=== PATIENT | female | born 1975 | race Caucasian/White ===

== ENCOUNTER → 2017-02-23 | Outpatient (CLI) | payer MEDICAID ==
[~2017-02-23] MED LIST: ALBUTEROL2 PUFFS/17 IN; AZITHROMYCIN250 MG PO; BACTRIM DS 8001 TA1 PO; BUTALBITAL COMP PO; CIPRO 250MG TA250 MG PO; CIPRO 500MG TA500 MG PO; DARVOCET-N 1001 EACH PO; DARVON-N100 MG PO; DOXYCYCLINE100 M1 PO; ESCITALOPRAM10 M1 PO; FIORICET 325 MG1 TAB PO; FLAGYL 500MG.500 MG PO; FLEXERIL10 MG PO; HYDROCODONE-APA1 TA1 PO; HYDROCODONE1 TABLET PO; IBU-8800 MG PO; KEFLEX 500MG.500 MG PO; KEFLEX500 M1 PO; LEVOTHYROXIN0.025 M2 PO; LEVOTHYROXIN0.075 M1; LEVOTHYROXINE0.05 MG PO; LORTAB 5/500 501 TAB PO; MACROBID 100MG100 MG PO; MACROBID100 M3 PO; MAXALT5 MG PO; MEDROL 4MG. DOSE4 MG PO; MOTRIN 600MG.600 MG PO; MUCINEX600 M1 PO; NAPROSYN 500MG500 MG PO; NORCO 325 MG-51 TAB PO; PERCOCET 5/3251 EACH PO; PHENERGAN 25MG.25 M1 PO; POLYCARB625 MG PO; PREDNISONE 20MG20 MG PO; PREDNISONE50 MG PO; PRILOSEC20 MG PO; PROMETHAZINE D118 ML PO; PYRIDIUM 200MG200 MG PO; PYRIDIUM200 M2 PO; SPRINTEC 35 MCG1 TAB PO; SYNTHROID0.175 MG PO; TALWIN NX 50MG50 MG PO; TERAZOL 7 VAG C45 GM VG; TESSALON PERLE100 M1 PO; TESSALON PERLE100 MG PO; TYLENOL/COD #31 EACH PO; VIBRAMYCIN 100100 MG PO; VIBRAMYCIN HYC100 MG PO; VICODIN 5/500 T1 TAB PO; VOLTAREN75 MG PO; ZITHROMAX Z PA250 MG PO; ZITHROMAX Z-PA250 M1 PO
[2017-02-23 15:44] LABS: HEMOGLOBIN 13.2 g/dL (12.2-16.2); LYMPH # 2.4 K/mm3 (0.7-4.5)
[2017-02-23 15:59] LABS: URINE BILIRUBIN - DIPSTICK NEGATIVE (NEG); URINE BLOOD 2+ (NEG)
[2017-02-23 16:24] LABS: BUN 9 mg/dL (7-18)
[2017-02-23 16:26] LABS: GFR (ESTIMATED) 93 ML/MIN (59-)
== END ==
LOC: LAB 15:16
PROVIDERS: Obstetrics & Gynecology
DX: N92.0 Excessive and frequent menstruation with regular cycle (principal); N81.9 Female genital prolapse, unspecified; N85.2 Hypertrophy of uterus; Z01.818 Encounter for other preprocedural examination

== ENCOUNTER 2017-03-06 06:23 | Observation (INO) | payer MEDICAID ==
[2017-03-06] VITALS (14 sets, daily range): BP systolic 115–155; BP diastolic 58–91
--- NOTE | 2017-03-06 09:13 | Anesthesia Record ---
Anesthesia Record Part I Total IV fluids: 2200 EBL (ml): 200 Urine Output: 150 B/P: 123/83 % SaO2: 95 Pulse: 91 Resps: 12 Temp: 97.6 Patient is: Awake, Stable Stable to PACU at: 0910 at 0913
--- NOTE | 2017-03-06 09:14 | Anesthesia Record ---
Anesthesia Record Part II Discharge time: 939 Destination: Second Floor PACU nurse assessment review? Yes Patient is: Awake, Stable Anesthesia complications? No at 0989
--- NOTE | 2017-03-06 09:26 | Operative Note ---
Procedure/Operative Record Date of Procedure: 03/06/17 Referring physician: Dr. Peterson Pre-op diagnosis: 1. Dysfunctional uterine bleeding. 2. Pelvic pain. 3. Symptomatic pelvic relaxation. Post-op diagnosis: 1. Dysfunctional uterine bleeding. 2. Pelvic pain. 3. Symptomatic pelvic relaxation. Procedure performed: Total vaginal hysterectomy, enterocele repair, anterior and posterior colporrhaphies. Surgeon: Kleber Ozuna Senior Operations Manager(s): DONNA Harrison Anesthesia: Gen.OH Indications: 1. Dysfunctional uterine bleeding. 2. Pelvic pain. 3. Symptomatic pelvic relaxation. Description of procedure: After the patient was prepped and draped in usual fashion and general anesthesia was administered, a weighted speculum was placed within the posterior fourchette of the vagina, and the cervix was grasped with a double-tooth tenaculum, and retracted to the introitus. The cervix was circumcised with a knife, and the vaginal mucosa was sharply and bluntly dissected free. A posterior colpotomy incision was made with Loki scissors, and the long lip of the weighted speculum was placed within the posterior peritoneum. The uterosacral ligaments on either side were Horacio clamped, cut, and Horacio sutured with #1 Vicryl, as were the cardinal ligaments and uterine vessels. The peritoneum was entered anteriorly with Loki scissors, and a long right angle retractor was placed within it. The uterus was flipped anteriorly, and the ovarian pedicles were crossclamped and cut, thus removing the boggy uterine specimen. These pedicles were Horacio sutured, and then free tied with #1 Vicryl. Each ovary appeared normal, and the adnexa were left in situ. Each tube showed evidence of previous ligation. The posterior vaginal cuff was then run and locked with #1 Vicryl, to include the uterosacral ligament pedicles for vaginal support, in a Wade fashion, to reduce the enterocele. The anterior peritoneum was grasped with a long Allis clamp, and closed with a running pursestring suture of 0 Vicryl, and pulled tight. The base of the cystocele was then grasped with 2 Mauricio clamps, and the vaginal mucosa was undermined up the midline to the urethral meatus, Allis clamps being placed on either side along the way. The endopelvic fascia was sharply and bluntly dissected free, and then interrupted U-sutures of 2-0 Vicryl were placed to elevate the urethrovesical angle. The excess vaginal mucosa was then trimmed, and the mucosa was closed with a running locked suture of 2-0 Vicryl. The vaginal cuff was then closed with a running locked suture of #1 Vicryl. The posterior repair was carried out as had been the anterior repair, albeit in a malaika-shaped fashion. It was intact at the close of the procedure. The sponge and needle counts correct. The urine was clear in the Srinivasan catheter. The estimated blood loss was 300 mL. The patient tolerated the procedure well, and was taken to PACU in excellent condition. EBL (ml): 300 Complications: None. Specimens: Uterus. at [id number]
--- OUTSIDE RECORDS SUMMARY | 2017-03-06 09:49 | External Medical Summary Rpt ---
Author Author , Organization [employer] Address Unknown Phone Unavailable Care Team Providers Care Prosthetics Lab Technician Name Role Phone MOSQUERA, MOSQUERA Unavailable Unavailable MOSQUERA CORTEZ, MOSQUERA Unavailable Unavailable CORTEZ MOSQUERA, ARIS D, Unavailable Unavailable MOSQUERA, ARIS D ALFARIS MOH, ALFARIS Unavailable Unavailable MOH ADY WORKMANOLD Unavailable Unavailable MITCHELL AKUA MEDRANO, ARNOLD Unavailable Unavailable JAMES JOHNSON, Unavailable Unavailable JAMES FATIMA SAAB KEITH, [facility] Unavailable Unavailable Kavon Levi MD, Unavailable Unavailable Kavon Levi MD [facility], [facility] Unavailable Unavailable [facility], [facility] FUENTES BRO, FUENTES Unavailable Unavailable BRO FUENTES BRO, FUENTES Unavailable Unavailable BRO BEINEKE, BEINEKE Unavailable Unavailable BEINEKE SHELLEY, BEINEKE Unavailable Unavailable SHELLEY COFFMAN TER, COFFMAN TER Unavailable Unavailable BESSON, BESSON Unavailable Unavailable BESSON JOSE, BESSON Unavailable Unavailable JOSE BESSON, JAE A, Unavailable Unavailable BESSON, JAE A [facility] Unavailable Unavailable [facility], [facility] MOLINA ALL, MOLINA ALL Unavailable Unavailable [facility] Unavailable Unavailable [facility] Unavailable Unavailable [facility], [facility] ED JUAREZ, ED Unavailable Unavailable DATA STORAGE SPECIALIST VANITA TER, VANITA TER Unavailable Unavailable VANITA TER, VANITA TER Unavailable Unavailable WOODS BOOKER, WOODS Unavailable Unavailable BOOKER WOODS BOOKER, WOODS Unavailable Unavailable FELIX SPANN, Unavailable Unavailable FELIX WO[facility] Un[facility] Unavailable Unavailable [facility], [facility] Unavailable Unavailable [facility], [facility] CRAGER JAM, CRAGER Unavailable Unavailable JAM AMALIA PAT, AMALIA PAT Unavailable Unavailable AMALIA PAT, AMALIA PAT Unavailable Unavailable AMALIA JR, RORY R, Unavailable Unavailable AMALIA JR, RORY R KRITSIE TAM, Unavailable Unavailable KRISTIE TAM KRISTIE, KUSH, Unavailable Unavailable KRISTIE, KUSH RITA ANTIONE, RITA Unavailable Unavailable ANTIONE DEPA RAY, DEPA RAY Unavailable Unavailable ONEYDA ONDINA, Unavailable Unavailable ONEYDA ONDINA FALLUJI COLT, FALLUJI Unavailable Unavailable COLT FAUGHN JACOBSON, FAUGHN Unavailable Unavailable JACOBSON FEEBACK, FEEBACK Unavailable Unavailable FRYMAN, FRYMAN Unavailable Unavailable FRYMAN EUG, FRYMAN Unavailable Unavailable EUG KARINA, KARINA Unavailable Unavailable KARINA ANTIONE, KARINA Unavailable Unavailable ANTIONE KARINA, NEMO S, Unavailable Unavailable KARINA, NEMO S [facility], [facility] ANT, DAY Unavailable Unavailable ANT YECENIA, RONDAL E, Unavailable Unavailable YECENIA, RONDAL E ROVERTO ANTIONE, ROVERTO ANTIONE Unavailable Unavailable SALAZAR MILLIE, SALAZAR MILLIE Unavailable Unavailable HARPEL, HARPEL Unavailable Unavailable [facility] Unavailable Unavailable CENTER, [facility] Unavailable Unavailable CENTER, [facility] Unavailable Unavailable INC, [facility] Unavailable Unavailable HOSPITAL, [facility] Unavailable Unavailable HOSPITAL P, [facility], Unavailable Unavailable [facility] ANDRES, ANDRES Unavailable Unavailable ANDRES TRA, ANDRES TRA Unavailable Unavailable ANDRES, TRUDY A, ANDRES, Unavailable Unavailable TRUDY A [facility] Un[facility] Unavailable GROUP PS, [facility] Unavailable Unavailable [facility], [facility] Shawna Foley MD, Unavailable Unavailable Shawna Foley MD [facility] ROQUE NATTY, ROQUE Unavailable Unavailable NATTY ROQUE NATTY, ROQUE Unavailable Unavailable NATTY CYDNEY ROQUE, Unavailable Unavailable CYDNEY ROQUE DWI, DOROTHY DWI Unavailable Unavailable DOROTHY JR DWI, DOROTHY Unavailable Unavailable JR DWI DOROTHY JR DWI, DOROTHY Unavailable Unavailable JR DWI BO MITCHELL, BO Unavailable Unavailable MITCHELL Dorene Peterson MD, Unavailable Unavailable Dorene FRANKLIN RAEGAN, NOEMI Unavailable Unavailable RAEGAN NELY MCKEE, Unavailable Unavailable NELY MCKEE [facility] Unavailable Unavailable SERVICES, [facility] CONTE MAR, CONTE Unavailable Unavailable MAR NORMA LEDESMA, RORY Unavailable Unavailable F, NORMA LEDESMA, RORY F JOSEFINA TALBOT, Unavailable Unavailable JOSEFINA TALBOT BREANNA, KETURAH BREANNA Unavailable Unavailable [facility], Un[facility] Unavailable [facility], [facility] Unavailable Unavailable LAB, [facility] PETTEY JAM, PETTEY Unavailable Unavailable JAM PICKLESIMER JR VANDANA, Unavailable Unavailable PICKLESIMER JR VANDANA EMILY, EMILY Unavailable Unavailable EMILY TOD, EMILY TOD Unavailable Unavailable RENUSCH HONG, RENUSCH Unavailable Unavailable HONG JUHI JOSE, JUHI JOSE Unavailable Unavailable JUHI JOSE, JUHI JOSE Unavailable Unavailable SCIFRES, NAMRATA M, Unavailable Unavailable SCIFRES, NAMRATA M LILIA MAT, Unavailable Unavailable LILIA MAT MORRISSEY, MORRISSEY Unavailable Unavailable MORRISSEY RHODA, MORRISSEY RHODA Unavailable Unavailable SOTINGEANU SHELLEY, Unavailable Unavailable SOTINGEANU SHELLEY [facility] REYES ANA, REYES Unavailable Unavailable ANA JAE JUHI DO, Unavailable Unavailable JAE JUHI DO RIOJAS, DON R, Unavailable Unavailable RIOJAS, DON R STONE MARY, STONE MARY Unavailable Unavailable SEVILLA GRE, SEVILLA Unavailable Unavailable GRE TIKHTMAN, TIKHTMAN Unavailable Unavailable AGUDELO MOL, AGUDELO MOL Unavailable Unavailable [facility] Unavailable Unavailable [facility] [facility] Unavailable Unavailable [facility][id number], [id number] # Unavailable Unavailable [id number], [facility] # [id number] [facility] Unavailable Unavailable DEPT [facility] DE[facility] DANIELLE WEHRMAN III BREANNA, Unavailable Unavailable WEHRMAN III BREANNA SEQUEIRAHRKARYN III, RORY, Unavailable Unavailable BETH III, RORY GATES, JOLYNN GATES Unavailable Unavailable JOYLNN GATES, JOLYNN GATES Unavailable Unavailable JOLYNN SHA, JOLYNN SHA Unavailable Unavailable MAKENZIE JOHN E, Unavailable Unavailable JOHN BANEGAS CORTEZ, JEFFREY Unavailable Unavailable CORTEZ Purpose Continuity of Care Document - 06-08-2008 through 2016 Problems Code Diagnosis DOS Provider Status N920 EXCESS & 02-01-2017 [facility] FREQUENT PHYSICIANS MENSTRUATIO GROUP N W/REGULAR CYCLE N819 FEMALE 01-18-2017 [facility] PROLAPSE INC UNSPECIFIED R102 PELVIC AND 01-18-2017 [place] PERINEAL [facility]ICAL PAIN IMAGING ASS R938 ABNORMAL 01-18-2017 [place] FIND ON DX MEDICAL IMAGING OT IMAGING ASS SPEC BODY STRCT V48969 ENCOUNTER 01-12-2017 [facility] 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 WITHOUT HEMATURIA N8110 CYSTOCELE 11-14-2016 [facility] P L09367 PERSONAL 11-01-2016 [facility] HISTORY OF PHYSICIANS COLONIC GROUP POLYPS K635 POLYP OF 10-19-2016 [facility] COLON PHYSICIANS GROUP Z09 ENC F/U 10-19-2016 [facility] EXAM AFTR PHYSICIANS CMPL TX OTH GROUP THAN MALIG NEOPLSM K5909 OTHER 10-04-2016 [facility] CONSTIPATIO PHYSICIANS N GROUP R197 DIARRHEA 10-04-2016 [facility] UNSPECIFIED PHYSICIANS GROUP N359 URETHRAL 09-12-2016 [facility] P N390 URINARY 09-12-2016 [facility] TRACT ANESTH OF INFECTION THE BLUE SITE NOT SPECIFIED R319 HEMATURIA 08-07-2016 [facility] UNSPECIFIED PHYSICIANS GROUP I10 ESSENTIAL 08-04-2016 [facility] HYPERTENSIO INC N L2389 ALLERGIC 08-04-2016 [facility] DERMATITIS INC DUE TO OTHER AGENTS N151N8G ADVERSE EFF 08-04-2016 [facility] OT SYS [facility] ANTI-INFECT INC /PARASIT INIT ENC L7911CN ALLERGY 08-04-2016 [facility] UNSPECIFIED PHYSICIANS, INITIAL [facility] ENCOUNTER Z720 TOBACCO USE 08-04-2016 [facility] INC N210 CALCULUS IN 07-07-2016 [facility] BLADDER PHYSICIANS GROUP N3000 ACUTE 07-07-2016 [facility] CYSTITIS [facility] WITHOUT INC HEMATURIA N3090 CYSTITIS 07-07-2016 [facility] UNSPECIFIED PHYSICIANS, WITHOUT PLLC HEMATURIA Z1231 ENCOUNTER 07-04-2016 [place] SCREENING MEDICAL MAMMO MALIG IMAGING ASS NEOPLASM BREAST R1030 LOWER 07-02-2016 [facility] ABDOMINAL PHYSICIANS, PAIN PLLC UNSPECIFIED Z40687 ATYP SQ 06-23-2016 [facility] SIGNIFICANC E CYTOL SMER CERV Z74208 ENCOUNTER 06-23-2016 [facility] MATERIALS MANAGEMENT SUPERVISOR EXAM PHYSICIANS GENERAL RTN GROUP W/O ABNORMAL FIND N949 UNS COND 06-09-2016 [facility] ASSOC W/FE [facility] GENIT ORGN INC & MENSTRUAL CYCL E039 HYPOTHYROID 06-05-2016 [facility] ISM [facility] UNSPECIFIED INC K5900 CONSTIPATIO 05-01-2016 [facility] N PHYSICIANS UNSPECIFIED GROUP R109 UNSPECIFIED 05-01-2016 [facility] ABDOMINAL PHYSICIANS PAIN GROUP G5601 CARPAL 02-16-2016 [place] TUNNEL ANESTHESIA SYNDROME GROUP PS RIGHT UPPER LIMB P75664 ENCOUNTER 02-08-2016 [facility] FOR [facility] PREPROCEDUR INC AL LABORATORY EXAM L240 IRRITANT 02-06-2016 [facility] CONTACT PHYSICIANS DERMATITIS GROUP DUE TO DETERGENTS P39891 ACUTE & 01-28-2016 [facility] SUBACUTE PHYSICIANS ALLERGIC GROUP OTITS MEDIA BILATERAL G5602 CARPAL 01-27-2016 [facility] TUNNEL ORTHOPAEDIC SYNDROME S PSC LEFT UPPER LIMB J40 BRONCHITIS 12-29-2015 [facility] NOT PHYSICIANS SPECIFIED GROUP ACUTE OR CHRONIC R200 ANESTHESIA 11-02-2015 [facility] OF SKIN PHYSICIANS GROUP D126 BENIGN 10-11-2015 [facility] NEOPLASM OF PHYSICIANS COLON GROUP UNSPECIFIED K625 HEMORRHAGE 10-11-2015 [facility] OF ANUS AND PHYSICIANS RECTUM GROUP K9189 OTH 10-07-2015 [facility] POSTPROC PHYSICIANS, COMP & PLLC DISORDERS DIGESTIVE SYSTEM R1032 LEFT LOWER 10-07-2015 [place] QUADRANT MEDICAL PAIN IMAGING ASS M549 DORSALGIA 09-10-2015 [facility] UNSPECIFIED [facility]OSP INC K828 OTHER 09-08-2015 [facility] SPECIFIED [facility] DISEASES OF INC GALLBLADDER E46883Y STRAIN 09-08-2015 [facility] MUSCLE PHYSICIANS, FASCIA & PLLC TENDON LOW BACK INITIAL 2468 OTHER 07-20-2015 [facility] SPECIFIED LAR DISORDERS CONSULTANTS OF THYROID O 2724 OTHER AND 07-20-2015 [facility] UNSPECIFIED [facility] INC HYPERLIPIDE KAITLYN 40933 UNSPEC HTN 07-20-2015 [facility] HEART LAR DISEASE CONSULTANTS WITHOUT O HEART FAIL 61366 COR 07-20-2015 [facility]THEROSLERO [facility] UNSPEC INC TYPE VESSEL [place] YAQUI/APURVA T 4019 UNSPECIFIED 07-13-2015 [facility] ESSENTIAL [facility] HYPERTENSIO INC N 4139 OTHER AND 07-13-2015 [facility] UNSPECIFIED [facility] ANGINA INC PECTORIS 33364 NONSPECIFIC 07-08-2015 [place] [facility] auctionpoint IOGRAM 193 MALIGNANT 07-01-2015 [facility] NEOPLASM OF [facility] THYROID [facility] P GLAND 2449 UNSPECIFIED 07-01-2015 [facility] HYPOTHYROID [facility] P ISM 3540 CARPAL 07-01-2015 [facility] [address] [facility] SYNDROME [facility] 35646 CHEST PAIN 07-01-2015 [facility] 5990 URINARY 06-21-2015 [facility] TRACT PHYSICIANS, INFECTION PLLC SITE NOT SPECIFIED 02019 ABDOMINAL 06-21-2015 [place] PAIN OTHER MEDICAL SPECIFIED IMAGING ASS SITE 52683 MIGRAINE 06-12-2015 [facility] UNSP W/O PHYSICIANS, INTRACT W/O PLLC STATUS MIGRAINOSUS 67751 VISUAL 06-12-2015 [facility] DISCOMFORT PHYSICIANS, PLLC 2397 NEOPLSM UNS 04-05-2015 [facility] NATR PHYSICIANS ENDOCRN GROUP GLND&OTH PART NERV SYS V2540 UNSPECIFIED 02-09-2015 [facility] CONTRACEPTI HLTH DEPT VE DANIELLE SURVEILLANC E V2689 OTHER 02-09-2015 [facility] SPECIFIED DISTRICT PROCREATIVE HLTH DEPT MANAGEMENT DANIELLE V7231 ROUTINE 02-09-2015 [facility] AL EXAMINATION 4659 ACUTE URIS 01-26-2015 [facility] UNSPECIFIED HOSPITAL P SITE 31884 FEVER 01-26-2015 [place] UNSPECIFIED MEDICAL IMAGING ASS 7862 COUGH 01-26-2015 [facility] 7962 ELEVATED BP 01-26-2015 [facility] WITHOUT DX HOSPITAL P HYPERTENSIO N 6259 UNSPEC 01-14-2015 [facility] SYMPTOM PHYSICIANS ASSOC GROUP W/FEMALE GENITAL ORGANS 28362 ABDOMINAL 01-14-2015 [facility] PAIN, LEFT PHYSICIANS LOWER GROUP QUADRANT 61115 UNSPECIFIED 01-06-2015 [facility] PHYSICIANS CONSTIPATIO GROUP N 78873 THYROTOX 11-26-2014 [facility] W/O [facility] GOITER/OTH INC CAUSE W/O CRISIS 82718 GENERALIZED 10-23-2014 [facility] PAIN [facility] INC 7840 HEADACHE 10-23-2014 [facility] INC V0179 CONTACT OR 10-23-2014 [facility] EXPOSURE TO [facility] OTHER INC VIRAL DISEASES V642 SURG/OTH 10-23-2014 [facility] PROC NOT MEM H[facility] CARRIED OUT INC BECAUSE PTS DECN 60979 HEMATURIA 10-04-2014 [place] UNSPECIFIED MEDICAL IMAGING ASS 7880 RENAL COLIC 10-04-2014 [facility] P 86869 UNSPECIFIED 09-25-2014 [facility] SITE OF MEM HOS[facility] ANKLE INC SPRAIN AND STRAIN 15298 OTHER ANKLE 09-25-2014 [facility] SPRAIN AND PHYSICIANS STRAIN GROUP 14138 OTHER JOINT 08-28-2014 [facility] PHYSICIANS DERANGEMENT GROUP NEC ANKLE AND FOOT 226 BENIGN 08-11-2014 [facility] NEOPLASM OF THYROID GLANDS 2419 UNSPECIFIED 08-11-2014 [place] NONTOXIC [facility] NODULAR HOSPI GOITER V5869 LONG-TERM 08-05-2014 [facility] (CURRENT) [facility] USE OF HOSPITAL P OTHER MEDICATIONS V7263 PRE-PROCEDU 08-05-2014 [facility] P EXAMINATION 76848 PAIN IN 07-15-2014 [place] JOINT, MEDICAL ANKLE AND IMAGING ASS FOOT 7295 PAIN IN 07-15-2014 [facility] SOFT N EMERGENCY TISSUES OF PHYS LIMB 2411 NONTOXIC 06-10-2014 [facility] MULTINODULA H R GOITER ANESTHESIA PSC 37737 DYSPHAGIA 06-10-2014 [facility] UNSPECIFIED H ANESTHESIA PSC 2410 NONTOXIC 05-29-2014 [facility] UNINODULAR [facility] GOITER INC 6262 EXCESSIVE 04-14-2014 CH[facility] BOOKER OR FREQUENT MENSTRUATIO N 6264 IRREGULAR 04-14-2014 [facility] BOOKER MENSTRUAL CYCLE 6253 DYSMENORRHE 03-19-2014 [facility] BOOKER A 6227 MUCOUS 03-18-2014 [facility] CIHNO POLYP OF CERVIX 15790 PAP SMER 02-17-2014 VANITA ALVA CERV W/ATYPICAL SQUAMOUS CELLS UNDET V252 STERILIZATI 02-17-2014 [facility] DEPT DANIELLE 278.01 278.01 12-03-2013 [place] MORBID [facility] OBESITY Hospital 16911 MORBID 12-03-2013 DOROTHY LEDESMA OBESITY DWI 305.1 305.1 12-03-2013 [place] TOBACCO USE [facility] DISORDER Hospital 401.9 401.9 12-03-2013 [place] HYPERTENSIO [facility] N NOS Hospital 413.9 413.9 12-03-2013 [place] ANGINA [facility] PECTORIS Hospital NEC/NOS 786.50 786.50 12-03-2013 [place] CHEST PAIN [facility] 94276 OTHER CHEST 12-03-2013 JUHI JOSE PAIN V14.0 V14.0 12-03-2013 [place] HX-PENICILL [facility] IN ALLERGY Hospital V14.8 V14.8 12-03-2013 [place] HX-DRUG [facility] ALLERGY [facility] Hospital V140 PERSONAL 12-03-2013 DOROTHY LEDESMA HISTORY OF DWI ALLERGY TO PENICILLIN V148 PERSONAL 12-03-2013 DOROTHY LEDESMA HISTORY [facility] ALLERGY OTH SPEC MEDICINAL AGTS 461.9 461.9 ACUTE 11-16-2013 [place] SINUSITIS [facility] 4619 ACUTE 11-16-2013 JOLYNN GATES SINUSITIS, UNSPECIFIED 599.0 599.0 URIN 11-16-2013 [place] TRACT [facility] INFECTION [facility] NOS 7242 LUMBAGO 11-01-2013 F[facility] ARIANA 558.9 558.9 04-02-2013 [place] NONINF [facility] IT NEC 924.20 924.20 01-17-2013 [place] CONTUSION [facility] E849.3 E849.3 ACC 01-17-2013 [place] [facility] E917.3 E917.3 01-17-2013 [place] FURNIT W/O [facility] 2409 GOITER, 07-10-2011 [facility] NATTY UNSPECIFIED 2459 UNSPECIFIED 07-03-2011 [facility] NAT[facility] THYROIDITIS 5409 ACUTE 06-27-2011 [facility] APPEND[facility]ITI [facility]GENCY S WITHOUT SERVICES MENTION PERITONITIS 541 APPENDICITI 06-27-2011 COMMUNITY S, ANESTH OF UNQUALIFIED THE BLUE 35097 ABDOMINAL 06-27-2011 [place] PAIN, MEDICAL UNSPECIFIED IMAGING ASS SITE 6869 UNSPEC 06-21-2011 ARNOLD MITCHELL LOCAL INFECTION SKIN&SUBCUT ANEOUS TISSUE 7881 DYSURIA 05-21-2011 [place] [facility] 56621 ABDOMINAL 05-21-2011 [facility] PAIN RIGHT [facility] LOWER INC QUADRANT 5641 IRRITABLE 05-04-2011 ARNOLD MITCHELL BOWEL SYNDROME 6929 CONTACT 05-04-2011 ARNREGINO MITCHELL DERMATITIS& OTHER ECZEMA DUE UNSPEC CAUSE 4871 INFLUENZA 04-17-2011 ARNOLD MITCHELL WITH OTHER RESPIRATORY MANIFESTATI ONS 44402 PAINFUL 04-07-2011 [place] RESPIRATION [facility]ICAL IMAGING ASS 2722 MIXED 03-21-2011 [facility] HYPERLIPIDE [facility] KAITLYN INC 5110 PLEURISY 03-07-2011 [facility] WITHOUT EMERGENCY MENTION SERVICES EFFUS/CURRE NT TB 4660 ACUTE 01-24-2011 [facility] BRONCHITIS EMERGENCY SERVICES 27076 MIGRAINE 12-28-2010 [facility] INTRACT W/O CENTER JOHN STATUS MIGRAINOSUS 64497 PAIN IN 12-14-2010 [facility] JOINT, EMERGENCY FOREARM SERVICES 57196 VARIANTS 12-07-2010 ARNOLD MITCHELL MIGRAINE NEC INTRACT MIGRAINE W/O SM 463 ACUTE 11-28-2010 [facility] NATTY TONSILLITIS 22228 ASTHMA, 11-18-2010 [facility] UNSPECIFIED EMERGENCY , SERVICES UNSPECIFIED STATUS 462 ACUTE 10-31-2010 [facility] NAT[facility] PHARYNGITIS 4760 CHRONIC 10-31-2010 [facility] NAT[facility] LARYNGITIS 44225 CHRONIC 10-03-2010 [place] NAT[place] TONSILLITIS 60789 SPRAIN AND 09-18-2010 [facility] STRAIN OF EMERGENCY UNSPECIFIED SERVICES SITE OF WRIST 60099 SPRAIN AND 09-18-2010 [facility] STRAIN OF EMERGENCY UNSPECIFIED SERVICES SITE OF HAND 9593 INJURY 09-18-2010 [place] OTHER&UNSPE MEDICAL CIFIED IMAGING ASS ELBOW FOREARM&WRI ST 9594 INJURY 09-18-2010 [place] OTHER AND MEDICAL UNSPECIFIED IMAGING ASS HAND EXCEPT FINGER E8859 FALL FROM 09-18-2010 [facility] OTHER EMERGENCY SLIPPING SERVICES TRIPPING OR STUMBLING 2662 OTHER 09-06-2010 [facility] [place] [facility] S V700 ROUTINE 09-06-2010 [facility] EXAM@HEALTH CARE FACL V7643 SCREENING 09-06-2010 [facility] MALIGNANT CENTER NEOPLASM OF THE SKIN 6202 OTHER AND 07-11-2010 [facility] UNSPECIFIED EMERGENCY OVARIAN SERVICES CYST 39418 SPRAIN AND 06-20-2010 [facility] STRAIN OF EMERGENCY UNSPECIFIED SERVICES SITE OF FOOT 8472 LUMBAR 06-20-2010 [place] SPRAIN AND EMERGENCY STRAIN SERVICES 68986 OTHER 06-20-2010 [facility] INJURY OF MEDICAL OTHER SITES IMAGING ASS OF TRUNK 9596 INJURY 06-20-2010 [place] OTHER AND MEDICAL UNSPECIFIED IMAGING ASS HIP AND THIGH 9597 INJURY 06-20-2010 [place] OTHER&UNSPE MEDICAL CIFIED KNEE IMAGING ASS LEG ANKLE&FOOT 4721 CHRONIC 04-21-2010 [place] ROQUERYJANUSZ Bose 8470 NECK SPRAIN 04-05-2010 [facility] AND STRAIN [facility] INC 8471 THORACIC 04-05-2010 [facility] SPRAIN AND MEM [facility] STRAIN INC V571 OTHER 04-05-2010 [facility] PHYSICAL [facility] THERAPY INC 0794 HUMAN 03-10-2010 PATHOLOGY & [place] CYTOLOGY VIRUS IN LAB CCE & UNS SITE 6160 CERVICITIS 03-10-2010 PATHOLOGY & AND CYTOLOGY ENDOCERVICI LAB TIS 10648 MILD 03-10-2010 PATHOLOGY & DYSPLASIA CYTOLOGY OF CERVIX LAB 02661 CERV HIGH 03-10-2010 [facility] DNA CYNTHIANA TEST POS PLLC 5921 CALCULUS OF 01-13-2010 [facility] URETER H UROLOGY PSC 7231 CERVICALGIA 12-02-2009 [facility] FLOWERS 7919 OTHER 09-25-2009 [facility] NONSPECIFIC [facility] FINDING INC EXAMINATION OF URINE 5589 OTH&UNSPEC 09-01-2009 BEUL[facility] NONINFECTIO DON R US GASTROENTER ITIS&COLITI S V771 SCREENING 08-30-2009 [facility] FOR HEALTH DIABETES [facility] ACCT V7791 SCREENING 08-30-2009 [facility] FOR LIPOID HEALTH DISORDERS [facility] ACCT 11288 MIXED 08-26-2009 [facility] INCONTINENC H UROLOGY E URGE AND PSC STRESS 6256 FEMALE 08-16-2009 [facility] STRESS H UROLOGY INCONTINENC ASC E 55385 POLYURIA 07-29-2009 [facility] H UROLOGY PSC 99385 URGENCY OF 07-29-2009 [facility] URINATION H UROLOGY PSC 35968 OTHER 07-14-2009 NOEL RIOJAS DON R DISORDERS OF URINARY TRACT 7224 DEGENERATIO 06-23-2009 Gigi RIOJAS OF DON R CERVICAL INTERVERTEB RAL DISC 7245 UNSPECIFIED 06-23-2009 BEULAH BACKACHE DON R 3829 UNSPECIFIED 03-08-2009 [facility] OTITIS [facility] MEDIA INC 41733 OSTEOARTHRO 12-02-2008 Charanjit RIOJAS INVLV MX DON R SITES BUT NOT SPEC GEN 3671 MYOPIA 10-02-2008 [facility] VISION 45552 OTHER 08-03-2008 NOEL RIOJAS DON R TYPES OF CYSTITIS 5368 DYSPEPSIA&O 07-23-2008 [place] THER SPEC [employer] FUNCTION STOMACH V180 FAMILY 07-01-2008 [facility] HISTORY OF [facility] DIABETES INC MELLITUS 7804 DIZZINESS 06-30-2008 BEULAH LANDON LANINESS 77725 OTHER 06-08-2008 [facility] TENOSYNOVIT [facility] IS OF HAND INC AND WRIST N30.90 CYSTITIS, UNSPECIFIED WITHOUT HEMATURIA R07.9 CHEST PAIN, UNSPECIFIED R10.2 PELVIC AND PERINEAL PAIN R10.9 UNSPECIFIED ABDOMINAL PAIN R31.9 HEMATURIA, UNSPECIFIED T78.40XA ALLERGY, UNSPECIFIED , INITIAL ENCOUNTER Allergies, Adverse Reactions, Alerts Type Allergy to substance Drug Allergy Propensity to adverse reactions to drug Adverse Reaction to Substance Substance Reaction Severity Latex Unknown Unknown Penicillin Unknown Unknown SULFA (sulfonamide) Unknown Unknown Erythromycin Unknown Unknown Morphine Unknown Unknown Penicillin V Unknown Unknown Trimethoprim Unknown Unknown Ciprofloxacin Unknown Unknown Sulfamethoxazole Unknown Unknown Latex Unknown Unknown Nitrofurantoin NA-DIARRHEA Mild Medications Na ND Rx Da Fi Fi Am Da Di Ph RX Ph St me C No te ll ll ou ys ag ar # ys at rm s nt no ma ic us Or Da si cy ia de te s n re d CE 68 02 03 20 10 00 OR Ac PH 18 -2 -2 .0 00 L- ti AL 00 0- 4- 00 07 MA ve EX 12 20 20 47 RT IN 20 17 17 17 2 97 PH 50 AR 0 MA MG CY CA #5 PS 91 UL E FL 60 02 03 16 30 00 OR Ac UT 50 -2 -2 .0 00 L- ti IC 50 0- 4- 00 07 MA ve 82 20 20 47 RT ON 90 17 17 17 E 1 98 PH NC AR OP MA CY 50 #5 MC 91 G SP RA Y LE 00 02 03 30 30 00 OR Ac VO 78 -2 -2 .0 00 L- ti TH 15 2- 4- 00 07 MA ve YR 18 20 20 47 RT OX 89 17 17 25 IN 2 04 PH E AR 17 MA 5 CY MC G #5 TA 91 BL ET DO 23 02 03 60 30 00 OR Ac XY 15 -0 -1 .0 00 L- ti CY 50 2- 0- 00 07 MA ve CL 13 20 20 46 RT IN 52 17 17 84 E 5 58 PH MO AR NO MA CY 10 0 #5 MG 91 TA BL ET AZ 59 02 03 6. 5 00 OR Ac IT 76 -0 -1 00 00 L- ti HR 23 6- 0- 0 07 MA ve OM 06 20 20 46 RT YC 00 17 17 91 IN 1 35 PH AR 25 MA 0 CY MG #5 TA 91 BL ET LE 00 01 02 30 30 00 WA Ac VO 78 -1 -1 .0 00 L- ti TH 15 1- 0- 00 07 MA ve YR 18 20 20 46 RT OX 89 17 17 40 IN 2 97 PH E AR 17 MA 5 CY MC G #5 TA 91 BL ET NA 65 01 02 14 7 00 WA Ac NC 16 -1 -1 .0 00 L- ti OX 20 1- 0- 00 07 MA ve EN 19 20 20 45 RT 01 17 17 12 50 1 84 PH 0 AR MG MA CY TA BL #5 ET 91 GA 43 12 01 40 2 00 WA Ac 38 -2 -2 00 00 L- ti LY 60 6- 7- .0 07 MA ve TE 09 20 20 00 46 RT -G 01 16 17 06 9 44 PH SO AR JANICE MA TI CY ON #5 91 DO 23 12 01 20 10 00 OR Ac XY 15 -2 -2 .0 00 L- ti CY 50 1- 0- 00 07 MA ve CL 13 20 20 45 RT IN 52 16 17 99 E 5 66 PH MO AR NO MA CY 10 0 #5 MG 91 TA BL ET KE 00 02 0 No TO 40 -1 RO 93 2- Lo LA 79 20 ng C 50 14 er 30 1 Ac MG ti /M ve L AL IP 00 02 0 No RA 48 -1 T- 70 2- Lo AL 20 20 ng BU 10 14 er T 1 0. Ac 5- ti 3( ve 2. 5) MG /3 ML Sa 63 02 0 No li 80 -1 ne 70 2- Lo 10 20 ng Fl 07 14 er us 5 h Ac 10 ti ML ve Sy ri ng e Sa 63 02 0 No li 80 -1 ne 70 2- Lo 10 20 ng Fl 07 14 er us 5 h Ac 10 ti ML ve Sy ri ng e KE 00 01 0 No TO 40 -1 RO 93 1- Lo LA 79 20 ng C 60 14 er 60 1 Ac MG ti /2 ve ML AL GA [address] 27 -1 RO 00 2- Lo GR 44 20 ng AF 53 13 er IN 5 Ac 66 ti -1 ve 0 SO JANICE TI ON AC 51 06 0 No ET 07 -1 AM 90 2- Lo IN 16 20 ng OP 19 13 er HE 9H N Ac W/ ti CO ve DE IN E #3 TA K Me 63 06 0 No tr 73 -1 on 90 2- Lo id 17 20 ng az 61 13 er ol 0 e Ac 50 ti 0M ve G Ta bl et CE 62 06 0 No PH 75 -1 AL 60 2- Lo EX 29 20 ng IN 48 13 er 8 50 Ac 0 ti MG ve CA PS UL E AC 51 06 0 No ET 07 -1 AM 90 2- Lo IN 16 20 ng OP 19 13 er HE 9H N Ac W/ ti CO ve DE IN E #3 TA K Me 63 06 0 No tr 73 -1 on 90 2- Lo id 17 20 ng az 61 13 er ol 0 e Ac 50 ti 0M ve G Ta bl et TR 00 05 0 No AM 09 -0 AD 30 2- Lo OL 05 20 ng 80 13 er 50 1H MG Ac ti TA ve BL ET TA KE HO ME NC 00 05 0 No ED 05 -0 NI 40 2- Lo SO 01 20 ng NE 82 13 er 0 20 Ac ti MG ve TA BL ET BU 00 02 10 2 60 10 WA 71 AR Ac TA 14 -1 -3 .0 L- 07 NO ti LB 31 6- 1- 00 MA 16 LD ve -A 78 20 20 RT 5 CE 70 11 11 RI TA 1 PH CH IN AR AR N- MA D CA CY W FF # 50 10 -3 05 25 91 -4 0 BU 00 10 10 1 90 30 WA 71 AR Ac SP 09 -1 -1 .0 L- 38 NO ti IR 30 4- 4- 00 MA 92 LD ve ON 05 20 20 RT 8 E 40 11 11 RI HC 1 PH CH L AR AR 10 MA D CY W MG # TA 10 BL 05 ET 91 DI 00 10 10 1 60 20 OR 71 AR Ac CL 78 -1 -1 .0 L- 38 NO ti OF 11 4- 4- 00 MA 92 LD ve EN 78 20 20 RT 9 AC 76 11 11 RI 0 PH CH SO AR AR D MA D DR CY W # 50 10 MG 05 91 TA B 00 10 10 0 12 2 WA 44 SO Ac 40 -0 -0 .0 L- 96 KA ti 60 5- 5- 00 MA 70 N ve 35 20 20 RT 5 BA 70 11 11 BA 5 PH TU AR ND MA E CY O # 10 05 91 00 10 10 0 15 5 WA 71 SO Ac 37 -0 -0 .0 L- 37 KA ti 80 5- 5- 00 MA 81 N ve 75 20 20 RT 0 BA 19 11 11 BA 3 PH TU AR ND MA E CY O # 10 05 91 IB 68 10 10 0 15 5 OR 71 SO Ac UP 64 -0 -0 .0 L- 37 KA ti RO 50 5- 5- 00 MA 81 N ve FE 22 20 20 RT 1 BA N 25 11 11 BA 80 4 PH TU 0 AR ND MG MA E CY O TA # BL ET 10 05 91 PE 00 09 09 0 20 5 WA 44 SC Ac NT 59 -0 -0 .0 L- 96 HU ti AZ 10 6- 7- 00 MA 06 LS ve OC 39 20 20 RT 2 TA IN 50 11 11 D E- 1 PH CA NA AR MP LO MA BE XO CY LL NE # K TA 10 BL 05 ET 91 MU 45 08 09 1 22 10 OR 71 AR Ac PI 80 -3 -0 .0 L- 33 NO ti RO 20 1- 2- 00 MA 16 LD ve CI 11 20 20 RT 4 N 22 11 11 RI 2% 2 PH CH AR AR OI MA D NT CY W ME # NT 10 05 91 DO 53 08 08 1 20 10 OR 71 AR Ac XY 48 -3 -3 .0 L- 33 NO ti CY 90 1- 1- 00 MA 16 LD ve CL 11 20 20 RT 5 IN 90 11 11 RI E 2 PH CH HY AR AR CL MA D AT CY W E # 10 0 10 MG 05 91 CA P DI 00 07 07 2 12 30 OR 71 AR Ac CY 52 -1 -1 0. L- 27 NO ti CL 70 4- 5- 00 MA 11 LD ve OM 58 20 20 0 RT 4 IN 60 11 11 RI E 1 PH CH 10 AR AR MA D MG CY W # CA PS 10 UL 05 E 91 ME 00 07 07 1 21 6 OR 71 AR Ac TH 60 -1 -1 .0 L- 27 NO ti YL 34 4- 4- 00 MA 11 LD ve NC 59 20 20 RT 2 ED 31 11 11 RI NI 5 PH CH SO AR AR LO MA D NE CY W 4 # MG 10 05 DO 91 SE PK TR 00 07 07 1 80 20 OR 71 AR Ac IA 16 -1 -1 .0 L- 27 NO ti MC 80 4- 4- 00 MA 11 LD ve IN 00 20 20 RT 3 OL 48 11 11 RI ON 0 PH CH E AR AR 0. MA D 1% CY W # CR EA 10 M 05 91 LO 00 06 06 1 40 5 OR 71 AR Ac PE 37 -2 -2 .0 L- 24 NO ti RA 82 7- 7- 00 MA 83 LD ve IN 10 20 20 RT 4 DE 00 11 11 RI 2 1 PH CH AR AR MG MA D CY W CA # PS UL 10 E 05 91 LO 00 06 06 1 30 30 WA 88 AR Ac RA 78 -2 -2 .0 L- 18 NO ti TA 15 7- 7- 00 MA 28 LD ve DI 07 20 20 RT 7 NE 70 11 11 RI 1 PH CH 10 AR AR MA D MG CY W # TA BL 10 ET 05 91 DO 53 06 06 1 20 10 WA 71 AR Ac XY 48 -2 -2 .0 L- 24 NO ti CY 90 7- 7- 00 MA 83 LD ve CL 11 20 20 RT 1 IN 90 11 11 RI E 2 PH CH HY AR AR CL MA D AT CY W E # 10 0 10 MG 05 91 CA P AN 43 06 06 1 15 7 WA 71 AR Ac TI 19 -2 -2 .0 L- 24 NO ti PY 90 7- 7- 00 MA 83 LD ve RI 01 20 20 RT 2 NE 61 11 11 RI -B 5 PH CH EN AR AR ZO MA D CA CY W IN # E EA [address] 91 OP NC 68 06 06 1 30 7 WA 71 AR Ac OM 38 -2 -2 .0 L- 24 NO ti ET 20 7- 7- 00 MA 83 LD ve MANE 04 20 20 RT 3 ZI 10 11 11 RI NE 1 PH CH AR AR 25 MA D CY W MG # TA 10 BL 05 ET 91 TR 00 05 05 0 20 2 WA 44 GR Ac AM 37 -1 -1 .0 L- 93 AY ti AD 84 7- 7- 00 MA 77 ve OL 15 20 20 RT 2 RO 10 11 11 BE HC 1 PH RT L AR B 50 MA CY MG # TA 10 BL 05 ET 91 NC 00 05 05 0 5. 5 WA 71 GR Ac ED 05 -1 -1 00 L- 19 AY ti NI 40 7- 7- 0 MA 67 ve SO 01 20 20 RT 1 RO NE 92 11 11 BE 5 PH RT 50 AR B MA MG CY # TA BL 10 ET 05 91 LE 00 12 03 1 90 90 WA 70 LA Ac VO 37 -1 -2 .0 L- 98 WS ti TH 81 2- 8- 00 MA 65 ON ve YR 80 20 20 RT 4 OX 00 [address] E AR OR 25 MA G CY MC # G TA 10 BL 05 ET 91 TO 68 03 03 0 70 28 WA 71 EI Ac PI 38 -0 -1 .0 L- 11 CH ti RA 20 9- 6- 00 MA 36 HO ve MA 13 20 20 RT 8 RN TE 81 11 11 4 PH GE 25 AR RA MA LD MG CY R # TA BL 10 ET 05 91 BU 00 02 02 2 60 10 WA 71 AR Ac TA 14 -1 -1 .0 L- 07 NO ti LB 31 6- 6- 00 MA 16 LD ve -A 78 20 20 RT 5 CE 70 11 11 RI TA 1 PH CH IN AR AR N- MA D CA CY W FF # 50 10 -3 05 25 91 -4 0 FL 00 02 02 2 1. 1 WA 71 AR Ac UC 17 -0 -0 00 L- 06 NO ti ON 25 8- 8- 0 MA 03 LD ve AZ 41 20 20 RT 3 OL 21 11 11 RI E 1 PH CH 15 AR AR 0 MA D MG CY W # TA BL 10 ET 05 91 ME 00 01 01 0 21 6 WA 71 LA Ac TH 60 -1 -1 .0 L- 02 WS ti YL 34 0- 5- 00 MA 63 ON ve NC 59 20 20 RT 3 ED 31 [address] SO AR OR LO MA G NE CY 4 # MG 10 05 DO 91 SE PK CE 68 01 01 0 30 10 WA 71 LA Ac PH 18 -1 -1 .0 L- 02 WS ti AL 00 0- 5- 00 MA 63 ON ve EX 12 20 20 RT 4 IN 20 [address] 50 AR OR 0 MA G MG CY # CA PS 10 UL 05 E 91 LE 00 12 12 1 90 90 WA 70 LA Ac VO 37 -1 -1 .0 L- 98 WS ti TH 81 2- 5- 00 MA 65 ON ve YR 80 20 20 RT 4 OX 00 [address] E AR OR 25 MA G CY MC # G TA 10 BL 05 ET 91 LE 00 09 09 0 30 30 WA 70 LA Ac VO 37 -1 -1 .0 L- 86 WS ti TH 81 5- 5- 00 MA 35 ON ve YR 80 20 20 RT 2 OX 00 [address] E AR OR 25 MA G CY MC # G TA 10 BL 05 ET 91 LO 63 11 04 3 [address] Ac RA 30 -1 -0 .0 L- 81 EP ti ZE 40 1- 6- 00 MA 19 HE ve PA 77 20 20 RT 7 NS M 39 09 10 1 0 PH DO MG AR N MA R TA CY BL # ET 10 05 91 60 12 04 1 24 6 WA 70 AR Ac 25 -1 -0 0. L- 49 NO ti 80 0- 6- 00 MA 51 LD ve 23 20 20 0 RT 5 91 09 10 RI 6 PH CH AR AR MA D CY W # 10 05 91 LE 00 04 04 0 90 90 70 LA Ac VO 37 -0 -0 .0 L- 65 WS ti TH 81 1- 1- 00 MA 08 ON ve YR 80 20 20 RT 8 OX 00 [address] E AR OR 25 MA G CY MC # G TA 10 BL 05 ET 91 00 03 03 0 20 3 WA 44 AD Ac 40 -2 -2 .0 L- 84 KI ti 60 5- 5- 00 MA 46 NS ve 35 20 20 RT 1 80 10 10 TI 1 PH MO AR TH MA Y CY D # 10 05 91 PH 65 03 03 0 30 10 70 AD Ac EN 16 -2 -2 .0 L- 64 KI ti AZ 20 5- 5- 00 MA 21 NS ve OP 52 20 20 RT 3 YR 01 10 10 TI ID 0 PH MO IN AR TH E MA Y 20 CY D 0 # MG 10 TA 05 B 91 DO 53 03 03 0 14 7 70 AD Ac XY 48 -2 -2 .0 L- 64 KI ti CY 90 5- 5- 00 MA 21 NS ve CL 11 20 20 RT 4 IN 90 10 10 TI E 2 PH MO HY AR TH CL MA Y AT CY D E # 10 0 10 MG 05 91 CA P 00 03 03 0 15 3 44 BE Ac 40 -1 -1 .0 L- 84 SS ti 60 3- 3- 00 MA 12 ON ve 35 20 20 RT [address] 1 PH EP AR HE MA N CY A # 10 05 91 IB 68 03 03 0 12 4 70 BE Ac UP 64 -1 -1 .0 L- 62 SS ti RO 50 3- 3- 00 MA 38 ON ve FE 22 20 20 RT 5 N [address] 60 9 PH EP 0 AR HE MG MA N CY A TA # BL ET 10 05 91 NC 68 03 03 0 12 3 70 BE Ac OM 38 -1 -1 .0 L- 62 SS ti ET 20 3- 3- 00 MA 38 ON ve MANE 04 20 20 RT 6 ZI [address] NE 1 PH EP AR HE 25 MA N CY A MG # TA 10 BL 05 ET 91 NI 00 03 03 0 14 7 70 MC Ac TR 37 -0 -1 .0 L- 61 KE ti OF 83 9- 0- 00 MA 91 IN ve UR 42 20 20 RT 7 E AN 20 10 10 JR TO 1 PH IN AR WI MA LL MO CY IA NO # M -M F CR 10 05 10 91 0 MG ME 68 02 03 0 60 30 70 HU Ac LO 38 -2 -0 .0 L- 60 NT ti XI 20 8- 1- 00 MA 56 ve CA 05 20 20 RT 3 TR M 00 10 10 AV 7. 1 PH IS 5 AR A MG MA CY TA # BL ET 10 05 91 00 03 03 0 60 20 70 HU Ac 37 -0 -0 .0 L- 60 NT ti 80 1- 1- 00 MA 56 ve 75 20 20 RT 4 TR 19 10 10 AV 3 PH IS AR A MA CY # 10 05 91 GA 53 02 02 00 90 30 70 AR Ac BA 74 -0 -2 .0 L- 57 NO ti PE 60 8- 6- 00 MA 80 LD ve NT 10 20 20 RT 9 IN 20 10 10 RI 1 PH CH 30 AR AR 0 MA D MG CY W CA #5 PS 91 UL E DO 53 12 12 00 20 10 70 AR Ac XY 48 -1 -1 .0 L- 49 NO ti CY 90 0- 7- 00 MA 51 LD ve CL 11 20 20 RT 4 IN 90 09 09 RI E 2 PH CH HY AR AR CL MA D AT CY W E 10 #5 0 91 MG CA P ME 00 12 12 00 21 6 70 AR Ac TH 60 -1 -1 .0 L- 49 NO ti YL 34 0- 7- 00 MA 51 LD ve NC 59 20 20 RT 3 ED 31 09 09 RI NI 5 PH CH SO AR AR LO MA D NE CY W 4 #5 MG 91 DO SE PK 00 12 12 00 12 2 44 WE Ac 40 -0 -1 .0 L- 81 HR ti 60 5- 7- 00 MA 77 MA ve 35 20 20 RT 7 N 70 09 09 II 5 PH I AR WI MA LL CY IA M #5 E 91 NI 00 12 12 00 14 7 70 WE Ac TR 37 -0 -1 .0 L- 48 HR ti OF 83 5- 7- 00 MA 86 MA ve UR 42 20 20 RT 9 N AN 20 09 09 II TO 1 PH I IN AR WI MA LL MO CY IA NO M -M #5 E CR 91 10 0 MG 60 12 12 00 24 6 WA 70 AR Ac 25 -1 -1 0. L- 49 NO ti 80 0- 7- 00 MA 51 LD ve 23 20 20 0 RT 5 91 09 09 RI 6 PH CH AR AR MA D CY W #5 91 RA 00 11 11 00 [address] Ac NI 17 -1 -1 .0 L- 45 EP ti TI 24 1- 9- 00 MA 27 HE ve DI 35 20 20 RT 6 NS NE 74 09 09 9 PH DO 15 AR N 0 MA R MG CY TA #5 BL 91 ET LO 63 11 11 00 [address] Ac RA 30 -1 -1 .0 L- 81 EP ti ZE 40 1- 9- 00 MA 19 HE ve PA 77 20 20 RT 7 NS M 30 09 09 1 1 PH DO MG AR N MA R TA CY BL ET #5 91 PH 65 09 09 01 [address] Ac EN 16 -0 -2 .0 L- 35 EP ti AZ 20 4- 4- 00 MA 50 HE ve OP 52 20 20 RT 5 NS YR 09 09 ID 0 PH DO IN AR N E MA R 20 CY 0 MG #5 91 TA B NI 00 09 09 01 [address] Ac TR 37 -0 -2 .0 L- 35 EP ti OF 83 4- 4- 00 MA 50 HE ve UR 42 20 20 RT 4 NS AN 20 09 09 TO 1 PH DO IN AR N MA R MO CY NO -M #5 CR 91 10 0 MG NI 00 09 09 00 [address] Ac TR 37 -0 -1 .0 L- 35 EP ti OF 83 4- 0- 00 MA 50 HE ve UR 42 20 20 RT 4 NS AN 20 09 09 TO 1 PH DO IN AR N MA R MO CY NO -M #5 CR 91 10 0 MG PH 65 09 09 00 [address] Ac EN 16 -0 -1 .0 L- 35 EP ti AZ 20 4- 0- 00 MA 50 HE ve OP 52 20 20 RT 5 NS YR 01 09 09 ID 0 PH DO IN AR N E MA R 20 CY 0 MG #5 91 TA B DE 00 08 08 00 [address] Ac TR 00 -1 -2 .0 L- 32 EP ti OL 95 5- 7- 00 MA 41 HE ve 19 20 20 RT 4 NS LA 10 09 09 4 1 PH DO AR N MG MA R CY CA PS #5 UL 91 E 00 08 08 00 12 3 WA 44 GA Ac 40 -0 -2 .0 L- 78 IN ti 60 8- 7- 00 MA 76 EY ve 35 20 20 RT 5 70 09 09 IN 5 PH CH AR AE MA L CY S #5 91 00 08 08 00 14 7 WA 70 GA Ac 37 -0 -2 .0 L- 31 IN ti 80 8- 7- 00 MA 55 EY ve 75 20 20 RT 7 19 09 09 IN 3 PH CH AR AE MA L CY S #5 91 DI 00 08 08 00 14 7 WA 70 GA Ac CL 78 -0 -2 .0 L- 31 IN ti OF 11 8- 7- 00 MA 55 EY ve EN 78 20 20 RT 8 AC 90 09 09 IN 1 PH CH SO AR AE D MA L EC CY S 75 #5 91 MG TA B PH 65 08 08 00 [address] Ac EN 16 -0 -1 .0 L- 30 EP ti AZ 20 3- 3- 00 MA 87 HE ve OP 52 20 20 RT 5 NS YR 01 09 09 ID 0 PH DO IN AR N E MA R 20 CY 0 MG #5 91 TA B CI 55 08 08 00 [address] Ac NC 11 -0 -1 .0 L- 30 EP ti OF 10 3- 3- 00 MA 87 HE ve LO 12 20 20 RT 4 NS XA 70 09 09 CI 1 PH DO N AR N HC MA R L CY 50 0 #5 MG 91 TA B 63 03 04 00 [address] Ac 82 -2 -0 .0 L- 13 EP ti 40 0- 9- 00 MA 74 HE ve 05 20 20 RT 2 NS 64 09 09 0 PH DO AR N MA R CY #5 91 ME 00 03 03 00 21 6 WA 70 GA Ac TH 60 -1 -2 .0 L- 12 IN ti YL 34 7- 6- 00 MA 99 EY ve NC 59 20 20 RT 5 ED 31 09 09 IN NI 5 PH CH SO AR AE LO MA L NE CY S 4 #5 MG 91 DO SE PK AZ 00 03 03 00 6. 5 WA 70 GA Ac IT 78 -1 -2 00 L- 12 IN ti HR 11 7- 6- 0 MA 99 EY ve OM 49 20 20 RT 4 YC 66 09 09 IN IN 8 PH CH AR AE 25 MA L 0 CY S MG #5 TA 91 BL ET TA 00 03 03 00 [address] Ac IN 00 -0 -1 .0 L- 10 EP ti FL 40 2- 2- 00 MA 25 HE ve U 80 20 20 RT 1 NS 75 08 09 09 5 PH DO MG AR N MA R CA CY PS UL #5 E 91 53 02 02 00 [address] Ac 74 -1 -2 .0 L- 07 EP ti 60 1- 6- 00 MA 70 HE ve 13 20 20 RT 0 NS 20 09 09 5 PH DO AR N MA R CY #5 91 LO 63 02 02 00 [address] Ac RA 30 -1 -2 .0 L- 74 EP ti ZE 40 1- 6- 00 MA 28 HE ve PA 77 20 20 RT 9 NS M 30 09 09 1 1 PH DO MG AR N MA R TA CY BL ET #5 91 53 12 01 00 [address] Ac 74 -1 -0 .0 L- 00 EP ti 60 9- 1- 00 MA 57 HE ve 13 20 20 RT 6 NS 20 08 09 5 PH DO AR N MA R CY #5 91 00 12 01 00 [address] Ac 07 -1 -0 .0 L- 00 EP ti 46 9- 1- 00 MA 57 HE ve 30 20 20 RT 5 NS 11 08 09 3 PH DO AR N MA R CY #5 91 PE 00 12 01 00 [address] Ac RM 47 -2 -0 .0 L- 00 EP ti ET 25 2- 1- 00 MA 89 HE ve HR 24 20 20 RT 4 NS IN 26 08 09 7 PH DO 1% AR N MA R LO CY TI ON #5 91 00 10 10 00 [address] Ac 09 -0 -2 .0 L- 71 EP ti 30 6- 3- 00 MA 31 HE ve 89 20 20 RT 2 NS 00 08 08 5 PH DO AR N MA R CY #5 91 LO 00 10 10 00 [address] Ac RA 78 -1 -2 .0 L- 12 EP ti TA 15 3- 3- 00 MA 94 HE ve DI 07 20 20 RT 8 NS NE 70 08 08 1 PH DO 10 AR N MA R MG CY TA #5 BL 91 ET NI 00 10 10 00 [address] Ac TR 37 -1 -2 .0 L- 91 EP ti OF 83 3- 3- 00 MA 30 HE ve UR 42 20 20 RT 6 NS AN 20 08 08 TO 1 PH DO IN AR N MA R MO CY NO -M #5 CR 91 10 0 MG 63 10 10 00 14 7 WA 69 GO Ac 30 -0 -0 .0 L- 89 BL ti 40 3- 9- 00 MA 86 E ve 70 20 20 RT 9 RO 90 08 08 ND 1 PH AL AR E MA CY #5 91 NC 37 10 10 00 30 30 WA 88 GO Ac IL 00 -0 -0 .0 L- 12 BL ti OS 00 3- 9- 00 MA 90 E ve EC 45 20 20 RT 5 RO 50 08 08 ND OT 4 PH AL C AR E 20 MA .6 CY MG #5 91 TA BL ET TE 51 10 10 00 45 7 WA 69 GO Ac RC 67 -0 -0 .0 L- 89 BL ti ON 21 2 9 00 MA 87 E ve AZ 30 20 20 RT 1 RO OL 40 08 08 ND E 6 PH AL 0. AR E 4% MA CY CR EA #5 M 91 00 10 10 00 15 2 OR 69 GO Ac 40 -0 -0 .0 L- 89 BL ti 62 2- 9- 00 MA 87 E ve 04 20 20 RT 0 RO 10 08 08 ND 1 PH AL AR E MA CY #5 91 63 09 09 00 2[address] Ac 30 -0 -1 00 L- 85 EP ti 40 3- 1- 0 MA 84 HE ve 80 20 20 RT 6 NS 51 08 08 2 PH DO AR N MA R CY #5 91 Vital Signs 12-03-2013 12:45 Name Value Interpretat Reference Comment ion Range Body 98.4 [degF] Temperature BP 73 mm[Hg] Diastolic BP Systolic 100 mm[Hg] Heart 68 /min Rate/Pulse O2% 98 % Respiratory 18 /min Rate 12-03-2013 09:58 Name Value Interpretat Reference Comment ion Range BP 62 mm[Hg] Diastolic BP Systolic 130 mm[Hg] Heart 80 /min Rate/Pulse O2% 100 % Respiratory 18 /min Rate 11-16-2013 17:15 Name Value Interpretat Reference Comment ion Range BP 69 mm[Hg] Diastolic BP Systolic 100 mm[Hg] Heart 69 /min Rate/Pulse O2% 98 % Respiratory 20 /min Rate 11-16-2013 16:34 Name Value Interpretat Reference Comment ion Range BP 89 mm[Hg] Diastolic BP Systolic 141 mm[Hg] Heart 88 /min Rate/Pulse O2% 98 % Respiratory 20 /min Rate 11-01-2013 11:45 Name Value Interpretat Reference Comment ion Range BP 94 mm[Hg] Diastolic BP Systolic 152 mm[Hg] Heart 74 /min Rate/Pulse O2% 97 % Respiratory 20 /min Rate 11-01-2013 11:20 Name Value Interpretat Reference Comment ion Range Body 98.0 [degF] Temperature 11-01-2013 09:53 Name Value Interpretat Reference Comment ion Range BP 78 mm[Hg] Diastolic BP Systolic 145 mm[Hg] Heart 67 /min Rate/Pulse O2% 97 % Respiratory 20 /min Rate 04-02-2013 05:41 Name Value Interpretat Reference Comment ion Range Body 97.8 [degF] Temperature BP 99 mm[Hg] Diastolic BP Systolic 166 mm[Hg] Heart 54 /min Rate/Pulse O2% 98 % Respiratory 16 /min Rate 04-02-2013 02:20 Name Value Interpretat Reference Comment ion Range BP 97 mm[Hg] Diastolic BP Systolic 149 mm[Hg] Heart 63 /min Rate/Pulse O2% 98 % Respiratory 16 /min Rate 02-20-2013 20:49 Name Value Interpretat Reference Comment ion Range Body 98.1 [degF] Temperature BP 90 mm[Hg] Diastolic BP Systolic 154 mm[Hg] Heart 80 /min Rate/Pulse O2% 97 % Respiratory 20 /min Rate 02-20-2013 20:36 Name Value Interpretat Reference Comment ion Range BP 90 mm[Hg] Diastolic BP Systolic 154 mm[Hg] Heart 80 /min Rate/Pulse O2% 97 % Respiratory 20 /min Rate 01-17-2013 16:19 Name Value Interpretat Reference Comment ion Range Body 98.3 [degF] Temperature BP 82 mm[Hg] Diastolic BP Systolic 129 mm[Hg] Heart 86 /min Rate/Pulse O2% 97 % Respiratory 20 /min Rate 01-17-2013 15:59 Name Value Interpretat Reference Comment ion Range BP 85 mm[Hg] Diastolic BP Systolic 127 mm[Hg] Heart 85 /min Rate/Pulse O2% 99 % Respiratory 20 /min Rate Results Labs Lab Lab Date Result Refere Interp Status Commen Order Detail nces retati t Range on TROPONIN I (12-03-2013 11:50) TROPONI 02-12-2 Less 0.00-0. complet N I 014 than 06 ed 11:50 0.02 ng/mL B-HCG Ur Ql (12-03-2013 10:10) B-HCG 2 NEGATIV NEG complet Ur Ql 014 E ed 10:10 COMPREHENSIVE METABOLIC PANEL (12-03-2013 09:35) Glucose 98 74-106 complet 014 mg/dL ed Bld-mCn 09:35 c BUN 2 9 mg/dL 7-18 complet Bld-mCn 014 ed c 09:35 Creat 12-03-2 0.8 0.6-1.0 complet SerPl-m 014 mg/dL ed Cnc 09:35 Creat 12-03-2 159 50-200 complet Cl 014 ML/MIN ed predict 09:35 ed SerPl C-G-vRa te GFR/BSA 81 59- complet .pred 014 ML/MIN ed SerPl 09:35 Schwart z-vRate Sodium 138 136-145 complet SerPl-s 014 mmoL/L ed Cnc 09:35 Potassi 2 3.6 3.5-5.1 complet um 014 mmoL/L ed SerPl-s 09:35 Cnc Chlorid 12-03-2 101 98-107 complet e 014 mmoL/L ed SerPl-s 09:35 Cnc CO2 12-03-2 25 21.0-32 complet SerPl-s 014 mmoL/L .0 ed Cnc 09:35 Calcium 12-03-2 8.7 8.5-10. complet 014 mg/dL 1 ed SerPl-m 09:35 Cnc Prot 12-03-2 8.2 6.4-8.2 complet SerPl-m 014 gm/dL ed Cnc 09:35 Albumin 12-2 3.8 3.4-5.0 complet 014 gm/dL ed SerPl-m 09:35 Cnc Globuli 12-03-2 4.4 1.3-3.2 complet n 014 gm/dL ed Ser-mCn 09:35 c Albumin 12-03-2 0.9 UNK 1.1-1.8 complet /Glob 014 ed SerPl-m 09:35 Rto Bilirub 12-03-2 0.3 0.2-1.0 complet 014 mg/dL ed SerPl-m 09:35 Cnc AST 12-03-2 11 U/L 15-37 complet SerPl-c 014 ed Cnc 09:35 ALT 02-2 22 U/L 12-78 complet SerPl-c 014 ed Cnc 09:35 ALP 02-2 123 U/L 50-136 complet SerPl-c 014 ed Cnc 09:35 THYROID STIM HORMONE (12-03-2013 09:35) THYROID 02--2 0.89 0.358-3 complet STIM 014 uIU/ml .740 ed HORMONE 09:35 CBC with AUTO DIFF (12-03-2013 09:35) WBC # 02-12-2 11.1 4.8-10. complet Bld 014 K/MM3 8 ed Auto 09:35 RBC # 0212-2 4.99 4.2-5.4 complet Bld 014 M/mm3 ed Auto 09:35 Hgb 12-03-2 14.8 12.2-16 complet Bld-mCn 014 g/dL .2 ed c 09:35 Hct Fr 12-03-2 44.1 % 37.0-47 complet Bld 014 .0 ed 09:35 MCV RBC 02-2 88.5 fl 82.2-97 complet 014 .8 ed 09:35 MCH RBC 12-03-2 29.7 pg 27-31.2 complet Qn 014 ed Auto 09:35 MEAN 12-03-2 33.6 31.8-35 complet CORPUSC 014 g/dl .4 ed ULAR 09:35 HGB CONC RDW RBC 12-03-2 13.2 % 11.5-17 complet Auto 014 .5 ed 09:35 Platele 02-12-2 349 142-424 complet t Bld 014 K/mm3 ed Ql 09:35 Manual MEAN 12-03-2 7.6 fl 7.4-10. complet PLATELE 014 4 ed T 09:35 VOLUME Granulo 12-03-2 73.5 % 37.0-80 complet cytes 014 .0 ed Fr Bld 09:35 Auto LYMPH % 02--2 20.7 % 10-50.0 complet 014 ed 09:35 Monocyt 02-2 3.2 % 1.7-9.3 complet es Fr 014 ed Bld 09:35 Auto Eosinop 02--2 2.0 % 0.1-12. complet hil Fr 014 0 ed Bld 09:35 Auto Basophi 12-03-2 0.6 % 0.1-2.0 complet ls Fr 014 ed Bld 09:35 Auto Granulo 12-03-2 8.1 1.8-7.8 complet cytes # 014 K/mm3 ed Bld 09:35 Auto Lymphoc 12-03-2 2.3 0.7-4.5 complet ytes Fr 014 K/mm3 ed Bld 09:35 Auto Monocyt 12-03-2 0.4 0.1-1.0 complet es # 014 K/mm3 ed Bld 09:35 Auto Eosinop 2 0.2 0.0-0.4 complet hil # 014 K/mm3 ed Bld 09:35 Auto Basophi 12-03-2 0.1 0-0.2 complet ls # 014 K/MM3 ed Bld 09:35 Auto B-HCG Ur Ql (11-16-2013 16:46) B-HCG NEGATIV NEG complet Ur Ql 014 E ed 16:46 URINALYSIS/COMPLETE (11-16-2013 16:46) URINE YELLOW YELLOW complet COLOR 014 ed 16:46 URINE Sl CLEAR complet APPEARA 014 Cloudy ed NCE 16:46 URINE 2 NEGATIV NEG complet GLUCOSE 014 E ed - 16:46 DIPSTIC K URINE NEGATIV NEG complet BILIRUB 014 E ed IN - 16:46 DIPSTIC K URINE NEGATIV NEG complet KETONE 014 E mg/dL ed 16:46 URINE 11-16-2 Less 1.005-1 complet SPECIFI 014 than or .030 ed C 16:46 equal GRAVITY to 1.005 URINE 2 1+ NEG complet BLOOD 014 ed 16:46 URINE 11-16-2 6.0 UNK 5.0-8.5 complet PH 014 ed 16:46 URINE 2 NEGATIV NEG complet PROTEIN 014 E mg/dL ed - 16:46 DIPSTIC K URINE 0.2 NEG complet UROBILI 014 E.U./dL ed NOGEN - 16:46 DIPSTIC K URINE NEGATIV NEG complet NITRATE 014 E ed - 16:46 DIPSTIC K URINE NEGATIV NEG complet LEUK 014 E ed ESTERAS 16:46 E URINE 3-5 0 complet RBC 014 rbc/hpf ed 16:46 URINE 11-16-2 3-5 O complet WBC 014 wbc/hpf ed 16:46 URINE 11-16- 5-10 0-5 complet SQUAMOU 014 #/hpf ed S CELLS 16:46 URINE 1+ O complet BACTERI 014 ed A 16:46 URINALYSIS/COMPLETE (11-01-2013 09:39) URINE DARK YELLOW complet COLOR 014 YELLOW ed 09:39 URINE Cloudy CLEAR complet APPEARA 014 ed NCE 09:39 URINE NEGATIV NEG complet GLUCOSE 014 E ed - 09:39 DIPSTIC K URINE 1+ NEG complet BILIRUB 014 ed IN - 09:39 DIPSTIC K URINE TRACE NEG complet KETONE 014 mg/dL ed 09:39 URINE Greater 1.005-1 complet SPECIFI 014 than .030 ed C 09:39 or GRAVITY equal to 1.030 URINE 2+ NEG complet BLOOD 014 ed 09:39 URINE 6.0 UNK 5.0-8.5 complet PH 014 ed 09:39 URINE TRACE NEG complet PROTEIN 014 mg/dL ed - 09:39 DIPSTIC K URINE 1.0 NEG complet UROBILI 014 E.U./dL ed NOGEN - 09:39 DIPSTIC K URINE NEGATIV NEG complet NITRATE 014 E ed - 09:39 DIPSTIC K URINE NEGATIV NEG complet LEUK 014 E ed ESTERAS 09:39 E URINE 10-20 0 complet RBC 014 rbc/hpf ed 09:39 URINE 11-01- 5-10 O complet WBC 014 wbc/hpf ed 09:39 URINE 11-01- 5-10 0-5 complet SQUAMOU 014 #/hpf ed S CELLS 09:39 URINE 2+ O complet BACTERI 014 ed A 09:39 URINE 2+ OCC complet MUCUS 014 ed 09:39 COMPREHENSIVE METABOLIC PANEL (04-02-2013 02:28) Glucose 04-02- 104 74-106 complet 013 mg/dL ed Bld-mCn 02:28 c BUN 04-02-2 11 7-18 complet Bld-mCn 013 mg/dL ed c 02:28 Creat 04-02-2 0.8 0.6-1.0 complet SerPl-m 013 mg/dL ed Cnc 02:28 ESTIMAT 04-02-2 166 50-200 complet ED 013 ML/MIN ed CREATIN 02:28 INE CLEARAN CE GFR 04-02-2 81 59- complet (ESTIMA 013 ML/MIN ed DAV) 02:28 Sodium 04-02-2 138 136-145 complet SerPl-s 013 mmoL/L ed Cnc 02:28 Potassi 04-02-2 3.9 3.5-5.1 complet um 013 mmoL/L ed SerPl-s 02:28 Cnc Chlorid 105 98-107 complet e 013 mmoL/L ed SerPl-s 02:28 Cnc CO2 04-02-2 26 21.0-32 complet SerPl-s 013 mmoL/L .0 ed Cnc 02:28 Calcium 04-02-2 8.4 8.5-10. complet 013 mg/dL 1 ed SerPl-m 02:28 Cnc Prot 04-02-2 7.2 6.4-8.2 complet SerPl-m 013 gm/dL ed Cnc 02:28 Albumin 04-02-2 3.5 3.4-5.0 complet 013 gm/dL ed SerPl-m 02:28 Cnc Globuli 04-02-2 3.7 1.3-3.2 complet n 013 gm/dL ed Ser-mCn 02:28 c Albumin 12-2 0.9 UNK 1.1-1.8 complet /Glob 013 ed SerPl-m 02:28 Rto Bilirub 04-02-2 0.3 0.2-1.0 complet 013 mg/dL ed SerPl-m 02:28 Cnc AST 04-02-2 10 U/L 15-37 complet SerPl-c 013 ed Cnc 02:28 ALT 04-02-2 32 U/L 30-65 complet SerPl-c 013 ed Cnc 02:28 ALP 06-12-2 107 U/L 50-136 complet SerPl-c 013 ed Cnc 02:28 Amylase SerPl-cCnc (04-02-2013 02:28) Amylase 12-2 32 U/L 25-115 complet 013 ed SerPl-c 02:28 Cnc LIPASE (04-02-2013 02:28) LIPASE 12-2 106 U/L 73-393 complet 013 ed 02:28 CBC with AUTO DIFF (04-02-2013 02:28) WBC # 06-12-2 12.4 4.8-10. complet Bld 013 K/MM3 8 ed Auto 02:28 RBC # 06-12-2 4.41 4.2-5.4 complet Bld 013 M/mm3 ed Auto 02:28 Hgb 06-12-2 13.4 12.2-16 complet Bld-mCn 013 g/dL .2 ed c 02:28 Hct Fr 12-2 39.3 % 37.0-47 complet Bld 013 .0 ed 02:28 MCV RBC 12-2 89.1 fl 82.2-97 complet 013 .8 ed 02:28 MCH RBC 12-2 30.3 pg 27-31.2 complet Qn 013 ed Auto 02:28 MEAN 06-12-2 34.0 31.8-35 complet CORPUSC 013 g/dl .4 ed ULAR 02:28 HGB CONC RDW RBC -12-2 13.7 % 11.5-17 complet Auto 013 .5 ed 02:28 Platele -12-2 320 142-424 complet t Bld 013 K/mm3 ed Ql 02:28 Manual MEAN 12-2 7.5 fl 7.4-10. complet PLATELE 013 4 ed T 02:28 VOLUME Granulo -12-2 72.1 % 37.0-80 complet cytes 013 .0 ed Fr Bld 02:28 Auto LYMPH % 06-12-2 21.7 % 10-50.0 complet 013 ed 02:28 Monocyt 06-12-2 3.4 % 1.7-9.3 complet es Fr 013 ed Bld 02:28 Auto Eosinop 06-12-2 2.2 % 0.1-12. complet hil Fr 013 0 ed Bld 02:28 Auto Basophi 06-12-2 0.5 % 0.1-2.0 complet ls Fr 013 ed Bld 02:28 Auto Granulo 06-12-2 8.9 1.8-7.8 complet cytes # 013 K/mm3 ed Bld 02:28 Auto Lymphoc 06-12-2 2.7 0.7-4.5 complet ytes Fr 013 K/mm3 ed Bld 02:28 Auto Monocyt 06-12-2 0.4 0.1-1.0 complet es # 013 K/mm3 ed Bld 02:28 Auto Eosinop 06-12-2 0.3 0.0-0.4 complet hil # 013 K/mm3 ed Bld 02:28 Auto Basophi 06-12-2 0.1 0-0.2 complet ls # 013 K/MM3 ed Bld 02:28 Auto ESR Bld Qn 15M (04-02-2013 02:28) ESR Bld 06-12-2 46 0-20 complet Qn 15M 013 mm/hr ed 02:28 OCCULT BLOOD (04-02-2013 02:23) Hemocul 06-12-2 POSITIV NEG complet t sp1 013 E ed Stl Ql 02:23 URINALYSIS/COMPLETE (04-02-2013 01:38) URINE 06-12-2 YELLOW YELLOW complet COLOR 013 ed 01:38 URINE 06-12-2 CLEAR CLEAR complet APPEARA 013 ed NCE 01:38 URINE 06-12-2 NEGATIV NEG complet GLUCOSE 013 E ed - 01:38 DIPSTIC K URINE 06-12-2 NEGATIV NEG complet BILIRUB 013 E ed IN - 01:38 DIPSTIC K URINE 06-12-2 NEGATIV NEG complet KETONE 013 E mg/dL ed 01:38 URINE 06-12-2 Less 1.005-1 complet SPECIFI 013 than or .030 ed C 01:38 equal GRAVITY to 1.005 URINE 06-12-2 1+ NEG complet BLOOD 013 ed 01:38 URINE 06-12-2 6.0 UNK 5.0-8.5 complet PH 013 ed 01:38 URINE 06-12-2 NEGATIV NEG complet PROTEIN 013 E mg/dL ed - 01:38 DIPSTIC K URINE 06-12-2 0.2 NEG complet UROBILI 013 E.U./dL ed NOGEN - 01:38 DIPSTIC K URINE 06-12-2 NEGATIV NEG complet NITRATE 013 E ed - 01:38 DIPSTIC K URINE NEGATIV NEG complet LEUK 013 E ed ESTERAS 01:38 E URINE 04-02- OCC 0 complet RBC 013 rbc/hpf ed 01:38 URINE 04-02- 5-10 0-5 complet SQUAMOU 013 #/hpf ed S CELLS 01:38 Procedures Procedure DOS Code Location Performer Comment ENDOMETRI 73882 [facility] [place] BX 7 PHYSICIAN W/WO S GROUP ENDOCERVI [place] [address] BRADEN FELICIANO TRANSVAGI 7 [facility] NAL INC INC BLOOD 92453 [facility] MORRISSEY OCCULT 7 PHYSICIAN PEROXIDAS S GROUP E ACTV QUAL FECES 1-3 SPEC URINLS 78872 [facility] DIP 7 PHYSICIAN STICK/TAB S GROUP LET REAGNT NON-AUTO MICRSCPY IADNA 78761 [facility] NEISSERIA 7 PHYSICIAN PHYSICIAN S GROUP S GROUP GONORRHOE AE DIRECT PROBE TQ CULTURE 71376 [facility] CHLAMYDIA 7 PHYSICIAN ANY S GROUP SOURCE THER 91625 BRADEN FELICIANO PROPH/DX [address] [facility] NJX IV INC INC PUSH SINGLE/1S T SBST/DRUG RADIOLOGI 91568 [facility] C EXAM 7 MEDICAL CHEST 2 IMAGING VIEWS ASS FRONTAL&[place] [address] BRADEN FELICIANO TROPONIN 7 [facility] QUANTITAT INC INC AMARA ECG 96877 BRADEN CASTREJON ROUTINE 7 [facility] W/LEAST P 12 LDS I&R ONLY BLOOD 23291 BRADEN FELICIANO COUNT 7 [facility] COMPLETE INC INC AUTO&AUTO DIFRNTL WBC CREATINE 76582 BRADEN FELICIANO KINASE 7 [facility] TOTAL INC INC ECG 37483 BRADEN FELICIANO ROUTINE 7 [facility] ECG INC INC W/LEAST 12 LDS TRCG ONLY W/O I&R COMPREHEN 17703 BRADEN FELICIANO SIVE 7 [facility] METABOLIC INC INC PANEL CREATINE 07021 BRADEN FELICIANO KINASE MB 7 [facility] FRACTION INC INC ONLY INJECTION J0696 [facility] FRYMAN 7 PHYSICIAN CEFTRIAXO S GROUP NE SODIUM PER 250 MG THERAPEUT 72421 [facility] IC 7 PHYSICIAN PROPHYLAC S GROUP TIC/DX INJECTION SUBQ/IM CULTURE 23456 BRADEN FELICIANO BACTERIAL 7 [facility] INC INC QUANTTATI VE COLONY COUNT URINE COLONOSCO 65626 [facility] EMILY PY 6 PHYSICIAN W/BIOPSY S GROUP SINGLE/MU LTIPLE BLOOD 74260 BRADEN FELICIANO COUNT 6 [facility] COMPLETE INC INC AUTO&AUTO DIFRNTL WBC BASIC 95292 BRADEN FELICIANO METABOLIC 6 [facility] PANEL INC INC CALCIUM TOTAL COLLECTIO 91326 BRADEN FELICIANO N VENOUS 6 [facility] BLOOD INC INC VENIPUNCT URE URINE 81834 BRADEN FELICIANO 6 [facility] TEST INC INC VISUAL COLOR CMPRSN METHS ANES 64920 [facility] TRANSURET 6 ANESTH HRAL OF THE W/URETHRO BLUE CYSTOSCOP Y NOS CYSTO 09542 BRADEN FELICIANO CALIBRATI 6 [facility] ON DILAT INC INC URTL STRIX/JOSE NOSIS THERAPEUT 98361 BRADEN FELICIANO IC 6 [facility] PROPHYLAC INC INC TIC/DX INJECTION SUBQ/IM URNLS DIP 34517 BRADEN FELICIANO 6 [facility] STICK/TAB INC INC LET REAGENT AUTO MICROSCOP Y URINE 50707 BRADEN FELICIANO 6 [facility] TEST INC INC VISUAL COLOR CMPRSN METHS SUSCEPTIB 00333 BRADEN FELICIANO LTY STDY 6 [facility] ANTIMICRB INC INC IAL MICRO/AGA R DILUTJ CULTURE 18166 BRADEN FELICIANO BACTERIAL 6 [facility] INC INC QUANTTATI VE COLONY COUNT URINE SCREENING G0202 BRADEN FELICIANO 6 [facility] MAMMOGRAP INC INC HY MICHELLE INCL CAD WHEN PERFORMD COMPUTER- 81498 BRADEN FELICIANO AIDED 6 [facility] DET[place] [address] JAVIER MOLINA ALL ABDOMEN & 6 MEDICAL PELVIS IMAGING W/O ASS CONTRAST MATERIAL URNLS DIP 67626 BRADEN FELICIANO [address] [facility] HOSP STICK/TAB INC INC LET REAGENT AUTO MICROSCOP Y URINE 84901 BRADEN FELICIANO [address] [facility]OSP TEST INC INC VISUAL COLOR CMPRSN METHS IADNA 80705 BRADEN FELICIANO NEISSERIA 6 [facility] INC INC GONORRHOE AE AMPLIFIED PROBE TQ IADNA 60257 BRADEN FELICIANO CHLAMYDIA 6 [facility] INC INC TRACHOMAT IS AMPLIFIED PROBE TQ IADNA 15442 [facility] HUMAN 6 [facility] [place] VIRUS HIGH-RISK TYPES CYTP 41208 [facility] CERVICAL/ 6 [facility] VAGINAL REQ INTERP PHYSICIAN CYTP C/V 05936 [facility], [facility] AUTO THIN 6 [facility] [place] [address] JAVIER MOLINA ALL TRANSVAGI 6 MEDICAL NAL IMAGING ASS COLLECTIO 28783 BRADEN Yu VENOUS [address] [facility] [place]LOOD [place] [address] BRADEN FELICIANO THYROXINE 6 [facility] [place] [address] BRADEN FELICIANO THYROID [address] [facility] STIMULATI INC INC NG HORMONE TSH THERAPEUT 38199 BRADEN FELICIANO IC [address] [facility] INJECTION INC INC IV PUSH EACH NEW DRUG THER 53915 BRADEN FELICIANO PROPH/DX [address] [facility]P NJX IV INC INC PUSH SINGLE/1S T SBST/DRUG HEMOGLOBI 24824 BRADEN FELICIANO N [address] [facility]P GLYCOSYLA INC INC DAV A1C RADIOLOGI 82010 BRADEN FELICIANO C [address] [facility]P EXAMINATI INC INC [place] [address] BRADEN FELICIANO TROPONIN [address] [facility]P QUANTITAT INC INC AMARA ECG 50586 BRADEN DE LA CRUZ JR ROUTINE [address] [facility] HOSPITAL W/LEAST P 12 LDS I&R ONLY BLOOD 59188 BRADEN BRADEN COUNT 6 [facility] COMPLETE INC INC AUTO&AUTO DIFRNTL WBC CREATINE 82199 BRADEN BRADEN KINASE 6 [facility] TOTAL INC INC ECG 48648 BRADEN BRADEN ROUTINE 6 [facility] ECG INC INC W/LEAST 12 LDS TRCG ONLY W/O I&R CREATINE 72058 BRADEN BRADEN KINASE MB 6 [facility] FRACTION INC INC ONLY COMPREHEN 24161 BRADEN FELICIANO SIVE 6 [facility] METABOLIC INC INC PANEL COMPREHEN 79475 BRADEN BRADEN SIVE 6 [facility] METABOLIC INC INC PANEL BLOOD 60394 BRADEN BRADEN COUNT 6 [facility] COMPLETE INC INC AUTO&AUTO DIFRNTL WBC COLLECTIO 01892 [facility] STONE MARY N VENOUS 6 PHYSICIAN BLOOD S GROUP VENIPUNCT URE INJECTION J1885 [facility] 6 N N KET[place]OL[place] COMMUNTIY COMMUNTIY HOSPITA HOSPITA TROMETHAM INE PER 15 MG INJECTION J3010 [facility] FENTANYL 6 N N CITRATE COMMUNTIY COMMUNTIY 0.1 MG HOSPITA HOSPITA INJECTION J2250 [facility] 6 N N [place] COMMUNTIY COMMUNTIY HCL PER HOSPITA HOSPITA 1 MG NEUROPLAS 74111 [facility] AND[facility] TRA TY 6 &/TRANSPO ORTHOPAED S MEDIAN ICS PSC NRV CARPAL TUNNE INJECTION J1100 [facility] 6 N N DEXAMETHO COMMUNTIY COMMUNTIY SONE HOSPITA HOSPITA SODIUM PHOSPHATE 1 MG INJECTION J2001 [facility] 6 N N LIDOCAINE COMMUNTIY COMMUNTIY HCL HOSPITA HOSPITA INTRAVENO US INFUS 10 MG RINGERS J7120 [facility] LACTATE 6 N N INFUSION COMMUNTIY COMMUNTIY UP TO HOSPITA HOSPITA 1000 CC ANES 92974 [facility] NERVE 6 ANESTHESI MUSCLE A GROUP TDN PS FASCIA&BU RSA FOREARM WRIST BLOOD 54626 BRADEN FELICIANO COUNT 6 [facility] COMPLETE INC INC AUTO&AUTO DIFRNTL WBC GONADOTRO 64777 BRADEN FELICIANO PIN 6 [facility] CHORIONIC INC INC QUALITATI VE BASIC 11390 BRADEN FELICIANO METABOLIC 6 [facility] PANEL INC INC CALCIUM TOTAL COLLECTIO 38389 BRADEN FELICIANO N VENOUS 6 [facility] BLOOD INC INC VENIPUNCT URE INJECTION J1040 [facility] RITA 6 PHYSICIAN ANTIONE METHYLPRE S GROUP DNISOLONE ACETATE 80 MG THERAPEUT 29918 [facility] RITA IC 6 PHYSICIAN ANTIONE PROPHYLAC S GROUP TIC/DX INJECTION SUBQ/IM NEEDLE 49828 CHRISTIAN TIKHTMAN EMG EA 6 HEALTH EXTREMTY MEDICAL W/PARASPI GROUP NL AREA COMPLETE NERVE 75656 CHRISTIAN TIKHTMAN CONDUCTIO 6 HEALTH N STUDIES MEDICAL 7-8 GROUP STUDIES RADEX 23060 [facility] JEFFREY HAND 6 [place] CORTEZ MINIMUM 3 ORTHOPAED VIEWS ICS PLC CULTURE 23178 BRADEN FELICIANO BACTERIAL 5 [facility] INC INC QUANTTATI VE COLONY COUNT URINE COMPREHEN 13242 BRADEN FELICIANO SIVE 5 [facility] METABOLIC INC INC PANEL BLOOD 27522 BRADEN FELICIANO COUNT 5 [facility] COMPLETE INC INC AUTO&[place] [address] BRADEN FELICIANO ABDOMEN & 5 [facility] PELVIS INC INC W/O CONTRAST MATERIAL URNLS DIP 38123 BRADEN FELICIANO 5 [facility] STICK/TAB INC INC [place] [address] [facility], BO SURG 5 [facility] PATHOLOGY GROSS&ANTIONE ROSCOPIC EXAM COLSC FLX 74172 [facility] EMILY TOD W/RMVL 5 PHYSICIAN OF TUMOR S GROUP POLYP LESION SNARE TQ COLLECTIO 88926 BRADEN FELICIANO N VENOUS 5 [facility] BLOOD INC INC VENIPUNCT URE GONADOTRO 01229 BRADEN FELICIANO PIN 5 [facility] CHORIONIC INC INC QUALITATI VE COLLECTIO 41877 BRADEN FELICIANO N VENOUS 5 [facility] BLOOD INC INC VENIPUNCT URE RADEX 24764 BRADEN FELICIANO ABDOMEN 5 [facility] COMPL INC INC W/DCBTS&/ ERC VIEWS BLOOD 66697 BRADEN FELICIANO COUNT 5 [facility] COMPLETE INC INC AUTO&AUTO DIFRNTL WBC COMPREHEN 18513 BRADEN FELICIANO SIVE 5 [facility] METABOLIC INC INC PANEL ECG 23271 BRADEN FELICIANO ROUTINE 5 [facility] ECG INC INC W/LEAST 12 LDS TRCG ONLY W/O I&R ECG 70605 CARDIOVAS LILIA ROUTINE 5 CULAR MAT ECG CONSULTAN W/LEAST TS O 12 LDS I&R ONLY ECG 87050 BRADEN BRADEN ROUTINE 5 [facility] ECG INC INC W/LEAST 12 LDS TRCG ONLY W/O I&R ECHO 52056 ARIC MORRISSEY [facility] 5 MEDICAL 2D SERV W/WOM-MOD FOUNDATIO E COMPL N SPEC&COLR D ECG 87732 BRADEN CASTREJON ROUTINE 5 [facility] W/LEAST P 12 LDS I&[place] [address] BRADEN FELICIANO TROPONIN 5 [facility] QUANTITAT INC INC AMARA COLLECTIO 68646 BRADEN FELICIANO N VENOUS 5 [facility] BLOOD INC INC VENIPUNCT URE LIPID 01270 BRADEN FELICIANO PANEL 5 [facility] INC INC ECG 94664 BRADEN FELICIANO ROUTINE 5 [facility] ECG INC INC W/LEAST 12 LDS TRCG ONLY W/O I&R CREATINE 48822 BRADEN FELICIANO KINASE 5 [facility] TOTAL INC INC CYANOCOBA 19914 BRADEN FELICIANO JENISE 5 [facility] VITAMIN INC INC B-12 25 44565 BRADEN FELICIANO HYDROXY 5 [facility] INCLUDES INC INC FRACTIONS IF PERFORMED BLOOD 87439 BRADEN FELICIANO COUNT 5 [facility] COMPLETE INC INC AUTO&AUTO DIFRNTL WBC CREATINE 26574 BRADEN FELICIANO KINASE MB 5 [facility] FRACTION INC INC ONLY COMPREHEN 67340 BRADEN FELICIANO SIVE 5 [facility] [place] [address] BRADEN FELICIANO THYROID 5 [facility] STIMULATI [place] [address] BRADEN FELICIANO FREE 5 [facility] [place] [address] [place]INA ALL ABDOMEN & 5 MEDICAL PELVIS IMAGING W/O ASS CONTRAST MATERIAL COLLECTIO 05070 BRADEN FELICIANO N VENOUS 5 [facility] [place] [address] BRADEN FELICIANO THYROXINE 5 [facility] TOTAL INC INC CALCIUM 07633 BRADEN FELICIANO TOTAL 5 [place] [address] BRADEN FELICIANO THYROID 5 [facility] STIMULATI INC INC NG HORMONE TSH CYTP 96163 [facility], PICKLES CERV/VAG 5 LLC ER JR VANDANA AUTO THIN LAYER PREP MNL SCREEN RADIOLOGI 16074 [facility] C EXAM 5 MEDICAL [place] CHEST 2 IMAGING VIEWS ASS FRONTAL&[place] [address] [facility] CHUCK TRANSVAGI 5 PHYSICIAN BOOKER NAL S GROUP COLLECTIO 04630 BRADEN FELICIANO N VENOUS 5 [facility] BLOOD INC INC VENIPUNCT URE CALCIUM 31435 BRADEN FELICIANO TOTAL 5 [place] [address] BRADEN FELICIANO FREE 5 [facility] [place] [address] BRADEN FELICIANO THYROID 5 [facility] STIMULATI INC INC NG HORMONE TSH URINE 92064 BRADEN FELICIANO 4 [facility] TEST INC [place] [address] [place] KRISTIE ABDOMEN & 4 MEDICAL TAM PELVIS IMAGING W/O ASS CONTRAST MATERIAL URNLS DIP 60516 BRADENBRENTON FELICIANO 4 [facility] STICK/TAB INC INC LET REAGENT AUTO MICROSCOP Y MANUAL 41427 [facility] ROSA APPL 4 PHYSICIAN JAM STRESS S GROUP PFRMD PHYS/QHP JOINT FILMS FLUOROSCO 74727 BRADEN FELICIANO PY SPX UP 4 [facility] TO 1 INC INC HOUR PHYS/QHP TIME THYROIDEC 14775 JUDE ROQUE KAYLA 4 NATTY NATTY TOTAL/SUB TOTAL LMTD NECK DISSECT LEVEL V 34593 [facility] MOL SURG 4 Y OF PATHOLOGY [place] [facility] GROSS&ANTIONE ROSCOPIC EXAM PATH 12599 [facility] MOL CONSLTJ 4 Y OF SURG 1ST [place] [facility] FR[place]ZEN SCTJ 1 [place] [address] [facility] MOL SURG 4 Y [facility] PATHOLOGY [facility] GROSS&ANTIONE ROSCOPIC EXAM ANES 66146 MAZIN DAY ESOPH 4 LTH ANT THYRD ANESTHESI LARYNX A PSC TRACH & LYMPH NECK 1YR PARATHYRO 88266 JUDE ROQUE ID 4 NATTY NATTY AUTOTRANS PLANTATIO N ADD-ON ECG 30267 BRADEN DE LA CRUZ JR ROUTINE [address] [facility] HOSPITAL W/LEAST P 12 LDS I&R ONLY ECG 60946 BRADEN FELICIANO ROUTINE 4 [facility] ECG INC INC W/LEAST 12 LDS TRCG ONLY W/O I&R BLOOD 95194 BRADEN FELICIANO COUNT 4 [facility] COMPLETE INC INC AUTO&AUTO DIFRNTL WBC ANKLE L4350 [facility] BREG INC. CONTROL 4 ORTHOSIS STIRRUP STYL RIGID PREFAB RADEX 58080 [place] [facility] ANKLE 4 MEDICAL TAM COMPLETE IMAGING MINIMUM 3 ASS VIEWS CRTCHS E0114 [facility] INC. UNDARM 4 OTH THAN WOOD PAIR PAD TIP&[place] [address] BRADEN FELICIANO THYROID 4 [facility] STIMULATI [place] [address] BRADEN FELICIANO FREE 4 [facility] THYROXINE INC INC CALCIUM 95292 BRADEN FELICIANO TOTAL 4 [facility] INC INC PATH 08459 REYES REYES CONSLTJ 4 ANA ANA SURG 1ST BLK FROZEN SCTJ 1 [place] [address] REYES REYES SURG 4 ANA ANA PATHOLOGY GROSS&ANTIONE ROSCOPIC EXAM ANES 92828 MAZIN CONTE ESOPH 4 LTH MAR THYRD ANESTHESI LARYNX A PSC TRACH & LYMPH NECK 1YR US SOFT 73103 JAVIER KRISTIE TISSUE 4 MEDICAL TAM HEAD & IMAGING NECK REAL ASS TIME IMGE DOCM CALCIUM 63619 BRADEN CHENON TOTAL 4 [place] [address] BRADEN BRADEN FREE 4 [facility] [place] [address] BRADEN FELICIANO THYROID 4 [facility] STIMULATI INC INC NG HORMONE TSH URNLS DIP 32705 CHUCK WOODS 4 BOOKER BOOKER STICK/TAB LET RGNT NON-AUTO W/O MICRSCP ENDOMETRI 33269 CHUCK WOODS AL BX 4 BOOKER BOOKER W/WO ENDOCERVI X BX [place] [address] [facility] TRANSVAGI 4 BOOKER BOOKER NAL COLPOSCOP 13758 CHUCK [facility]ODS Y CERVIX 4 BOOKER BOOKER BX CERVIX & ENDOCRV CURRETAGE IMHISTOCH 77402 AMALIA PAT AMALIA PAT EM/CYTCHM 4 1ST [place] [address] AMALIA PAT AMALIA PAT SURG 4 PATHOLOGY GROSS&ANTIONE ROSCOPIC EXAM IADNA 83515 [facility] NEISS[facility]IA 4 [facility] DEPT [facility] DEPT GONORRHOE [facility] AE AMPLIFIED PROBE TQ WET Q0111 [facility] SARBJIT 4 [facility] DISTRICT INCL PREP [facility] DEPT [facility] DEPT VAGINAL DANIELLE DANIELLE CERV/SKIN SPECIMENS AMINES 23666 [facility] VAGINAL 4 [facility] DISTRICT FLUID [facility] DEPT [facility] DEPT QUALITATI DANIELLE DANIELLE VE URNLS DIP 38494 [facility] 4 DISTRICT DISTRICT STICK/TAB [facility] DEPT [facility] DEPT LET RGNT DANIELLE DANIELLE NON-AUTO W/O MICRSCP PH BODY 72064 [facility] FLUID NOT 4 DISTRICT DISTRICT [facility] DEPT HLTH DEPT ELSEWHERE DANIELLE DANIELLE SPECIFIED SMR PRIM 00288 [facility] SRC WET 4 DISTRICT [facility] DE[facility] DEPT NFCT AGT DANIELLE DANIELLE IADNA 11736 [facility] CHLAMYDIA 4 [facility] DEPT [facility] DEPT TRACHOMAT DANIELLE DANIELLE IS AMPLIFIED PROBE TQ CYTP [address] CERV/VAG 4 AUTO THIN LAYER PREP MNL SCREEN CYTP [address] CERVICAL/ 4 VAGINAL REQ INTERP PHYSICIAN IADNA [address] PAPILLOMA 4 VIRUS HUMAN AMPLIFIED PROBE TQ ECG 07957 JUHI JOSE JUHI JOSE ROUTINE 4 ECG W/LEAST 12 LDS I&R ONLY URINE 02968 BRADEN FELICIANO 4 [facility] TEST INC INC VISUAL COLOR CMPRSN METHS URNLS DIP 32999 BRADEN FELICIANO 4 [facility] STICK/TAB INC INC LET REAGENT AUTO MICROSCOP Y IAADI 46988 BRADEN FELICIANO INFFLUENZ 4 [facility] A A VIRUS INC INC IAADI 10382 BRADEN FELICIANO INFLUENZA 4 [facility] B VIRUS INC INC US SOFT 20534 [place] TISSUE 1 MEDICAL TAM HEAD & IMAGING [place] [address] BRADEN FELICIANO THYROID 1 [facility] STIMULATI [place] [address] BRADEN FELICIANO FREE 1 [facility] THYROXINE INC INC MICROSOMA 84344 BRADEN FELICIANO L 1 [facility] [place] [address] BRADEN FELICIANO LIPASE 1 [facility] INC INC HOSPITAL G0378 BRADEN FELICIANO OBSERVATI 1 [facility] ON INC INC SERVICE PER HOUR LEVEL III 76767 [facility] ANTIONE SURG 1 MANJINDER & PATHOLOGY DUBILIER GROSS&ANTIONE ROSCOPIC EXAM BLOOD 88140 BRADEN FELICIANO COUNT 1 [facility] COMPLETE INC INC AUTO&AUTO DIFRNTL WBC CULTURE 06095 BRADEN FELICIANO BACTERIAL 1 [facility] INC INC QUANTTATI VE COLONY COUNT URINE LAPAROSCO 54134 BRADEN FELICIANO PIC 1 [facility] [address] BRADEN FELICIANO AMYLASE 1 [facility] INC INC COMPREHEN 01298 BRADEN FELICIANO SIVE 1 [facility] METABOLIC INC INC PANEL 3D 10671 BRADEN FELICIANO RENDERING 1 [facility] INC INC W/INTERP& POSTPROC DIFF WORK STATION URNLS DIP 49404 BRADEN FELICIANO 1 [facility] STICK/TAB INC [place] [address] BRADEN FELICIANO ABDOMEN & 1 [facility] PELVIS INC INC W/O CONTRAST MATERIAL URINE 71408 BRADEN FELICIANO 1 [facility] TEST INC INC VISUAL COLOR CMPRSN METHS ANESTHESI 08111 COMMUNITY REBOLLAR BREANNA A 1 ANESTH INTRAPERI OF THE TONEAL BLUE LOWER ABD W/LAPS NOS LAPAROSCO 4701 BRADEN FELICIANO PIC 1 [facility] APPENDECT INC INC ADAM URINE 45766 BRADEN FELICIANO 1 [facility] TEST INC [place] [address] BRADEN FELICIANO ABDOMEN & 1 [facility] PELVIS INC INC W/O CONTRAST MATERIAL URNLS DIP 23240 BRADEN FELICIANO 1 [facility] STICK/TAB INC INC LET REAGENT AUTO MICROSCOP Y 3D 70533 BRADEN FELICIANO RENDERING 1 [facility] INC INC W/INTERP& POSTPROC DIFF WORK STATION RADIOLOGI 95752 BRADEN FELICIANO C EXAM 1 [facility] CHEST 2 INC INC VIEWS FRONTAL&L ATERAL ECG 73815 NELY PETERSON ROUTINE 1 EMERGENCY ANTIONE ECG SERVICES W/LEAST 12 LDS I&[place] [address] [facility] FELICIANO TROPONIN 1 [facility] QUANTITAT INC INC AMARA CREATINE 45131 BRADEN FELICIANO KINASE MB 1 [facility] FRACTION INC INC ONLY CREATINE 75110 BRAD[facility] FELICIANO KINASE 1 [facility] TOTAL INC INC ECG 11430 BRADEN FELICIANO ROUTINE 1 [facility] ECG INC INC W/LEAST 12 LDS TRCG ONLY W/O I&R CV STRS 62011 ETTA NANCYUJI TST 1 PHYSICIAN COLT XERS&/OR S GROUP RX CONT ECG W/O I&R CV STRS 79649 BRAD[facility] FELICIANO TST 1 [facility] XERS&/OR INC INC RX CONT ECG TRCG ONLY CV STRS 90952 BRADEN DOROTHY DWI TST [address] [facility] XERS&/OR HOSPITAL RX CONT P ECG I&R ONLY MYOCARDIA 49358 BRADEN FELICIANO L SPECT 1 [facility] MULTIPLE INC INC STUDIES LIPID 50292 BRADEN FELICIANO PANEL 1 [facility] INC INC COMPREHEN 95760 BRADEN FELICIANO SIVE 1 [facility] METABOLIC INC INC PANEL ECG 17038 BRADEN FELICIANO ROUTINE 1 [facility] ECG INC INC W/LEAST 12 LDS TRCG ONLY W/O I&[place] [address] BRADEN FELICIANO FREE 1 [facility] [place] [address] BRADEN FELICIANO THYROID 1 [facility] STIMULATI INC INC NG HORMONE TSH US SOFT 48733 BRADEN FELICIANO TISSUE 1 [facility] HEAD & INC INC NECK REAL TIME IMGE DOCM RADIOLOGI 44456 BRADEN FELICIANO C EXAM 1 [facility] CHEST 2 INC INC VIEWS FRONTAL&L ATERAL RADEX 72995 BRAD[facility] FELCIIANO WRIST 1 [facility] COMPLETE INC INC MINIMUM 3 VIEWS MICROSOMA 09791 BRADEN FELICIANO L 1 [facility] [place] [address] BRADEN [facility]ELICIANO THYROID 1 [facility] STIMULATI [place] [address] BRADEN FELICIANO FREE 1 [facility] THYROXINE INC INC US SOFT 46304 BRADEN FELICIANO TISSUE 1 [facility] HEAD & INC INC NECK REAL TIME IMGE DOCM IAADI 26172 BRAD[facility] FELICIANO INFFLUENZ 1 [facility] A A VIRUS INC INC IAADI 48035 BRADEN FELICIANO INFLUENZA 1 [facility] B VIRUS INC INC RADEX 86456 BRAD[facility] FELICIANO HAND 0 [facility] MINIMUM 3 INC INC VIEWS RADEX 26577 BRADEN FELICIANO WRIST 0 [facility] COMPLETE INC INC MINIMUM 3 [place] [address] BRADEN FELICIANO FREE 0 [facility] [place] [address] BRADEN FELICIANO THYROID 0 [facility] STIMULATI INC INC NG HORMONE TSH US SOFT 33853 BRADEN FELICIANO TISSUE 0 [facility] HEAD & INC INC NECK REAL TIME IMGE DOCM 3D 87755 BRADEN FELICIANO RENDERING 0 [facility] INC INC W/INTERP& POSTPROC DIFF WORK STATION URNLS DIP 87342 BRAD[facility] FELICIANO 0 [facility] STICK/TAB INC INC LET REAGENT AUTO MICROSCOP Y URINE 40112 [facility] FELICIANO 0 [facility] TEST INC INC VISUAL COLOR CMPRSN METHS CULTURE 76331 BRADEN FELICIANO BACTERIAL 0 [facility] INC INC QUANTTATI VE COLONY COUNT URINE CT PELVIS 76598 BRADEN FELICIANO W/O 0 [facility] [place] [address] BRADEN FELICIANO ABDOMEN 0 [facility] W/O INC INC CONTRAST MATERIAL COMPREHEN 62595 BRADENBRENTON FELICIANO SIVE 0 [facility] METABOLIC INC INC PANEL BLOOD 76489 BRADENBRENTON FELICIANO COUNT 0 [facility] COMPLETE INC INC AUTO&AUTO DIFRNTL WBC RADEX 41718 BRADEN FELICIANO SPINE 0 [facility] LUMBOSACR INC INC AL MINIMUM 4 VIEWS RADEX 85108 BRADEN FELICIANO FOOT 0 [facility] COMPLETE INC INC MINIMUM 3 VIEWS RADIOLOGI 02661 [facility]AD[facility] CHENON C 0 [facility] EXAMINATI INC INC ON PELVIS 1/2 VIEWS APPL 77003 BRADEN FELICIANO MODALITY 0 [facility] 1/> AREAS INC INC ELEC STIMJ UNATTENDE D THERAPEUT 81155 BRADEN FELICIANO IC PX 1/> 0 [facility] AREAS INC INC EACH 15 MIN EXERCISES APPLICATI 48099 BRADEN FELICIANO ON 0 [facility] MODALITY INC INC 1/> AREAS HOT/COLD PACKS APPLICATI 65812 BRADEN FELICIANO ON 0 [facility] MODALITY INC INC 1/> AREAS HOT/COLD PACKS THERAPEUT 37038 BRADEN FELICIANO IC PX 1/> 0 [facility] AREAS INC INC EACH 15 MIN EXERCISES PHYSICAL 17360 BRADEN FELICIANO THERAPY 0 [facility] EVALUATIO INC INC N APPL 29673 BRADEN FELICIANO MODALITY 0 [facility] 1/> AREAS INC [place] [address] PATHOLOGY PATHOLOGY SURG 0 & & PATHOLOGY CYTOLOGY CYTOLOGY LAB LAB GROSS&ANTIONE ROSCOPIC EXAM CYSTO 59971 COMMONWEA MOSQUERA, W/URETERO 0 LTH ARIS D SCOPY UROLOGY W/RMVL/MA PSC [place] STONES ANES 29432 ANESTHESI WHITE, TRURL 0 A JOHN E FRAGMNTJ ASSOCIATE MANJ&/RMV S, PSC L URETERAL CALCULUS FINE 06085 JUDE ROQUE, NEEDLE 0 CYDNEY G CYDNEY G ASPIRATIO N W/O IMAGING GUIDANCE MICROSOMA 87412 [facility]IANO L 0 [facility] ANTIBODIE INC INC S EACH CALCIUM 75500 BRADEN FELICIANO TOTAL 0 [place] [address] BRADEN FELICIANO FREE 0 [facility] [place] [address] BRADENBRENTON CHENON THYROID 0 [facility] STIMULATI INC INC NG HORMONE TSH BLOOD 18317 BRADEN FELICIANO COUNT 0 [facility] COMPLETE INC INC AUTO&AUTO DIFRNTL WBC OBSERVATI 87413 LICKING BESSON, ON CARE 0 VALLEY JAE A DISCHARGE INTERNAL MED MANAGEMEN T TOBACCO 74863 BRADENBRENTON FELICIANO USE 0 [facility] CESSATION INC INC INTERMEDI ATE 3-10 MINUTES BASIC 09173 BRADEN FELICIANO METABOLIC 0 [facility] PANEL INC INC CALCIUM TOTAL CT PELVIS 90364 BRADEN FELICIANO W/O 0 [facility] [place] [address] BRADEN FELICIANO ABDOMEN 0 [facility] W/O INC INC CONTRAST MATERIAL INITIAL 65788 LICKING NORMA OBSERVATI 0 ANIKET , ON INTERNAL RORY F CARE/DAY MED 30 MINUTES URNLS DIP 49152 [facility] FELICIANO 0 [facility] STICK/TAB INC INC LET REAGENT AUTO MICROSCOP Y 3D 36087 BRADEN FELICIANO RENDERING 0 [facility] INC INC W/INTERP& POSTPROC DIFF WORK STATION BLOOD 47569 BRADEN FELICIANO COUNT 0 [facility] COMPLETE INC INC AUTO&[place] [address] BRADEN FELICIANO LIPASE 0 [place] [address] BRADEN FELICIANO AMYLASE 0 [facility] INC INC COMPREHEN 87146 BRADEN FELICIANO SIVE 0 [facility] METABOLIC INC INC PANEL URNLS DIP 89901 [facility]ELICIANO 0 [facility] STICK/TAB CENTER CENTER LET RGNT NON-AUTO W/O MICRSCP CYTP 19414 PATHOLOGY PATHOLOGY CERV/VAG 0 & & AUTO THIN CYTOLOGY CYTOLOGY LAYER LAB LAB PREP MNL SCREEN IADNA 37150 PATHOLOGY PATHOLOGY PAPILLOMA 0 & & VIRUS CYTOLOGY CYTOLOGY HUMAN LAB LAB AMPLIFIED PROBE TQ CYTP 70798 PATHOLOGY PATHOLOGY CERVICAL/ 0 & & VAGINAL CYTOLOGY CYTOLOGY REQ LAB LAB INTERP PHYSICIAN US SOFT 46978 JAVIER KRISTEI, TISSUE 0 MEDICAL KUSH HEAD & IMAGING NECK REAL ASSOCIATE TIME S IMGE DOCM MRI 59104 KUSH C KRISTIE, SPINAL 0 KRISTIE KUSH CANAL LUMBAR W/O CONTRAST MATERIAL MRI 29993 KUSH C KRISTIE, SPINAL 0 KRISTIE KUSH CANAL CERVICAL W/O CONTRAST MATRL 3D 15282 KUSH C KRISTIE, RENDERING 0 KRISTIE KUSH W/INTERP & POSTPROCE SS SUPERVISI ON URNLS DIP 47278 [facility]ADEN FELICIANO 9 [facility] STICK/TAB INC INC LET REAGENT AUTO MICROSCOP Y 3D 70768 BRADEN FELICIANO RENDERING 9 [facility] INC INC W/INTERP& POSTPROC DIFF WORK STATION CT PELVIS 53645 JAVIER DAHIANA, W/O 9 MEDICAL JOSEFINA [place] [address] BRADEN FELICIANO ABDOMEN 9 [facility] W/O INC INC CONTRAST MATERIAL CULTURE 31901 BRADEN FELICIANO BACTERIAL 9 [facility] INC INC QUANTTATI VE COLONY COUNT URINE URINE 17802 BRADEN FELICIANO 9 [facility] TEST INC INC VISUAL COLOR CMPRSN METHS BLOOD 58853 BRADEN FELICIANO COUNT 9 [facility] COMPLETE INC INC AUTO&AUTO DIFRNTL WBC COMPREHEN 97182 BRADEN FELICIANO SIVE 9 [facility] [address] BRADEN FELICIANO AMYLASE 9 [place] [address] BRADEN FELICIANO LIPASE 9 [facility] INC INC GLUC BLD 70848 DHS/CO BRADEN GLUC MNTR 9 [facility] EN[facility]PR[facility] CLEARED BANK ACCT FDA SPEC HOME USE COMPLEX 04151 MAZIN HOLLAND JR, UROFLOMET 9 LT RORY RY UROLOGY R PSC BLADDER 72534 MAZIN HOLLAND JR, PRESSURE 9 [facility] RORY MEASUREME UROLOGY R NT DURING PSC FILLING EMG STDS 36061 MAZIN HOLLAND JR, ANAL/URTL 9 LT RORY SPHNCTR UROLOGY R OTH/THN PSC NDL VOIDING 20053 MAZIN HOLLAND JR, PRESS 9 LTH RORY STDS BLDR UROLOGY R VOIDING PSC PRESS ANY TQ VOID 64017 MAZIN HOLLAND JR, PRESSURE 9 [facility] RORY STUDIES UROLOGY R INTRAABDO PSC BALJIT CYSTO 11967 MAZIN HOLLAND JR, CALIBRATI 9 [facility] RORY ON DILAT UROLOGY R URTL PSC STRIX/JOSE NOSIS CULTURE 30235 BRADEN FELICIANO BACTERIAL 9 [facility] INC INC QU[place]TT[place] [address] BRADEN FELICIANO STREPTOCO 9 [facility] CCUS INC INC GROUP A IAADI 76747 BRADEN BRADEN INFFLUENZ 9 [facility] A A VIRUS INC INC IAADI 42061 BRADEN FELICIANO INFLUENZA 9 [facility] B VIRUS INC INC OPHTH 41319 LIGIA OLSEN, [facility] 8 VISION NAMRATA M XM&EVAL COMPRHNSV ESTAB PT 1/> COMPREHEN 45877 BRADEN FELICIANO SIVE 8 [facility] [place] [address] BRADEN FELICIANO AMYLASE 8 [facility] INC INC BLOOD 79316 BRADEN FELICIANO COUNT 8 [facility] COMPLETE INC INC AUTO&AUTO DIFRNTL WBC ECG 08158 BRADEN FELICIANO ROUTINE 8 [facility] ECG INC INC W/LEAST 12 LDS TRCG ONLY W/O I&[place] [address] BRADEN FELICIANO LIPASE 8 [facility] INC INC ECG 87380 BRADEN KNIGHTMIKarson ROUTINE [address] [facility] W/LEAST PROF SERV 12 LDS I&R ONLY URNLS DIP 02566 BRADEN FELICIANO 8 [facility] STICK/TAB INC INC LET REAGENT AUTO MICROSCOP Y LIPID 35449 BRADEN FELICIANO PANEL 8 [facility] INC INC BLOOD 87883 BRADEN FELICIANO COUNT 8 [facility] COMPLETE INC INC AUTO&AUTO DIFRNTL WBC COMPREHEN 87281 BRADEN FELICIANO SIVE 8 [facility] [address] BRADEN FELICIANO THYROID 8 [facility] STIMULATI INC INC NG HORMONE TSH Encounters Encounter Start End Date Code Location Performer Type Date HOSPITAL BRADEN Gentile 7 [facility] OUTPATI[facility] INC T EMERGENCY 05301 BRADEN 7 7 [facility] DEPARTMEN INC T VISIT HIGH/URGE NT SEVERITY EMERGENCY 45144 SUKHDEV PETERSON DEPT 7 7 PHYSICIAN VISIT S, [facility] HIGH SEVERITY& THREAT [facility] BRADEN - 7 7 [facility] OUTPATIEN INC T OFFICE 08069 [facility] FRYMAN OUTPATIEN 7 7 PHYSICIAN T VISIT S GROUP 25 MINUTES OFFICE 20382 [facility] OUTPATIEN 7 7 PHYSICIAN T VISIT S GROUP 25 MINUTES OFFICE 51260 BRADEN SMITHKINS OUTPATIEN 7 7 [facility] 10 P MINUTES HOSPITAL BRADEN - 7 7 [facility] OUTPATIEN INC T OFFICE 04186 [facility] EMILY OUTPATIEN 7 7 PHYSICIAN T VISIT S GROUP 10 MINUTES HOSPITAL BRADEN - 6 6 [facility] OUTPATIEN INC T HOSPITAL BRADEN - 6 6 [facility] OUTPATIEN INC T OFFICE 32759 [facility] EMILY OUTPATIEN 6 6 PHYSICIAN T VISIT S GROUP 10 MINUTES OFFICE 09931 BRADEN SMITHKINS OUTPATIEN 6 6 [facility] 10 P MINUTES HOSPITAL BRADEN - 6 6 [facility] OUTPATIEN INC T OFFICE 02254 BRADEN MOSQUERA OUTPATIEN 6 6 [place] [address] HOSPITAL MINUTES P OFFICE 53055 [facility] FRYMAN OUTPATIEN 6 6 PHYSICIAN EUG T VISIT S GROUP 15 MINUTES EMERGENCY 47804 SUKHDEV PETERSON 6 6 PHYSICIAN ANTIONE DEPARTMEN S, [facility] T VISIT MODERATE SEVERITY EMERGENCY 51507 BRADEN 6 6 [facility] DEPARTMEN INC T VISIT LOW/MODER SEVERITY HOSPITAL BRADEN - 6 6 [facility] OUTPATIEN INC T EMERGENCY 55877 SUKHDEV RENUSCH 6 6 PHYSICIAN HONG Donohue [facility] HIGH/URGE NT SEVERITY EMERGENCY 65776 [facility] 6 6 [facility]IS[facility] LOW/MODER SEVERITY HOSPITAL BRADEN - 6 6 [facility] OUTPATIEN [facility] T OFFICE 51436 [facility] FRYMAN OUTPATIEN 6 6 PHYSICIAN EUG T VISIT S GROUP 15 MINUTES HOSPITAL BRADEN - 6 6 [facility] OUTPATIEN [facility] T HOSPITAL BRADEN - 6 6 [facility] OUTPATI[facility] T EMERGENCY 02091 BRADEN 6 6 [facility] T VISIT LOW/MODER SEVERITY EMERGENCY 68035 SUKHDEV DAMONH 6 6 PHYSICIAN HONG Donohue [facility] T VISIT HIGH/URGE NT SEVERITY PERIODIC 99575 [facility] PREVENTIV 6 6 PHYSICIAN E MED EST S GROUP PATIENT 40-64YRS HOSPITAL BRADEN - 6 6 [facility] OUTPATI[facility] T OFFICE 28792 [facility] EMILY TOD OUTPATIEN 6 6 PHYSICIAN T VISIT S GROUP 10 MINUTES HOSPITAL BRADEN - 6 6 [facility] OUTPATI[facility] T OFFICE 15457 [facility] WOODS OUTPATIEN 6 6 PHYSICIAN BOOKER T VISIT S GROUP 25 MINUTES EMERGENCY 81268 SUKHDEV SANTOYOEY 6 6 PHYSICIAN ANTIONE ALVAREZ S PLLC T VISIT HIGH/URGE NT SEVERITY HOSPITAL BRADEN - 6 6 [facility] OUTPATIEN [facility] T OFFICE 36270 [facility] EMILY TOD CONSULTAT 6 6 PHYSICIAN ION S GROUP NEW/ESTAB PATIENT 30 MIN HOSPITAL BRADEN - 6 6 [facility] OUTPATIEN [facility] T OFFICE 07556 [facility] STONE MARY OUTPATIEN 6 6 PHYSICIAN T VISIT S GROUP 15 MINUTES HOSPITAL GEORGETOW - 6 6 N OUTPATIEN [facility] - 6 [facility] OUTPATIEN INC T OFFICE 33608 [facility] RITA OUTPATIEN 6 6 PHYSICIAN ANTIONE T VISIT S GROUP 15 MINUTES OFFICE 60549 [facility] MEGHNA ALVA OUTPATIEN 6 6 PHYSICIAN T VISIT S GROUP 10 MINUTES OFFICE 10914 AMARI LEMUST OUTPATIEN 6 6 T VISIT ORTHOPAED 15 ICS PSC MINUTES OFFICE 77071 [facility] KARINA OUTPATIEN 6 6 PHYSICIAN ANTIONE T VISIT S GROUP 15 MINUTES OFFICE 95892 [facility] TRA OUTPATIEN 6 6 [place] T NEW 30 ORTHOPAED MINUTES ICS PLC OFFICE 00199 [facility] KARINA OUTPATIEN 6 6 PHYSICIAN ANTIONE T VISIT S GROUP 15 MINUTES OFFICE 68285 [facility] EMILY MARTIN OUTPATIEN 5 5 PHYSICIAN T VISIT S GROUP 10 MINUTES EMERGENCY 31000 SUKHDEV PETERSON DEPT 5 5 PHYSICIAN ANTIONE VISIT S, [facility] HIGH SEVERITY& THREAT FUNJ EMERGENCY 41446 BRADEN 5 5 [facility] INC T VISIT MODERATE SEVERITY HOSPITAL BRADEN - 5 5 [facility] OUTPATIEN INC HOSPITAL BRADEN - 5 5 [facility] BR[facility] - 5 5 [facility] OUTPATIEN INC T OFFICE 89134 [facility] EMILY TOD CONSULTAT 5 5 PHYSICIAN ION S GROUP NEW/ESTAB PATIENT 40 MIN HOSPITAL BRADEN - 5 5 [facility] OUTPATIEN INC OFFICE 88721 BRADEN PLATT OUTPATIEN 5 5 [facility] T VISIT HOSPITAL 15 MINUTES EMERGENCY 75930 SUKHDEV PARKER 5 5 [facility] T VISIT MODERATE SEVERITY HOSPITAL BRADEN - 5 5 [facility] OUTPATIEN INC T EMERGENCY 58377 BRADEN 5 5 [facility] DEPARTMEN INC T VISIT LOW/MODER SEVERITY OFFICE 58112 CARDIOVAS LILIA OUTPATIEN 5 5 CULAR MAT T VISIT CONSULTAN 25 TS O [facility] H[facility]PITAL BRADEN - 5 5 [facility] OUTPATIEN INC T HOSPITAL BRADEN - 5 5 [facility] OUT[facility] INC T OFFICE 26216 BRADEN PLATT OUTPATIEN [address] BRADEN - 5 5 [facility] OUTPATIEN INC T EMERGENCY 60109 SUKHDEV FRANKLIN 5 5 PHYSICIAN RAEGAN [facility] S, [facility] T VISIT HIGH/URGE NT SEVERITY EMERGENCY 39977 SUKHDEV STARK 5 5 PHYSICIAN Kortney ROSA [facility] S, [facility] T VISIT HIGH/URGE NT SEVERITY OFFICE 68021 [facility] PHYSICIAN NATTY T VISIT S GROUP 15 MINUTES HOSPITAL BRADEN - 5 5 [facility] OUTPATIEN INC T PERIODIC 69782 [facility] 5 5 [facility] E MED EST TH DEPT TH DEPT PATIENT DANIELLE DANIELLE 18-39 YRS EMERGENCY 72197 BRADEN 5 5 [facility] DEPARTMEN INC T VISIT LOW/MODER SEVERITY EMERGENCY 82721 BRADEN MATHEWS 5 5 [facility] T VISIT P MODERATE SEVERITY HOSPITAL BRADEN - 5 5 [facility] OUTPATIEN INC T OFFICE 95940 [facility] OUTPATIEN 5 5 PHYSICIAN T VISIT S GROUP 25 MINUTES OFFICE 49958 JUDE ROQUE OUTPATIEN 5 5 NATTY NATTY T VISIT 10 MINUTES HOSPITAL BRADEN - 5 5 [facility] OUTPATIEN INC EMERGENCY 96836 BRADEN 5 5 [facility] INC T VISIT LOW/MODER SEVERITY HOSPITAL BRADEN - 5 5 [facility] OUTPATIEN INC EMERGENCY 92468 BRADEN DEEER 4 4 [facility] T VISIT P MODERATE SEVERITY HOSPITAL BRADEN - 4 4 [facility] OUTPAT[facility]EN [facility] BRADEN - 4 4 [facility] OUTPATIEN [facility] T OFFICE 91984 [facility] PETTE OUTPATIEN 4 4 PHYSICIAN JAM T VISIT S GROUP 15 MINUTES HOSPITAL BRADEN - 4 4 [facility] OUTPATIEN [facility] T OFFICE 41250 [facility] PETTE OUTPATIEN 4 4 PHYSICIAN JAM T NEW 30 S GROUP MINUTES EMERGENCY 23932 [facility] 4 4 [facility] EMERGENCY T VISIT PHYS MODERATE SEVERITY HOSPITAL BRADEN - 4 4 [facility] BRADEN - 4 4 [facility] OUT[facility] T OFFICE 52282 ROQUE JUDE OUTLARRYEN 4 4 NATTY NATTY T VISIT 25 MINUTES EMERGENCY 03914 ALFARIS ALFARIS 4 4 [facility] T VISIT HIGH/URGE NT SEVERITY OFFICE 12129 [facility] VISIT [facility] DEPT TH DEPT 10 DANIELLE DANIELLE MINUTES PERIODIC 64668 [facility] E MED EST [facility] DEPT [facility] DEPT PATIENT DANIELLE DANIELLE 18-39 YRS Emergency JUNO REYNAGA DO (ER) 4 10:11 4 12:50 [facility] EMERGENCY 70203 JUHI JOSE JUHI JOSE DEPT 4 4 VISIT HIGH SEVERITY& THREAT FUNCJ Emergency JUNO Foley MD (ER) 4 15:52 4 17:15 [facility] EMERGENCY 02855 JOLYNN YAJAIRA JOLYNN GATES 4 4 DEPARTMEN T VISIT MODERATE SEVERITY EMERGENCY 94127 BRADEN 4 4 [facility] DEPARTMEN INC T VISIT LOW/MODER SEVERITY HOSPITAL BRADEN - 4 4 [facility] OUTPATIEN INC T Emergency JUNO FUENTES MD (ER) 4 09:25 4 11:46 [facility] EMERGENCY 59657 GINA FUENTES 4 4 [facility] DEPARTMEN T VISIT HIGH/URGE NT SEVERITY Emergency JUNO Peterson MD (ER) 3 02:20 3 05:42 [facility] Emergency JUNO Peterson MD (ER) 3 20:10 3 20:50 [facility] Emergency JUNO Levi MD (ER) 3 15:02 3 16:20 [facility] OFFICE 42495 ROQUE ROQUE OUTPATIEN 1 1 NATTY NATTY T VISIT 10 MINUTES HOSPITAL BRADEN - 1 1 [facility] OUTPATIEN INC T OFFICE 47117 ROQUE ROQUE OUTPATIEN 1 1 NATTY NATTY T VISIT 10 MINUTES HOSPITAL BRADEN - 1 1 [facility] OUTPATIEN INC T EMERGENCY 95841 NELY PETERSON DEPT 1 1 EMERGENCY ANTIONE VISIT SERVICES HIGH SEVERITY& THREAT FUNCJ OFFICE 22855 AKUA FATIMA OUTPATIEN 1 1 MITCHELL MITCHELL T VISIT 15 MINUTES EMERGENCY 19610 NELY PETERSON DEPT 1 1 EMERGENCY ANTIONE VISIT SERVICES HIGH SEVERITY& THREAT [facility] BRADEN - 1 1 [facility] OUTPATIEN INC T EMERGENCY 10467 BRADEN 1 1 [facility] DEPARTMEN INC T VISIT LOW/MODER SEVERITY OFFICE 05348 AKUA FATIMA OUTPATIEN 1 1 MITCHELL MITCHELL T VISIT 15 MINUTES OFFICE 07901 AKUA FATIMA OUTPATIEN 1 1 MITCHELL MITCHELL T VISIT 15 MINUTES EMERGENCY 76917 BRADEN 1 1 [facility] DEPARTMEN INC T VISIT HIGH/URGE NT SEVERITY EMERGENCY 53488 NELY PETERSON DEPT 1 1 EMERGENCY ANTIONE VISIT SERVICES HIGH SEVERITY& THREAT [facility] BRADEN - 1 1 [facility] OUTPATIEN INC T HOSPITAL BRADEN - 1 1 [facility] OUTPATIEN INC T OFFICE 42879 JUDE GLYNNON OUTPATIEN 1 1 NATTY NATTY T VISIT 15 MINUTES HOSPITAL BRADEN - 1 1 [facility] OUTPATIEN INC T OFFICE 90429 LASHELL RUGGIERO CONSULTAT 1 1 JAM ION CARDIOLOG NEW/ESTAB Y CONSULT PATIENT 40 MIN HOSPITAL BRADEN - 1 1 [facility] OUTPATIEN INC T OFFICE 02060 AKUA SHOEMAKEREN 1 1 MITCHELL MITCHELL T VISIT 15 MINUTES HOSPITAL BRADEN - 1 1 [facility] OUTPATIEN INC T EMERGENCY 43480 BRADEN 1 1 [facility] DEPARTMEN INC T VISIT LOW/MODER SEVERITY HOSPITAL BRADEN - 1 1 [facility] OUTPATIEN INC T EMERGENCY 19282 NELY PINTO 1 1 EMERGENCY DEPARTMEN SERVICES T VISIT HIGH/URGE NT SEVERITY HOSPITAL BRADEN - 1 1 [facility] OUTPATIEN INC T EMERGENCY 85368 BRADEN 1 1 [facility] DEPARTMEN INC T VISIT LOW/MODER SEVERITY EMERGENCY 89581 NELY PETERSON 1 1 EMERGENCY [facility] DEPARTMEN SERVICES T VISIT HIGH/URGE NT SEVERITY OFFICE 84858 PIETRO CALL CONSULTAT 1 1 NEUROLOGY [facility] NEW/ESTAB JOHN PATIENT 80 MIN OFFICE 03580 ROQUE ROQUE OUTPATIEN 1 1 NATTY NATTY T VISIT 10 MINUTES EMERGENCY 39412 NELY CAMPOS 1 1 [facility]IS[facility] MODERATE SEVERITY HOSP[facility] BRADEN - 1 1 [facility] OUTPATIEN INC T EMERGENCY 37614 BRADEN 1 1 [facility] DEPARTMEN INC T VISIT LOW/MODER SEVERITY OFFICE 66174 AKUA MURRAY 1 1 MITCHELL MITCHELL T VISIT 15 MINUTES HOSPITAL BRADEN - 1 1 [facility] OUTPATIEN INC T OFFICE 07861 ROQUE ROQUE OUTPATIEN 1 1 NATTY NATTY T VISIT 10 MINUTES HOSPITAL BRADEN - 1 1 [facility] OUTPATIEN INC T OFFICE 03708 ROQEU ROQUE OUTPATIEN 1 1 NATTY NATTY T VISIT 15 MINUTES EMERGENCY 77823 BRADEN 1 1 [facility] DEPARTMEN INC T VISIT LOW/MODER SEVERITY EMERGENCY 62001 NELY PETERSON 1 1 EMERGENCY [facility] DEPARTMEN SERVICES T VISIT HIGH/URGE NT SEVERITY HOSPITAL BRADEN - 1 1 [facility] OUTPATIEN INC T OFFICE 59645 ROQUE ROQUE OUTPATIEN 1 1 NATTY NATTY T VISIT 10 MINUTES HOSPITAL BRADEN - 0 0 [facility] OUTPATIEN INC T EMERGENCY 93359 BRADEN 0 0 [facility] DEPARTMEN INC T VISIT LOW/MODER SEVERITY PERIODIC 89509 BRADEN BRADEN PREVENTIV 0 [address] [facility] CENTER PATIENT 18-39 YRS HOSPITAL BRADEN - 0 0 [facility] OUTPATIEN INC T EMERGENCY 29434 NELY SEVILLA DEPT 0 0 EMERGENCY GRE VISIT SERVICES HIGH SEVERITY& THREAT FUNCJ [facility] BRADEN - 0 0 [facility] OUTPATIEN INC T EMERGENCY 02755 BRADEN 0 0 [facility] DEPARTMEN INC T VISIT HIGH/URGE NT SEVERITY EMERGENCY 00269 BRADEN 0 0 [facility] DEPARTMEN INC T VISIT LOW/MODER SEVERITY EMERGENCY 69537 NELY PETERSON 0 0 EMERGENCY ANTIONE DEPARTMEN SERVICES T VISIT HIGH/URGE NT SEVERITY [facility] BRADEN - 0 0 [facility] OUTPATIEN INC T OFFICE 42973 JUDE ROQUE OUTPATIEN 0 0 CYDNEY G CYDNEY G T VISIT 15 MINUTES HOSPITAL BRADEN - 0 0 [facility] OUTPATI[facility] INC T OFFICE 81175 [facility] OUTPATIEN 0 0 [place] T VISIT ORTHOPAED 15 [facility] MINUTES OFFICE 06094 [facility] 0 0 [facility]EL[facility] Muniz T NEW 30 CLINIC OF MINUTES [facility] OFFICE 08002 JUDE ROQEU OUTPATIEN 0 0 CYDNEY G CDYNEY G T VISIT 10 MINUTES HOSPITAL BRADEN - 0 0 [facility] OUTPATIEN INC T OFFICE 93538 JUDE ROQUE OUTPATIEN 0 0 CYDNEY G CYDNEY G T NEW 45 MINUTES OFFICE 44238 TERRI BETTS 0 0 LTH ARIS D T VISIT UROLOGY 25 PSC MINUTES OFFICE 43363 AKUA FATIMA OUTPATIEN 0 0 JAMES Bui T VISIT 15 MINUTES HOSPITAL BRADEN - 0 0 [facility] OUTPATIEN INC T EMERGENCY 63760 NELY PETERSON, DEPT 0 0 EMERGENCY NEMO S VISIT SERVICES HIGH SEVERITY& ASSOCIATE THREAT S FUNCJ EMERGENCY 87880 BRADEN 0 0 [facility] DEPARTMEN INC T VISIT HIGH/URGE NT SEVERITY OFFICE 97165 BRADEN [facility]AD[facility] OUTPATIEN 0 0 [facility] VISIT CENTER CENTER 15 MINUTES OFFICE 40572 [facility], CONSULTAT 0 0 [place] TRUDY A ION ORTHOPAED NEW/ESTAB [facility] PATIENT 60 MIN HOSPITAL BRADEN - 0 0 [facility] OUTPAT[facility] INC T OFFICE 23871 AKUA FATIMA OUTPATIEN 0 0 JAMES Bui T VISIT 15 MINUTES OFFICE 85975 AKUA FATIMA OUTPATIEN 9 9 JAMES Bui T NEW 30 MINUTES HOSPITAL BRADEN - 9 9 [facility] OUTPATIEN INC T EMERGENCY 94627 NELY CAMPOS 9 9 EMERGENCY III, [facility] SERVICES RORY Oliva VISIT HIGH/URGE ASSOCIATE NT S SEVERITY OFFICE 05138 BEULAH RIOJAS OUTPATIEN 9 9 DON R DON R T VISIT 15 MINUTES OFFICE 53039 [facility] BRADEN OUTPATIEDGARDO 9 9 HEALTH [facility] T VISIT [facility] [place] 10 BANK ACCT MINUTES OFFICE 55497 TERRI DUNCAN JR 9 9 LT RORY T VISIT UROLOGY R 10 PSC MINUTES OFFICE 23338 MAZIN HOLLAND JR CONSULTAT 9 9 [facility] RORY ION UROLOGY R NEW/ESTAB PSC PATIENT 30 MIN OFFICE [id number] BEULAH RIOJAS OUTPATIEN 9 9 DON R DON R T VISIT 15 MINUTES OFFICE 90896 BEULAH RIOJAS OUTPATIEN 9 9 DON R DON R T VISIT 15 MINUTES OFFICE 01644 BEULAH RIOJAS OUTPATIEN 9 9 DON R DON R T VISIT 15 MINUTES OFFICE 11619 BEULAH RIOJAS OUTPATIEN 9 9 DON R DON R T VISIT 15 MINUTES [facility] - 9 9 [facility] - 9 9 [facility] OUT[facility]IEN INC T EMERGENCY [id number] [facility] 9 9 [facility] DEPARTMEN INC T VISIT HIGH/URGE NT SEVERITY EMERGENCY 97447 NELY PETERSON, 9 9 EMERGENCY [facility] SERVICES T VISIT MODERATE ASSOCIATE SEVERITY S OFFICE 26285 BEULAH RIOJAS OUTPATIEN 9 9 DON R DON R T VISIT 15 MINUTES EMERGENCY 17896 [facility] 9 9 [facility] DEPART[facility] INC T VISIT LOW/MODER SEVERITY [facility]OSP[facility] - 9 9 [facility] OUTPATIEN INC T EMERGENCY 86267 NELY PETERSON, 9 9 EMERGENCY [facility] SERVICES T VISIT MODERATE ASSOCIATE SEVERITY S OFFICE 71463 BEULAH RIOJAS OUTPATIEN 9 9 DON R DON R T VISIT 15 MINUTES OFFICE 00370 BEULAH RIOJAS OUTPATIEN 9 9 DON R DON R T VISIT 15 MINUTES OFFICE 87907 BEULAH RIOJAS OUTPATIEN 8 8 DON R DON R T VISIT 15 MINUTES OFFICE 44627 BEULAH RIOJAS OUTPATIEN 8 8 DON R DON R T VISIT 15 MINUTES EMERGENCY 54991 MCNAMARA YECENIA, DEPT 8 8 [facility] [employer] E VISIT CORPORATI HIGH ON SEVERITY& TH[facility]AT [facility] BRADEN - 8 8 [facility] - 8 8 [facility] OFFICE 83581 BEULAH RIOJAS OUTPATIEN 8 8 LILLY Montalvo T VISIT 15 MINUTES HOSPITAL BRADEN - 8 8 [facility] EMERGENCY [id number] BRADEN 8 8 [facility] VISIT MODERATE [facility]VERITY
--- OUTSIDE RECORDS SUMMARY | 2017-03-06 09:49 | External Medical Summary Rpt ---
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 Name Role Phone MOSQUERA, MOSQUERA Unavailable Unavailable MOSQUERA CORTEZ, MOSQUERA Unavailable Unavailable CORTEZ MOSQUERA, ARIS D, Unavailable Unavailable MOSQUERA, ARIS D ALFARIS MOH, ALFARIS Unavailable Unavailable MOH ADY WORKMANOLD Unavailable Unavailable MITCHELL AKUA MEDRANO, ARNOLD Unavailable Unavailable JAMES JOHNSON, Unavailable Unavailable JAMES FATIMA SAAB KEITH, [facility] KE[facility] Unavailable Unavailable Kavon Levi MD, Unavailable Unavailable Kavon Levi MD [facility] Unavailable Unavailable [facility], [facility] Unavailable Unavailable [facility], [facility] FUENTES BRO, FUENTES Unavailable Unavailable BRO FUENTES BRO, FUENTES Unavailable Unavailable BRO BEINEKE, BEINEKE Unavailable Unavailable BEINEKE SHELLEY, BEINEKE Unavailable Unavailable SHELLEY COFFMAN TER, COFFMAN TER Unavailable Unavailable BESSON, BESSON Unavailable Unavailable BESSON JOSE, BESSON Unavailable Unavailable JOSE BESSON, JAE A, Unavailable Unavailable BESSON, JAE A [facility] Unavailable [facility]available [facility], [facility] MLOINA ALL, MOLINA ALL Unavailable Unavailable [facility] Unavailable Unavailable [facility] Unavailable Unavailable [facility], [facility] ED JUAREZ, ED Unavailable Unavailable GLUE SPECIALTY SUPERVISOR VANITA TER, VANITA TER Unavailable Unavailable VANITA TER, VANITA TER Unavailable Unavailable WOODS BOOKER, WOODS Unavailable Unavailable BOOKER WOODS BOOKER, WOODS Unavailable Unavailable FELIX SPANN, Unavailable Unavailable FELIX WOODS [facility] Unavailable Unavailable [facility], [facility] Unavailable Unavailable ASC, [facility] Unavailable Unavailable [facility], [facility] CRAGER JAM, CRAGER Unavailable Unavailable JAM AMALIA PAT, AMALIA PAT Unavailable Unavailable AMALIA PAT, AMALIA PAT Unavailable Unavailable AMALIA JR, RORY R, Unavailable Unavailable AMALIA JR, RORY R KRISTIE TAM, Unavailable Unavailable KRISTIE TAM KRISTIE, KUSH, [...] NEMO S, Unavailable Unavailable KARINA, NEMO S [facility] Unavailable Unavailable HOSPITA, [facility] DAY ANT, DAY Unavailable Unavailable ANT YECENIA, RONDAL E, Unavailable Unavailable YECENIA, RONDAL E ROVERTO ANTIONE, ROVERTO ANTIONE Unavailable Unavailable SALAZAR MILLIE, SALAZAR MILLIE Unavailable Unavailable HARPEL, HARPEL Unavailable Unavailable [facility] Unavailable Unavailable CENTER, [facility] Unavailable Unavailable CENTER, [facility] Unavailable Unavailable INC, [facility] Unavailable Unavailable HOSPITAL, [facility] Unavailable Unavailable HOSPITAL P, [facility] P [facility], Unavailable Unavailable [facility] ANDRES, ANDRES Unavailable Unavailable ANDRES TRA, ANDRES TRA Unavailable Unavailable ANDRES, TRUDY A, ANDRES, Unavailable Unavailable TRUDY A [facility] Unavailable Unavailable GROUP PS, [facility] Unavailable Unavailable [facility], [facility] Shawna Foley MD, Unavailable [...] RAEGAN NELY MCKEE, Unavailable Unavailable NELY MCKEE [facility] Unavailable Unavailable SERVICES, [facility] CONTE MAR, CONTE Unavailable Unavailable [...] Unavailable AGUDELO MOL, AGUDELO MOL Unavailable Unavailable [facility] Unavailable Unavailable [place] [facility], [facility] Unavailable Unavailable #[id number], [id number] # Unavailable Unavailable [id number], [facility] # [id number] [facility] Unavailable Unavailable DEPT [facility], [facility] Un[facility] Un[facility] DEPT [facility], [facility] DANIELLE WEHRMAN III BREANNA, Unavailable Unavailable WEHRMAN III BREANNA SEQUEIRAHRKARYN III, RORY, Unavailable Unavailable BETH III, RORY GATES, JOLYNN GATES Unavailable Unavailable JOLYNN GATES, JOLYNN GATES Unavailable Unavailable JOLYNN SHA, JOLYNN SHA Unavailable Unavailable MAKENZIE JOHN E, Unavailable Unavailable JOHN BANEGAS CORTEZ, JEFFREY Unavailable Unavailable CORTEZ Purpose Continuity of Care Document - 06-08-2008 through 2016 Problems Code Diagnosis DOS Provider Status N920 EXCESS & 02-01-2017 [facility] FREQUENT PHYSICIANS MENSTRUATIO GROUP N W/REGULAR CYCLE N819 FEMALE 01-18-2017 [facility] PROLAPSE INC UNSPECIFIED R102 PELVIC AND 01-18-2017 [place] PERINEAL [facility]ICAL PAIN IMAGING ASS R938 ABNORMAL 01-18-2017 [place] FIND ON DX MEDICAL IMAGING OT IMAGING ASS SPEC BODY STRCT [id number] ENCOUNTER 01-12-2017 [facility] ACTOR UNDERSTUDY EXAM PHYSICIANS GENERAL RTN GROUP W/ABNORMAL FIND Z1212 ENCOUNTER 01-12-2017 [facility] SCREENING PHYSICIANS MALIGNANT GROUP NEOPLASM RECTUM R072 PRECORDIAL 12-30-2016 [facility] R079 CHEST PAIN 12-30-2016 [place] UNSPECIFIED MEDICAL IMAGING ASS J0100 ACUTE 12-11-2016 [facility] MAXILLARY PHYSICIANS SINUSITIS GROUP UNSPECIFIED J208 ACUTE 11-27-2016 [facility] BRONCHITIS PHYSICIANS DUE TO GROUP OTHER SPEC ORGANISMS N3020 OTHER 11-14-2016 [facility] WITHOUT HEMATURIA N8110 CYSTOCELE 11-14-2016 [facility] P [id number] PERSONAL 11-01-2016 [facility] HISTORY OF PHYSICIANS COLONIC GROUP POLYPS K635 POLYP OF 10-19-2016 [facility] COLON PHYSICIANS GROUP Z09 ENC F/U 10-19-2016 [facility] EXAM AFTR PHYSICIANS CMPL TX OTH GROUP THAN MALIG NEOPLSM K5909 OTHER 10-04-2016 [facility] CONSTIPATIO PHYSICIANS N GROUP R197 DIARRHEA 10-04-2016 [facility] UNSPECIFIED PHYSICIANS GROUP N359 URETHRAL 09-12-2016 [facility] P N390 URINARY 09-12-2016 [facility] TRACT ANESTH OF INFECTION THE BLUE SITE NOT SPECIFIED R319 HEMATURIA 08-07-2016 [facility] UNSPECIFIED PHYSICIANS GROUP I10 ESSENTIAL 08-04-2016 [facility] HYPERTENSIO INC N L2389 ALLERGIC 08-04-2016 [facility]TACT [facility] DERMATITIS INC DUE TO OTHER AGENTS [id number] ADVERSE EFF 08-04-2016 [facility] OT SYS [facility] ANTI-INFECT INC /PARASIT INIT ENC [id number] ALLERGY 08-04-2016 [facility] UNSPECIFIED PHYSICIANS, INITIAL [facility] ENCOUNTER Z720 TOBACCO USE 08-04-2016 [facility] INC N210 CALCULUS IN 07-07-2016 [facility] BLADDER PHYSICIANS GROUP N3000 ACUTE 07-07-2016 [facility] CYSTITIS [facility] WITHOUT INC HEMATURIA N3090 CYSTITIS 07-07-2016 [facility] UNSPECIFIED PHYSICIANS, WITHOUT PLLC HEMATURIA Z1231 ENCOUNTER 07-04-2016 [place] SCREENING MEDICAL MAMMO MALIG IMAGING ASS NEOPLASM BREAST R1030 LOWER 07-02-2016 [facility] ABDOMINAL PHYSICIANS, PAIN PLLC UNSPECIFIED P73529 ATYP SQ 06-23-2016 [facility] SIGNIFICANC E CYTOL SMER CERV H08372 ENCOUNTER 06-23-2016 [facility] ACTOR UNDERSTUDY EXAM PHYSICIANS GENERAL RTN GROUP W/O ABNORMAL FIND N949 UNS COND 06-09-2016 [facility] ASSOC W/FE [facility] GENIT ORGN INC & MENSTRUAL CYCL E039 HYPOTHYROID 06-05-2016 [facility] ISM [facility] UNSPECIFIED INC K5900 CONSTIPATIO 05-01-2016 [facility] N PHYSICIANS UNSPECIFIED GROUP R109 UNSPECIFIED 05-01-2016 [facility] ABDOMINAL PHYSICIANS PAIN GROUP G5601 CARPAL 02-16-2016 [place] TUNNEL ANESTHESIA SYNDROME GROUP PS RIGHT UPPER LIMB [id number] ENCOUNTER 02-08-2016 [facility] PREPROCEDUR INC AL LABORATORY EXAM L240 IRRITANT 02-06-2016 [facility] CONTACT PHYSICIANS DERMATITIS GROUP DUE TO DETERGENTS X99224 ACUTE & 01-28-2016 [facility] SUBACUTE PHYSICIANS ALLERGIC GROUP OTITS MEDIA BILATERAL G5602 CARPAL 01-27-2016 [facility] TUNNEL [facility] SYNDROME S PSC LEFT UPPER LIMB J40 BRONCHITIS 12-29-2015 [facility] NOT PHYSICIANS SPECIFIED GROUP ACUTE OR CHRONIC R200 ANESTHESIA 11-02-2015 [facility] OF SKIN PHYSICIANS GROUP D126 BENIGN 10-11-2015 [facility] NEOPLASM OF PHYSICIANS COLON GROUP UNSPECIFIED K625 HEMORRHAGE 10-11-2015 [facility] OF ANUS AND PHYSICIANS RECTUM GROUP K9189 OTH 10-07-2015 [facility] POSTPROC PHYSICIANS, COMP & PLLC DISORDERS DIGESTIVE SYSTEM R1032 LEFT LOWER 10-07-2015 [place] QUADRANT MEDICAL PAIN IMAGING ASS M549 DORSALGIA 09-10-2015 [facility] UNSPECIFIED [facility]P INC K828 OTHER 09-08-2015 [facility] SPECIFIED [facility] DISEASES OF INC GALLBLADDER [id number] STRAIN 09-08-2015 [facility] MUSCLE PHYSICIANS, FASCIA & PLLC TENDON LOW BACK INITIAL 2468 OTHER 07-20-2015 [facility] SPECIFIED LAR DISORDERS CONSULTANTS OF THYROID O 2724 OTHER AND 07-20-2015 [facility] UNSPECIFIED [facility] INC HYPERLIPIDE KAITLYN 49955 UNSPEC HTN 07-20-2015 [facility] HEART LAR DISEASE CONSULTANTS WITHOUT O HEART FAIL 51326 COR 07-20-2015 [facility] UNSPEC INC TYPE VESSEL MESA GRANDE/APURVA T 4019 UNSPECIFIED 07-13-2015 [facility] ESSENTIAL [facility] HYPERTENSIO INC N 4139 OTHER AND 07-13-2015 [facility] UNSPECIFIED [facility]OS[facility] ANGINA INC PECTORIS 81714 NONSPECIFIC 07-08-2015 [place] [facility] ABNORMAL SERV Wikets IOGRAM 193 MALIGNANT 07-01-2015 [facility] NEOPLASM OF [facility] THYROID [facility] P GLAND 2449 UNSPECIFIED 07-01-2015 [facility] HYPOTHYROID [facility] P ISM 3540 CARPAL 07-01-2015 [facility] TUNNEL [facility] SYNDROME [facility] 52305 CHEST PAIN 07-01-2015 [facility] 5990 URINARY 06-21-2015 [facility] TRACT PHYSICIANS, INFECTION PLLC SITE NOT SPECIFIED 80708 ABDOMINAL 06-21-2015 [place] PAIN OTHER MEDICAL SPECIFIED IMAGING ASS SITE 68340 MIGRAINE 06-12-2015 [facility] UNSP W/O PHYSICIANS, INTRACT W/O PLLC STATUS MIGRAINOSUS 05714 VISUAL 06-12-2015 [facility] DISCOMFORT PHYSICIANS, PLLC 2397 NEOPLSM UNS 04-05-2015 [facility] NATR PHYSICIANS ENDOCRN GROUP GLND&OTH PART NERV SYS V2540 UNSPECIFIED 02-09-2015 [facility] CONTRACEPTI HLTH DEPT VE DANIELLE SURVEILLANC E V2689 OTHER 02-09-2015 [facility] SPECIFIED DISTRICT PROCREATIVE HLTH DEPT MANAGEMENT DANIELLE V7231 ROUTINE 02-09-2015 [facility] AL EXAMINATION 4659 ACUTE URIS 01-26-2015 [facility] UNSPECIFIED HOSPITAL P SITE 80311 FEVER 01-26-2015 [place] UNSPECIFIED MEDICAL IMAGING ASS 7862 COUGH 01-26-2015 [place] [facility] 7962 ELEVATED BP 01-26-2015 [facility] WITHOUT DX HOSPITAL P HYPERTENSIO N 6259 UNSPEC 01-14-2015 [facility] SYMPTOM PHYSICIANS ASSOC GROUP W/FEMALE GENITAL ORGANS 28720 ABDOMINAL 01-14-2015 [facility] PAIN, LEFT PHYSICIANS LOWER GROUP QUADRANT 23442 UNSPECIFIED 01-06-2015 [facility] PHYSICIANS CONSTIPATIO GROUP N 61438 THYROTOX 11-26-2014 [facility] W/O [facility] GOITER/OTH INC CAUSE W/O CRISIS 79921 GENERALIZED 10-23-2014 [facility] PAIN [facility] INC 7840 HEADACHE 10-23-2014 [facility] INC V0179 CONTACT OR 10-23-2014 [facility] EXPOSURE TO MEM [facility] OTHER INC VIRAL DISEASES V642 SURG/OTH 10-23-2014 [facility] PROC NOT [facility] H[facility] CARRIED OUT INC BECAUSE PTS DECN 76428 HEMATURIA 10-04-2014 [place] UNSPECIFIED MEDICAL IMAGING ASS 7880 RENAL COLIC 10-04-2014 [facility] P 69620 UNSPECIFIED 09-25-2014 [facility] SITE OF MEM HOSP ANKLE INC SPRAIN AND STRAIN 97115 OTHER ANKLE 09-25-2014 [facility] SPRAIN AND PHYSICIANS STRAIN GROUP 34825 OTHER JOINT 08-28-2014 [facility] PHYSICIANS DERANGEMENT GROUP NEC ANKLE AND FOOT 226 BENIGN 08-11-2014 [facility] NEOPLASM OF THYROID GLANDS 2419 UNSPECIFIED 08-11-2014 [facility] NONTOXIC [facility] NODULAR HOSPI GOITER V5869 LONG-TERM 08-05-2014 [facility] (CURRENT) [facility] USE OF HOSPITAL P OTHER MEDICATIONS V7263 PRE-PROCEDU 08-05-2014 [facility] P EXAMINATION 10944 PAIN IN 07-15-2014 [place] JOINT, MEDICAL ANKLE AND IMAGING ASS FOOT 7295 PAIN IN 07-15-2014 [facility] SOFT N EMERGENCY TISSUES OF PHYS LIMB 2411 NONTOXIC 06-10-2014 [facility] MULTINODULA H R GOITER ANESTHESIA PSC 80338 DYSPHAGIA 06-10-2014 [facility] UNSPECIFIED H ANESTHESIA PSC 2410 NONTOXIC 05-29-2014 [facility] UNINODULAR MEM [facility]OSP GOITER INC 6262 EXCESSIVE 04-14-2014 CHUCK BOOKRE OR FREQUENT MENSTRUATIO N 6264 IRREGULAR 04-14-2014 [facility] BOOKER MENSTRUAL CYCLE 6253 DYSMENORRHE 03-19-2014 [facility] BOOKER A 6227 MUCOUS 03-18-2014 AMALIA CHINO POLYP OF CERVIX 17204 PAP SMER 02-17-2014 VANITA ALVA CERV W/ATYPICAL SQUAMOUS CELLS UNDET V252 STERILIZATI 02-17-2014 [facility] DANIELLE 278.01 278.01 12-03-2013 [place] MORBID [facility] OBESITY Hospital 93281 MORBID 12-03-2013 DOROTHY LEDESMA OBESITY DWI 305.1 305.1 12-03-2013 [place] TOBACCO USE [facility] DISORDER Hospital 401.9 401.9 12-03-2013 [place] HYPERTENSIO [facility] N NOS Hospital 413.9 413.9 12-03-2013 [place] ANGINA [facility] PECTORIS Hospital NEC/NOS 786.50 786.50 12-03-2013 [place] CHEST PAIN [facility] 90558 OTHER CHEST 12-03-2013 JUHI JOSE PAIN V14.0 V14.0 12-03-2013 [place] HX-PENICILL [facility] IN ALLERGY Hospital V14.8 V14.8 12-03-2013 [place] HX-DRUG [facility] ALLERGY [facility] Hospital V140 PERSONAL 12-03-2013 DOROTHY LEDESMA HISTORY OF DWI ALLERGY TO PENICILLIN V148 PERSONAL 12-03-2013 DOROTHY LEDESMA HISTORY DW[facility] ALLERGY OTH SPEC MEDICINAL AGTS 461.9 461.9 ACUTE 11-16-2013 [place] SINUSITIS [facility] 4619 ACUTE 11-16-2013 JOLYNN GATES SINUSITIS, UNSPECIFIED 599.0 599.0 URIN 11-16-2013 [place] TRACT [facility] INFECTION [facility] NOS 7242 LUMBAGO 11-01-2013 FUENT[facility] ARIANA 558.9 558.9 04-02-2013 [place] NONINF [facility] IT NEC 924.20 924.20 01-17-2013 [place] CONTUSION [facility] E849.3 E849.3 ACC 01-17-2013 [place] [facility] E917.3 E917.3 01-17-2013 [place] FURNIT W/O [facility] 2409 GOITER, 07-10-2011 [facility] NAT[facility] UNSPECIFIED 2459 UNSPECIFIED 07-03-2011 [facility] NAT[facility] THYROIDITIS 5409 ACUTE 06-27-2011 [facility]GENCY S WITHOUT SERVICES MENTION PERITONITIS 541 APPENDICITI 06-27-2011 COMMUNITY S, ANESTH OF UNQUALIFIED THE BLUE 76550 ABDOMINAL 06-27-2011 [place] PAIN, MEDICAL UNSPECIFIED IMAGING ASS SITE 6869 UNSPEC 06-21-2011 ARNOLD MITCHELL LOCAL INFECTION SKIN&SUBCUT ANEOUS TISSUE 7881 DYSURIA 05-21-2011 [place] [facility] 69294 ABDOMINAL 05-21-2011 [facility] PAIN RIGHT [facility] LOWER INC QUADRANT 5641 IRRITABLE 05-04-2011 ARNOLD MITCHELL BOWEL SYNDROME 6929 CONTACT 05-04-2011 ARNREGINO MITCHELL DERMATITIS& OTHER ECZEMA DUE UNSPEC CAUSE 4871 INFLUENZA 04-17-2011 ARNOLD MITCHELL WITH OTHER RESPIRATORY MANIFESTATI ONS 91330 PAINFUL 04-07-2011 [place] RESPIRATION [facility]ICAL IMAGING ASS 2722 MIXED 03-21-2011 [facility] HYPERLIPIDE [facility] KAITLYN INC 5110 PLEURISY 03-07-2011 [facility] WITHOUT EMERGENCY MENTION SERVICES EFFUS/CURRE NT TB 4660 ACUTE 01-24-2011 [facility] BRONCHITIS EMERGENCY SERVICES 28497 MIGRAINE 12-28-2010 NONDENOMINATIONAL W/O [facility] INTRACT W/O CENTER JOHN STATUS MIGRAINOSUS 70121 PAIN IN 12-14-2010 [facility] JOINT, EMERGENCY FOREARM SERVICES 82474 VARIANTS 12-07-2010 ARNOLD MITCHELL MIGRAINE NEC INTRACT MIGRAINE W/O SM 463 ACUTE 11-28-2010 [facility] NATTY TONSILLITIS 97718 ASTHMA, 11-18-2010 [facility] UNSPECIFIED EMERGENCY , SERVICES UNSPECIFIED STATUS 462 ACUTE 10-31-2010 RQOUE NATTY PHARYNGITIS 4760 CHRONIC 10-31-2010 [facility] NAT[facility] LARYNGITIS 24243 CHRONIC 10-03-2010 [place] NAT[facility] TONSILLITIS 86522 SPRAIN AND 09-18-2010 [facility] STRAIN OF EMERGENCY UNSPECIFIED SERVICES SITE OF WRIST 88524 SPRAIN AND 09-18-2010 [facility] STRAIN OF EMERGENCY UNSPECIFIED SERVICES SITE OF HAND 9593 INJURY 09-18-2010 [place] OTHER&UNSPE MEDICAL CIFIED IMAGING ASS [employer]OW [employer]EARM&WRI ST 9594 INJURY 09-18-2010 [place] OTHER AND MEDICAL UNSPECIFIED IMAGING ASS HAND EXCEPT FINGER E8859 FALL FROM 09-18-2010 [facility] OTHER EMERGENCY SLIPPING SERVICES TRIPPING OR STUMBLING 2662 OTHER 09-06-2010 [facility] SD [facility] S V700 ROUTINE 09-06-2010 [facility] EXAM@HEALTH CARE FACL V7643 SCREENING 09-06-2010 [facility] NEOPLASM OF THE SKIN 6202 OTHER AND 07-11-2010 [facility] UNSPECIFIED EMERGENCY OVARIAN SERVICES CYST 21828 SPRAIN AND 06-20-2010 [facility] STRAIN OF EMERGENCY UNSPECIFIED SERVICES SITE OF FOOT 8472 LUMBAR 06-20-2010 [facility] SPRAIN AND EMERGENCY STRAIN SERVICES 61232 OTHER 06-20-2010 [facility] INJURY OF MEDICAL OTHER SITES IMAGING ASS [...] PATHOLOGY & AND CYTOLOGY ENDOCERVICI LAB TIS 92604 MILD 03-10-2010 PATHOLOGY & DYSPLASIA CYTOLOGY OF CERV[facility] LAB 20466 CERV HIGH 03-10-2010 [facility] DNA [place] TEST POS PLLC 5921 CALCULUS OF 01-13-2010 [facility] URETER H UROLOGY PSC 7231 CERVICALGIA 12-02-2009 [facility] FLOWERS 7919 OTHER 09-25-2009 [facility] NONSPECIFIC [facility] FINDING INC EXAMINATION OF URINE 5589 OTH&UNSPEC 09-01-2009 [facility] NONINFECTIO DON R US GASTROENTER ITIS&COLITI S V771 SCREENING 08-30-2009 [facility] FOR HEALTH DIABETES [facility] ACCT V7791 SCREENING 08-30-2009 [facility] FOR LIPOID HEALTH DISORDERS [facility] ACCT 75422 MIXED 08-26-2009 [facility] INCONTINENC H UROLOGY E URGE AND PSC STRESS 6256 FEMALE 08-16-2009 [facility] STRESS H UROLOGY INCONTINENC ASC E 21096 POLYURIA 07-29-2009 [facility] H UROLOGY PSC 20343 URGENCY OF 07-29-2009 [facility] URINATION H UROLOGY PSC 14433 OTHER 07-14-2009 NOEL RIOJAS DON R DISORDERS OF URINARY TRACT 7224 DEGENERATIO 06-23-2009 Gigi RIOJAS OF DON R CERVICAL INTERVERTEB RAL DISC 7245 UNSPECIFIED 06-23-2009 BEUL[facility] BACKACHE DON R 3829 UNSPECIFIED 03-08-2009 [facility] OTITIS [facility] MEDIA INC 79291 OSTEOARTHRO 12-02-2008 Charanjit RIOJAS INVLV MX DON R SITES BUT NOT SPEC GEN 3671 MYOPIA 10-02-2008 [place] [facility] 48140 OTHER 08-03-2008 NOEL RIOJAS DON R TYPES OF CYSTITIS 5368 DYSPEPSIA&O 07-23-2008 [place] THER SPEC [place] FUNCTION STOMACH V180 FAMILY 07-01-2008 [facility] HISTORY OF [facility] DIABETES INC MELLITUS 7804 DIZZINESS 06-30-2008 BEUL[facility] LANDON LANINESS 33029 OTHER 06-08-2008 [facility] TENOSYNOVIT [facility] IS [...] CE 68 02 03 20 10 00 HI Ac PH 18 -2 -2 .0 00 L- ti AL 00 0- 4- 00 07 MA ve EX 12 20 20 47 RT IN 20 17 17 17 2 97 PH 50 AR 0 MA MG CY CA #5 PS 91 UL E FL 60 02 03 16 30 00 HI Ac UT 50 -2 -2 .0 00 L- ti IC 50 0- 4- 00 07 MA ve 82 20 20 47 RT ON 90 17 17 17 E 1 98 PH NC AR OP MA CY 50 #5 MC 91 G SP RA Y LE 00 02 03 30 30 00 HI Ac VO 78 -2 -2 .0 00 L- ti TH 15 2- 4- 00 07 MA ve YR 18 20 20 47 RT OX 89 17 17 25 IN 2 04 PH E AR 17 MA 5 CY MC G #5 TA 91 BL ET DO 23 02 03 60 30 00 HI Ac XY 15 -0 -1 .0 00 L- ti CY 50 2- 0- 00 07 MA ve CL 13 20 20 46 RT IN 52 17 17 84 E 5 58 PH MO AR NO MA CY 10 0 #5 MG 91 TA BL ET AZ 59 02 03 6. 5 00 HI Ac IT 76 -0 -1 00 00 [...] DO 23 12 01 20 10 00 HI Ac XY 15 -2 -2 .0 00 [...] 11 11 RI TA 1 PH CH IA AR AR N- MA D CA CY [...] DI 00 10 10 1 60 20 HI 71 AR Ac CL 78 -1 -1 [...] IB 68 10 10 0 15 5 HI 71 SO Ac UP 64 -0 -0 [...] MU 45 08 09 1 22 10 HI 71 AR Ac PI 80 -3 -0 .0 L- 33 NO ti RO 20 1- 2- 00 MA 16 LD ve CI 11 20 20 RT 4 N 22 11 11 RI 2% 2 PH CH AR AR OI MA D NT CY W ME # NT 10 05 91 DO 53 08 08 1 20 10 HI 71 AR Ac XY 48 -3 -3 .0 L- 33 NO ti CY 90 1- 1- 00 MA 16 LD ve CL 11 20 20 RT 5 IN 90 11 11 RI E 2 PH CH HY AR AR CL MA D AT CY W E # 10 0 10 MG 05 91 CA P DI 00 07 07 2 12 30 HI 71 AR Ac CY 52 -1 -1 0. L- 27 NO ti CL 70 4- 5- 00 MA 11 LD ve OM 58 20 20 0 RT 4 IN 60 11 11 RI E 1 PH CH 10 AR AR MA D MG CY W # CA PS 10 UL 05 E 91 ME 00 07 07 1 21 6 HI 71 AR Ac TH 60 -1 -1 .0 L- 27 NO ti YL 34 4- 4- 00 MA 11 LD ve NC 59 20 20 RT 2 ED 31 11 11 RI NI 5 PH CH SO AR AR LO MA D NE CY W 4 # MG 10 05 DO 91 SE PK TR 00 07 07 1 80 20 HI 71 AR Ac IA 16 -1 -1 .0 L- 27 NO ti MC 80 4- 4- 00 MA 11 LD ve IN 00 20 20 RT 3 OL 48 11 11 RI ON 0 PH CH E AR AR 0. MA D 1% CY W # CR EA 10 M 05 91 LO 00 06 06 1 40 5 HI 71 AR Ac PE 37 -2 -2 .0 L- 24 NO ti RA 82 7- 7- 00 MA 83 LD ve IA 10 20 20 RT 4 DE 00 [...] 11 11 RI TA 1 PH CH IA AR AR N- MA D CA CY [...] OF 83 9- 0- 00 MA 91 IA ve UR 42 20 20 RT 7 [...] 20 20 RT 5 70 09 09 IA 5 PH CH AR AE MA L CY S #5 91 00 08 08 00 14 7 WA 70 GA Ac 37 -0 -2 .0 L- 31 IN ti 80 8- 7- 00 MA 55 EY ve 75 20 20 RT 7 19 09 09 IA 3 PH CH AR AE MA L CY S #5 91 DI 00 08 08 00 14 7 WA 70 GA Ac CL 78 -0 -2 .0 L- 31 IN ti OF 11 8- 7- 00 MA 55 EY ve EN 78 20 20 RT 8 AC 90 09 09 IA 1 PH CH SO AR AE D [...] 20 RT 5 ED 31 09 09 IA NI 5 PH CH SO AR AE LO MA L NE CY S 4 #5 MG 91 DO SE PK AZ 00 03 03 00 6. 5 WA 70 GA Ac IT 78 -1 -2 00 L- 12 IN ti HR 11 7- 6- 0 MA 99 EY ve OM 49 20 20 RT 4 YC 66 09 09 IA IN 8 PH CH AR AE 25 MA L 0 CY S MG #5 TA 91 BL ET TA 00 03 03 00 [address] Ac IA 00 -0 -1 .0 L- 10 EP [...] 91 00 10 10 00 15 2 HI 69 GO Ac 40 -0 -0 .0 [...] Procedure DOS Code Location Performer Comment ENDOMETRI 28600 [facility] HARPEL AL BX 7 PHYSICIAN W/WO S GROUP ENDOCERVI X BX W/[place] [address] BRADEN FELICIANO TRANSVAGI 7 [facility] NAL INC INC BLOOD 90969 [facility] MORRISSEY OCCULT 7 PHYSICIAN PEROXIDAS S GROUP E ACTV QUAL FECES 1-3 SPEC URINLS 26366 [facility] DIP 7 PHYSICIAN STICK/TAB S GROUP LET REAGNT NON-AUTO MICRSCPY IADNA 97940 [facility] NEISSERIA 7 PHYSICIAN PHYSICIAN S GROUP S GROUP GONORRHOE AE DIRECT PROBE TQ CULTURE 16629 [facility] HARPEL CHLAMYDIA 7 PHYSICIAN ANY S GROUP SOURCE THER 81680 BRADEN FELICIANO PROPH/DX 7 [facility] NJX IV INC INC PUSH SINGLE/1S T SBST/DRUG RADIOLOGI 48124 [facility] C EXAM 7 MEDICAL CHEST 2 IMAGING VIEWS ASS FRONTAL&[place] [address] BRADEN FELICIANO TROPONIN 7 [facility] QUANTITAT INC INC AMARA ECG 88467 BRADEN CASTREJON ROUTINE 7 [facility] W/LEAST P 12 LDS I&R ONLY BLOOD 76972 BRADEN FELICIANO COUNT 7 [facility] COMPLETE INC INC AUTO&AUTO DIFRNTL WBC CREATINE 21577 BRADEN FELICIANO KINASE 7 [facility] TOTAL INC INC ECG [address] BRADEN FELICIANO ROUTINE 7 [facility] ECG INC INC W/LEAST 12 LDS TRCG ONLY W/O I&R COMPREHEN 74040 BRADEN FELICIANO SIVE 7 [facility] METABOLIC INC INC PANEL CREATINE 60438 BRADEN FELICIANO KINASE MB 7 [facility] FRACTION INC INC ONLY INJECTION J0696 [facility] FRYMAN 7 PHYSICIAN CEFTRIAXO S GROUP NE SODIUM PER 250 MG THERAPEUT 68904 [facility] FRYMAN IC 7 PHYSICIAN PROPHYLAC S GROUP TIC/DX INJECTION SUBQ/IM CULTURE 16978 BRADEN FELICIANO BACTERIAL 7 [facility] INC INC QUANTTATI VE COLONY COUNT URINE COLONOSCO 74635 [facility] EMILY PY 6 PHYSICIAN W/BIOPSY S GROUP SINGLE/MU LTIPLE BLOOD 54514 BRADEN FELICIANO COUNT 6 [facility] COMPLETE INC INC AUTO&AUTO DIFRNTL WBC BASIC 55245 BRADEN FELICIANO METABOLIC 6 [facility] PANEL INC INC CALCIUM TOTAL COLLECTIO 68833 BRADEN FELICIANO N VENOUS 6 [facility] BLOOD INC INC VENIPUNCT URE URINE 91107 BRADEN FELICIANO 6 [facility] TEST INC INC VISUAL COLOR CMPRSN METHS ANES 20438 [facility] TRANSURET 6 ANESTH HRAL OF THE W/URETHRO BLUE CYSTOSCOP Y NOS CYSTO 23521 BRADEN FELICIANO CALIBRATI 6 [facility] ON DILAT INC INC URTL STRIX/JOSE NOSIS THERAPEUT 51736 BRADEN FELICIANO IC 6 [facility] PROPHYLAC INC INC TIC/DX INJECTION SUBQ/IM URNLS DIP 27459 BRADEN FELICIANO 6 [facility] STICK/TAB INC INC LET REAGENT AUTO MICROSCOP Y URINE 41996 BRADEN FELICIANO 6 [facility] TEST INC INC VISUAL COLOR CMPRSN METHS SUSCEPTIB 71495 BRADEN FELICIANO LTY STDY 6 [facility] ANTIMICRB INC INC IAL MICRO/AGA R DILUTJ CULTURE 73141 BRADEN FELICIANO BACTERIAL 6 [facility] INC INC QUANTTATI VE COLONY COUNT URINE SCREENING G0202 BRADEN FELICIANO 6 [facility] MAMMOGRAP INC INC HY MICHELLE INCL CAD WHEN PERFORMD COMPUTER- 67618 BRADEN FELICIANO AIDED 6 [facility] DET[place] [address] JAVIER MOLINA ALL ABDOMEN & 6 MEDICAL PELVIS IMAGING W/O ASS CONTRAST MATERIAL URNLS DIP 84512 BRADEN FELICIANO 6 [facility] STICK/TAB INC INC LET REAGENT AUTO MICROSCOP Y URINE 03773 BRADEN FELICIANO 6 [facility] TEST INC INC VISUAL COLOR CMPRSN METHS IADNA 85853 BRADEN FELICIANO NEISSERIA 6 [facility] INC INC GONORRHOE AE AMPLIFIED PROBE TQ IADNA 44677 BRADEN FELICIANO CHLAMYDIA 6 [facility] INC INC TRACHOMAT IS AMPLIFIED PROBE TQ IADNA 08519 [facility] HUMAN 6 [facility] RAFI PAPILLOMA VIRUS HIGH-RISK TYPES CYTP 21609 [facility] CERVICAL/ 6 [facility] VAGINAL REQ INTERP PHYSICIAN CYTP C/V 33334 [facility], [facility] AUTO THIN 6 [facility] RAFI [place] [address] JAVIER MOLINA ALL TRANSVAGI 6 MEDICAL NAL IMAGING ASS COLLECTIO 19675 BRADEN Yu VENOUS 6 [facility] [place]LO[place] [address] BRADEN FELICIANO THYROXINE 6 [facility] [place] [address] BRADEN FELICIANO THYROID 6 [facility] STIMULATI INC INC NG HORMONE TSH THERAPEUT 88193 BARDEN FELICIANO IC 6 [facility] INJECTION INC INC IV PUSH EACH NEW DRUG THER 31736 BRADEN FELICIANO PROPH/DX 6 [facility] NJX IV INC INC PUSH SINGLE/1S T SBST/DRUG HEMOGLOBI 10506 BRADEN FELICIANO N 6 [facility] GLYCOSYLA INC INC DAV A1C RADIOLOGI 78574 BRADEN FELICIANO C 6 [facility] EXAMINATI INC INC [place] [address] BRADEN FELICIANO TROPONIN 6 [facility] QUANTITAT INC INC AMARA ECG 29151 BRADEN DE LA CRUZ JR ROUTINE 6 [facility] W/LEAST P 12 LDS I&R ONLY BLOOD 98594 BRADEN BRADEN COUNT 6 [facility] COMPLETE INC INC AUTO&AUTO DIFRNTL WBC CREATINE 25194 BRADEN BRADEN KINASE 6 [facility] TOTAL INC INC ECG 03167 BRADEN BRADEN ROUTINE 6 [facility] ECG INC INC W/LEAST 12 LDS TRCG ONLY W/O I&R CREATINE 74626 BRADEN BRADEN KINASE MB 6 [facility] FRACTION INC INC ONLY COMPREHEN 06000 BRADEN FELICIANO SIVE 6 [facility] METABOLIC INC INC PANEL COMPREHEN 32151 BRADEN BRADEN SIVE 6 [facility] METABOLIC INC INC PANEL BLOOD 71895 BRADEN BRADEN COUNT 6 [facility] COMPLETE INC INC AUTO&AUTO DIFRNTL WBC COLLECTIO 62917 [facility] STONE MARY N VENOUS 6 PHYSICIAN BLOOD S GROUP VENIPUNCT URE INJECTION J1885 [facility] 6 N N [place] COMMUNTIY COMMUNTIY HOSPITA HOSPITA TROMETHAM INE PER 15 MG INJECTION J3010 [facility] FENTANYL 6 N N [place] COMMUNTIY COMMUNTIY 0.1 MG HOSPITA HOSPITA INJECTION J2250 [facility] 6 N N [place] COMMUNTIY COMMUNTIY HCL PER HOSPITA HOSPITA 1 MG NEUROPLAS 42186 [facility]UE[facility]ASS ANDRES TRA TY 6 &/TRANSPO ORTHOPAED S MEDIAN ICS PSC NRV CARPAL TUNNE INJECTION J1100 [facility] 6 N N DEXAMETHO COMMUNTIY COMMUNTIY SONE HOSPITA HOSPITA SODIUM PHOSPHATE 1 MG INJECTION J2001 [facility] 6 N N LIDOCAINE COMMUNTIY COMMUNTIY HCL HOSPITA HOSPITA INTRAVENO US INFUS 10 MG RINGERS J7120 [facility] LACTATE 6 N N INFUSION COMMUNTIY COMMUNTIY UP TO HOSPITA HOSPITA 1000 CC ANES 66668 [facility] NERVE 6 ANESTHESI MUSCLE A GROUP TDN PS FASCIA&BU RSA FOREARM WRIST BLOOD 60615 BRADEN FELICIANO COUNT 6 [facility] COMPLETE INC INC AUTO&AUTO DIFRNTL WBC GONADOTRO 59274 BRADEN FELICIANO PIN 6 [facility] CHORIONIC INC INC QUALITATI VE BASIC 37640 BRADEN FELICIANO METABOLIC 6 [facility] PANEL INC INC CALCIUM TOTAL COLLECTIO 85563 BRADEN FELICIANO N VENOUS 6 [facility] BLOOD INC INC VENIPUNCT URE INJECTION J1040 [facility] RITA 6 PHYSICIAN ANTIONE METHYLPRE S GROUP DNISOLONE ACETATE 80 MG THERAPEUT 89592 [facility] RITA IC 6 PHYSICIAN ANTIONE PROPHYLAC S GROUP TIC/DX INJECTION SUBQ/IM NEEDLE 01290 NONDENOMINATIONAL TIKHTMAN EMG EA 6 HEALTH EXTREMTY MEDICAL W/PARASPI GROUP NL AREA COMPLETE NERVE 43265 NONDENOMINATIONAL TIKHTMAN CONDUCTIO 6 HEALTH N STUDIES MEDICAL 7-8 GROUP STUDIES RADEX 78077 [facility] JEFFREY HAND 6 [place] CORTEZ MINIMUM 3 ORTHOPAED VIEWS ICS PLC CULTURE 07932 BRADEN FELICIANO BACTERIAL 5 [facility] INC INC QUANTTATI VE COLONY COUNT URINE COMPREHEN 48590 BRADEN FELICIANO SIVE 5 [facility] METABOLIC INC INC PANEL BLOOD 47363 BRADEN FELICIANO COUNT 5 [facility] COMPLETE INC INC AUTO&[place] [address] BRADEN FELICIANO ABDOMEN & 5 [facility] PELVIS INC INC W/O CONTRAST MATERIAL URNLS DIP 85150 BRADEN FELICIANO 5 [facility] STICK/TAB INC INC [place] [address] [facility], BO SURG 5 [facility] GROSS&ANTIONE ROSCOPIC EXAM COLSC FLX 95252 [facility] EMILY TOD W/RMVL 5 PHYSICIAN OF TUMOR S GROUP POLYP LESION SNARE TQ COLLECTIO 41484 BRADEN FELICIANO N VENOUS 5 [facility] BLOOD INC INC VENIPUNCT URE GONADOTRO 80665 BRADEN FELICIANO PIN 5 [facility] CHORIONIC INC INC QUALITATI VE COLLECTIO 42669 BRADEN FELICIANO N VENOUS 5 [facility] BLOOD INC INC VENIPUNCT URE RADEX 41384 BRADEN FELICIANO ABDOMEN 5 [facility] COMPL INC INC W/DCBTS&/ ERC VIEWS BLOOD 31217 BRADEN FELICIANO COUNT 5 [facility] COMPLETE INC INC AUTO&AUTO DIFRNTL WBC COMPREHEN 51769 BRADEN FELICIANO SIVE 5 [facility] METABOLIC INC INC PANEL ECG 44426 BRADEN FELICIANO ROUTINE 5 [facility] ECG INC INC W/LEAST 12 LDS TRCG ONLY W/O I&R ECG 83942 CARDIOVAS LILIA ROUTINE 5 CULAR MAT ECG CONSULTAN W/LEAST TS O 12 LDS I&R ONLY ECG 50863 BRADEN BRADEN ROUTINE 5 [facility] ECG INC INC W/LEAST 12 LDS TRCG ONLY W/O I&R ECHO 02072 ARIC MORRISSEY [facility] MEDICAL 2D SERV W/WOM-MOD FOUNDATIO E COMPL N SPEC&COLR D ECG 51188 BRADEN CASTREJON ROUTINE 5 [facility] W/LEAST P 12 LDS I&[place] [address] BRADEN FELICIANO TROPONIN 5 [facility] QUANTITAT INC INC AMARA COLLECTIO 67399 BRADEN FELICIANO N VENOUS 5 [facility] BLOOD INC INC VENIPUNCT URE LIPID 74787 BRADEN FELICIANO PANEL 5 [facility] INC INC ECG 70714 BRADEN FELICIANO ROUTINE 5 [facility] ECG INC INC W/LEAST 12 LDS TRCG ONLY W/O I&R CREATINE 16199 BRADEN FELICIANO KINASE 5 [facility] TOTAL INC INC CYANOCOBA 03654 BRADEN FELICIANO JENISE 5 [facility] VITAMIN INC INC B-12 25 59689 BRADEN FELICIANO HYDROXY 5 [facility] INCLUDES INC INC FRACTIONS IF PERFORMED BLOOD 91175 BRADEN FELICIANO COUNT 5 [facility] COMPLETE INC INC AUTO&AUTO DIFRNTL WBC CREATINE 98904 BRADEN FELICIANO KINASE MB 5 [facility] FRACTION INC INC ONLY COMPREHEN 33006 BRADEN FELICIANO SIVE 5 [facility] [place] [address] BRADEN FELICIANO THYROID 5 [facility] STIMULATI [place] [address] BRADEN FELICIANO FREE 5 [facility] [place] [address] [place] MOLINA ALL ABDOMEN & 5 MEDICAL PELVIS IMAGING W/O ASS CONTRAST MATERIAL COLLECTIO 07892 BRADEN FELICIANO N VENOUS 5 [facility] [place] [address] BRADEN FELICIANO THYROXINE 5 [facility] TOTAL INC INC CALCIUM 93146 BRADEN FELICIANO TOTAL 5 [place] [address] BRADEN FELICIANO THYROID 5 [facility] STIMULATI INC INC NG HORMONE TSH CYTP 51650 [facility], PICKLES CERV/VAG 5 LLC ER JR VANDANA AUTO THIN LAYER PREP MNL SCREEN RADIOLOGI 81129 [facility] C EXAM 5 MEDICAL [place] CHEST 2 IMAGING VIEWS [place] FRONTAL&[place] [address] [facility] CHUCK TRANSVAGI 5 PHYSICIAN BOOKER NAL S GROUP COLLECTIO 77738 BRADEN FELICIANO N VENOUS 5 [facility] BLOOD INC INC VENIPUNCT URE CALCIUM 16370 BRADEN FELICIANO TOTAL 5 [place] [address] BRADEN FELICIANO FREE 5 [facility] [place] [address] BRADEN FELICIANO THYROID 5 [facility] STIMULATI INC INC NG HORMONE TSH URINE 45622 BRADEN FELICIANO 4 [facility] TEST INC [place] [address] [place] KRISTIE ABDOMEN & 4 MEDICAL TAM PELVIS IMAGING W/O ASS CONTRAST MATERIAL URNLS DIP 31453 BRADENBRENTON FELICIANO 4 [facility] STICK/TAB INC INC LET REAGENT AUTO MICROSCOP Y MANUAL 03828 [facility] ROSA APPL 4 PHYSICIAN JAM STRESS S GROUP PFRMD PHYS/QHP JOINT FILMS FLUOROSCO 25057 BRADEN FELICIANO PY SPX UP 4 [facility] TO 1 INC INC HOUR PHYS/QHP TIME THYROIDEC 91676 JUDE ROQUE KAYLA 4 NATTY NATTY TOTAL/SUB TOTAL LMTD NECK DISSECT LEVEL V 92318 [facility] MOL SURG 4 Y OF PATHOLOGY [place] [facility] GROSS&ANTIONE ROSCOPIC EXAM PATH 17162 [facility] MOL CONSLTJ 4 Y OF SURG 1ST [place] [facility] FR[place]ZEN SCTJ 1 [place] [address] [facility] MOL SURG 4 Y OF PATHOLOGY [facility] [place] [facility] GROSS&ANTIONE ROSCOPIC EXAM ANES 29385 MAZIN DAY ESOPH 4 LTH ANT THYRD ANESTHESI LARYNX A PSC TRACH & LYMPH NECK 1YR PARATHYRO 99322 JUDE ROQUE ID 4 NATTY NATTY AUTOTRANS PLANTATIO N ADD-ON ECG 55857 BRADEN DE LA CRUZ JR ROUTINE 4 [facility] W/LEAST P 12 LDS I&R ONLY ECG 18021 BRADEN FELICIANO ROUTINE 4 [facility] ECG INC INC W/LEAST 12 LDS TRCG ONLY W/O I&R BLOOD 44421 BRADEN FELICIANO COUNT 4 [facility] COMPLETE INC INC AUTO&AUTO DIFRNTL WBC ANKLE L4350 [facility] INC. BREG INC. CONTROL 4 ORTHOSIS STIRRUP STYL RIGID PREFAB RADEX 44632 [place] KRISTIE ANKLE 4 MEDICAL TAM COMPLETE IMAGING MINIMUM 3 ASS VIEWS CRTCHS E0114 [facility]. BREG INC. UNDARM 4 OTH THAN WOOD PAIR PAD TIP&[place] [address] BRADEN FELICIANO THYROID 4 [facility] STIMULATI [place] [address] BRADEN FELICIANO FREE 4 [facility] THYROXINE INC INC CALCIUM 22395 BRADEN FELICIANO TOTAL 4 [facility] INC INC PATH 97007 REYES REYES CONSLTJ 4 ANA ANA SURG 1ST BLK FROZEN SCTJ 1 SPEC [place]EL V 8[address]10 REYES REYES SURG 4 ANA ANA PATHOLOGY GROSS&ANTIONE ROSCOPIC EXAM ANES 65612 MAZIN CONTE ESOPH 4 LTH MAR THYRD ANESTHESI LARYNX A PSC TRACH & LYMPH NECK 1YR US SOFT 09023 JAVIER KRISTIE TISSUE 4 MEDICAL TAM HEAD & IMAGING NECK REAL ASS TIME IMGE DOCM CALCIUM 71934 BRADEN CHENON TOTAL 4 [place] [address] BRADEN BRADNE FREE 4 [facility] [place] [address] BRADEN FELICIANO THYROID 4 [facility] STIMULATI INC INC NG HORMONE TSH URNLS DIP 73573 CHUCK WOODS 4 BOOKER BOOKER STICK/TAB LET RGNT NON-AUTO W/O MICRSCP ENDOMETRI 71679 CHUCK WOODS AL BX 4 BOOKER BOOKER W/WO ENDOCERVI [place] [address] [facility] TRANSVAGI 4 BOOKER BOOKER NAL COLPOSCOP 81038 CHUCK WOODS Y CERVIX 4 BOOKER BOOKER BX CERVIX & ENDOCRV CURRETAGE IMHISTOCH 08640 AMALIA PAT AMALIA PAT EM/CYTCHM 4 1ST [place] [address] AMALIA PAT AMALIA PAT SURG 4 PATHOLOGY GROSS&ANTIONE ROSCOPIC EXAM IADNA 10531 [facility] NEISSERIA [facility] DEPT [facility] DEPT GONORRHOE [facility] AE AMPLIFIED PROBE TQ WET Q0111 [facility] SARBJIT 4 [facility] INCL PREP [facility] DEPT [facility] DEPT VAGINAL DANIELLE DANIELLE CERV/SKIN SPECIMENS AMINES 82771 [facility] VAGINAL 4 [facility] FLUID [facility] DEPT [facility] DEPT QUALITATI DANIELLE DANIELLE VE URNLS DIP 40721 [facility] 4 [facility] DISTRICT STICK/TAB [facility] DEPT [facility] DEPT LET RGNT DANIELLE DANIELLE NON-AUTO W/O MICRSCP PH BODY 61654 [facility] FLUID NOT 4 [facility] DISTRICT [facility] DEPT HLTH DEPT ELSEWHERE DANIELLE DANIELLE SPECIFIED SMR PRIM 99093 [facility] SRC WET 4 [facility] DE[facility] DEPT NFCT AGT DANIELLE DANIELLE IADNA 46506 [facility] CHLAMYDIA 4 [facility] DEPT [facility] DEPT TRACHOMAT DANIELLE DANIELLE IS AMPLIFIED PROBE TQ CYTP [address] CERV/VAG 4 AUTO THIN LAYER PREP MNL SCREEN CYTP [address] CERVICAL/ 4 VAGINAL REQ INTERP PHYSICIAN IADNA [address] PAPILLOMA 4 VIRUS HUMAN AMPLIFIED PROBE TQ ECG 41264 JUHI JOSE JUHI JOSE ROUTINE 4 ECG W/LEAST 12 LDS I&R ONLY URINE 07816 BRADEN FELICIANO 4 [facility] TEST INC INC VISUAL COLOR CMPRSN METHS URNLS DIP 75361 BRADEN FELICIANO 4 [facility] STICK/TAB INC INC LET REAGENT AUTO MICROSCOP Y IAADI 29158 BRADEN FELICIANO INFFLUENZ 4 [facility] A A VIRUS INC INC IAADI 09752 BRADEN FELICIANO INFLUENZA 4 [facility] B VIRUS INC INC US SOFT 18844 [place] KRISTIE TISSUE 1 MEDICAL TAM HEAD & IMAGING [place] [address] BRADEN FELICIANO THYROID 1 [facility] STIMULATI [place] [address] BRADEN FELICIANO FREE 1 [facility] THYROXINE INC INC MICROSOMA 23317 BRADEN FELICIANO L 1 [facility] [place] [address] BARDEN FELICIANO LIPASE 1 [facility] INC INC HOSPITAL G0378 BRADEN FELICIANO OBSERVATI 1 [facility] ON INC INC SERVICE PER HOUR LEVEL III 15911 [facility]IP[facility] ANTIONE SURG 1 MANJINDER & PATHOLOGY DUBILIER GROSS&ANTIONE ROSCOPIC EXAM BLOOD 36633 BRADEN FELICIANO COUNT 1 [facility] COMPLETE INC INC AUTO&AUTO DIFRNTL WBC CULTURE 11789 BRADEN FELICIANO BACTERIAL 1 [facility] INC INC QUANTTATI VE COLONY COUNT URINE LAPAROSCO 62272 BRADEN FELICIANO PIC 1 [facility] [address] BRADEN FELICIANO AMYLASE 1 [facility] INC INC COMPREHEN 60530 BRADEN FELICIANO SIVE 1 [facility] METABOLIC INC INC PANEL 3D 88948 BRADEN FELICIANO RENDERING 1 [facility] INC INC W/INTERP& POSTPROC DIFF WORK STATION URNLS DIP 22688 BRADEN FELICIANO 1 [facility] STICK/TAB INC [place] [address] BRADEN FELICIANO ABDOMEN & 1 [facility] PELVIS INC INC W/O CONTRAST MATERIAL URINE 76814 BRADEN FELICIANO 1 [facility] TEST INC INC VISUAL COLOR CMPRSN METHS ANESTHESI 58285 COMMUNITY REBOLLAR BREANNA A 1 ANESTH INTRAPERI OF THE TONEAL BLUE LOWER ABD W/LAPS NOS LAPAROSCO 4701 BRADEN FELICIANO PIC 1 [facility] APPENDECT INC INC ADAM URINE 64996 BRADEN FELICIANO 1 [facility] TEST INC [place] [address] BRADEN FELICIANO ABDOMEN & 1 [facility] PELVIS INC INC W/O CONTRAST MATERIAL URNLS DIP 30115 BRADEN FELICIANO 1 [facility] STICK/TAB INC INC LET REAGENT AUTO MICROSCOP Y 3D 69929 BRADEN FELICIANO RENDERING 1 [facility] INC INC W/INTERP& POSTPROC DIFF WORK STATION RADIOLOGI 75470 BRADEN FELICIANO C EXAM 1 [facility] CHEST 2 INC INC VIEWS FRONTAL&L ATERAL ECG 67154 NELY PETERSON ROUTINE 1 EMERGENCY ANTIONE ECG SERVICES W/LEAST 12 LDS I&[place] [address] BRADEN FELICIANO TROPONIN 1 [facility] QUANTITAT INC INC AMARA CREATINE 33557 BRADEN FELICIANO KINASE MB 1 [facility] FRACTION INC INC ONLY CREATINE 61457 BRADEN FELICIANO KINASE 1 [facility] TOTAL INC INC ECG 94180 BRADEN FELICIANO ROUTINE 1 [facility] ECG INC INC W/LEAST 12 LDS TRCG ONLY W/O I&R CV STRS 43077 ETTA NANCYUJI TST 1 PHYSICIAN COLT XERS&/OR S GROUP RX CONT ECG W/O I&R CV STRS 46460 BRADEN FELICIANO TST 1 [facility] XERS&/OR INC INC RX CONT ECG TRCG ONLY CV STRS 53180 BRADEN DOROTHY DWI TST 1 [facility] XERS&/OR HOSPITAL RX CONT P ECG I&R ONLY MYOCARDIA 04266 BRADEN FELICIANO L SPECT 1 [facility] MULTIPLE INC INC STUDIES LIPID 14760 BRADEN FELICIANO PANEL 1 [facility] INC INC COMPREHEN 12024 BRADEN FELICIANO SIVE 1 [facility] METABOLIC INC INC PANEL ECG 26361 BRADEN FELICIANO ROUTINE 1 [facility] ECG INC INC W/LEAST 12 LDS TRCG ONLY W/O I&[place] [address] BRADEN FELICIANO FREE 1 [facility] [place] [address] BRADEN FELICIANO THYROID 1 [facility] STIMULATI INC INC NG HORMONE TSH US SOFT 03311 BRADEN FELICIANO TISSUE 1 [facility] HEAD & INC INC NECK REAL TIME IMGE DOCM RADIOLOGI 00335 BRADEN FELICIANO C EXAM 1 [facility] CHEST 2 INC INC VIEWS FRONTAL&L ATERAL RADEX 40974 BRADEN FELICIANO WRIST 1 [facility] COMPLETE INC INC MINIMUM 3 VIEWS MICROSOMA 60245 BRADEN FELICIANO L 1 [facility] [place] [address] BRADEN FELICIANO THYROID 1 [facility] STIMUL[place] [address] BRADEN FELICIANO FREE 1 [facility] THYROXINE INC INC US SOFT 00883 BRADEN FELICIANO TISSUE 1 [facility] HEAD & INC INC NECK REAL TIME IMGE DOCM IAADI 63736 [facility] INFFLUENZ 1 [facility] A A VIRUS INC INC IAADI 74952 [facility] INFLUENZA 1 [facility] B VIRUS INC INC RADEX 58284 [facility] HAND 0 [facility] MINIMUM 3 INC INC VIEWS RADEX 40752 [facility] WRIST 0 [facility] COMPLETE INC INC MINIMUM 3 [place] [address] [facility] FREE 0 [facility] [place] [address] [facility] F[facility] THYROID 0 [facility] STIMULATI INC INC NG HORMONE TSH US SOFT 29913 [facility] TISSUE 0 [facility] HEAD & INC INC NECK REAL TIME IMGE DOCM 3D 86156 [facility] RENDERING 0 [facility] INC INC W/INTERP& POSTPROC DIFF WORK STATION URNLS DIP 39692 [facility] STICK/TAB INC INC LET REAGENT AUTO MICROSCOP Y URINE 22766 [facility] TEST INC INC VISUAL COLOR CMPRSN METHS CULTURE 92773 [facility] BACTERIAL 0 [facility] INC INC QUANTTATI VE COLONY COUNT URINE CT PELVIS 82904 [facility] W/O 0 [facility] [place] [address] [facility] ABDOMEN 0 [facility] W/O INC INC CONTRAST MATERIAL COMPREHEN 08723 [facility] SIVE 0 [facility] METABOLIC INC INC PANEL BLOOD 91851 [facility] COUNT 0 [facility] COMPLETE INC INC AUTO&AUTO DIFRNTL WBC RADEX 39426 [facility] SPINE 0 [facility] LUMBOSACR INC INC AL MINIMUM 4 VIEWS RADEX 22088 [facility] FOOT 0 [facility] COMPLETE INC INC MINIMUM 3 VIEWS RADIOLOGI 91180 [facility] C [facility] EXAMINATI INC INC ON PELVIS 1/2 VIEWS APPL 49766 [facility] MODALITY 0 [facility] 1/> AREAS INC INC ELEC STIMJ UNATTENDE D THERAPEUT 19514 [facility] F[facility] IC PX 1/> 0 [facility] AREAS INC INC EACH 15 MIN EXERCISES APPLICATI 95599 [facility] ON 0 [facility] MODALITY INC INC 1/> AREAS HOT/COLD PACKS APPLICATI 89945 [facility] ON 0 [facility] MODALITY INC INC 1/> AREAS HOT/COLD PACKS THERAPEUT 87620 [facility] FELICIAN[facility] IC PX 1/> 0 [facility] AREAS INC INC EACH 15 MIN EXERCISES PHYSICAL 09794 [facility] THERAPY 0 [facility] EVALUATIO INC INC N APPL 31629 [facility] MODALITY 0 [facility] 1/> AREAS INC [place] [address] PATHOLOGY PATHOLOGY SURG 0 & & PATHOLOGY CYTOLOGY CYTOLOGY LAB LAB GROSS&ANTIONE ROSCOPIC EXAM CYSTO 55910 COMMONWEA MOSQUERA, W/URETERO 0 LTH ARIS D SCOPY UROLOGY W/RMVL/MA PSC [place] STONES ANES 76620 ANESTHESI WHITE, TRURL 0 A JOHN E FRAGMNTJ ASSOCIATE MANJ&/RMV S, PSC L URETERAL CALCULUS FINE 00958 JUDE ROQUE, NEEDLE 0 CYDNEY G CYDNEY G ASPIRATIO N W/O IMAGING GUIDANCE MICROSOMA 19844 [facility] L 0 [facility] ANTIBODIE INC INC S EACH CALCIUM 10142 [facility] TOTAL 0 [place] [address] [facility] F[facility] FREE 0 [facility] [place] [address] [facility] THYROID 0 [facility] STIMULATI INC INC NG HORMONE TSH BLOOD 20555 [facility] COUNT 0 [facility] COMPLETE INC INC AUTO&AUTO DIFRNTL WBC OBSERVATI 33615 [place], ON CARE 0 [facility] JAE A DISCHARGE INTERNAL MED MANAGEMEN T TOBACCO 00770 [facility] USE 0 [facility] CESSATION INC INC INTERMEDI ATE 3-10 MINUTES BASIC 52946 [facility] METABOLIC 0 [facility] PANEL INC INC CALCIUM TOTAL CT PELVIS 71599 [facility] W/O 0 [facility] [place] [address] [facility] F[facility] ABDOMEN 0 [facility] W/O INC INC CONTRAST MATERIAL INITIAL 58079 [place] NORMA OBSERVATI 0 ANIKET , ON INTERNAL RORY F CARE/DAY MED 30 MINUTES URNLS DIP 42936 [facility] STICK/TAB INC INC LET REAGENT AUTO MICROSCOP Y 3D 33973 [facility] RENDERING 0 [facility] INC INC W/INTERP& POSTPROC DIFF WORK STATION BLOOD 20023 [facility] COUNT 0 [facility] COMPLETE INC INC AUTO&[place] [address] [facility] FELIC[facility] LIPASE 0 [facility] [place] [address] [facility] AMYLASE 0 [facility] INC INC COMPREHEN 12073 [facility] FELICIANO SIVE 0 [facility] METABOLIC INC INC PANEL URNLS DIP 88953 [facility]AD[facility] FELICIANO 0 [facility] STICK/TAB CENTER CENTER LET RGNT NON-AUTO W/O MICRSCP CYTP 90392 PATHOLOGY PATHOLOGY CERV/VAG 0 & & AUTO THIN CYTOLOGY CYTOLOGY LAYER LAB LAB PREP MNL SCREEN IADNA 18240 PATHOLOGY PATHOLOGY PAPILLOMA 0 & & VIRUS CYTOLOGY CYTOLOGY HUMAN LAB LAB AMPLIFIED PROBE TQ CYTP 97483 PATHOLOGY PATHOLOGY CERVICAL/ 0 & & VAGINAL CYTOLOGY CYTOLOGY REQ LAB LAB INTERP PHYSICIAN US SOFT 98478 JAVIER KRISTIE, TISSUE 0 MEDICAL KUSH HEAD & IMAGING NECK REAL ASSOCIATE TIME S IMGE DOCM MRI 05835 KUSH C KRISTIE, SPINAL 0 KRISTIE KUSH CANAL LUMBAR W/O CONTRAST MATERIAL MRI 89800 KUSH C KRISTIE, SPINAL 0 KRISTIE KUSH CANAL CERVICAL W/O CONTRAST MATRL 3D 95104 KUSH C KRISTIE, RENDERING 0 KRISTIE KUSH W/INTERP & POSTPROCE SS SUPERVISI ON URNLS DIP 44754 [facility]EN FELICIANO 9 [facility] STICK/TAB INC INC LET REAGENT AUTO MICROSCOP Y 3D 30263 BRADEN FELICIANO RENDERING 9 [facility] INC INC W/INTERP& POSTPROC DIFF WORK STATION CT PELVIS 45338 JAVIER DAHIANA, W/O 9 MEDICAL JOSEFINA [place] [address] BRADEN FELICIANO ABDOMEN 9 [facility] W/O INC INC CONTRAST MATERIAL CULTURE 33000 BRADEN FELICIANO BACTERIAL 9 [facility] INC INC QUANTTATI VE COLONY COUNT URINE URINE 72672 BRADEN FELICIANO 9 [facility] TEST INC INC VISUAL COLOR CMPRSN METHS BLOOD 50502 BRADEN FELICIANO COUNT 9 [facility] COMPLETE INC INC AUTO&AUTO DIFRNTL WBC COMPREHEN 01815 BRADEN FELICIANO SIVE 9 [facility] [address] BRADEN FELICIANO AMYLASE 9 [place] [address] BRADEN FELICIANO LIPASE 9 [facility] INC INC GLUC BLD 31124 DHS/CO BRADEN GLUC MNTR 9 [facility] CLE[facility] BANK ACCT FDA SPEC HOME USE COMPLEX 63320 MAZIN HOLLAND JR, UROFLOMET 9 LT RORY RY UROLOGY R PSC BLADDER 41989 MAZIN HOLLAND JR, PRESSURE 9 [facility] RORY MEASUREME UROLOGY R NT DURING PSC FILLING EMG STDS 59686 MAZIN HOLLAND JR, ANAL/URTL 9 LT RORY SPHNCTR UROLOGY R OTH/THN PSC NDL VOIDING 27639 MAZIN HOLLAND JR, PRESS 9 LTH RORY STDS BLDR UROLOGY R VOIDING PSC PRESS ANY TQ VOID 77757 MAZIN HOLLAND JR, PRESSURE 9 [facility] RORY STUDIES UROLOGY R INTRAABDO PSC BALJIT CYSTO 81647 MAZIN HOLLAND JR, CALIBRATI 9 [facility] RORY ON DILAT UROLOGY R URTL PSC STRIX/JOSE NOSIS CULTURE 57919 BRADEN FELICIANO BACTERIAL 9 [facility] INC INC QU[place] [address] BRADEN FELICIANO STREPTOCO 9 [facility] CCUS INC INC GROUP A IAADI 11032 BRADEN BRADEN INFFLUENZ 9 [facility] A A VIRUS INC INC IAADI 19168 BRADEN FELICIANO INFLUENZA 9 [facility] B VIRUS INC INC OPHTH 37304 LIGIA OLSEN, [facility] 8 VISION NAMRATA M XM&EVAL COMPRHNSV ESTAB PT 1/> COMPREHEN 09285 BRADEN FELICIANO SIVE 8 [facility] [address] BRADEN FELICIANO AMYLASE 8 [facility] INC INC BLOOD 75570 BRADEN FELICIANO COUNT 8 [facility] COMPLETE INC INC AUTO&AUTO DIFRNTL WBC ECG 50508 BRADEN FELICIANO ROUTINE 8 [facility] ECG INC INC W/LEAST 12 LDS TRCG ONLY W/O I&[place] [address] BRADEN FELICIANO LIPASE 8 [facility] INC INC ECG 20302 BRADEN KNIGHTMIKarson ROUTINE 8 [facility] W/LEAST PROF SERV 12 LDS I&R ONLY URNLS DIP 86261 BRADEN FELICIANO 8 [facility] STICK/TAB INC INC LET REAGENT AUTO MICROSCOP Y LIPID 92611 BRADEN FELICIANO PANEL 8 [facility] INC INC BLOOD 77484 BRADEN FELICIANO COUNT 8 [facility] COMPLETE INC INC AUTO&AUTO DIFRNTL WBC COMPREHEN 41799 BRADEN FELICIANO SIVE 8 [facility] [place] [address] BRADEN FELICIANO THYROID 8 [facility] STIMULATI INC INC NG HORMONE TSH Encounters Encounter Start End Date Code Location Performer Type Date HOSPITAL BRADEN Gentile 7 [facility] OUTPATIEN INC T EMERGENCY 39453 BRADEN 7 7 [facility] DEPARTMEN INC T VISIT HIGH/URGE NT SEVERITY EMERGENCY 00379 SUKHDEV PETERSON DEPT 7 7 PHYSICIAN VISIT S, [facility] HIGH SEVERITY& THREAT [facility] BRADEN - 7 7 [facility] OUTPATIEN INC T OFFICE 39648 [facility] FRYMAN OUTPATIEN 7 7 PHYSICIAN T VISIT S GROUP 25 MINUTES OFFICE 70924 [facility] OUTPATIEN 7 7 PHYSICIAN T VISIT S GROUP 25 MINUTES OFFICE 50218 BRADEN SMITHKINS OUTPATIEN 7 7 [facility] 10 P MINUTES HOSPITAL BRADEN - 7 7 [facility] OUTPATIEN INC T OFFICE 75144 [facility] EMILY OUTPATIEN 7 7 PHYSICIAN T VISIT S GROUP 10 MINUTES HOSPITAL BRADEN - 6 6 [facility] OUTPATIEN INC T HOSPITAL BRADEN - 6 6 [facility] OUTPATIEN INC T OFFICE 70140 [facility] EMILY OUTPATIEN 6 6 PHYSICIAN T VISIT S GROUP 10 MINUTES OFFICE 00227 BRADEN SMITHKINS OUTPATIEN 6 6 [facility] 10 P MINUTES HOSPITAL BRADEN - 6 6 [facility] OUTPATIEN INC T OFFICE 51340 BRADEN MOSQUERA OUTPATIEN 6 6 [place] [address] HOSPITAL MINUTES P OFFICE 09044 [facility] FRYMAN OUTPATIEN 6 6 PHYSICIAN EUG T VISIT S GROUP 15 MINUTES EMERGENCY 32047 SUKHDEV PETERSON 6 6 PHYSICIAN ANTIONE DEPARTMEN S, [facility] T VISIT MODERATE SEVERITY EMERGENCY 86256 BRADEN 6 6 [facility] DEPARTMEN INC T VISIT LOW/MODER SEVERITY HOSPITAL BRADEN - 6 6 [facility] OUTPATIEN INC T EMERGENCY 62450 SUKHDEV RENUSCH 6 6 [facility] HIGH/URGE NT SEVERITY EMERGENCY 16093 [facility]OW[facility]MODER SEVERITY HOSP[facility] BRADEN - 6 6 [facility] OUTPATIEN [facility] T OFFICE 37532 [facility] FRYMAN OUTPATIEN 6 6 PHYSICIAN EUG T VISIT S GROUP 15 MINUTES HOSPITAL BRADEN - 6 6 [facility] OUTPATIEN [facility] T HOSPITAL BRADEN - 6 6 [facility] OUTPATIEN [facility] T EMERGENCY 52875 [facility] 6 [facility] T VISIT LOW/MODER SEVERITY EMERGENCY 21918 SUKHDEV DAMONH 6 6 [facility]IS[facility] HIGH/URGE NT SEVERITY PERIODIC 99774 [facility] PREVENTIV 6 6 PHYSICIAN E MED EST S GROUP PATIENT 40-64YRS HOSPITAL BRADEN - 6 6 [facility] OUTPATIEN [facility] T OFFICE 37661 [facility] EMILY TOD OUTPATIEN 6 6 PHYSICIAN T VISIT S GROUP 10 MINUTES HOSPITAL BRADEN - 6 6 [facility]PATIEN [facility] T OFFICE 74280 [facility] WOODS OUTPATIEN 6 6 PHYSICIAN BOOKER T VISIT S GROUP 25 MINUTES EMERGENCY 41468 SUKHDEV SANTOYOEY 6 6 PHYSICIAN ANTIONE ALVAREZ S PLLC T VISIT HIGH/URGE NT SEVERITY HOSPITAL BRADEN - 6 6 [facility] OUTPATIEN [facility] T OFFICE 58870 [facility] EMILY TOD CONSULTAT 6 6 PHYSICIAN ION S GROUP NEW/ESTAB PATIENT 30 MIN HOSPITAL BRADEN - 6 6 [facility] OUTPATIEN [facility] T OFFICE 73224 [facility] STONE MARY OUTPATIEN 6 6 PHYSICIAN T VISIT S GROUP 15 MINUTES HOSPITAL GEORGETOW - 6 6 N OUTPATIEN COMMUNTIY T [facility] BRADEN - 6 6 [facility] OUTPATIEN INC T OFFICE 15599 [facility] RITA OUTPATIEN 6 6 PHYSICIAN ANTIONE T VISIT S GROUP 15 MINUTES OFFICE 65599 [facility] MEGHNA ALVA OUTPATIEN 6 6 PHYSICIAN T VISIT S GROUP 10 MINUTES OFFICE 59560 AMARI LEMUST OUTPATIEN 6 6 T VISIT ORTHOPAED 15 ICS PSC MINUTES OFFICE 11495 [facility] KARINA OUTPATIEN 6 6 PHYSICIAN ANTIONE T VISIT S GROUP 15 MINUTES OFFICE 90624 [facility] AND[facility] TRA OUTPATIEN 6 6 [place] T NEW 30 ORTHOPAED MINUTES ICS PLC OFFICE 80938 [facility] KARINA OUTPATIEN 6 6 PHYSICIAN ANTIONE T VISIT S GROUP 15 MINUTES OFFICE 97363 [facility] EMILY MARTIN OUTPATIEN 5 5 PHYSICIAN T VISIT S GROUP 10 MINUTES EMERGENCY 88156 SUKHDEV PETERSON DEPT 5 5 PHYSICIAN ANTIONE VISIT S, [facility] HIGH SEVERITY& THREAT FUNJ EMERGENCY 12445 BRADEN 5 5 [facility] INC T VISIT MODERATE SEVERITY HOSPITAL BRADEN - 5 5 [facility] OUTPATIEN INC HOSPITAL BRADEN - 5 5 [facility] OUTPATIEN INC [facility] BRADEN - 5 5 [facility] OUTPATIEN INC T OFFICE 05333 [facility] EMILY TOD CONSULTAT 5 5 PHYSICIAN ION S GROUP NEW/ESTAB PATIENT 40 MIN HOSPITAL BRADEN - 5 5 [facility] OUTPATIEN INC OFFICE 66953 BRADEN PLATT OUTPATIEN [address] [facility] T VISIT HOSPITAL 15 MINUTES EMERGENCY 53757 SUKHDEV PARKER 5 5 [facility]IAN [facility] MODERATE SEVERITY HOSP[facility] BRADEN - 5 5 [facility] OUTPATIEN INC T EMERGENCY 99191 BRADEN 5 5 [facility] DEPARTMEN INC T VISIT LOW/MODER SEVERITY OFFICE 89038 CARDIOVAS LILIA OUTPATIEN 5 5 CULAR MAT T VISIT CONSULTAN 25 TS O [facility] HOSPITAL BRADEN - 5 5 [facility] OUTPATIEN INC T HOSPITAL BRADEN - 5 5 [facility] OUTPATIEN INC T OFFICE 47212 BRADEN PLATT OUTPATIEN [address] BRADEN - 5 5 [facility] OUTPATIEN INC T EMERGENCY 49227 SUKHDEV FRANKLIN 5 5 PHYSICIAN RAEGAN [facility] S, [facility] T VISIT HIGH/URGE NT SEVERITY EMERGENCY 25237 SUKHDEV STARK 5 5 PHYSICIAN Kortney [facility] S, [facility] T VISIT HIGH/URGE NT SEVERITY OFFICE 93322 [facility] 5 5 PHYSICIAN NATTY T VISIT S GROUP 15 MINUTES HOSPITAL BRADEN - 5 5 [facility] OUTPATIEN INC T PERIODIC 41648 [facility] PREVENTIV 5 5 [facility] E MED EST TH DEPT TH DEPT PATIENT DANIELLE DANIELLE 18-39 YRS EMERGENCY 88035 BRADEN 5 5 [facility] DEPARTMEN INC T VISIT LOW/MODER SEVERITY EMERGENCY 61412 BRADEN MATHEWS 5 5 [facility] T VISIT P MODERATE SEVERITY HOSPITAL BRADEN - 5 5 [facility] OUTPATIEN INC T OFFICE 75742 [facility] OUTPATIEN 5 5 PHYSICIAN T VISIT S GROUP 25 MINUTES OFFICE 39108 JUDE ROQUE OUTPATIEN 5 5 NATTY NATTY T VISIT 10 MINUTES HOSPITAL BRADEN - 5 5 [facility] OUTPATIEN INC EMERGENCY 73512 BRADEN 5 5 [facility] INC T VISIT LOW/MODER SEVERITY HOSPITAL BRADEN - 5 5 [facility] OUTPATIEN INC EMERGENCY [address] BRADEN DEEER [address] [facility] T VISIT P MODERATE SEVERITY HOSPITAL BRADEN - 4 4 [facility] OUTPATIEN [facility] HOSPITAL BRADEN - 4 4 [facility] OUTPATIEN [facility] T OFFICE 01357 [facility] PETTE OUTPATIEN 4 4 PHYSICIAN JAM T VISIT S GROUP 15 MINUTES HOSPITAL BRADEN - 4 4 [facility] OUTPATIEN [facility] T OFFICE 22687 [facility] PETTE OUTPATIEN 4 4 PHYSICIAN JAM T NEW 30 S GROUP MINUTES EMERGENCY 81579 [facility] 4 4 [facility] EMERGENC[facility] T VISIT PHYS MODERATE SEVERITY HOSPITAL BRADEN - 4 4 [facility] OUTPATIEN [facility]PITAL BRADEN - 4 4 [facility]PATIEN [facility] T OFFICE 02939 ROQUE JUDE OUTLARRYEN 4 4 NATTY NATTY T VISIT 25 MINUTES EMERGENCY 00994 ALFARIS ALFARIS 4 4 [facility] T VISIT HIGH/URGE NT SEVERITY OFFICE 52946 [facility] VISIT [facility] DEPT TH DEPT 10 DANIELLE DANIELLE MINUTES PERIODIC 40817 [facility] E MED EST [facility] DEPT [facility] DEPT PATIENT DANIELLE DANIELLE 18-39 YRS Emergency JUNO REYNAGA DO (ER) 4 10:11 4 12:50 [facility] EMERGENCY 42331 JUHI JOSE JUHI JOSE DEPT 4 4 VISIT HIGH SEVERITY& THREAT FUNCJ Emergency JUNO Foley MD (ER) 4 15:52 4 17:15 [facility] EMERGENCY 71580 JOLYNN YAJAIRA JOLYNN GATES 4 4 DEPARTMEN T VISIT MODERATE SEVERITY EMERGENCY 57172 BRADEN 4 4 [facility] DEPARTMEN INC T VISIT LOW/MODER SEVERITY HOSPITAL BRADEN - 4 4 [facility] OUTPATIEN INC T Emergency JUNO FUENTES MD (ER) 4 09:25 4 11:46 [facility] EMERGENCY 25239 GINA FUENTES 4 4 [facility] DEPARTMEN T VISIT HIGH/URGE NT SEVERITY Emergency JUNO Peterson MD (ER) 3 02:20 3 05:42 [facility] Emergency JUNO Peterson MD (ER) 3 20:10 3 20:50 [facility] Emergency JUNO Levi MD (ER) 3 15:02 3 16:20 [facility] OFFICE 50695 ROQUE ROQUE OUTPATIEN 1 1 NATTY NATTY T VISIT 10 MINUTES HOSPITAL BRADEN - 1 1 [facility] OUTPATIEN INC T OFFICE 53493 ROQUE ROQUE OUTPATIEN 1 1 NATTY NATTY T VISIT 10 MINUTES HOSPITAL BRADEN - 1 1 [facility] OUTPATIEN INC T EMERGENCY 91495 NELY PETERSON DEPT 1 1 EMERGENCY ANTIONE VISIT SERVICES HIGH SEVERITY& THREAT FUNCJ OFFICE 15163 AKUA FATIMA OUTPATIEN 1 1 MITCHELL MITCHELL T VISIT 15 MINUTES EMERGENCY 61068 NELY PETERSON DEPT 1 1 EMERGENCY ANTIONE VISIT SERVICES HIGH SEVERITY& THREAT [facility] BRADEN - 1 1 [facility] OUTPATIEN INC T EMERGENCY 09324 BRADEN 1 1 [facility] DEPARTMEN INC T VISIT LOW/MODER SEVERITY OFFICE 84719 AKUA FATIMA OUTPATIEN 1 1 MITCHELL MITCHELL T VISIT 15 MINUTES OFFICE 32529 AKUA FATIMA OUTPATIEN 1 1 MITCHELL MITCHELL T VISIT 15 MINUTES EMERGENCY 83439 BRADEN 1 1 [facility] DEPARTMEN INC T VISIT HIGH/URGE NT SEVERITY EMERGENCY 59725 NELY PETERSON DEPT 1 1 EMERGENCY ANTIONE VISIT SERVICES HIGH SEVERITY& THREAT [facility] BRADEN - 1 1 [facility] OUTPATIEN INC T HOSPITAL BRADEN - 1 1 [facility] OUTPATIEN INC T OFFICE 97821 JUDE GLYNNON OUTPATIEN 1 1 NATTY NATTY T VISIT 15 MINUTES HOSPITAL BRADEN - 1 1 [facility] OUTPATIEN INC T OFFICE 79730 LASHELL RUGGIERO CONSULTAT 1 1 JAM ION CARDIOLOG NEW/ESTAB Y CONSULT PATIENT 40 MIN HOSPITAL BRADEN - 1 1 [facility] OUTPATIEN INC T OFFICE 15630 AKUA SHOEMAKEREN 1 1 MITCHELL MITCHELL T VISIT 15 MINUTES HOSPITAL BRADEN - 1 1 [facility] OUTPATIEN INC T EMERGENCY 54444 BRADEN 1 1 [facility] DEPARTMEN INC T VISIT LOW/MODER SEVERITY HOSPITAL BRADEN - 1 1 [facility] OUTPATIEN INC T EMERGENCY 02156 NELY PINTO 1 1 EMERGENCY DEPARTMEN SERVICES T VISIT HIGH/URGE NT SEVERITY HOSPITAL BRADEN - 1 1 [facility] OUTPATIEN INC T EMERGENCY 80996 BRADEN 1 1 [facility] DEPARTMEN INC T VISIT LOW/MODER SEVERITY EMERGENCY 22162 NELY PETERSON 1 1 EMERGENCY [facility] DEPARTMEN SERVICES T VISIT HIGH/URGE NT SEVERITY OFFICE 37531 PIETRO CALL CONSULTAT 1 1 NEUROLOGY [facility] NEW/ESTAB JOHN PATIENT 80 MIN OFFICE 49796 ROQUE ROQUE OUTPATIEN 1 1 NATTY NATTY T VISIT 10 MINUTES EMERGENCY 34531 NELY CAMPOS 1 1 [facility] VISIT MODERATE SEVERITY HOSP[facility] BRADEN - 1 1 [facility] OUTPATIEN INC T EMERGENCY 84893 BRADEN 1 1 [facility] DEPARTMEN INC T VISIT LOW/MODER SEVERITY OFFICE 22323 AKUA MURRAY 1 1 MITCHELL MITCHELL T VISIT 15 MINUTES HOSPITAL BRADEN - 1 1 [facility] OUTPATIEN INC T OFFICE 86671 ROQUE ROQUE OUTPATIEN 1 1 NATTY NATTY T VISIT 10 MINUTES HOSPITAL BRADEN - 1 1 [facility] OUTPATIEN INC T OFFICE 86581 ROQUE ROQUE OUTPATIEN 1 1 NATTY NATTY T VISIT 15 MINUTES EMERGENCY 73262 BRADEN 1 1 [facility] DEPARTMEN INC T VISIT LOW/MODER SEVERITY EMERGENCY 00517 NELY PETERSON 1 1 EMERGENCY [facility] DEPARTMEN SERVICES T VISIT HIGH/URGE NT SEVERITY HOSPITAL BRADEN - 1 1 [facility] OUTPATIEN INC T OFFICE 74981 ROQUE ROQUE OUTPATIEN 1 1 NATTY NATTY T VISIT 10 MINUTES HOSPITAL BRADEN - 0 0 [facility] OUTPATIEN INC T EMERGENCY 66006 BRADEN 0 0 [facility] DEPARTMEN INC T VISIT LOW/MODER SEVERITY PERIODIC 22961 BRADEN BRADEN PREVENTIV 0 0 [facility] CENTER PATIENT 18-39 YRS HOSPITAL BRADEN - 0 0 [facility] OUTPATIEN INC T EMERGENCY 26941 NELY SEVILLA DEPT 0 0 EMERGENCY GRE VISIT SERVICES HIGH SEVERITY& THREAT FUNCJ [facility] BRADEN - 0 0 [facility] OUTPATIEN INC T EMERGENCY 41115 BRADEN 0 0 [facility] DEPARTMEN INC T VISIT HIGH/URGE NT SEVERITY EMERGENCY 55594 BRADEN 0 0 [facility] DEPARTMEN INC T VISIT LOW/MODER SEVERITY EMERGENCY 77712 NELY PETERSON 0 0 EMERGENCY ANTIONE DEPARTMEN SERVICES T VISIT HIGH/URGE NT SEVERITY [facility] BRADEN - 0 0 [facility] OUTPATIEN INC T OFFICE 60915 JUDE ROQUE OUTPATIEN 0 0 CYDNEY G CYDNEY G T VISIT 15 MINUTES HOSPITAL BRADEN - 0 0 [facility] OUTPATIEN INC T OFFICE 04373 [facility] OUTPATIEN 0 0 [place] T VISIT ORTHOPAED 15 [facility] MINUTES OFFICE 08994 [facility] 0 [facility] Muniz T NEW 30 [facility]IN[facility] OFF[facility] 11893 JUDE ROQUE OUTPATIEN 0 0 CYDNEY G CYDNEY G T VISIT 10 MINUTES HOSPITAL BRADEN - 0 0 [facility] OUTPATIEN INC T OFFICE 62214 JUDE ROQUE OUTPATIEN 0 0 CYDNEY G CYDNEY G T NEW 45 MINUTES OFFICE 10888 TERRI BETTS 0 0 LTH ARIS D T VISIT UROLOGY 25 PSC MINUTES OFFICE 49088 AKUA FATIMA OUTPATIEN 0 0 JAMES Bui T VISIT 15 MINUTES HOSPITAL BRADEN - 0 0 [facility] OUTPATIEN INC T EMERGENCY 05360 NELY PETERSON, DEPT 0 0 EMERGENCY NEMO S VISIT SERVICES HIGH SEVERITY& ASSOCIATE THREAT S FUNCJ EMERGENCY 82216 BRADEN 0 0 [facility] DEPARTMEN INC T VISIT HIGH/URGE NT SEVERITY OFFICE 78071 BRADEN [facility]AD[facility] OUTPATIEN 0 0 [facility] T VISIT CENTER CENTER 15 MINUTES OFFICE 21785 [facility] ANDRES, CONSULTAT 0 0 [place] TRUDY A ION ORTHOPAED NEW/ESTAB [facility] PATIENT 60 MIN HOSPITAL BRADEN - 0 0 [facility] OUTPATIEN INC T OFFICE 73481 AKUA FATIMA OUTPATIEN 0 0 JAMES Bui T VISIT 15 MINUTES OFFICE 95865 AKUA FATIMA OUTPATIEN 9 9 JAMES Bui T NEW 30 MINUTES HOSPITAL BRADEN - 9 9 [facility] OUTPATIEN INC T EMERGENCY 23536 NELY CAMPOS 9 9 EMERGENCY III, [facility] SERVICES RORY Oliva VISIT HIGH/URGE ASSOCIATE NT S SEVERITY OFFICE 10211 BEULAH RIOJAS OUTPATIEN 9 9 DON R DON R T VISIT 15 MINUTES OFFICE 73053 [facility] BRADEN OUTPATIEDGARDO 9 9 HEALTH [facility] T VISIT [facility] 10 BANK ACCT MINUTES OFFICE 16446 TERRI DUNCAN JR 9 9 LT RORY T VISIT UROLOGY R 10 PSC MINUTES OFFICE 83776 MAZIN HOLLAND JR CONSULTAT 9 9 [facility] RORY ION UROLOGY R NEW/ESTAB PSC PATIENT 30 MIN OFFICE 65447 BEULAH RIOJAS OUTPATIEN 9 9 DON R DON R T VISIT 15 MINUTES OFFICE 75100 BEULAH RIOJAS OUTPATIEN 9 9 DON R DON R T VISIT 15 MINUTES OFFICE 84431 BEULAH RIOJAS OUTPATIEN 9 9 DON R DON R T VISIT 15 MINUTES OFFICE 95417 BEULAH RIOJAS OUTPATIEN 9 9 DON R DON R T VISIT 15 MINUTES HOSPITAL BRADEN - 9 9 [facility] OUTPATIEN INC T HOSPITAL BRADEN - 9 9 [facility] OUTPATIEN INC T EMERGENCY 87446 BRADEN 9 9 [facility] DEPARTMEN INC T VISIT HIGH/URGE NT SEVERITY EMERGENCY 38495 NELY PETERSON, 9 9 EMERGENCY [facility] SERVICES T VISIT MODERATE ASSOCIATE SEVERITY S OFFICE 67822 BEULAH RIOJAS OUTPATIEN 9 9 DON R DON R T VISIT 15 MINUTES EMERGENCY 82099 BRADEN 9 9 [facility] DEPARTMEN INC T VISIT LOW/MODER SEVERITY HOSPITAL BRADEN - 9 9 [facility] OUTPATIEN INC T EMERGENCY 89010 NELY PETERSON, 9 9 EMERGENCY [facility] SERVICES T VISIT MODERATE ASSOCIATE SEVERITY S OFFICE 63945 BEULAH RIOJAS OUTPATIEN 9 9 DON R DON R T VISIT 15 MINUTES OFFICE 30432 BEULAH RIOJAS OUTPATIEN 9 9 DON R DON R T VISIT 15 MINUTES OFFICE 68792 BEULAH RIOJAS OUTPATIEN 8 8 DON R DON R T VISIT 15 MINUTES OFFICE 66695 BEULAH RIOJAS OUTPATIEN 8 8 DON R DON R T VISIT 15 MINUTES EMERGENCY [id number] MCNAMARA YECENIA, DEPT 8 8 [employer] E VISIT CORPORATI HIGH ON SEVERITY& THREAT [facility] BRAD[facility] - 8 8 [facility] - 8 8 [facility] OFF[facility] [id number] BEULAH RIOJAS OUTPATIEN 8 8 LILLY Montalvo T VISIT 15 MINUTES HOSPITAL BRADEN - 8 8 [facility] EMERGENCY [id number] BRADEN 8 8 [facility] VISIT MODERATE [facility]VERITY
--- OUTSIDE RECORDS SUMMARY | 2017-03-06 09:59 | External Medical Summary Rpt ---
Author Author , Organization [employer] Address Unknown Phone Unavailable Care Team Providers Care Mining Manager Name Role Phone MOSQUERA, MOSQUERA Unavailable Unavailable MOSQUERA CORTEZ, MOSQUERA Unavailable Unavailable CORTEZ MOSQUERA, ARIS D, Unavailable Unavailable MOSQUERA, ARIS D ALFARIS MOH, ALFARIS Unavailable Unavailable MOH ARNOLD MITCHELL, ARNOLD Unavailable Unavailable MITCHELL ARNOLD MITCHELL, ARNOLD Unavailable Unavailable MITCHELL AKUA, JAMES W, Unavailable Unavailable ARNREGINO, JAMES W [facility] Unavailable Unavailable [facility] Unavailable Unavailable [facility], [facility] Unavailable Unavailable [facility], [facility] GINA BRO, FUENTES Unavailable Unavailable BRO FUENTES BRO, FUENTES Unavailable Unavailable BRO BEINEKE SHELLEY, BEINEKE Unavailable Unavailable SHELLEY COFFMAN TER, COFFMAN TER Unavailable Unavailable BESSON, BESSON Unavailable Unavailable BESSON JOSE, BESSON Unavailable Unavailable JOSE BESSON, JAE A, Unavailable Unavailable BESSON, JAE A [facility] Unavailable [facility]available [facility] MOLINA, MOLINA Unavailable Unavailable MOLINA ALL, MOLINA ALL Unavailable Unavailable [facility] Unavailable Unavailable [facility]available [facility]available [facility], [facility] VANITA TER, VANITA TER Unavailable Unavailable VANITA TER, VANITA TER Unavailable Unavailable WOODS BOOKER, WOODS Unavailable Unavailable BOOKER WOODS BOOKER, WOODS Unavailable Unavailable BOOKER FELIX WOODS, Unavailable Unavailable FELIX WOODS [facility] Unavailable Unavailable [facility], [facility] Unavailable Unavailable [facility], [facility] Unavailable Unavailable [facility] CRAGER JAM, CRAGER Unavailable Unavailable JAM AMALIA PAT, AMALIA PAT Unavailable Unavailable AMALIA CHINO, AMALIA PAT Unavailable Unavailable RORY HOLLAND JR, Unavailable Unavailable RORY HOLLAND JR TAM, Unavailable Unavailable KRISTIE TAM KUSH FLOWERS, Unavailable Unavailable KUSH FLOWERS RITA ANTIONE, RITA Unavailable Unavailable ANTIONE DEPA RAY, DEPA RAY Unavailable Unavailable ONEYDA ONDINA, Unavailable Unavailable ONEYDA ONDINA FALLUJI COLT, FALLUJI Unavailable Unavailable COLT FAUGHN JACOBSON, FAUGHN Unavailable Unavailable JACOBSON FEEBACK, FEEBACK Unavailable Unavailable FRYMAN, FRYMAN Unavailable Unavailable FRYMAN EUG, FRYMAN Unavailable Unavailable EUG KARINA, KARINA Unavailable Unavailable KARINA ANTIONE, KARINA Unavailable Unavailable ANTIONE KARINA, NEMO S, Unavailable Unavailable KARINA, NEMO S [facility] Unavailable Unavailable [facility], [facility] DAY ANT, DAY Unavailable Unavailable ANT YECENIA, RONDAL E, Unavailable Unavailable YECENIA, RONDAL E ROVERTO ANTIONE, ROVERTO ANTIONE Unavailable Unavailable SALAZAR MILLIE, SALAZAR MILLIE Unavailable Unavailable HARPEL, HARPEL Unavailable Unavailable [facility] Unavailable Unavailable CENTER, [facility] Unavailable Unavailable CENTER, [facility] Unavailable Unavailable INC, [facility] Unavailable Unavailable HOSPITAL, [facility] Unavailable Unavailable HOSPITAL P, [facility], Unavailable Unavailable [facility] ANDRES, ANDRES Unavailable Unavailable ANDRES TRA, ANDRES TRA Unavailable Unavailable ANDRES, TRUDY A, ANDRES, Unavailable Unavailable TRUDY A [facility] Unavailable [facility] PS, [facility] Un[facility] Un[facility], [email or web address] Unavailable [facility]available [facility], [email or web address] ROQUE NATTY, ROQUE Unavailable Unavailable NATTY ROQUE NATTY, ROQUE Unavailable Unavailable NATTY CYDNEY ROQUE, Unavailable Unavailable ROQUECYDNEY G DOROTHY DWI, DOROTHY DWI Unavailable Unavailable DOROTHY JR DWI, DOROTHY Unavailable Unavailable JR DWI DOROTHY JR DWI, DOROTHY Unavailable Unavailable JR DWI BO MITCHELL, BO Unavailable Unavailable MITCHELL NOEMI RAEGAN, NOEMI Unavailable Unavailable RAEGAN NELY RAFI, Unavailable Unavailable [facility] Unavailable Unavailable SERVICES, [facility] CONTE MAR, CONTE Unavailable Unavailable MAR NORMA CARLOS, Unavailable Unavailable RORY BEACH JR, JR Unavailable Unavailable F, RORY GREEN JR, MOBLEY Unavailable Unavailable JOSEFINA OLEARY, Unavailable Unavailable JOSEFINA TALBOT MORAN WIL Unavailable Unavailable [facility], [...] Unavailable JUHI JOSE, JUHI JOSE Unavailable Unavailable SCHULSTAD BUDDY, Unavailable Unavailable SCHULSTAD BUDDY SCIFRES, NAMRATA M, Unavailable Unavailable SCIFRES, NAMRATA M LILIA MAT, Unavailable Unavailable LILIA MAT MORRISSEY, MORRISSEY Unavailable Unavailable MORRISSEY RHODA, MORRISSEY RHODA Unavailable Unavailable SOTINGEANU SHELLEY, Unavailable Unavailable SOTINGEANU SHELLEY [facility] Unavailable Unavailable EMERGENCY PHYS, [facility] REYES ANA, REYES Unavailable Unavailable ANA RIOJAS, DON R, Unavailable Unavailable RIOJAS, DON R STONE MARY, STONE MARY Unavailable Unavailable SEVILLA GRE, SEVILLA Unavailable Unavailable GRE TIKHTMAN, TIKHTMAN Unavailable Unavailable AGUDELO MOL, AGUDELO MOL Unavailable Unavailable [facility] Unavailable [facility]available [facility] Unavailable Unavailable [facility][id number], [id number] # Unavailable Unavailable [id number], [facility] # [id number] [facility] Unavailable Unavailable DEPT [facility] Unavailable Unavailable DEPT [facility] DANIELLE WEHRMAN III BREANNA, Unavailable Unavailable WEHRMAN III BREANNA WEHRMAN III, RORY, Unavailable Unavailable WEHRMAN III, RORY JOLYNN GATES, JOLYNN GATES Unavailable Unavailable JOLYNN YAJAIRA, JOLYNN GATES Unavailable Unavailable JOLYNN SHA, JOLYNN SHA Unavailable Unavailable JOHN BANEGAS, Unavailable Unavailable JOHN BANEGAS CORTEZ, JEFFREY Unavailable Unavailable CORTEZ Purpose Continuity of Care Document - 06-08-2008 through 2016 Problems Code Diagnosis DOS Provider Status N920 EXCESS & 02-01-2017 [facility] FREQUENT PHYSICIANS MENSTRUATIO GROUP N W/REGULAR CYCLE N819 FEMALE 01-18-2017 [facility] PROLAPSE INC UNSPECIFIED R102 PELVIC AND 01-18-2017 [facility] R938 ABNORMAL 01-18-2017 [facility] DX [facility] OTH IMAGING ASS SPEC BODY STRCT I27140 ENCOUNTER 01-12-2017 [facility] ELECTROTYPE MOLDER EXAM PHYSICIANS GENERAL RTN GROUP W/ABNORMAL FIND Z1212 ENCOUNTER 01-12-2017 [facility] SCREENING PHYSICIANS MALIGNANT GROUP NEOPLASM RECTUM R072 PRECORDIAL 12-30-2016 [facility] R079 CHEST PAIN 12-30-2016 [facility] J0100 ACUTE 12-11-2016 [facility] MAXILLARY PHYSICIANS SINUSITIS GROUP UNSPECIFIED J208 ACUTE 11-27-2016 [facility] BRONCHITIS PHYSICIANS DUE TO GROUP OTHER SPEC ORGANISMS N3020 OTHER 11-14-2016 [facility] CHRONIC [facility] CYSTITIS [facility] P WITHOUT HEMATURIA N8110 CYSTOCELE 11-14-2016 [facility] P L31917 PERSONAL 11-01-2016 [facility] HISTORY OF PHYSICIANS COLONIC GROUP POLYPS K635 POLYP OF 10-19-2016 [facility] COLON PHYSICIANS GROUP Z09 ENC F/U 10-19-2016 [facility] EXAM AFTR PHYSICIANS CMPL TX OTH GROUP THAN MALIG NEOPLSM K5909 OTHER 10-04-2016 [facility] CONSTIPATIO PHYSICIANS N GROUP R197 DIARRHEA 10-04-2016 [facility] UNSPECIFIED PHYSICIANS GROUP N359 URETHRAL 09-12-2016 [facility] P N390 URINARY 09-12-2016 [facility] TRACT ANESTH OF INFECTION THE BLUE SITE NOT SPECIFIED R319 HEMATURIA 08-07-2016 [facility] UNSPECIFIED PHYSICIANS GROUP I10 ESSENTIAL 08-04-2016 [facility]IMARY [facility] HYPERTENSIO INC N L2389 ALLERGIC 08-04-2016 [facility] CONTACT [facility] DERMATITIS INC DUE TO OTHER AGENTS L866Z2G ADVERSE EFF 08-04-2016 [facility] OT SYS [facility] ANTI-INFECT INC /PARASIT INIT ENC F3131NM ALLERGY 08-04-2016 [facility] UNSPECIFIED PHYSICIANS, INITIAL PLLC ENCOUNTER Z720 TOBACCO USE 08-04-2016 [facility] INC N210 CALCULUS IN 07-07-2016 [facility] BLADDER PHYSICIANS GROUP N3000 ACUTE 07-07-2016 [facility] CYSTITIS [facility] WITHOUT INC HEMATURIA N3090 CYSTITIS 07-07-2016 [facility] UNSPECIFIED PHYSICIANS, WITHOUT PLL HEMATURIA Z1231 ENCOUNTER 07-04-2016 [facility] MALIG IMAGING ASS NEOPLASM BREAST R1030 LOWER 07-02-2016 [facility] ABDOMINAL PHYSICIANS, PAIN PLLC UNSPECIFIED J67657 ATYP SQ 06-23-2016 [facility] SIGNIFICANC E CYTOL SMER CERV E45580 ENCOUNTER 06-23-2016 [facility] ELECTROTYPE MOLDER EXAM PHYSICIANS GENERAL RTN GROUP W/O ABNORMAL FIND N949 UNS COND 06-09-2016 [facility] ASSOC W/FE [facility] GENIT ORGN INC & MENSTRUAL CYCL E039 HYPOTHYROID 06-05-2016 [facility] ISM [facility] UNSPECIFIED INC K5900 CONSTIPATIO 05-01-2016 [facility] N PHYSICIANS UNSPECIFIED GROUP R109 UNSPECIFIED 05-01-2016 [facility] ABDOMINAL PHYSICIANS PAIN GROUP G5601 CARPAL 02-16-2016 [facility] SYNDROME GROUP PS RIGHT UPPER LIMB U79238 ENCOUNTER 02-08-2016 [facility] FOR [facility] PREPROCEDUR INC AL LABORATORY EXAM L240 IRRITANT 02-06-2016 [facility] CONTACT PHYSICIANS DERMATITIS GROUP DUE TO DETERGENTS R72036 ACUTE & 01-28-2016 [facility] SUBACUTE PHYSICIANS ALLERGIC GROUP OTITS MEDIA BILATERAL G5602 CARPAL 01-27-2016 [facility]IC SYNDROME S PSC LEFT UPPER LIMB J40 BRONCHITIS 12-29-2015 [facility] NOT PHYSICIANS SPECIFIED GROUP ACUTE OR CHRONIC R200 ANESTHESIA 11-02-2015 [facility] OF SKIN PHYSICIANS GROUP D126 BENIGN 10-11-2015 [facility] NEOPLASM OF PHYSICIANS COLON GROUP UNSPECIFIED K625 HEMORRHAGE 10-11-2015 [facility] OF ANUS AND PHYSICIANS RECTUM GROUP K9189 OT 10-07-2015 [facility] POSTPROC PHYSICIANS, COMP & PLLC DISORDERS DIGESTIVE SYSTEM R1032 LEFT LOWER 10-07-2015 [facility] M549 DORSALGIA 09-10-2015 [facility]NSPECIFIED [facility] INC K828 OTHER 09-08-2015 [facility] SPECIFIED [facility] DISEASES OF INC GALLBLADDER X17801E STRAIN 09-08-2015 [facility] MUSCLE PHYSICIANS, FASCIA & PLLC TENDON LOW BACK INITIAL 2468 OTHER 07-20-2015 [facility] SPECIFIED LAR DISORDERS CONSULTANTS OF THYROID O 2724 OTHER AND 07-20-2015 [facility] UNSPECIFIED [facility] INC HYPERLIPIDE KAITLYN 43188 UNSPEC HTN 07-20-2015 [facility] HEART LAR DISEASE CONSULTANTS WITHOUT O HEART FAIL 72171 COR 07-20-2015 [facility] ATHEROSLERO [facility] UNSPEC INC TYPE VESSEL ONEIDA/APURVA T 4019 UNSPECIFIED 07-13-2015 [facility] ESSENTIAL [facility] HYPERTENSIO INC N 4139 OTHER AND 07-13-2015 [facility] UNSPECIFIED [facility] ANGINA INC PECTORIS 83917 NONSPECIFIC 07-08-2015 [place] [facility]ROCARD [facility] IOGRAM 193 MALIGNANT 07-01-2015 [facility] NEOPLASM OF [facility] THYROID [facility] P GLAND 2449 UNSPECIFIED 07-01-2015 [facility] HYPOTHYROID [facility] P ISM 3540 CARPAL 07-01-2015 [facility] TUNNEL [facility] SYNDROME [facility] 90190 CHEST PAIN 07-01-2015 [facility] 5990 URINARY 06-21-2015 [facility] TRACT PHYSICIANS, INFECTION PLLC SITE NOT SPECIFIED 93526 ABDOMINAL 06-21-2015 [facility] OTHER MEDICAL SPECIFIED IMAGING ASS SITE 31114 MIGRAINE 06-12-2015 [facility] UNSP W/O PHYSICIANS, INTRACT W/O PLLC STATUS MIGRAINOSUS 58142 VISUAL 06-12-2015 [facility] DISCOMFORT PHYSICIANS, PLLC 2397 NEOPLSM UNS 04-05-2015 [facility] NATR PHYSICIANS ENDOCRN GROUP GLND&OTH PART NERV SYS V2540 UNSPECIFIED 02-09-2015 [facility] DEPT VE DANIELLE SURVEILLANC E V2689 OTHER 02-09-2015 [facility] SPECIFIED [facility] PROCREATIVE TH DEPT MANAGEMENT DANIELLE V7231 ROUTINE 02-09-2015 [facility] AL EXAMINATION 4659 ACUTE URIS 01-26-2015 [facility] HOSPITAL P SITE 78687 FEVER 01-26-2015 [facility]PEC[facility] 7862 COUGH 01-26-2015 [facility] 7962 ELEVATED BP 01-26-2015 [facility] DX HOSPITAL P HYPERTENSIO N 6259 UNSPEC 01-14-2015 [facility] SYMPTOM PHYSICIANS ASSOC GROUP W/FEMALE GENITAL ORGANS 13116 ABDOMINAL 01-14-2015 [facility] PAIN, LEFT PHYSICIANS LOWER GROUP QUADRANT 81019 UNSPECIFIED 01-06-2015 [facility] PHYSICIANS CONSTIPATIO GROUP N 32378 THYROTOX 11-26-2014 [facility] W/O [facility] GOITER/OTH INC CAUSE W/O CRISIS 06267 GENERALIZED 10-23-2014 [facility] PAIN [facility] INC 7840 HEADACHE 10-23-2014 [facility] INC V0179 CONTACT OR 10-23-2014 [facility] EXPOSURE TO [facility] OTHER INC VIRAL DISEASES V642 SURG/OTH 10-23-2014 [facility] PROC NOT [facility] CARRIED OUT INC BECAUSE PTS DECN 44918 HEMATURIA 10-04-2014 [facility]PEC[facility] ASS 7880 RENAL COLIC 10-04-2014 [facility] P 24938 UNSPECIFIED 09-25-2014 [facility] SITE OF MEM HOS[facility] ANKLE INC SPRAIN AND STRAIN 34704 OTHER ANKLE 09-25-2014 [facility] SPRAIN AND PHYSICIANS STRAIN GROUP 54541 OTHER JOINT 08-28-2014 [facility] PHYSICIANS DERANGEMENT GROUP NEC ANKLE AND FOOT 226 BENIGN 08-11-2014 [facility] NEOPLASM OF THYROID GLANDS 2419 UNSPECIFIED 08-11-2014 [facility] NONTOXIC OF [place] NODULAR [facility]OS[facility] GOITER V5869 LONG-TERM 08-05-2014 [facility] (CURRENT) [facility] USE OF HOSPITAL P OTHER MEDICATIONS V7263 PRE-PROCEDU 08-05-2014 [facility] P EXAMINATION 20305 PAIN IN 07-15-2014 [place] JOINT, MEDICAL ANKLE AND IMAGING ASS FOOT 7295 PAIN IN 07-15-2014 [facility] SOFT N EMERGENCY TISSUES OF PHYS LIMB 2411 NONTOXIC 06-10-2014 [facility] MULTINODULA H R GOITER ANESTHESIA PSC 42548 DYSPHAGIA 06-10-2014 [facility] UNSPECIFIED H ANESTHESIA PSC 2410 NONTOXIC 05-29-2014 [facility] UNINODULAR [facility] GOITER INC 6262 EXCESSIVE 04-14-2014 [facility] BOOKER OR FREQUENT MENSTRUATIO N 6264 IRREGULAR 04-14-2014 [facility]OOKER MENSTRUAL CYCLE 6253 DYSMENORRHE 03-19-2014 [facility]OOKER A 6227 MUCOUS 03-18-2014 [facility] PAT POLYP OF CERVIX 39473 PAP SMER 02-17-[address] CERV W/ATYPICAL SQUAMOUS CELLS UNDET V252 STERILIZATI 02-17-2014 [facility] DANIELLE 64935 MORBID 12-03-2013 DOROTHY LEDESMA OBESITY DWI 08330 OTHER CHEST 12-03-2013 JUHI JOSE PAIN V140 PERSONAL 12-03-2013 DOROTHY LEDESMA HISTORY OF DWI ALLERGY TO PENICILLIN V148 PERSONAL 12-03-2013 DOROTHY LEDESMA HISTORY DWI ALLERGY OTH SPEC MEDICINAL AGTS 4619 ACUTE 11-16-2013 JOLYNN GATES SINUSITIS, UNSPECIFIED 7242 LUMBAGO 11-01-[address] GOITER, 07-10-2011 [facility] NAT[facility] UNSPECIFIED 2459 UNSPECIFIED 07-03-2011 [facility] NAT[facility] THYROIDITIS 5409 ACUTE 06-27-2011 [facility] APPENDICITI EMERGENCY S WITHOUT SERVICES MENTION PERITONITIS 541 APPENDICITI 06-27-2011 COMMUNITY S, ANESTH OF UNQUALIFIED THE BLUE 50186 ABDOMINAL 06-27-2011 [place] PAIN, MEDICAL UNSPECIFIED IMAGING ASS SITE 6869 UNSPEC 06-21-2011 [facility] MED[facility]ANO LOCAL INFECTION SKIN&SUBCUT ANEOUS TISSUE 7881 DYSURIA 05-21-2011 [facility] 40053 ABDOMINAL 05-21-2011 [facility] PAIN RIGHT [facility] LOWER INC QUADRANT 5641 IRRITABLE 05-04-2011 [facility] BOWEL SYNDROME 6929 CONTACT 05-04-2011 [facility] DERMATITIS& OTHER ECZEMA DUE UNSPEC CAUSE 4871 INFLUENZA 04-17-2011 [facility] WITH OTHER RESPIRATORY MANIFESTATI ONS 42018 PAINFUL 04-07-2011 [facility]ATION [facility] 2722 MIXED 03-21-2011 [facility] HYPERLIPIDE [facility] KA[facility] INC 5110 PLEURISY 03-07-2011 [facility] WITHOUT EMERGENCY MENTION SERVICES EFFUS/CURRE NT TB 4660 ACUTE 01-24-2011 [facility] BRONCHITIS EMERGENCY SERVICES 05817 MIGRAINE 12-28-2010 [facility] W/O [facility] INTRACT W/O CENTER JOHN STATUS MIGRAINOSUS 30614 PAIN IN 12-14-2010 [facility] JOINT, EMERGENCY FOREARM SERVICES 98462 VARIANTS 12-07-2010 [facility] MEDRANO MIGRAINE NEC INTRACT MIGRAINE W/O SM 463 ACUTE 11-28-2010 [facility] TONSILLITIS 75518 ASTHMA, 11-18-2010 [facility] UNSPECIFIED [facility]ERGENCY , SERVICES UNSPECIFIED STATUS 462 ACUTE 10-31-2010 ROQUE NATTY PHARYNGITIS 4760 CHRONIC 10-31-2010 [facility] NAT[facility] LARYNGITIS 19893 CHRONIC 10-03-2010 [facility] NAT[facility] TONSILLITIS 96207 SPRAIN AND 09-18-2010 [facility] STRAIN OF EMERGENCY UNSPECIFIED SERVICES SITE OF WRIST 47304 SPRAIN AND 09-18-2010 [facility] STRAIN OF EMERGENCY UNSPECIFIED SERVICES SITE OF HAND 9593 INJURY 09-18-2010 [place] OTHER&UNSPE MEDICAL CIFIED IMAGING ASS ELBOW FOREARM&WRI ST 9594 INJURY 09-18-2010 [place] OTHER AND MEDICAL UNSPECIFIED IMAGING ASS HAND EXCEPT FINGER E8859 FALL FROM 09-18-2010 [facility] OTHER EMERGENCY SLIPPING SERVICES TRIPPING OR STUMBLING 2662 OTHER 09-06-2010 [facility] HEALTH DEFICIENCIE CENTER S V700 ROUTINE 09-06-2010 [facility] EXAM@HEALTH CARE FACL V7643 SCREENING 09-06-2010 [facility] MALIGNANT CENTER NEOPLASM OF THE SKIN 6202 OTHER AND 07-11-2010 [facility] UNSPECIFIED EMERGENCY OVARIAN SERVICES CYST 06060 SPRAIN AND 06-20-2010 [facility] STRAIN OF EMERGENCY UNSPECIFIED SERVICES SITE OF FOOT 8472 LUMBAR 06-20-2010 [facility] SPRAIN AND EMERGENCY STRAIN SERVICES 93186 OTHER 06-20-2010 [place] INJURY OF MEDICAL OTHER SITES IMAGING ASS OF TRUNK 9596 INJURY 06-20-2010 [place] OTHER AND MEDICAL UNSPECIFIED IMAGING ASS HIP AND THIGH 9597 INJURY 06-20-2010 [place] OTHER&UNSPE MEDICAL CIFIED KNEE IMAGING ASS LEG ANKLE&FOOT 4721 CHRONIC 04-21-2010 [facility], PHARYNGITIS CYDNEY Bose 8470 NECK SPRAIN 04-05-2010 [facility] AND STRAIN [facility] INC 8471 THORACIC 04-05-2010 [facility] SPRAIN AND [facility] STRAIN INC V571 OTHER 04-05-2010 [facility] PHYSICAL [facility] THERAPY INC 0794 HUMAN 03-10-2010 PATHOLOGY & [place] CYTOLOGY VIRUS IN LAB CCE & UNS SITE 6160 CERVICITIS 03-10-2010 PATHOLOGY & AND CYTOLOGY ENDOCERVICI LAB TIS 78809 MILD 03-10-2010 PATHOLOGY & DYSPLASIA CYTOLOGY OF [facility] LAB 16123 CERV HIGH 03-10-2010 [facility] DNA [place] TEST POS PLLC 5921 CALCULUS OF 01-13-2010 [facility] URETER H UROLOGY PSC 7231 CERVICALGIA 12-02-2009 [facility] FLOWERS 7919 OTHER 09-25-2009 [facility] NONSPECIFIC [facility] FINDING INC EXAMINATION OF URINE 5589 OTH&UNSPEC 09-01-2009 RONE[facility] RIOJASFECTIO LILLY [place] US GASTROENTER ITIS&COLITI S V771 SCREENING 08-30-2009 [facility] DIABETES CENTRAL MELLITUS BANK ACCT V7791 SCREENING 08-30-2009 [facility] LIPOID HEALTH DISORDERS CENTRAL BANK ACCT 79018 MIXED 08-26-2009 [facility] INCONTINENC H UROLOGY E URGE AND PSC STRESS 6256 FEMALE 08-16-2009 [facility] STRESS H UROLOGY INCONTINENC ASC E 54232 POLYURIA 07-29-2009 [facility] H UROLOGY PSC 90357 URGENCY OF 07-29-2009 [facility] URINATION H UROLOGY PSC 00593 OTHER 07-14-2009 NOEL RIOJAS DON R DISORDERS OF URINARY TRACT 7224 DEGENERATIO 06-23-2009 Gigi RIOJAS OF DON R CERVICAL INTERVERTEB RAL DISC 7245 UNSPECIFIED 06-23-2009 BEULAH, BACKACHE DON R 3829 UNSPECIFIED 03-08-2009 [facility] OTITIS [facility] MEDIA INC 37677 OSTEOARTHRO 12-02-2008 Charanjit RIOJAS INVLV MX DON R SITES BUT NOT SPEC GEN 3671 MYOPIA 10-02-2008 [facility] VISION 39678 OTHER 08-03-2008 BEULAH, SPECIFIED DON R TYPES OF CYSTITIS 5368 DYSPEPSIA&O 07-23-2008 MCNAM[facility] THER SPEC Enkia FUNCTION STOMACH V180 FAMILY 07-01-2008 [facility] HISTORY OF [facility] DIABETES INC MELLITUS 7804 DIZZINESS 06-30-2008 BEUL[facility] AND DON R GIDDINESS 45153 OTHER 06-08-2008 [facility] TENOSYNOVIT [facility] IS OF HAND INC AND WRIST Medications Na ND Rx Da Fi Fi [...] 17 17 17 E 1 98 PH TN AR OP MA CY 50 #5 MC [...] MC G #5 TA 91 BL ET AZ 59 02 03 6. 5 00 WA Ac IT 76 -0 -1 00 00 L- ti HR 23 6- 0- 0 07 MA ve OM 06 20 20 46 RT YC 00 17 17 91 IN 1 35 PH AR 25 MA 0 CY MG #5 TA 91 BL ET DO 23 02 03 60 30 00 OR Ac XY 15 -0 -1 .0 00 L- ti CY 50 2- 0- 00 07 MA ve CL 13 20 20 46 RT IN 52 17 17 84 E 5 58 PH MO AR NO MA CY 10 0 #5 MG 91 TA BL ET LE 00 01 02 30 [...] 01 02 14 7 00 WA Ac TN 16 -1 -1 .0 00 L- ti [...] DO 23 12 01 20 10 00 WA Ac XY 15 -2 -2 .0 00 L- ti CY 50 1- 0- 00 07 MA ve CL 13 20 20 45 RT IN 52 16 17 99 E 5 66 PH MO AR NO MA CY 10 0 #5 MG 91 TA BL ET BU 00 02 10 2 60 10 WA 71 AR Ac TA 14 -1 -3 .0 L- 07 NO ti LB 31 6- 1- 00 MA 16 LD ve -A 78 20 20 RT 5 CE 70 11 11 RI TA 1 PH CH NV AR AR N- MA D CA CY [...] DI 00 10 10 1 60 20 WA 71 AR Ac CL 78 -1 -1 [...] 91 00 10 10 0 15 5 OR 71 SO Ac 37 -0 -0 .0 L- 37 KA ti 80 5- 5- 00 MA 81 N ve 75 20 20 RT 0 BA 19 11 11 BA 3 PH TU AR ND MA E CY O # 10 05 91 IB 68 10 10 0 15 5 WA 71 SO Ac UP 64 -0 -0 .0 L- 37 KA ti RO 50 5- 5- 00 MA 81 N ve FE 22 20 20 RT 1 BA N 25 11 11 BA 80 4 PH TU 0 AR ND MG MA E CY O TA # BL ET 10 05 91 PE 00 09 09 0 20 5 OR 44 SC Ac NT 59 -0 -0 [...] 4- 4- 00 MA 11 LD ve TN 59 20 20 RT 2 ED 31 [...] # CR EA 10 M 05 91 DO 53 06 06 1 [...] EA [address] 91 OP TN 68 06 06 1 30 7 WA 71 AR Ac OM 38 -2 -2 .0 L- 24 NO ti ET 20 7- 7- 00 MA 83 LD ve MANE 04 20 20 RT 3 ZI 10 11 11 RI NE 1 PH CH AR AR 25 MA D CY W MG # TA 10 BL 05 ET 91 LO 00 06 06 1 40 5 WA 71 AR Ac PE 37 -2 -2 .0 L- 24 NO ti RA 82 7- 7- 00 MA 83 LD ve NV 10 20 20 RT 4 DE 00 [...] # TA BL 10 ET 05 91 TR 00 05 05 0 20 2 WA 44 GR Ac AM 37 -1 -1 .0 L- 93 AY ti AD 84 7- 7- 00 MA 77 ve OL 15 20 20 RT 2 RO 10 11 11 BE HC 1 PH RT L AR B 50 MA CY MG # TA 10 BL 05 ET 91 TN 00 05 05 0 5. 5 WA [...] 11 11 RI TA 1 PH CH NV AR AR N- MA D CA CY [...] 0- 5- 00 MA 63 ON ve TN 59 20 20 RT 3 ED 31 [...] LE 00 04 04 0 90 90 WA 70 LA Ac VO 37 -0 -0 [...] PH 65 03 03 0 30 10 WA 70 AD Ac EN 16 -2 -2 .0 L- 64 KI ti AZ 20 5- 5- 00 MA 21 NS ve OP 52 20 20 RT 3 YR 01 10 10 TI ID 0 PH MO IN AR TH E MA Y 20 CY D 0 # MG 10 TA 05 B 91 DO 53 03 03 0 14 7 WA 70 AD Ac XY 48 -2 -2 .0 L- 64 KI ti CY 90 5- 5- 00 MA 21 NS ve CL 11 20 20 RT 4 IN 90 10 10 TI E 2 PH MO HY AR TH CL MA Y AT CY D E # 10 0 10 MG 05 91 CA P 00 03 03 0 15 3 WA 44 BE Ac 40 -1 -1 .0 L- 84 SS ti 60 3- 3- 00 MA 12 ON ve 35 20 20 RT [address] 1 PH EP AR HE MA N CY A # 10 05 91 IB 68 03 03 0 12 4 WA 70 BE Ac UP 64 -1 -1 .0 L- 62 SS ti RO 50 3- 3- 00 MA 38 ON ve FE 22 20 20 RT 5 N [address] 60 9 PH EP 0 AR HE MG MA N CY A TA # BL ET 10 05 91 TN 68 03 03 0 12 3 WA 70 BE Ac OM 38 -1 -1 [...] OF 83 9- 0- 00 MA 91 NV ve UR 42 20 20 RT 7 E AN 20 10 10 JR TO 1 PH IN AR WI MA LL MO CY IA NO # M -M F CR 10 05 10 91 0 MG ME 68 02 03 0 60 30 WA 70 HU Ac LO 38 -2 -0 [...] 10 #5 0 91 MG CA P 60 12 12 00 24 6 70 AR Ac 25 -1 -1 0. L- 49 NO ti 80 0- 7- 00 MA 51 LD ve 23 20 20 0 RT 5 91 09 09 RI 6 PH CH AR AR MA D CY W #5 91 ME 00 12 12 00 21 6 70 AR Ac TH 60 -1 -1 .0 L- 49 NO ti YL 34 0- 7- 00 MA 51 LD ve TN 59 20 20 RT 3 ED 31 09 09 RI NI 5 PH CH SO AR AR LO MA D NE CY W 4 #5 MG 91 DO SE PK NI 00 12 12 00 14 7 WA 70 WE Ac TR 37 -0 -1 .0 L- 48 HR ti OF 83 5- 7- 00 MA 86 MA ve UR 42 20 20 RT 9 N AN 20 09 09 II TO 1 PH I IN AR WI MA LL MO CY IA NO M -M #5 E CR 91 10 0 MG 00 12 12 00 12 2 WA 44 WE Ac 40 -0 -1 .0 L- 81 HR ti 60 5- 7- 00 MA 77 MA ve 35 20 20 RT 7 N 70 09 09 II 5 PH I AR WI MA LL CY IA M #5 E 91 RA 00 11 11 00 60 [...] R TA CY BL ET #5 91 NI 00 09 09 01 [address] Ac TR 37 -0 -2 .0 L- 35 EP ti OF 83 4- 4- 00 MA 50 HE ve UR 42 20 20 RT 4 NS AN 20 09 09 TO 1 PH DO IN AR N MA R MO CY NO -M #5 CR 91 10 0 MG PH 65 09 09 01 [address] Ac EN 16 -0 -2 .0 L- 35 EP ti AZ 20 4- 4- 00 MA 50 HE ve OP 52 20 20 RT 5 NS YR 01 09 09 ID 0 PH DO IN AR N E MA R 20 CY 0 MG #5 91 TA B NI 00 09 09 00 14 7 [...] CY CA PS #5 UL 91 E DI 00 08 08 00 14 7 WA 70 GA Ac CL 78 -0 -2 .0 L- 31 IN ti OF 11 8- 7- 00 MA 55 EY ve EN 78 20 20 RT 8 AC 90 09 09 NV 1 PH CH SO AR AE D MA L EC CY S 75 #5 91 MG TA B 00 08 08 00 12 3 WA 44 GA Ac 40 -0 -2 .0 L- 78 IN ti 60 8- 7- 00 MA 76 EY ve 35 20 20 RT 5 70 09 09 NV 5 PH CH AR AE MA L CY S #5 91 00 08 08 00 14 7 WA 70 GA Ac 37 -0 -2 .0 L- 31 IN ti 80 8- 7- 00 MA 55 EY ve 75 20 20 RT 7 19 09 09 NV 3 PH CH AR AE MA L CY S #5 91 PH 65 08 08 00 12 3 [...] 00 [address] Ac TN 11 -0 -1 .0 L- 30 EP [...] 7- 6- 00 MA 99 EY ve TN 59 20 20 RT 5 ED 31 09 09 NV NI 5 PH CH SO AR AE LO MA L NE CY S 4 #5 MG 91 DO SE PK AZ 00 03 03 00 6. 5 WA 70 GA Ac IT 78 -1 -2 00 L- 12 IN ti HR 11 7- 6- 0 MA 99 EY ve OM 49 20 20 RT 4 YC 66 09 09 NV IN 8 PH CH AR AE 25 MA L 0 CY S MG #5 TA 91 BL ET TA 00 03 03 00 [address] Ac NV 00 -0 -1 .0 L- 10 EP [...] R TA CY BL ET #5 91 PE 00 12 01 00 [address] Ac RM 47 -2 -0 .0 L- 00 EP ti ET 25 2- 1- 00 MA 89 HE ve HR 24 20 20 RT 4 NS IN 26 08 09 7 PH DO 1% AR N MA R LO CY TI ON #5 91 00 12 01 00 [address] Ac 07 -1 -0 .0 L- 00 EP ti 46 9- 1- 00 MA 57 HE ve 30 20 20 RT 5 NS 11 08 09 3 PH DO AR N MA R CY #5 91 53 12 01 00 [address] Ac 74 -1 -0 .0 L- 00 EP ti 60 9- 1- 00 MA 57 HE ve 13 20 20 RT 6 NS 20 08 09 5 PH DO AR N MA R CY #5 91 00 10 10 00 28 [...] -M #5 CR 91 10 0 MG TN 37 10 10 00 30 30 WA 88 GO Ac IL 00 -0 -0 .0 L- 12 BL ti OS 00 3- 9- 00 MA 90 E ve EC 45 20 20 RT 5 RO 50 08 08 ND OT 4 PH AL C AR E 20 MA .6 CY MG #5 91 TA BL ET 00 10 10 00 15 2 WA 69 GO Ac 40 -0 -0 .0 L- 89 BL ti 62 2- 9- 00 MA 87 E ve 04 20 20 RT 0 RO 10 08 08 ND 1 PH AL AR E MA CY #5 91 TE 51 10 10 00 45 7 WA 69 GO Ac RC 67 -0 -0 .0 L- 89 BL ti ON 21 2- 9- 00 MA 87 E ve AZ 30 20 20 RT 1 RO OL 40 08 08 ND E 6 PH AL 0. AR E 4% MA CY CR EA #5 M 91 63 10 10 00 14 7 WA 69 GO Ac 30 -0 -0 .0 L- 89 BL ti 40 3- 9- 00 MA 86 E ve 70 20 20 RT 9 RO 90 08 08 ND 1 PH AL AR E MA CY #5 91 63 09 09 00 2. [address] Ac 30 -0 -1 00 L- 85 EP ti 40 3- 1- 0 MA 84 HE ve 80 20 20 RT 6 NS 51 08 08 2 PH DO AR N MA R CY #5 91 Procedures Procedure DOS Code Location Performer Comment ENDOMETRI 76900 [facility] HARPE[facility] AL BX 7 PHYSICIAN W/WO S GROUP ENDOCERVI [place] [address] [place] TRANSVAGI 7 MEDICAL NAL IMAGING ASS BLOOD 09686 [facility] MORRISSEY OCCULT 7 PHYSICIAN PEROXIDAS S GROUP E ACTV QUAL FECES 1-3 SPEC URINLS 74459 [facility] HARPE[facility] DIP 7 PHYSICIAN STICK/TAB S GROUP LET REAGNT NON-AUTO MICRSCPY IADNA 10536 [facility] NEISSERIA 7 PHYSICIAN PHYSICIAN S GROUP S GROUP GONORRHOE AE DIRECT PROBE TQ CULTURE 63602 [facility] CHLAMYDIA 7 PHYSICIAN ANY S GROUP SOURCE THER 94338 [facility] FEL[facility] PROPH/DX 7 [facility] NJX IV INC INC PUSH SINGLE/1S T SBST/DRUG ECG 78472 [facility] FEL[facility] ROUTINE 7 [facility] ECG INC INC W/LEAST 12 LDS TRCG ONLY W/O I&R RADIOLOGI 06689 [facility] FEL[facility] C EXAM 7 [facility] CHEST 2 INC INC VIEWS FRONTAL&[place] [address] [facility] FELICIAN[facility] TROPONIN 7 [facility] QUANTITAT INC INC AMARA BLOOD 13559 [facility] FEL[facility] COUNT 7 [facility] COMPLETE INC INC AUTO&AUTO DIFRNTL WBC COMPREHEN 27933 [facility] F[facility] SIVE 7 [facility] METABOLIC INC INC PANEL CREATINE 35447 [facility] FEL[facility]IAN[facility] KINASE MB 7 [facility] FRACTION INC INC ONLY CREATINE 40714 [facility] F[facility] KINASE 7 [facility] TOTAL INC INC ECG 43803 BR[facility]EN CASTREJON ROUTINE 7 [facility] W/LEAST P 12 LDS I&R ONLY INJECTION J0696 [facility] FRYMAN 7 PHYSICIAN CEFTRIAXO S GROUP NE SODIUM PER 250 MG THERAPEUT 41151 [facility] FRYMAN IC 7 PHYSICIAN PROPHYLAC S GROUP TIC/DX INJECTION SUBQ/IM CULTURE 52584 [facility] BACTERIAL 7 [facility] INC INC QUANTTATI VE COLONY COUNT URINE COLONOSCO 43291 [facility] EMILY PY 6 PHYSICIAN W/BIOPSY S GROUP SINGLE/MU LTIPLE BASIC 35934 [facility] FELICIANO METABOLIC 6 [facility] PANEL INC INC CALCIUM TOTAL COLLECTIO 52443 [facility] FELICIAN[facility] N VENOUS 6 [facility] BLOOD INC INC VENIPUNCT URE BLOOD 17470 [facility] FELIC[facility] COUNT 6 [facility] COMPLETE INC INC AUTO&AUTO DIFRNTL WBC CYSTO 06007 [facility] FEL[facility] CALIBRATI 6 [facility] ON DILAT INC INC URTL STRIX/JOSE NOSIS URINE 49867 [facility] 6 [facility] TEST INC INC VISUAL COLOR CMPRSN METHS ANES 98677 [facility] TRANSURET 6 ANESTH HRAL OF THE W/URETHRO BLUE CYSTOSCOP Y NOS THERAPEUT 99835 [facility] FELICIAN[facility] IC 6 [facility] PROPHYLAC INC INC TIC/DX INJECTION SUBQ/IM SUSCEPTIB 55063 [facility] FEL[facility] LTY STDY 6 [facility] ANTIMICRB INC INC IAL MICRO/AGA R DILUTJ URNLS DIP 53012 [facility] 6 [facility] STICK/TAB INC INC LET REAGENT AUTO MICROSCOP Y URINE 55123 [facility] FEL[facility]IANO 6 [facility] TEST INC INC VISUAL COLOR CMPRSN METHS CULTURE 73841 [facility] FELICIAN[facility] BACTERIAL 6 [facility] INC INC QUANTTATI VE COLONY COUNT URINE COMPUTER- 99976 [facility] FELICIANO AIDED 6 [facility] DETECTION INC INC SCREENING MAMMOGRAP HY SCREENING G0202 [facility]ELIC[facility] 6 [facility] MAMMOGRAP INC INC HY MICHELLE INCL CAD WHEN PERFORMD URNLS DIP 17731 [facility] 6 [facility] STICK/TAB INC [place] [address] [facility] FELICIANO ABDOMEN & 6 [facility] PELVIS INC INC W/O CONTRAST MATERIAL URINE 48808 [facility]O 6 [facility] TEST INC INC VISUAL COLOR CMPRSN METHS IADNA 92187 [facility] F[facility] CHLAMYDIA 6 [facility] INC INC TRACHOMAT IS AMPLIFIED PROBE TQ IADNA 23224 [facility] NEISSERIA 6 [facility] INC INC GONORRHOE AE AMPLIFIED PROBE TQ IADNA 65165 [facility] [place] VIRUS HIGH-RISK TYPES CYTP 98254 [facility] CERVICAL/ 6 LLC RAFI VAGINAL REQ INTERP PHYSICIAN CYTP C/V 27755 [facility] AUTO THIN 6 LLC RAFI [place] [address] [facility] FELIC[facility] TRANSVAGI 6 [facility] NAL INC INC COLLECTIO 57038 [facility] F[facility] N VENOUS 6 [facility] [place] [address] [facility] FELIC[facility] THYROXINE 6 [facility] [place] [address] [facility] FEL[facility] THYROID 6 [facility] STIMULATI INC INC NG HORMONE TSH THER 26420 BR[facility] FELICIANO PROPH/DX 6 [facility] NJX IV INC INC PUSH SINGLE/1S T SBST/DRUG THERAPEUT 79213 [facility] FELICIANO IC 6 [facility] INJECTION INC INC IV PUSH EACH NEW DRUG ECG 58093 BRADEN DE LA CRUZ JR ROUTINE 6 [facility] W/LEAST P 12 LDS I&R ONLY ECG 40645 BRADEN FELICIANO ROUTINE 6 [facility] ECG INC INC W/LEAST 12 LDS TRCG ONLY W/O I&R HEMOGLOBI 03595 [facility] FELICIAN[facility] N 6 [facility] GLYCOSYLA INC INC DAV A1C BLOOD 42726 [facility] FELICIANO COUNT 6 [facility] COMPLETE INC INC AUTO&[place] [address] [facility] FELICIANO TROPONIN 6 [facility] QUANTITAT INC INC AMARA COMPREHEN 08193 [facility] FEL[facility] SIVE 6 [facility] METABOLIC INC INC PANEL RADIOLOGI 50672 [facility] FELICIAN[facility] C 6 [facility] EXAMINATI INC INC ON CHEST SINGLE VIEW FRONTAL CREATINE 64018 BRAD[facility] FELICIANO KINASE MB 6 [facility] FRACTION INC INC ONLY CREATINE 41949 [facility] FELICIANO KINASE 6 [facility] TOTAL INC INC COMPREHEN 53734 BRAD[facility] FELICIANO SIVE 6 [facility] METABOLIC INC INC PANEL BLOOD 96526 BRADEN FELICIANO COUNT 6 [facility] COMPLETE INC INC AUTO&AUTO DIFRNTL WBC COLLECTIO 17940 [facility] ANTHONY HERNANDEZ N VENOUS 6 PHYSICIAN BLOOD S GROUP VENIPUNCT URE NEUROPLAS 79957 [facility] TY 6 N N &/TRANSPO COMMUNTIY COMMUNTIY S MEDIAN HOSPITA HOSPITA NRV CARPAL TUNNE INJECTION J1885 [facility] 6 N N KETOROLAC COMMUNTIY COMMUNTIY HOSPITA HOSPITA TROMETHAM INE PER 15 MG INJECTION J3010 [facility] FENTANYL 6 N N CITRATE COMMUNTIY COMMUNTIY 0.1 MG HOSPITA HOSPITA ANES 30834 [place] NERVE 6 ANESTHESI MUSCLE A GROUP TDN PS FASCIA&BU RSA FOREARM WRIST INJECTION J2250 [facility] 6 N N MIDAZOLAM COMMUNTIY COMMUNTIY HCL PER HOSPITA HOSPITA 1 MG INJECTION J1100 [facility] 6 N N DEXAMETHO COMMUNTIY COMMUNTIY SONE HOSPITA HOSPITA SODIUM PHOSPHATE 1 MG INJECTION J2001 [facility] 6 N N LIDOCAINE COMMUNTIY COMMUNTIY HCL HOSPITA HOSPITA INTRAVENO US INFUS 10 MG RINGERS J7120 [facility] LACTATE 6 N N INFUSION COMMUNTIY COMMUNTIY UP TO HOSPITA HOSPITA 1000 CC BASIC 16626 BRAD[facility] FELICIANO METABOLIC 6 [facility] PANEL INC INC CALCIUM TOTAL BLOOD 43706 [facility] FELICIANO COUNT 6 [facility] COMPLETE INC INC AUTO&AUTO DIFRNTL WBC GONADOTRO 07970 BRAD[facility] FELICIANO PIN 6 [facility] CHORIONIC INC INC QUALITATI VE COLLECTIO 04768 BRAD[facility] FELICIANO N VENOUS 6 [facility] BLOOD INC INC VENIPUNCT URE THERAPEUT 63066 [facility] RITA IC 6 PHYSICIAN ANTIONE PROPHYLAC S GROUP TIC/DX INJECTION SUBQ/IM INJECTION J1040 [facility] RITA 6 PHYSICIAN ANTIONE METHYLPRE S GROUP DNISOLONE ACETATE 80 MG NEEDLE 40475 SHINTO TIKHTMAN EMG EA 6 HEALTH EXTREMTY MEDICAL W/PARASPI GROUP NL AREA COMPLETE NERVE 56256 SHINTO LAURENCE CONDUCTIO 6 HEALTH N STUDIES MEDICAL 7-8 GROUP STUDIES RADEX 27715 [facility] JEFFREY HAND 6 [place] CORTEZ MINIMUM 3 ORTHOPAED VIEWS [facility]CS PLC COMPREHEN 96936 BR[facility] FELICIANO SIVE 5 [facility] METABOLIC INC INC PANEL CULTURE 44256 [facility] FELICIANO BACTERIAL 5 [facility] INC INC QUANTTATI VE COLONY COUNT URINE URNLS DIP 87712 [facility]ICIANO 5 [facility] STICK/TAB INC INC LET REAGENT AUTO MICROSCOP Y BLOOD 50018 [facility] FELICIANO COUNT 5 [facility] COMPLETE INC INC AUTO&[place] [address] [facility] FELICIANO ABDOMEN & 5 [facility] PELVIS INC INC W/O CONTRAST MATERIAL COLSC FLX 88510 [facility] EMILY MARTIN W/RMVL 5 PHYSICIAN OF TUMOR S [place] [address] [facility], BO SURG 5 [facility] PATHOLOGY GROSS&ANTIONE ROSCOPIC EXAM COLLECTIO 56628 [facility] FELICIANO N VENOUS 5 [facility] BLOOD INC INC VENIPUNCT URE GONADOTRO 00808 [facility] FELICIANO PIN 5 [facility] CHORIONIC INC INC QUALITATI VE BLOOD 67621 [facility] FELICIANO COUNT 5 [facility] COMPLETE INC INC AUTO&AUTO DIFRNTL WBC RADEX 66259 [facility] FELICIANO ABDOMEN 5 [facility] COMPL INC INC W/DCBTS&/ ERC VIEWS COLLECTIO 17922 [facility] FELICIANO N VENOUS 5 [facility] BLOOD INC INC VENIPUNCT URE COMPREHEN 84528 [facility] FELICIANO SIVE 5 [facility] METABOLIC INC INC PANEL ECG 81499 [facility] FELICIANO ROUTINE 5 [facility] ECG INC INC W/LEAST 12 LDS TRCG ONLY W/O I&R ECG 76346 CARDIOVAS LILIA ROUTINE 5 CULAR MAT ECG CONSULTAN W/LEAST TS O 12 LDS I&R ONLY ECG 94759 [facility] FELICIANO ROUTINE 5 [facility] ECG INC INC W/LEAST 12 LDS TRCG ONLY W/O I&R ECHO 20151 ARIC DUONG TTHR R-T 5 MEDICAL 2D SERV W/WOM-MOD FOUNDATIO E COMPL N SPEC&COLR D ECG 59982 [facility] FELICIANO ROUTINE 5 [facility] ECG INC INC W/LEAST 12 LDS TRCG ONLY W/O I&R COLLECTIO 63759 [facility] FELICIANO N VENOUS 5 [facility] BLOOD INC INC VENIPUNCT URE BLOOD 08234 [facility] FELICIANO COUNT 5 [facility] COMPLETE INC INC AUTO&[place] [address] [facility] FELICIANO TROPONIN 5 [facility] QUANTITAT INC INC AMARA ECG 91048 BRADEN CASTREJON ROUTINE 5 [facility] W/LEAST P 12 LDS I&R ONLY LIPID 92995 [facility] FELICIANO PANEL 5 [facility] INC INC COMPREHEN 83967 [facility] FELICIANO SIVE 5 [facility] [address] [facility] FELICIANO THYROID 5 [facility] STIMULATI [place] [address] [facility] FELICIANO FREE 5 [facility] THYROXINE INC INC 25 98056 [facility] FELICIANO HYDROXY 5 [facility] INCLUDES INC INC FRACTIONS IF PERFORMED CREATINE 49875 BR[facility] FELICIANO KINASE 5 [facility] TOTAL INC INC CYANOCOBA 22032 [facility] FELICIANO JENISE 5 [facility] VITAMIN INC INC B-12 CREATINE 99363 BR[facility] FELICIANO KINASE MB 5 [facility] [place] [address] [place] ALL ABDOMEN & 5 MEDICAL PELVIS IMAGING W/O ASS CONTRAST MATERIAL COLLECTIO 86501 [facility] FELICIANO N VENOUS 5 [facility] BLOOD INC INC VENIPUNCT URE CALCIUM 32029 BR[facility] FELICIANO TOTAL 5 [place] [address] BRADEN FELICIANO THYROXINE 5 [facility] [place] [address] [facility]AD[facility] FELICIANO THYROID 5 [facility] STIMULATI INC INC NG HORMONE TSH CYTP 94887 [facility], PICKLESIM CERV/VAG 5 LLC ER JR VANDANA AUTO THIN LAYER PREP MNL SCREEN RADIOLOGI 13022 [facility] C EXAM 5 MEDICAL [place] CHEST 2 IMAGING VIE[place] FRONTAL&[place] [address] [facility] TRANSVAGI 5 PHYSICIAN BOOKER NAL S GROUP COLLECTIO 46898 BR[facility] FELICIANO N VENOUS 5 [facility] BLOOD INC INC VENIPUNCT URE CALCIUM 39895 BRADEN FELICIANO TOTAL 5 [place] [address] BRADEN FELICIANO THYROID 5 [facility] STIMULATI [place] [address] BRADEN BRADEN FREE 5 [facility] THYROXINE INC INC URINE 31911 [facility] FELICIANO 4 [facility] TEST [place] [address] BRADEN FELICIANO ABDOMEN & 4 [facility] PELVIS INC INC W/O CONTRAST MATERIAL URNLS DIP 72056 BRADENBRENTON FELICIANO 4 [facility] STICK/TAB INC INC LET REAGENT AUTO MICROSCOP Y FLUOROSCO 12007 [facility] PETTEY PY SPX UP 4 PHYSICIAN JAM TO 1 S GROUP HOUR PHYS/QHP TIME MANUAL 72636 [facility] PETTEY APPL 4 PHYSICIAN JAM STRESS S GROUP PFRMD PHYS/QHP JOINT FILMS PARATHYRO 13141 JUDE ROQUE ID 4 NATTY NATTY AUTOTRANS PLANTATIO N ADD-ON LEVEL V 65771 [facility] SURG 4 Y OF PATHOLOGY [facility] GROSS&ANTIONE ROSCOPIC EXAM PATH 79073 [facility] MOL CONSLTJ 4 Y OF SURG 1ST [place] [facility] FROZEN SCTJ 1 SPEC THYROIDEC 84354 JUDE ROQUE KAYLA 4 NATTY NATTY TOTAL/[place] [address] [facility] MOL SURG 4 Y OF PATHOLOGY [facility] GROSS&ANTIONE ROSCOPIC EXAM ANES 18035 MAZIN DAY ESOPH 4 LTH ANT THYRD ANESTHESI LARYNX A PSC TRACH & LYMPH NECK 1YR ECG 38726 BRADEN DE LA CRUZ JR ROUTINE 4 [facility] W/LEAST P 12 LDS I&R ONLY BLOOD 66108 BRADEN BRADEN COUNT 4 [facility] COMPLETE INC INC AUTO&AUTO DIFRNTL WBC ECG 91297 BRADEN BRADEN ROUTINE 4 [facility] ECG INC INC W/LEAST 12 LDS TRCG ONLY W/O I&R RADEX 95714 [place] ANKLE 4 MEDICAL TAM COMPLETE IMAGING MINIMUM 3 ASS VIEWS CRTCHS E0114 [facility] BREG INC. UNDARM 4 OTH THAN WOOD PAIR PAD TIP&HNDGR IP ANKLE L4350 [facility]REG INC. CONTROL 4 ORTHOSIS STIRRUP STYL RIGID PREFAB CALCIUM 24188 BRAD[facility] CHENON TOTAL 4 [place] [address] BRADEN CHENON FREE 4 [facility] [place] [address] BRADEN FELICIANO THYROID 4 [facility] STIMULATI [place] [address] REYES REYES SURG 4 ANA ANA PATHOLOGY GROSS&ANTIONE ROSCOPIC EXAM PATH 54338 REYES REYES CONSLTJ 4 ANA ANA SURG 1ST BLK FROZEN SCTJ 1 SPEC ANES 02819 MAZIN DG ESOPH 4 LTH MAR THYRD ANESTHESI LARYNX A PSC TRACH & [place]MP[place] 1[place] [address] BRADEN FELICIANO THYROID 4 [facility] STIMULATI [place] [address] BRADEN BRADEN FREE 4 [facility] THYROXINE INC INC CALCIUM 67014 BRAD[facility] CHENON TOTAL 4 [facility] INC INC US SOFT 08317 [facility] TISSUE 4 MEDICAL TAM HEAD & IMAGING NECK REAL ASS TIME IMGE DOCM URNLS DIP 20156 CHUCK WOODS 4 BOOKER BOOKER STICK/TAB LET RGNT NON-AUTO W/O MICRSCP ENDOMETRI 13297 [facility] AL BX 4 BOOKER BOOKER W/WO ENDOCERVI [place] [address] [facility] TRANSVAGI 4 [facility]OOKER NAL COLPOSCOP 96176 CH[facility] Y CERVIX 4 BOOKER BOOKER BX CERVIX & [place] [address] AMALIA CHINO AMALIA PAT SURG 4 PATHOLOGY GROSS&ANTIONE ROSCOPIC EXAM IMHISTOCH 24210 AMALIA HOLLAND PAT EM/CYTCHM 4 1ST ANTIBODY STAIN PROCEDURE IADNA 21528 [facility] NEISSERIA 4 [facility] DEPT [facility] DEPT GONORRHOE [facility] AE AMPLIFIED PROBE TQ CYTP [address] CERV/VAG 4 AUTO THIN LAYER PREP MNL SCREEN PH BODY 13743 [facility] FLUID NOT 4 [facility] DEPT [facility] DEPT ELSEWHERE [facility] SPECIFIED SMR PRIM 64774 [facility] SRC WET 4 [facility] DEPT [facility] DEPT NFCT AGT [facility] IADNA 97204 [facility] CHLAMYDIA 4 [facility] DEPT [facility] DEPT TRACHOMAT [facility] IS AMPLIFIED PROBE TQ AMINES 96664 [facility] VAGINAL 4 [facility] FLUID [facility] DEPT [facility] DEPT QUALITATI [facility] VE URNLS DIP 94446 [facility] 4 [facility] STICK/TAB TH DEPT [facility] DEPT LET RGNT [facility] NON-AUTO W/O MICRSCP CYTP [address] CERVICAL/ 4 VAGINAL REQ INTERP PHYSICIAN WET Q0111 [facility] SARBJIT [facility] INCL PREP [facility] DEPT [facility] DEPT VAGINAL [facility] CERV/SKIN SPECIMENS IADNA [address] PAPILLOMA 4 VIRUS HUMAN AMPLIFIED PROBE TQ ECG 86886 JUHI JOSE JUHI JOSE ROUTINE 4 ECG W/LEAST 12 LDS I&R ONLY URNLS DIP 77229 [facility] FELICIANO 4 [facility] STICK/TAB INC INC LET REAGENT AUTO MICROSCOP Y URINE 18347 [facility] FELICIANO 4 [facility] TEST INC INC VISUAL COLOR CMPRSN METHS IAADI 83376 BR[facility]EN FELICIANO INFLUENZA 4 [facility] B VIRUS INC INC IAADI 66619 [facility] FELICIANO INFFLUENZ 4 [facility] A A VIRUS INC INC MICROSOMA 23029 BRADEN FELICIANO L 1 [facility] [place] [address] BR[facility]EN FELICIANO THYROID 1 [facility] STIMULATI [place] [address] BRADEN FELICIANO FREE 1 [facility] THYROXINE INC INC US SOFT 20228 [place] TISSUE 1 MEDICAL TAM HEAD & IMAGING [place] [address] [place] ABDOMEN & 1 MEDICAL TAM PELVIS IMAGING W/O ASS CONTRAST MATERIAL ANESTHESI 76651 [facility] REBOLLAR BREANNA A 1 ANESTH INTRAPERI OF THE TONEAL BLUE LOWER ABD W/LAPS NOS 3D 28173 [place] RENDERING 1 MEDICAL TAM IMAGING W/INTERP& ASS POSTPROC DIFF WORK STATION URNLS DIP 76525 [facility] FELICIANO 1 [facility] STICK/TAB INC INC LET REAGENT AUTO MICROSCOP Y BLOOD 94724 [facility] FELICIANO COUNT 1 [facility] COMPLETE INC INC AUTO&AUTO DIFRNTL WBC LAPAROSCO 69326 C ASAD CHAVES PIC 1 ANDIE CHAO MD PSC ADAM LEVEL III 21943 [facility] R[facility]ERT[facility] ANTIONE SURG 1 MANJINDER & PATHOLOGY SUREKHAILIMACIEJ GROSS&ANTIONE [facility]COPIC EXAM [facility] [id number] [facility] FELICIANO OBSERVATI 1 [facility] ON INC INC SERVICE PER HOUR COMPREHEN [id number] [facility] FELICIANO SIVE 1 [facility] METABOLIC INC INC PANEL URINE 87573 [facility] BRADEN 1 [facility] TEST INC INC VISUAL COLOR CMPRSN METHS CULTURE 90932 BRADEN FELICIANO BACTERIAL 1 [facility] INC INC [place] [address] BRADEN FELICIANO LIPASE 1 [facility] [place] [address] BRADEN FELICIANO AMYLASE 1 [facility] INC INC LAPAROSCO 4701 BRADEN FELICIANO PIC 1 [facility] APPENDECT INC INC ADAM URINE 44053 RBADEN FELICIANO 1 [facility] TEST INC INC VISUAL COLOR CMPRSN METHS URNLS DIP 40512 BRADEN BRADEN 1 [facility] STICK/TAB INC INC LET REAGENT AUTO MICROSCOP Y 3D 23160 JAVIER MCALLISTERUTCHER RENDERING 1 [facility] IMAGING W/INTERP& [place] [address] JAVIER MCALLISTERUTCHER ABDOMEN & 1 [facility] PELVIS IMAGING W/O ASS CONTRAST MATERIAL ECG 04471 BRADEN FELICIANO ROUTINE 1 [facility] ECG INC INC W/LEAST 12 LDS TRCG ONLY W/O I&R ECG 23334 BRADEN MCKEMIE ROUTINE 1 [facility] W/LEAST P 12 LDS I&[place] [address] BRADEN FELICIANO TROPONIN 1 [facility] QUANTITAT INC INC AMARA RADIOLOGI 00508 JAVIER MCALLISTERUTCHER C EXAM 1 [facility] CHEST 2 IMAGING VIEWS ASS FRONTAL&L ATERAL CREATINE 90895 BRADEN FELICIANO KINASE MB 1 [facility] FRACTION INC INC ONLY CREATINE 69991 BRADEN FELICIANO KINASE 1 [facility] TOTAL INC INC CV STRS 12736 [facility] FALLUJI TST 1 PHYSICIAN COLT XERS&/OR S GROUP RX CONT ECG W/O I&R CV STRS 00149 BRADEN FELICIANO TST 1 [facility] XERS&/OR INC INC RX CONT ECG TRCG ONLY CV STRS 72923 BRADEN DE LA CRUZ DWI TST 1 [facility] RX CONT P ECG I&R ONLY MYOCARDIA 60727 JAVIER KRISTIE L SPECT 1 [facility] MULTIPLE IMAGING STUDIES ASS LIPID 27783 BRADEN FELICIANO PANEL 1 [facility] INC INC COMPREHEN 30005 BRADEN FELICIANO SIVE 1 [facility] METABOLIC INC INC PANEL ECG 92280 BRADEN FELICIANO ROUTINE 1 [facility] ECG INC INC W/LEAST 12 LDS TRCG ONLY W/O I&R US SOFT 42156 [facility] HEAD & IMAGING [place] [address] BRADEN FELICIANO THYROID 1 [facility] STIMULATI [place] [address] BRADEN FELICIANO FREE 1 [facility] THYROXINE INC INC RADIOLOGI 31221 [facility] EXAM 1 [facility] CHEST 2 IMAGING VIEWS ASS FRONTAL&L ATERAL RADEX 70169 [place] KRISTIE WRIST 1 [facility] COMPLETE IMAGING MINIMUM 3 ASS VIEWS MICROSOMA 46344 BRADEN FELICIANO L 1 [facility] [place] [address] BRADEN FELICIANO FREE 1 [facility] [place] [address] BRADEN FELICIANO THYROID 1 [facility] STIMULATI INC INC NG HORMONE TSH US SOFT 95063 [place] DAHIANA TISSUE 1 MEDICAL KRISTIE HEAD & IMAGING NECK REAL ASS TIME IMGE DOCM IAADI 85173 BRADEN FEILCIANO INFLUENZA 1 [facility] B VIRUS INC INC IAADI 53210 [facility] FELICIANO INFFLUENZ 1 [facility] A A VIRUS INC INC RADEX 94568 [place] KRISTIE WRIST 0 [facility] T[facility] COMPLETE IMAGING MINIMUM 3 ASS VIEWS RADEX 23783 [facility] HAND 0 [facility] MINIMUM 3 [place] [address] BRADEN FELICIANO FREE 0 [facility] [place] [address] BRADEN FELICIANO THYROID 0 [facility] STIMULATI INC INC NG HORMONE TSH US SOFT 87987 [place] KRISTIE TISSUE 0 [facility] TAM HEAD & IMAGING NECK REAL ASS TIME IMGE DOCM 3D 87132 BRADEN FELICIANO RENDERING 0 [facility] INC INC W/INTERP& POSTPROC DIFF WORK STATION BLOOD 94357 BRADEN FELICIANO COUNT 0 [facility] COMPLETE INC INC AUTO&AUTO DIFRNTL WBC URNLS DIP 92594 [facility] BRADEN 0 [facility] STICK/TAB INC [place] [address] [place] KRISTIE ABDOMEN 0 [facility] W/O IMAGING CONTRAST ASS MATERIAL COMPREHEN 30602 [facility] METABOLIC INC INC PANEL URINE 20336 [facility]ELICIANO 0 [facility] TEST INC INC VISUAL COLOR CMPRSN METHS CULTURE 31700 [facility] FELICIANO BACTERIAL 0 [facility] INC INC QUANTTATI VE COLONY COUNT URINE CT PELVIS 10170 [place] W/O 0 MEDICAL TAM CONTRAST IMAGING MATERIAL ASS RADEX 85815 [place] DA[place] SPINE 0 MEDICAL KRISTIE LUMBOSACR IMAGING AL ASS MINIMUM 4 VIEWS RADIOLOGI 64716 [place] C 0 MEDICAL KRISTIE EXAMINATI IMAGING ON PELVIS ASS 1/2 VIEWS RADEX 32281 [place] FOOT 0 MEDICAL KRISTIE COMPLETE IMAGING MINIMUM 3 ASS VIEWS APPLICATI 60016 [facility] FELICIANO ON 0 [facility] MODALITY INC INC 1/> AREAS HOT/COLD PACKS THERAPEUT 77240 BRADEN FELICIANO IC PX 1/> 0 [facility] AREAS INC INC EACH 15 MIN EXERCISES APPL 53571 [facility] FELICIANO MODALITY 0 [facility] 1/> AREAS INC INC ELEC STIMJ UNATTENDE D APPL 20823 [facility]AD[facility] FELICIANO MODALITY 0 [facility] 1/> AREAS INC INC ELEC STIMJ UNATTENDE D THERAPEUT 74046 BRADEN FELICIANO IC PX 1/> 0 [facility] AREAS INC INC EACH 15 MIN EXERCISES APPLICATI 45273 [facility] FELICIANO ON 0 [facility] MODALITY INC INC 1/> AREAS HOT/COLD PACKS PHYSICAL 15209 BRADEN [facility] THERAPY 0 [facility] [place] [address] PATHOLOGY PATHOLOGY SURG 0 & & PATHOLOGY CYTOLOGY CYTOLOGY LAB LAB GROSS&ANTIONE ROSCOPIC EXAM CYSTO 87186 COMMONWEA MOSQUERA, W/URETERO 0 LTH ARIS D SCOPY UROLOGY W/RMVL/MA PSC [place] STONES ANES 36762 ANESTHESI WHITE, TRURL 0 A JOHN E FRAGMNTJ ASSOCIATE MANJ&/RMV S, PSC L URETERAL CALCULUS FINE 51586 JUDE ROQUE, NEEDLE 0 CYDNEY Bose ASPIRATIO N W/[place] [address] [facility]EN CHENON FREE 0 [facility] [place] [address] BRADEN FELICIANO THYROID 0 [facility] STIMULATI INC INC NG HORMONE TSH MICROSOMA 78565 BRADEN FELICIANO L 0 [facility] ANTIBODIE INC INC S EACH CALCIUM 33175 [facility] FELICIANO TOTAL 0 [facility] INC INC BASIC 00306 BRADEN FELICIANO METABOLIC 0 [facility] PANEL INC INC CALCIUM TOTAL BLOOD 62166 [facility]ADEN CHENON COUNT 0 [facility] COMPLETE INC INC AUTO&AUTO DIFRNTL WBC OBSERVATI 21548 LICKING FLORSON, ON CARE 0 ANIKET Ruiz DISCHARGE INTERNAL MED MANAGEMEN T TOBACCO 60062 [facility] FELICIANO USE 0 [facility] CESSATION INC INC INTERMEDI ATE 3-10 MINUTES INITIAL 06382 LICKING MCKEMIE OBSERVATI 0 ANIKET JR, ON INTERNAL RORY F CARE/DAY MED 30 MINUTES 3D 27663 JAVIER TALBOT, RENDERING 0 MEDICAL JOSEFINA P IMAGING W/INTERP& ASSOCIATE POSTPROC S DIFF WORK STATION BLOOD 34026 [facility] FELICIANO COUNT 0 [facility] COMPLETE INC INC AUTO&[place] [address] JAVIER TALBOT, ABDOMEN 0 MEDICAL JOSEFINA P W/O IMAGING CONTRAST ASSOCIATE MATERIAL S URNLS DIP 31461 [facility]IANO [facility] STICK/TAB INC INC LET REAGENT AUTO MICROSCOP Y CT PELVIS 14278 JAVIER DAHIANA, W/O 0 MEDICAL JOSEFINA P CONTRAST [place] [address] BRADENBR[place] FELICIANO AMYLASE 0 [place] [address] BRADEN FELICIANO LIPASE 0 [facility] INC INC COMPREHEN 08678 BRADEN FELICIANO SIVE 0 [facility] METABOLIC INC INC PANEL IADNA 07783 PATHOLOGY PATHOLOGY PAPILLOMA 0 & & VIRUS CYTOLOGY CYTOLOGY HUMAN LAB LAB AMPLIFIED PROBE TQ CYTP 41358 PATHOLOGY PATHOLOGY CERVICAL/ 0 & & VAGINAL CYTOLOGY CYTOLOGY REQ LAB LAB INTERP PHYSICIAN URNLS DIP 75175 [facility]ELICIANO [facility] STICK/TAB CENTER CENTER LET RGNT NON-AUTO W/O MICRSCP CYTP 40946 PATHOLOGY PATHOLOGY CERV/VAG 0 & & AUTO THIN CYTOLOGY CYTOLOGY LAYER LAB LAB PREP MNL SCREEN US SOFT 31164 [place] K[place]ST[place], TISSUE 0 MEDICAL KUSH HEAD & IMAGING NECK REAL ASSOCIATE TIME S IMGE DOCM 3D 59712 KUSH C KRISTIE, RENDERING 0 KRISTIE KUSH W/INTERP & [place]E [place] MRI 88732 KUSH C KRISTIE, SPINAL 0 KRISTIE KUSH CANAL CERVICAL W/O CONTRAST MATRL MRI 29150 KUSH C KRISTIE, SPINAL 0 KRISTIE KUSH CANAL LUMBAR W/O CONTRAST MATERIAL CT PELVIS 56796 BRADENBRENTON FELICIANO W/O 9 [facility] CONTRAST INC INC MATERIAL CULTURE 78665 BRADEN FELICIANO BACTERIAL 9 [facility] INC INC QUANTTATI VE COLONY COUNT URINE URINE 69468 [facility] FELICIANO 9 [facility] TEST INC INC [place] [address] BRADEN FELICIANO AMYLASE 9 [place] [address] BRADEN FELICIANO LIPASE 9 [facility] INC INC COMPREHEN 18231 BRADEN FELICIANO SIVE 9 [facility] METABOLIC INC INC PANEL BLOOD 21995 BRADEN FELICIANO COUNT 9 [facility] COMPLETE INC INC AUTO&[place] [address] BRADEN FELICIANO ABDOMEN 9 [facility] W/O INC INC CONTRAST MATERIAL URNLS DIP 34512 [facility] FELICIANO 9 [facility] STICK/TAB INC INC LET REAGENT AUTO MICROSCOP Y 3D 66240 BRADEN FELICIANO RENDERING 9 [facility] INC INC W/INTERP& POSTPROC DIFF WORK STATION GLUC BLD 43085 DHS/CO BRADEN GLUC MNTR 9 [facility] CLEARED BANK ACCT FDA SPEC HOME USE COMPLEX 86175 MAZIN HOLLAND JR, UROFLOMET 9 LTH RORY [place] UROLOGY R PSC CYSTO 75383 COMMONWEA COMMONWEA CALIBRATI 9 LTH LTH ON DILAT UROLOGY UROLOGY URTL ASC ASC STRIX/JOSE NOSIS BLADDER 10072 MAZIN HOLLAND JR, PRESSURE 9 LTH RORY MEASUREME UROLOGY R NT DURING PSC FILLING EMG STDS 08069 MAZIN HOLLAND JR, ANAL/URTL 9 LTH RORY SPHNCTR UROLOGY R OTH/THN PSC NDL VOIDING 41339 MAZIN HOLLAND JR, PRESS 9 LTH RORY STDS BLDR UROLOGY R VOIDING PSC PRESS ANY TQ VOID 84234 MAZIN HOLLAND JR, PRESSURE 9 LTH RORY IBANEZ UROLOGY R INTRAABDO PSC BALJIT CULTURE 98587 BRADEN FELICIANO BACTERIAL 9 [facility] INC INC QUANTTATI VE COLONY COUNT URINE IAADI 33047 BRADEN FELICIANO INFFLUENZ 9 [facility] A A VIRUS INC INC IAADI 23471 BRADEN FELICIANO INFLUENZA 9 [facility] [place] [address] BRADEN FELICIANO STREPTOCO 9 [facility] CCUS INC INC GROUP A OPHTH 61525 [facility] 8 VISION NAMRATA M XM&EVAL COMPRHNSV ESTAB PT 1/> [place] [address] BRADEN FELICIANO LIPASE 8 [facility] INC INC ECG 22035 BRADEN FELICIANO ROUTINE 8 [facility] ECG INC INC W/LEAST 12 LDS TRCG ONLY W/O I&[place] [address] BRADEN FELICIANO AMYLASE 8 [facility] INC INC COMPREHEN 33163 BRADEN FELICIANO SIVE 8 [facility] METABOLIC INC INC PANEL ECG 47425 BRADEN MCKEMIE ROUTINE 8 [facility] W/LEAST PROF SERV 12 LDS I&R ONLY URNLS DIP 61309 BRADEN FELICIANO 8 [facility] STICK/TAB INC INC LET REAGENT AUTO MICROSCOP Y BLOOD 04241 BRADEN FELICIANO COUNT 8 [facility] COMPLETE INC INC AUTO&AUTO DIFRNTL WBC BLOOD 20412 BRADEN BRADEN COUNT 8 [facility] COMPLETE INC INC AUTO&AUTO DIFRNTL WBC LIPID 26859 BRADEN BRADEN PANEL 8 [facility] INC INC COMPREHEN 54601 BRADEN FELICIAON SIVE 8 [facility] [place] [address] BRADEN FELICIANO THYROID 8 [facility] STIMULATI INC INC NG HORMONE TSH Encounters Encounter Start End Date Code Location Performer Type Date [facility] BRADEN Gentile 7 [facility] OUTPATIEN [facility] BRADEN Gentile 7 [facility] OUTPATIEN INC T EMERGENCY 20226 SUKHDEV [facility] DEPT 7 7 PHYSICIAN VISIT S, PLLC HIGH SEVERITY& THREAT FUNCJ EMERGENCY 10978 BRADEN 7 7 [facility] DEPARTMEN INC T VISIT HIGH/URGE NT SEVERITY OFFICE 18155 [facility] 7 7 PHYSICIAN T VISIT S GROUP 25 MINUTES OFFICE 26750 [facility] OUTPATIEN 7 7 PHYSICIAN T VISIT S GROUP 25 MINUTES OFFICE 56696 BRADEN MOSQUERA OUTPATIEN 7 7 [facility] 10 P MINUTES HOSPITAL BRADEN - 7 7 [facility] OUTPATIEN INC T OFFICE 50412 [facility] EMILY OUTPATIEN 7 7 PHYSICIAN T VISIT S GROUP 10 MINUTES HOSPITAL BRADEN - 6 6 [facility] OUTPATIEN INC T OFFICE 00288 [facility] EMILY OUTPATIEN 6 6 PHYSICIAN T VISIT S GROUP 10 MINUTES HOSPITAL BRADEN - 6 6 [facility] OUTPATIEN INC T OFFICE 13100 BRADEN MOSQUERA OUTPATIEN 6 6 [facility] 10 P MINUTES HOSPITAL BRADEN - 6 6 [facility] OUTPATIEN INC T OFFICE 37752 BRADEN MOSQUERA OUTPATIEN [address] MINUTES P OFFICE 68750 [facility] FRYMAN OUTPATIEN 6 6 PHYSICIAN EUG T VISIT S GROUP 15 MINUTES EMERGENCY 91057 BRADEN 6 6 [facility] DEPARTMEN INC T VISIT LOW/MODER SEVERITY HOSPITAL BRADEN - 6 6 [facility] OUTPATIEN INC T EMERGENCY 64683 SUKHDEV COLLINS 6 6 PHYSICIAN ANTIONE DEPARTMEN S, [facility] T VISIT MODERATE SEVERITY EMERGENCY 25799 SUKHDEV WEISS 6 6 PHYSICIAN HONG DEPARTMEN S, [facility] T VISIT HIGH/URGE NT SEVERITY OFFICE 74342 [facility] FRYMAN OUTPATIEN 6 6 PHYSICIAN EUG T VISIT S GROUP 15 MINUTES EMERGENCY 23639 BRADEN 6 6 [facility] DEPARTMEN INC T VISIT LOW/MODER SEVERITY HOSPITAL BRADEN - 6 6 [facility] OUTPATIEN INC T HOSPITAL BRADEN - 6 6 [facility] OUTPATIEN INC T EMERGENCY 44028 BRADEN 6 6 [facility] DEPARTMEN INC T VISIT LOW/MODER SEVERITY HOSPITAL BRADEN - 6 6 [facility] OUTPATIEN INC T EMERGENCY 33019 SUKHDEV WEISS 6 6 PHYSICIAN HONG ALVAREZ S, [facility] T VISIT HIGH/URGE NT SEVERITY PERIODIC 69635 [facility] PREVENTIV 6 6 PHYSICIAN E MED EST S GROUP PATIENT 40-64YRS HOSPITAL BRADEN - 6 6 [facility] OUTPATIEN INC T OFFICE 64784 [facility] EMILY TOGarcia OUTPATIEN 6 6 PHYSICIAN T VISIT S GROUP 10 MINUTES OFFICE 72902 [facility] WOODS OUTPATIEN 6 6 PHYSICIAN BOOKER T VISIT S GROUP 25 MINUTES HOSPITAL BRADEN - 6 6 [facility]PATIEN [facility] BRADEN - 6 6 [facility] OUTPATIEN INC T EMERGENCY 48512 BRADEN 6 6 [facility] T VISIT HIGH/URGE NT SEVERITY OFFICE 63917 [facility] EMILY MARTIN CONSULTAT 6 6 PHYSICIAN ION S GROUP NEW/ESTAB PATIENT 30 MIN OFFICE 40713 [facility] STONE MARY OUTPATIEN 6 6 PHYSICIAN T VISIT S GROUP 15 MINUTES HOSPITAL BRADEN - 6 6 [facility] OUTPATIEN [facility]OSPITAL GEORGEEDWINW - 6 6 N OUTPATIEN COMMUNTIY T [facility] BRADEN - 6 6 [facility] OUTPATIEN INC T OFFICE 81649 [facility] RITA OUTPATIEN 6 6 PHYSICIAN ANTIONE T VISIT S GROUP 15 MINUTES OFFICE 82341 [facility] [address] TER OUTPATIEN 6 6 PHYSICIAN T VISIT S GROUP 10 MINUTES OFFICE 53301 AMARI LEMUST OUTPATIEN 6 6 T VISIT ORTHOPAED 15 ICS PSC MINUTES OFFICE 17763 [facility] KARINA OUTPATIEN 6 6 PHYSICIAN ANTIONE T VISIT S GROUP 15 MINUTES OFFICE 98995 CENTRAL ANDRES TRA OUTPATIEN 6 6 [place] T NEW 30 ORTHOPAED MINUTES ICS PLC OFFICE 39801 [facility] KARINA OUTPATIEN 6 6 PHYSICIAN ANTIONE T VISIT S GROUP 15 MINUTES OFFICE 25249 [facility] EMILY TOD OUTPATIEN 5 5 PHYSICIAN T VISIT S GROUP 10 MINUTES HOSPITAL BRADEN - 5 5 [facility] OUTPATIEN INC T EMERGENCY 32438 BRADEN 5 5 [facility] DEPARTMEN INC T VISIT MODERATE SEVERITY EMERGENCY 68789 SUKHDEV COLLINS DEPT 5 5 PHYSICIAN ANTIONE VISIT S, [facility] HIGH SEVERITY& THREAT [facility] BRADEN - 5 5 [facility] OUTPATIEN INC HOSPITAL BRADEN - 5 5 [facility] OUTPATIEN [facility] T OFFICE 00226 [facility] EMILY TOD CONSULTAT 5 5 PHYSICIAN ION S GROUP NEW/ESTAB PATIENT 40 MIN HOSPITAL BRADEN - 5 5 [facility] OUTPATIEN INC T OFFICE 32332 BRADEN PLATT OUTPATIEN 5 5 [facility] T VISIT HOSPITAL 15 MINUTES EMERGENCY 72505 BRADEN 5 5 [facility] DEPARTMEN INC T VISIT LOW/MODER SEVERITY EMERGENCY 25349 SUKHDEV PARKER 5 5 PHYSICIAN DEPARTMEN S, [facility] T VISIT MODERATE SEVERITY HOSPITAL BRADEN - 5 5 [facility] OUTPATIEN INC T OFFICE 66782 CARDIOVAS LILIA OUTPATIEN 5 5 CULAR MAT T VISIT CONSULTAN 25 TS O MINUTES HOSPITAL BRADEN - 5 5 [facility] OUTPATIEN INC HOSPITAL BRADEN - 5 5 [facility] OUTPATIEN INC T OFFICE 33134 BRADEN PLATT OUTPATIEN [address] HOSPITAL BRADEN - 5 5 [facility] OUTPATIEN INC T EMERGENCY 91710 SUKHDEV FRANKLIN 5 5 PHYSICIAN RAEGAN [facility] S, [facility] T VISIT HIGH/URGE NT SEVERITY EMERGENCY 13699 SUKHDEV STARK 5 5 PHYSICIAN SHELLEY [facility] S, [facility] T VISIT HIGH/URGE NT SEVERITY OFFICE 58426 [facility] ROQUE OUTPATIEN 5 5 PHYSICIAN NATTY T VISIT S GROUP 15 MINUTES HOSPITAL BRADEN - 5 5 [facility] OUTPATIEN [facility] T PERIODIC 09514 [facility] MED EST HLTH DEPT HLTH DEPT PATIENT DANIELLE DANIELLE 18-39 YRS HOSPITAL BRADEN - 5 5 [facility] OUTPATIEN INC T EMERGENCY 23476 BRADEN MATHEWS 5 5 [facility] T VISIT P MODERATE SEVERITY EMERGENCY 25740 BRADEN 5 5 [facility] T VISIT LOW/MODER SEVERITY OFFICE 18130 [facility] OUTPATIEN 5 5 PHYSICIAN T VISIT S GROUP 25 MINUTES OFFICE 03254 JUDE ROQUE OUTPATIEN 5 5 NATTY NATTY T VISIT 10 MINUTES HOSPITAL BRADEN - 5 5 [facility] OUTPATIEN INC T HOSPITAL BRADEN - 5 5 [facility] OUTPATIEN INC T EMERGENCY 71805 BRAD[facility] 5 5 [facility] T VISIT LOW/MODER SEVERITY EMERGENCY 09684 BRADEN 4 4 [facility] T VISIT MODERATE SEVERITY HOSPITAL BRADEN - 4 4 [facility] OUTPATIEN INC T HOSPITAL BRADEN - 4 4 [facility] OUTPATIEN INC T OFFICE 63167 [facility] PETTEY OUTPATIEN 4 4 PHYSICIAN JAM T VISIT S GROUP 15 MINUTES HOSPITAL BRADEN - 4 4 [facility] OUTPATIEN INC T OFFICE 25953 [facility] PETTEY OUTPATIEN 4 4 PHYSICIAN JAM T NEW 30 S GROUP MINUTES EMERGENCY 45931 HILDA SAHU 4 4 SB DEPARTMEN EMERGENCY T VISIT PHYS MODERATE SEVERITY HOSPITAL BRADEN - 4 4 [facility] OUTPATIEN INC T HOSPITAL BRADEN - 4 4 [facility] OUTPATIEN INC T OFFICE 47865 ROQUE ROQUE OUTPATIEN 4 4 NATTY NATTY T VISIT 25 MINUTES EMERGENCY 42660 ALFARIS ALFARIS 4 4 [facility] DEPARTMEN T VISIT HIGH/URGE NT SEVERITY OFFICE 25216 [facility] T VISIT TH DEPT HLTH DEPT 10 DANIELLE DANIELLE MINUTES PERIODIC 11224 [facility] EST HLTH DEPT HLTH DEPT PATIENT DANIELLE DANIELLE 18-39 YRS EMERGENCY 18197 JUHI JOSE JUHI JOSE DEPT 4 4 VISIT HIGH SEVERITY& THREAT [facility] HOSPITAL BRADEN - 4 4 [facility] OUTPATIEN INC T EMERGENCY 54614 BRADEN 4 4 [facility] DEPARTMEN INC T VISIT LOW/MODER SEVERITY EMERGENCY 25807 JOLYNN GATES 4 4 DEPARTMEN T VISIT MODERATE SEVERITY EMERGENCY 75028 GINA FUENTES [address] DEPARTMEN T VISIT HIGH/URGE NT SEVERITY OFFICE 44036 [place] ROQUE OUTLARRYEN 1 1 NATTY NATTY T VISIT 10 MINUTES HOSPITAL BRADEN - 1 1 [facility] OUTPATIEN INC T OFFICE 24022 JUDE ROQUE OUTPATIEN 1 1 NATTY NATTY T VISIT 10 MINUTES EMERGENCY 00029 BRADEN DEPT 1 1 [facility] VISIT INC HIGH SEVERITY& THREAT [facility] BRADEN - 1 1 [facility] OUTPATIEN INC T OFFICE 35232 AKUA MURRAY 1 1 MITCHELL MITCHELL T VISIT 15 MINUTES EMERGENCY 55556 BRADEN 1 1 [facility] DEPARTMEN INC T VISIT LOW/MODER SEVERITY EMERGENCY 44069 NELY COLLINS DEPT 1 1 EMERGENCY ANTIONE VISIT SERVICES HIGH SEVERITY& THREAT [facility] BRADEN - 1 1 [facility] OUTPATIEN INC T OFFICE 00729 AKUA MURRAY 1 1 MITCHELL MITCHELL T VISIT 15 MINUTES OFFICE 08231 AKUA MURRAY 1 1 MITCHELL MITCHELL T VISIT 15 MINUTES EMERGENCY 92603 NELY COLLINS DEPT 1 1 EMERGENCY ANTIONE VISIT SERVICES HIGH SEVERITY& THREAT [facility] BRADEN - 1 1 [facility] OUTPATIEN INC T EMERGENCY 04988 BRADEN 1 1 [facility] DEPARTMEN INC T VISIT HIGH/URGE NT SEVERITY HOSPITAL BRADEN - 1 1 [facility] OUTPATIEN INC T OFFICE 54293 JUDE ROQUE OUTPATIEN 1 1 NATTY NATTY T VISIT 15 MINUTES HOSPITAL BRADEN - 1 1 [facility] OUTPATIEN INC [facility]OSPITAL BRADEN - 1 1 [facility] OUTPATIEN INC T OFFICE 56813 LASHELL RUGGIERO CONSULTAT 1 1 JAM ION CARDIOLOG NEW/ESTAB Y CONSULT PATIENT 40 MIN OFFICE 82978 ARNOLD ARNOLD OUTPATIEN 1 1 MITCHELL MITCHELL T VISIT 15 MINUTES HOSPITAL BRADEN - 1 1 [facility] OUTPATIEN INC T EMERGENCY 92633 BRADEN 1 1 [facility] DEPARTMEN INC T VISIT LOW/MODER SEVERITY EMERGENCY 00784 NELY PINTO 1 1 EMERGENCY DEPARTMEN SERVICES T VISIT HIGH/URGE NT SEVERITY HOSPITAL BRADEN - 1 1 [facility] OUTPATIEN INC T EMERGENCY 38576 NELY COLLINS 1 1 EMERGENCY [facility] DEPARTMEN SERVICES T VISIT HIGH/URGE NT SEVERITY HOSPITAL BRADEN - 1 1 [facility] OUTPATIEN INC T EMERGENCY 86010 BRADEN 1 1 [facility] DEPARTMEN INC T VISIT LOW/MODER SEVERITY OFFICE 57469 PIETRO CALL CONSULTAT 1 1 NEUROLOGY [facility] NEW/ESTAB JOHN PATIENT 80 MIN OFFICE 67394 JUDE ROQUE OUTLARRYEN 1 1 NATTY NATTY T VISIT 10 MINUTES EMERGENCY 52745 NELY CAMPOS 1 1 EMERGENCY III [facility] DEPARTMEN SERVICES T VISIT MODERATE SEVERITY HOSPITAL BRADEN - 1 1 [facility] OUTPATIEN INC T EMERGENCY 60236 BRADEN 1 1 [facility] DEPARTMEN INC T VISIT LOW/MODER SEVERITY OFFICE 79071 AKUA FATIMA OUTLARRYEN 1 1 MITCHELL MITCHELL T VISIT 15 MINUTES OFFICE 74002 JUDE GLYNNON OUTPATIEN 1 1 NATTY NATTY T VISIT 10 MINUTES HOSPITAL BRADEN - 1 1 [facility] OUTPATIEN INC T HOSPITAL BRADEN - 1 1 [facility] OUTPATIEN INC T OFFICE 75528 JUDE ROQUE OUTLARRYEN 1 1 NATTY NATTY T VISIT 15 MINUTES EMERGENCY 19183 NELY COLLINS 1 1 EMERGENCY [facility] DEPARTMEN SERVICES T VISIT HIGH/URGE NT SEVERITY EMERGENCY 89168 BRADEN 1 1 [facility] DEPARTMEN INC T VISIT LOW/MODER SEVERITY HOSPITAL BRADEN - 1 1 [facility] OUTPATIEN [facility] T OFFICE 52885 JUDE ROQUE OUTPATIEN 1 1 NATTY NATTY T VISIT 10 MINUTES HOSPITAL BRADEN - 0 0 [facility] OUTPATIEN INC T EMERGENCY 33974 BRADEN 0 0 [facility] DEPARTMEN INC T VISIT LOW/MODER SEVERITY PERIODIC 77698 BRADEN FELICIANO PREVENTIV 0 0 [email or web address] [facility] CENTER PATIENT 18-39 YRS HOSPITAL BRADEN - 0 0 [facility] T EMERGENCY 81861 NELY SEVILLA DEPT 0 0 EMERGENCY GRE VISIT SERVICES HIGH SEVERITY& THREAT FUNCJ EMERGENCY 55984 BRADEN 0 0 [facility] DEPARTMEN INC T VISIT HIGH/URGE NT SEVERITY HOSPITAL BRADEN - 0 0 [facility] OUTPATIEN [facility] T EMERGENCY 91131 NELY COLLINS 0 0 EMERGENCY [facility] DEPARTMEN SERVICES T VISIT HIGH/URGE NT SEVERITY EMERGENCY 92589 BRADEN 0 0 [facility] DEPARTMEN INC T VISIT LOW/MODER SEVERITY HOSPITAL BRADEN - 0 0 [facility] OUTPATIEN [facility] T OFFICE 11654 ROQUEJUDE, OUTPATIEN 0 0 CYDNEY G CYDNEY G T VISIT 15 MINUTES HOSPITAL BRADEN - 0 0 [facility] OUTPATIEN [facility] T OFFICE 08772 [facility] TRA OUTPATIEN 0 0 [place] T VISIT ORTHOPAED 15 [facility] MINUTES OFFICE 06186 [facility], OUTPATIEN 0 0 [facility]EL[facility] J T NEW 30 CLINIC OF MINUTES [facility] OFFICE 63842 JUDE JUDE, OUTPATIEN 0 0 CYDNEY Bose T VISIT 10 MINUTES HOSPITAL BRADEN - 0 0 [facility] OUTPATIEN INC T OFFICE 05563 JUDE ROQUE, OUTPATIEN 0 0 CYDNEY Bose T NEW 45 MINUTES OFFICE 17392 MAZIN MOSQUERA, OUTPATIEN 0 0 [facility] ARIS Zelaya T VISIT UROLOGY 25 PSC MINUTES OFFICE 31194 AKUA FATIMA OUTPATIEN 0 0 JAMES Bui T VISIT 15 MINUTES EMERGENCY 75588 NELY COLLINS, DEPT 0 0 [facility] VISIT SERVICES HIGH SEVERITY& ASSOCIATE THREAT S [facility] - 0 0 [facility] T EMERGENCY [id number] [facility] 0 0 [facility] DEPARTMEN INC T VISIT HIGH/URGE NT SEVERITY OFFICE 77407 BRADEN FELICIANO OUTPATIEN 0 0 COUNT INCLUDES [facility] T VISIT CENTER CENTER 15 MINUTES OFFICE 24471 [facility], CONSULTAT 0 0 [place] TRUDY A ION ORTHOPAED NEW/ESTAB ICS PLC PATIENT 60 MIN [facility] - 0 0 [facility] T OFFICE 14144 AKUA FATIMA OUTPATIEN 0 0 JAMES Bui T VISIT 15 MINUTES OFFICE 36668 AKUA FATIMA OUTPATIEN 9 9 JAMES Bui T NEW 30 MINUTES [facility]OSP[facility] - 9 9 [facility] T EMERGENCY 25454 NELY CAMPOS 9 9 [facility]ERGENCY III[facility] T VISIT HIGH/URGE ASSOCIATE NT S SEVERITY OFFICE 60016 BEULAH RIOJAS OUTPATIEN 9 9 DON R DON R T VISIT 15 MINUTES OFFICE 25178 [facility] OUTPATIEN 9 9 [facility] T VISIT [facility] 10 BANK ACCT MINUTES OFFICE 92564 MAZIN HOLLAND JR OUTPATIEN 9 9 [facility] RORY T VISIT UROLOGY R 10 PSC MINUTES OFFICE 59193 MAZIN HOLLAND JR, CONSULTAT 9 9 [facility] RORY ION UROLOGY R NEW/ESTAB PSC PATIENT 30 MIN OFFICE 59279 BEULAH RIOJAS OUTPATIEN 9 9 DON R DON R T VISIT 15 MINUTES OFFICE 86065 BEULAH RIOJAS OUTPATIEN 9 9 DON R DON R T VISIT 15 MINUTES OFFICE 69289 BEULAH RIOJAS OUTPATIEN 9 9 DON R DON R T VISIT 15 MINUTES OFFICE 74863 BEULAH RIOJAS OUTPATIEN 9 9 DON R DON R T VISIT 15 MINUTES [facility] - 9 9 [facility] INC T EMERGENCY 39317 [facility] 9 9 [facility] DEPARTMEN INC T VISIT HIGH/URGE NT SEVERITY [facility] - 9 9 [facility] OUTPATI[facility] INC T EMERGENCY 30169 NELY COLLINS, 9 9 EMERGENCY [facility] SERVICES T VISIT MODERATE ASSOCIATE SEVERITY S OFFICE 05192 BEULAH RIOJAS OUTPATIEN 9 9 DON R DON R T VISIT 15 MINUTES EMERGENCY 36493 NELY COLLINS, 9 9 EMERGENCY [facility] SERVICES T VISIT MODERATE ASSOCIATE SEVERITY S EMERGENCY 44617 [facility] 9 9 [facility] DEPARTMEN INC T VISIT LOW/MODER SEVERITY [facility] - 9 9 [facility] OUT[facility] INC T OFFICE 30164 BEULAH RIOJAS OUTPATIEN 9 9 DON R DON R T VISIT 15 MINUTES OFFICE 57680 BEULAH RIOJAS OUTPATIEN 9 9 DON R DON R T VISIT 15 MINUTES OFFICE 21161 BEULAH RIOJAS OUTPATIEN 8 8 DON R DON R T VISIT 15 MINUTES OFFICE 46391 BEULAH RIOJAS OUTPATIEN 8 8 DON R DON R T VISIT 15 MINUTES [facility] - 8 8 [facility] INC T EMERGENCY 55524 [facility] DEPT 8 8 [facility] VISIT INC HIGH SEVERITY& THREAT [facility] BRADEN - 8 8 [facility] OUTPATIEN INC T OFFICE 11787 BEULAH RIOJAS OUTPATIEN 8 8 DON R DON R T VISIT 15 MINUTES [facility] - 8 8 [facility] OUT[facility] INC T EMERGENCY 39583 [facility] 8 8 [facility] DEPARTMEN INC T VISIT MODERATE SEVERITY
--- OUTSIDE RECORDS SUMMARY | 2017-03-06 09:59 | External Medical Summary Rpt ---
Author Author , Organization [employer] Address Unknown Phone Unavailable Care Team Providers Care Wildlife Biologist Name Role Phone MOSQUERA, MOSQUERA Unavailable Unavailable MOSQUERA CORTEZ, MOSQUERA Unavailable Unavailable CORTEZ MOSQUERA, ARIS D, Unavailable Unavailable MOSQUERA, ARIS D ALFARIS MOH, ALFARIS Unavailable Unavailable MOH ARNOLD MITCHELL, ARNOLD Unavailable Unavailable MITCHELL ARNOLD MITCHELL, ARNOLD Unavailable Unavailable MITCHELL AKUA, JAMES W, Unavailable Unavailable ARNREGINO, JAMES W [facility] Unavailable Unavailable [facility] Un[facility] Unavailable Un[facility], [facility] GINA BRO, FUENTES Unavailable Unavailable BRO FUENTES BRO, FUENTES Unavailable Unavailable BRO BEINEKE SHELLEY, BEINEKE Unavailable Unavailable SHELLEY COFFMAN TER, COFFMAN TER Unavailable Unavailable BESSON, BESSON Unavailable Unavailable BESSON JOSE, BESSON Unavailable Unavailable JOSE BESSON, JAE A, Unavailable Unavailable BESSON, JAE A [facility] Unavailable [facility]available [facility], [facility] MOLINA, MOLINA Unavailable Unavailable MOLINA ALL, MOLINA ALL Unavailable Unavailable [facility] Unavailable Unavailable [facility] Unavailable [facility]available [facility], [facility] VANITA TER, VANITA TER Unavailable Unavailable VANITA TER, VANITA TER Unavailable Unavailable WOODS BOOKER, WOODS Unavailable Unavailable BOOKER WOODS BOOKER, WOODS Unavailable Unavailable BOOKER FELIX WOODS, Unavailable Unavailable FELIX WOODS [facility] Unavailable Unavailable [facility], [facility] Unavailable Unavailable [facility], [facility] Unavailable Unavailable [facility], [facility] CRAGER JAM, CRAGER Unavailable Unavailable JAM AMALIA PAT, AMALIA PAT Unavailable Unavailable AMALIA CHINO, AMALIA PAT Unavailable Unavailable RORY HOLLAND JR, Unavailable Unavailable RORY HOLLAND JR TAM, Unavailable Unavailable KRISTIE TAM KUSH FLOWERS, Unavailable Unavailable KUSH FLOWRES RITA ANTIONE, RITA Unavailable Unavailable ANTIONE DEPA RAY, DEPA RAY Unavailable Unavailable ONEYDA ONDINA, Unavailable Unavailable ONEYDA ONDINA FALLUJI COLT, FALLUJI Unavailable Unavailable COLT FAUGHN JACOBSON, FAUGHN Unavailable Unavailable JACOBSON FEEBACK, FEEBACK Unavailable Unavailable FRYMAN, FRYMAN Unavailable Unavailable FRYMAN EUG, FRYMAN Unavailable Unavailable EUG KARINA, KARINA Unavailable Unavailable KARINA ANTIONE, KARINA Unavailable Unavailable ANTIONE KARINA, NEMO S, Unavailable Unavailable KARINA, NEMO S [facility] ANT, DAY Unavailable Unavailable ANT YECENIA, RONDAL E, Unavailable Unavailable YECENIA, RONDAL E ROVERTO ANTIONE, ROVERTO ANTIONE Unavailable Unavailable SALAZAR MILLIE, SALAZAR MILLIE Unavailable Unavailable HARPEL, HARPEL Unavailable Unavailable [facility] Unavailable Unavailable CENTER, [facility] Unavailable Unavailable CENTER, [facility] Unavailable Unavailable INC, [facility] Unavailable Unavailable HOSPITAL, [facility] Unavailable Unavailable HOSPITAL P, [facility], Unavailable Unavailable [facility] ANDRES, ANDRES Unavailable Unavailable ANDRES TRA, ANDRES TRA Unavailable Unavailable ANDRES, TRUDY A, ANDRES, Unavailable Unavailable TRUDY A [facility] Unavailable [facility], [facility] Un[facility] Un[facility], [facility] Unavailable [facility], [facility] ROQUE NATTY, ROQUE Unavailable Unavailable NATTY ROQUE NATTY, ROQUE Unavailable Unavailable NATTY CYDNEY ROQUE, Unavailable Unavailable ROQUECYDNEY G DOROTHY DWI, DOROTHY DWI Unavailable Unavailable DOROTHY JR DWI, DOROTHY Unavailable Unavailable JR DWI DOROTHY JR DWI, DOROTHY Unavailable Unavailable JR DWI BO MITCHELL, BO Unavailable Unavailable MITCHELL NOEMI RAEGAN, NOEMI Unavailable Unavailable RAEGAN NELY RAFI, Unavailable Unavailable [facility] Unavailable Unavailable SERVICES, [facility] CONTE MAR, CONTE Unavailable Unavailable MAR NORMA CARLOS, Unavailable Unavailable RORY BEACH JR, JR Unavailable Unavailable F, RORY GREEN JR, MOBLEY Unavailable Unavailable JOSEFINA OLEARY, Unavailable Unavailable JOSEFINA TALBOT MORAN WIL Unavailable Unavailable [facility], [facility], [facility] Un[facility], [...] Unavailable SOTINGEANU SHELLEY, Unavailable Unavailable SOTINGEANU SHELLEY [facility] Unavailable Unavailable [facility], [facility] REYES ANA, REYES Unavailable Unavailable ANA RIOJAS, DON R, Unavailable Unavailable RIOJAS, DON R STONE MARY, STONE MARY Unavailable Unavailable SEVILLA GRE, SEVILLA Unavailable Unavailable GRE TIKHTMAN, TIKHTMAN Unavailable Unavailable AGUDELO MOL, AGUDELO MOL Unavailable Unavailable [facility] Unavailable Unavailable [place] [facility] Unavailable Unavailable #[id number], [id number] # Unavailable [facility]available [id number], [facility] # [id number] [facility] Unavailable [facility]available DEPT [facility] Un[facility], [facility] DANIELLE WEHRMAN III BREANNA, Unavailable [...] DOS Provider Status N920 EXCESS & 02-01-2017 [facility] FREQUENT PHYSICIANS MENSTRUATIO GROUP N W/REGULAR CYCLE N819 FEMALE 01-18-2017 [facility] PROLAPSE INC UNSPECIFIED R102 PELVIC AND 01-18-2017 [place] PERINEAL [facility] PAIN IM[facility]ING ASS R938 ABNORMAL 01-18-2017 [place] FIND ON DX MEDICAL IMAGING OTH IMAGING ASS SPEC BODY STRCT [id number] ENCOUNTER 01-12-2017 [facility] PETROLEUM SAMPLER EXAM PHYSICIANS GENERAL RTN GROUP W/ABNORMAL FIND Z1212 ENCOUNTER 01-12-2017 [facility] SCREENING PHYSICIANS MALIGNANT GROUP NEOPLASM RECTUM R072 PRECORDIAL 12-30-2016 [facility] PAIN PHYSICIANS, PLLC R079 CHEST PAIN 12-30-2016 [place] UNSPECIFIED MEDICAL IMAGING ASS J0100 ACUTE 12-11-2016 [facility] MAXILLARY PHYSICIANS SINUSITIS GROUP UNSPECIFIED J208 ACUTE 11-27-2016 [facility] BRONCHITIS PHYSICIANS DUE TO GROUP OTHER SPEC ORGANISMS N3020 OTHER 11-14-2016 [facility] CHRONIC [facility] CYSTITIS [facility] P WITHOUT HEMATURIA N8110 CYSTOCELE 11-14-2016 [facility] P [id number] PERSONAL 11-01-2016 [facility] HISTORY OF PHYSICIANS COLONIC GROUP POLYPS K635 POLYP OF 10-19-2016 [facility] COLON PHYSICIANS GROUP Z09 ENC F/U 10-19-2016 [facility] EXAM AFTR PHYSICIANS CMPL TX OTH GROUP THAN MALIG NEOPLSM K5909 OTHER 10-04-2016 [facility] CONSTIPATIO PHYSICIANS N GROUP R197 DIARRHEA 10-04-2016 [facility] UNSPECIFIED PHYSICIANS GROUP N359 URETHRAL 09-12-2016 [facility] P N390 URINARY 09-12-2016 [facility] ANESTH OF INFECTION THE BLUE SITE NOT SPECIFIED R319 HEMATURIA 08-07-2016 [facility] UNSPECIFIED PHYSICIANS GROUP I10 ESSENTIAL 08-04-2016 [facility] HYPERTENSIO INC N L2389 ALLERGIC 08-04-2016 [facility] DERMATITIS INC DUE TO OTHER AGENTS [id number] ADVERSE EFF 08-04-2016 [facility] OT SYS [facility] ANTI-INFECT INC /PARASIT INIT ENC [id number] ALLERGY 08-04-2016 [facility] UNSPECIFIED PHYSICIANS, INITIAL PLLC ENCOUNTER Z720 TOBACCO USE 08-04-2016 [facility] INC N210 CALCULUS IN 07-07-2016 [facility] BLADDER PHYSICIANS GROUP N3000 ACUTE 07-07-2016 [facility] CYSTITIS [facility] WITHOUT INC HEMATURIA N3090 CYSTITIS 07-07-2016 [facility] UNSPECIFIED PHYSICIANS, WITHOUT PLL HEMATURIA Z1231 ENCOUNTER 07-04-2016 [place] SCREENING MEDICAL MAMMO MALIG IMAGING ASS NEOPLASM BREAST R1030 LOWER 07-02-2016 [facility] ABDOMINAL PHYSICIANS, PAIN PLLC UNSPECIFIED V10658 ATYP SQ 06-23-2016 [facility] SIGNIFICANC E CYTOL SMER CERV I36839 ENCOUNTER 06-23-2016 [facility] PETROLEUM SAMPLER EXAM PHYSICIANS GENERAL RTN GROUP W/O ABNORMAL FIND N949 UNS COND 06-09-2016 [facility]OC W/FE [facility] GENIT ORGN INC & MENSTRUAL CYCL E039 HYPOTHYROID 06-05-2016 [facility] ISM [facility] UNSPECIFIED INC K5900 CONSTIPATIO 05-01-2016 [facility] N PHYSICIANS UNSPECIFIED GROUP R109 UNSPECIFIED 05-01-2016 [facility] ABDOMINAL PHYSICIANS PAIN GROUP G5601 CARPAL 02-16-2016 [facility] ANESTHESIA SYNDROME GROUP PS RIGHT UPPER LIMB I26424 ENCOUNTER 02-08-2016 [facility] FOR [facility] PREPROCEDUR INC AL LABORATORY EXAM L240 IRRITANT 02-06-2016 [facility] CONTACT PHYSICIANS DERMATITIS GROUP DUE TO DETERGENTS W56854 ACUTE & 01-28-2016 [facility] SUBACUTE PHYSICIANS ALLERGIC GROUP OTITS MEDIA BILATERAL G5602 CARPAL 01-27-2016 [facility]THOP[facility]EDIC SYNDROME S PSC LEFT UPPER LIMB J40 BRONCHITIS 12-29-2015 [facility] NOT PHYSICIANS SPECIFIED GROUP ACUTE OR CHRONIC R200 ANESTHESIA 11-02-2015 [facility] OF SKIN PHYSICIANS GROUP D126 BENIGN 10-11-2015 [facility] NEOPLASM OF PHYSICIANS COLON GROUP UNSPECIFIED K625 HEMORRHAGE 10-11-2015 [facility] OF ANUS AND PHYSICIANS RECTUM GROUP K9189 OT 10-07-2015 [facility] POSTPROC PHYSICIANS, COMP & PLLC DISORDERS DIGESTIVE SYSTEM R1032 LEFT LOWER 10-07-2015 [place] QUADRANT MEDICAL PAIN IMAGING ASS M549 DORSALGIA 09-10-2015 [facility] UNSPECIFIED [facility] INC K828 OTHER 09-08-2015 [facility] SPECIFIED [facility] DISEASES OF INC GALLBLADDER [id number] STRAIN 09-08-2015 [facility] MUSCLE PHYSICIANS, FASCIA & PLLC TENDON LOW BACK INITIAL 2468 OTHER 07-20-2015 [facility] SPECIFIED LAR DISORDERS CONSULTANTS OF THYROID O 2724 OTHER AND 07-20-2015 [facility]NSPECIFIED [facility] INC HYPERLIPIDE KAITLYN 79178 UNSPEC HTN 07-20-2015 [facility] HEART LAR DISEASE CONSULTANTS WITHOUT O HEART FAIL 67217 COR 07-20-2015 [facility] ATHEROSLERO [facility] UNSPEC INC TYPE VESSEL NEW [place]/APURVA T 4019 UNSPECIFIED 07-13-2015 [facility] ESSENTIAL [facility] HYPERTENSIO INC N 4139 OTHER AND 07-13-2015 [facility]NSPECIFIED [facility] ANGINA INC PECTORIS 77441 NONSPECIFIC 07-08-2015 [place] [facility] ABNORMAL [facility] IOGRAM 193 MALIGNANT 07-01-2015 [facility] NEOPLASM OF [facility] THYROID [facility] P GLAND 2449 UNSPECIFIED 07-01-2015 [facility]YPOT[facility] P ISM 3540 CARPAL 07-01-2015 [facility] TUNNEL [facility] SYNDROME [facility] 96237 CHEST PAIN 07-01-2015 [facility] 5990 URINARY 06-21-2015 [facility] TRACT PHYSICIANS, INFECTION PLLC SITE NOT SPECIFIED 50718 ABDOMINAL 06-21-2015 [facility] OTHER MEDICAL SPECIFIED IMAGING ASS SITE 06996 MIGRAINE 06-12-2015 [facility] UNSP W/O PHYSICIANS, INTRACT W/O PLLC STATUS MIGRAINOSUS 89597 VISUAL 06-12-2015 [facility] DISCOMFORT PHYSICIANS, PLLC 2397 NEOPLSM UNS 04-05-2015 [facility] NATR PHYSICIANS ENDOCRN GROUP GLND&OTH PART NERV SYS V2540 UNSPECIFIED 02-09-2015 [facility] CONTR[facility]PT[facility] TH DEPT VE DANIELLE SURVEILLANC E V2689 OTHER 02-09-2015 [facility] SPECIFIED DISTRICT PROCREATIVE TH DEPT MANAGEMENT DANIELLE V7231 ROUTINE 02-09-2015 [facility] AL EXAMINATION 4659 ACUTE URIS 01-26-2015 [facility] P SITE 22244 FEVER 01-26-2015 [place] UNSPECIFIED MEDICAL IMAGING ASS 7862 COUGH 01-26-2015 [place] 7962 ELEVATED BP 01-26-2015 [facility] DX HOSPITAL P HYPERTENSIO N 6259 UNSPEC 01-14-2015 [facility] SYMPTOM PHYSICIANS ASSOC GROUP W/FEMALE GENITAL ORGANS 53968 ABDOMINAL 01-14-2015 [facility] PAIN, LEFT PHYSICIANS LOWER GROUP QUADRANT 96519 UNSPECIFIED 01-06-2015 [facility] PHYSICIANS CONSTIPATIO GROUP N 51718 THYROTOX 11-26-2014 [facility] W/O [facility] GOITER/OTH INC CAUSE W/O CRISIS 24090 GENERALIZED 10-23-2014 [facility] PAIN [facility] INC 7840 HEADACHE 10-23-2014 [facility] INC V0179 CONTACT OR 10-23-2014 [facility] EXPOSURE TO [facility] OTHER INC VIRAL DISEASES V642 SURG/OTH 10-23-2014 [facility] PROC NOT [facility] CARRIED OUT INC BECAUSE PTS DECN 45726 HEMATURIA 10-04-2014 [place] UNSPECIFIED [facility]ICAL IMAGING ASS 7880 RENAL COLIC 10-04-2014 [facility] P 79718 UNSPECIFIED 09-25-2014 [facility] SITE OF [facility] ANKLE INC SPRAIN AND STRAIN 47374 OTHER ANKLE 09-25-2014 [facility] SPRAIN AND PHYSICIANS STRAIN GROUP 66243 OTHER JOINT 08-28-2014 [facility] PHYSICIANS DERANGEMENT GROUP NEC ANKLE AND FOOT 226 BENIGN 08-11-2014 [facility] NEOPLASM OF THYROID GLANDS 2419 UNSPECIFIED 08-11-2014 [place] NONTOXIC OF [place] NODULAR HOSPI GOITER V5869 LONG-TERM 08-05-2014 [facility] (CURRENT) [facility] USE OF HOSPITAL P OTHER MEDICATIONS V7263 PRE-PROCEDU 08-05-2014 [facility] P EXAMINATION 47677 PAIN IN 07-15-2014 [place] JOINT, MEDICAL ANKLE AND IMAGING ASS FOOT 7295 PAIN IN 07-15-2014 [facility] SOFT N EMERGENCY TISSUES OF PHYS LIMB 2411 NONTOXIC 06-10-2014 [facility] MULTINODULA H R GOITER ANESTHESIA PSC 29925 DYSPHAGIA 06-10-2014 [facility] UNSPECIFIED H ANESTHESIA PSC 2410 NONTOXIC 05-29-2014 [facility] UNINODULAR [facility] GOITER INC 6262 EXCESSIVE 04-14-2014 [facility] BOOKER OR FREQUENT MENSTRUATIO N 6264 IRREGULAR 04-14-2014 [facility] MENSTRUAL CYCLE 6253 DYSMENORRHE 03-19-2014 [facility] A 6227 MUCOUS 03-18-2014 [facility] PAT POLYP OF CERVIX 76847 PAP SMER 02-17-[address] CERV W/ATYPICAL SQUAMOUS CELLS UNDET V252 STERILIZATI 02-17-2014 [facility] DANIELLE 80618 MORBID 12-03-2013 DOROTHY LEDESMA OBESITY DWI 80829 OTHER CHEST 12-03-2013 JU[facility] JOSE PAIN V140 [...] COMMUNITY S, ANESTH OF UNQUALIFIED THE BLUE 46159 ABDOMINAL 06-27-2011 [place] PAIN, MEDICAL UNSPECIFIED IMAGING ASS SITE 6869 UNSPEC 06-21-2011 [facility] LOCAL INFECTION SKIN&SUBCUT ANEOUS TISSUE 7881 DYSURIA 05-21-2011 [place] [facility] 63395 ABDOMINAL 05-21-2011 [facility] PAIN RIGHT [facility] LOWER INC QUADRANT 5641 IRRITABLE 05-04-2011 [facility] BOWEL SYNDROME 6929 CONTACT 05-04-2011 [facility] DERMATITIS& OTHER ECZEMA DUE UNSPEC CAUSE 4871 INFLUENZA 04-17-2011 [facility] WITH OTHER RESPIRATORY MANIFESTATI ONS 47190 PAINFUL 04-07-2011 [place] RESPIRATION [facility]ICAL IMAGING ASS 2722 MIXED 03-21-2011 [facility] HYPERLIPIDE [facility] KAITLYN INC 5110 PLEURISY 03-07-2011 [facility] WITHOUT EMERGENCY MENTION SERVICES EFFUS/CURRE NT TB 4660 ACUTE 01-24-2011 [facility] BRONCHITIS EMERGENCY SERVICES 82733 MIGRAINE 12-28-2010 [facility] W/O [facility]Y INTRACT W/O CENTER JOHN STATUS MIGRAINOSUS 48632 PAIN IN 12-14-2010 [facility] JOINT, EMERGENCY FOREARM SERVICES 78497 VARIANTS 12-07-2010 [facility] MED[facility] MIGRAINE NEC INTRACT MIGRAINE W/O SM 463 ACUTE 11-28-2010 [facility] TONSILLITIS 40385 ASTHMA, 11-18-2010 [facility] UNSPECIFIED EMERGENCY , SERVICES UNSPECIFIED STATUS 462 ACUTE 10-31-2010 [facility] NAT[facility] PHARYNGITIS 4760 CHRONIC 10-31-2010 [facility] LARYNGITIS 15217 CHRONIC 10-03-2010 [facility] NAT[facility] TONSILLITIS 58589 SPRAIN AND 09-18-2010 [facility] STRAIN OF EMERGENCY UNSPECIFIED SERVICES SITE OF WRIST 48405 SPRAIN AND 09-18-2010 [facility] STRAIN OF EMERGENCY UNSPECIFIED SERVICES SITE OF HAND 9593 INJURY 09-18-2010 [place] OTHER&UNSPE MEDICAL CIFIED IMAGING ASS ELBOW FOREARM&WRI ST 9594 INJURY 09-18-2010 [place] OTHER AND MEDICAL UNSPECIFIED IMAGING ASS HAND EXCEPT FINGER E8859 FALL FROM 09-18-2010 [facility] OTHER EMERGENCY SLIPPING SERVICES TRIPPING OR STUMBLING 2662 OTHER 09-06-2010 [facility] DEFICIEN[facility]E CENTER S V700 ROUTINE 09-06-2010 [facility] EXAM@HEALTH CARE FACL V7643 SCREENING 09-06-2010 [facility] NEOPLASM OF THE SKIN 6202 OTHER AND 07-11-2010 [facility] UNSPECIFIED EMERGENCY OVARIAN SERVICES CYST 62037 SPRAIN AND 06-20-2010 [facility] STRAIN OF EMERGENCY UNSPECIFIED SERVICES SITE OF FOOT 8472 LUMBAR 06-20-2010 [facility] SPRAIN AND EMERGENCY STRAIN SERVICES 74058 OTHER 06-20-2010 [place] INJURY OF MEDICAL OTHER SITES IMAGING ASS OF TRUNK 9596 INJURY 06-20-2010 [place] OTHER AND MEDICAL UNSPECIFIED IMAGING ASS HIP AND THIGH 9597 INJURY 06-20-2010 [place] OTHER&UNSPE MEDICAL CIFIED KNEE IMAGING ASS LEG [...] PATHOLOGY & AND CYTOLOGY ENDOCERVICI LAB TIS 50085 MILD 03-10-2010 PATHOLOGY & DYSPLASIA CYTOLOGY OF CERVIX LAB 81760 CERV HIGH 03-10-2010 [facility] DNA [place] TEST POS PLLC [...] FOR LIPOID HEALTH DISORDERS CENTRAL BANK ACCT 60237 MIXED 08-26-2009 [facility] INCONTINENC H UROLOGY E URGE AND PSC STRESS 6256 FEMALE 08-16-2009 [facility] STRESS H UROLOGY INCONTINENC ASC E 73966 POLYURIA 07-29-2009 [facility] H UROLOGY PSC 19720 URGENCY OF 07-29-2009 [facility] URINATION H UROLOGY PSC 73983 OTHER 07-14-2009 NOEL RIOJAS DON R DISORDERS OF URINARY TRACT 7224 DEGENERATIO 06-23-2009 Gigi RIOJAS OF DON R CERVICAL INTERVERTEB RAL DISC 7245 UNSPECIFIED 06-23-2009 BEULAH, BACKACHE DON R 3829 UNSPECIFIED 03-08-2009 [facility] OTITIS [facility] MEDIA INC 57186 OSTEOARTHRO 12-02-2008 Charanjit RIOJAS INVLV MX DON R SITES BUT NOT SPEC GEN 3671 MYOPIA 10-02-2008 [facility] VISION 61124 OTHER 08-03-2008 BEULAH, SPECIFIED DON R TYPES OF CYSTITIS 5368 DYSPEPSIA&O 07-23-2008 MC[facility] THER SPEC [email or web address] FUNCTION STOMACH V180 FAMILY 07-01-2008 [facility] HISTORY OF [facility] DIABETES INC MELLITUS 7804 DIZZINESS 06-30-2008 BE[facility] AND DON R GIDDINESS 42713 OTHER 06-08-2008 [facility] TENOSYNOVIT [facility] IS [...] CE 68 02 03 20 10 00 VA Ac PH 18 -2 -2 .0 00 L- ti AL 00 0- 4- 00 07 MA ve EX 12 20 20 47 RT IN 20 17 17 17 2 97 PH 50 AR 0 MA MG CY CA #5 PS 91 UL E FL 60 02 03 16 30 00 VA Ac UT 50 -2 -2 .0 00 L- ti IC 50 0- 4- 00 07 MA ve 82 20 20 47 RT ON 90 17 17 17 E 1 98 PH MA AR OP MA CY 50 #5 MC 91 G SP RA Y LE 00 02 03 30 30 00 VA Ac VO 78 -2 -2 .0 00 [...] DO 23 02 03 60 30 00 VA Ac XY 15 -0 -1 .0 00 [...] 01 02 14 7 00 WA Ac MA 16 -1 -1 .0 00 L- ti [...] 11 11 RI TA 1 PH CH SD AR AR N- MA D CA CY [...] 91 00 10 10 0 15 5 VA 71 SO Ac 37 -0 -0 .0 [...] PE 00 09 09 0 20 5 VA 44 SC Ac NT 59 -0 -0 .0 L- 96 HU ti AZ 10 6- 7- 00 MA 06 LS ve OC 39 20 20 RT 2 TA IN 50 11 11 D E- 1 PH CA NA AR MP LO MA BE XO CY LL NE # K TA 10 BL 05 ET 91 MU 45 08 09 1 22 10 VA 71 AR Ac PI 80 -3 -0 .0 L- 33 NO ti RO 20 1- 2- 00 MA 16 LD ve CI 11 20 20 RT 4 N 22 11 11 RI 2% 2 PH CH AR AR OI MA D NT CY W ME # NT 10 05 91 DO 53 08 08 1 20 10 VA 71 AR Ac XY 48 -3 -3 .0 L- 33 NO ti CY 90 1- 1- 00 MA 16 LD ve CL 11 20 20 RT 5 IN 90 11 11 RI E 2 PH CH HY AR AR CL MA D AT CY W E # 10 0 10 MG 05 91 CA P DI 00 07 07 2 12 30 VA 71 AR Ac CY 52 -1 -1 0. L- 27 NO ti CL 70 4- 5- 00 MA 11 LD ve OM 58 20 20 0 RT 4 IN 60 11 11 RI E 1 PH CH 10 AR AR MA D MG CY W # CA PS 10 UL 05 E 91 ME 00 07 07 1 21 6 VA 71 AR Ac TH 60 -1 -1 .0 L- 27 NO ti YL 34 4- 4- 00 MA 11 LD ve MA 59 20 20 RT 2 ED 31 11 11 RI NI 5 PH CH SO AR AR LO MA D NE CY W 4 # MG 10 05 DO 91 SE PK TR 00 07 07 1 80 20 VA 71 AR Ac IA 16 -1 -1 [...] EA [address] 91 OP MA 68 06 06 1 30 7 WA [...] 7- 7- 00 MA 83 LD ve SD 10 20 20 RT 4 DE 00 [...] # TA 10 BL 05 ET 91 MA 00 05 05 0 5. 5 WA [...] 11 11 RI TA 1 PH CH SD AR AR N- MA D CA CY [...] 0- 5- 00 MA 63 ON ve MA 59 20 20 RT 3 ED 31 [...] TA # BL ET 10 05 91 MA 68 03 03 0 12 3 WA [...] OF 83 9- 0- 00 MA 91 SD ve UR 42 20 20 RT 7 [...] 0- 7- 00 MA 51 LD ve MA 59 20 20 RT 3 ED 31 [...] 20 RT 8 AC 90 09 09 SD 1 PH CH SO AR AE D MA L EC CY S 75 #5 91 MG TA B 00 08 08 00 12 3 WA 44 GA Ac 40 -0 -2 .0 L- 78 IN ti 60 8- 7- 00 MA 76 EY ve 35 20 20 RT 5 70 09 09 SD 5 PH CH AR AE MA L CY S #5 91 00 08 08 00 14 7 WA 70 GA Ac 37 -0 -2 .0 L- 31 IN ti 80 8- 7- 00 MA 55 EY ve 75 20 20 RT 7 19 09 09 SD 3 PH CH AR AE MA L [...] 00 [address] Ac MA 11 -0 -1 .0 L- 30 EP [...] 7- 6- 00 MA 99 EY ve MA 59 20 20 RT 5 ED 31 09 09 SD NI 5 PH CH SO AR AE LO MA L NE CY S 4 #5 MG 91 DO SE PK AZ 00 03 03 00 6. 5 WA 70 GA Ac IT 78 -1 -2 00 L- 12 IN ti HR 11 7- 6- 0 MA 99 EY ve OM 49 20 20 RT 4 YC 66 09 09 SD IN 8 PH CH AR AE 25 MA L 0 CY S MG #5 TA 91 BL ET TA 00 03 03 00 [address] Ac SD 00 -0 -1 .0 L- 10 EP [...] -M #5 CR 91 10 0 MG MA 37 10 10 00 30 30 WA [...] 91 63 09 09 00 2[address] Ac 30 -0 -1 00 L- 85 EP ti 40 3- 1- 0 MA 84 HE ve 80 20 20 RT 6 NS 51 08 08 2 PH DO AR N MA R CY #5 91 Procedures Procedure DOS Code Location Performer Comment ENDOMETRI 23409 [facility] AL BX 7 PHYSICIAN W/WO S GROUP ENDOCERV[place] [address] [place] MOLINA TRANSVAGI 7 MEDICAL NAL IMAGING ASS BLOOD 85962 [facility] MORRISSEY OCCULT 7 PHYSICIAN PEROXIDAS S GROUP E ACTV QUAL FECES 1-3 SPEC URINLS 76372 [facility] DIP 7 PHYSICIAN STICK/TAB S GROUP LET REAGNT NON-AUTO MICRSCPY IADNA 98359 [facility] NEISSERIA 7 PHYSICIAN PHYSICIAN S GROUP S GROUP GONORRHOE AE DIRECT PROBE TQ CULTURE 72724 [facility] HARPEL CHLAMYDIA 7 PHYSICIAN ANY S GROUP SOURCE THER 03587 [facility] PROPH/DX 7 [facility] NJX IV INC INC PUSH SINGLE/1S T SBST/DRUG ECG 70152 [facility] ROUTINE 7 [facility] ECG INC INC W/LEAST 12 LDS TRCG ONLY W/O I&R RADIOLOGI 03322 [facility] C EXAM 7 [facility] CHEST 2 INC INC VIEWS FRONTAL&[place] [address] [facility] TROPONIN 7 [facility] QUANTITAT INC INC AMARA BLOOD 40832 [facility] COUNT 7 [facility] COMPLETE INC INC AUTO&AUTO DIFRNTL WBC COMPREHEN 81451 [facility] SIVE 7 [facility] METABOLIC INC INC PANEL CREATINE 51569 [facility] KINASE MB 7 [facility] FRACTION INC INC ONLY CREATINE 27390 [facility] F[facility] KINASE 7 [facility] TOTAL INC INC ECG 57124 [facility] CASTREJON ROUTINE 7 [facility] W/LEAST P 12 LDS I&R ONLY INJECTION J0696 [facility] FRYMAN 7 PHYSICIAN CEFTRIAXO S GROUP NE SODIUM PER 250 MG THERAPEUT 57163 [facility] IC 7 PHYSICIAN PROPHYLAC S GROUP TIC/DX INJECTION SUBQ/IM CULTURE 01475 [facility] BACTERIAL 7 [facility] INC INC QUANTTATI VE COLONY COUNT URINE COLONOSCO 60854 [facility] EMILY PY 6 PHYSICIAN W/BIOPSY S GROUP SINGLE/MU LTIPLE BASIC 44385 [facility] METABOLIC 6 [facility] PANEL INC INC CALCIUM TOTAL COLLECTIO 25473 [facility] N VENOUS 6 [facility] BLOOD INC INC VENIPUNCT URE BLOOD 76447 [facility] COUNT 6 [facility] COMPLETE INC INC AUTO&AUTO DIFRNTL WBC CYSTO 17350 [facility] CALIBRATI 6 [facility] ON DILAT INC INC URTL STRIX/JOSE NOSIS URINE 13782 [facility] 6 [facility] TEST INC INC VISUAL COLOR CMPRSN METHS ANES 70102 [facility] TRANSURET 6 ANESTH HRAL OF THE W/URETHRO BLUE CYSTOSCOP Y NOS THERAPEUT 98329 [facility] IC 6 [facility] PROPHYLAC INC INC TIC/DX INJECTION SUBQ/IM SUSCEPTIB 82662 [facility] LTY STDY 6 [facility] ANTIMICRB INC INC IAL MICRO/AGA R DILUTJ URNLS DIP 80736 [facility] 6 [facility] STICK/TAB INC INC LET REAGENT AUTO MICROSCOP Y URINE 62641 [facility] 6 [facility] TEST INC INC VISUAL COLOR CMPRSN METHS CULTURE 47286 [facility] BACTERIAL 6 [facility] INC INC QUANTTATI VE COLONY COUNT URINE COMPUTER- 30668 [facility] [facility] DETECTION INC INC SCREENING MAMMOGRAP HY SCREENING G0202 [facility] MAMMOGRAP INC INC HY MICHELLE INCL CAD WHEN PERFORMD URNLS DIP 77091 [facility] STICK/TAB INC [place] [address] BRADEN FELICIANO ABDOMEN & 6 [facility] PELVIS INC INC W/O CONTRAST MATERIAL URINE 51004 [facility]ELICIANO [facility] TEST INC INC VISUAL COLOR CMPRSN METHS IADNA 29758 BRADEN FELICIANO CHLAMYDIA 6 [facility] INC INC TRACHOMAT IS AMPLIFIED PROBE TQ IADNA 38969 BRADEN FELICIANO NEISSERIA 6 [facility] INC INC GONORRHOE AE AMPLIFIED PROBE TQ IADNA 31793 P&C LABS [facility] 6 [facility] RAFI PAPILLOMA VIRUS HIGH-RISK TYPES CYTP 10613 P&C NELY REEVES CERVICAL/ 6 LLC RAFI VAGINAL REQ INTERP PHYSICIAN CYTP C/V 18559 P&C NELY REEVES AUTO THIN 6 LLC RAFI [place] [address] BRADEN FELICIANO TRANSVAGI 6 [facility] NAL INC INC COLLECTIO 43315 BRADEN FELICIANO N VENOUS 6 [facility] [place] [address] BRADEN FELICIANO THYROXINE 6 [facility] [place] [address] BRADEN FELICIANO THYROID 6 [facility] STIMULATI INC INC NG HORMONE TSH THER 77332 BRADEN FELICIANO PROPH/DX 6 [facility] NJX IV INC INC PUSH SINGLE/1S T SBST/DRUG THERAPEUT 87682 BRADEN FELICIANO IC 6 [facility] INJECTION INC INC IV PUSH EACH NEW DRUG ECG 60896 BRADEN DE LA CRUZ JR ROUTINE 6 [facility] W/LEAST P 12 LDS I&R ONLY ECG 29320 BRADEN FELICIANO ROUTINE 6 [facility] ECG INC INC W/LEAST 12 LDS TRCG ONLY W/O I&R HEMOGLOBI 31531 BRADEN FELICIANO N 6 [facility] GLYCOSYLA INC INC DAV A1C BLOOD 54584 BRADEN FELICIANO COUNT 6 [facility] COMPLETE INC INC AUTO&[place] [address] BRADEN FELICIANO TROPONIN 6 [facility] QUANTITAT INC INC AMARA COMPREHEN 83609 BRADEN FELICIANO SIVE 6 [facility] METABOLIC INC INC PANEL RADIOLOGI 55432 BRADEN FELICIANO C 6 [facility] EXAMINATI INC INC ON CHEST SINGLE VIEW FRONTAL CREATINE 87747 BRADEN FELICIANO KINASE MB 6 [facility] FRACTION INC INC ONLY CREATINE 55190 BRADEN FELICIANO KINASE 6 [facility] TOTAL INC INC COMPREHEN 81114 BRADEN FELICIANO SIVE 6 [facility] METABOLIC INC INC PANEL BLOOD 71748 BRADEN FELICIANO COUNT 6 [facility] COMPLETE INC INC AUTO&AUTO DIFRNTL WBC COLLECTIO 08069 [facility] ANTHONY HERNANDEZ N VENOUS 6 PHYSICIAN BLOOD S GROUP VENIPUNCT URE NEUROPLAS 54239 [facility] TY 6 N N &/TRANSPO COMMUNTIY COMMUNTIY S MEDIAN HOSPITA HOSPITA NRV CARPAL TUNNE INJECTION J1885 [facility] 6 N N KETOROLAC COMMUNTIY COMMUNTIY HOSPITA HOSPITA TROMETHAM INE PER 15 MG INJECTION J3010 [facility] FENTANYL 6 N N CITRATE COMMUNTIY COMMUNTIY 0.1 MG HOSPITA HOSPITA ANES 36336 [place] NERVE 6 ANESTHESI MUSCLE A GROUP TDN PS FASCIA&BU RSA FOREARM WRIST INJECTION J2250 [facility] 6 N N MIDAZOLAM COMMUNTIY COMMUNTIY HCL PER HOSPITA HOSPITA 1 MG INJECTION J1100 [facility] 6 N N DEXAMETHO COMMUNTIY COMMUNTIY SONE HOSPITA HOSPITA SODIUM PHOSPHATE 1 MG INJECTION J2001 [facility] 6 N N LIDOCAINE COMMUNTIY COMMUNTIY HCL HOSPITA HOSPITA INTRAVENO US INFUS 10 MG RINGERS J7120 [facility] LACTATE 6 N N INFUSION COMMUNTIY COMMUNTIY UP TO HOSPITA HOSPITA 1000 CC BASIC 45409 BRADEN FELICIANO METABOLIC 6 [facility] PANEL INC INC CALCIUM TOTAL BLOOD 25310 BRADEN FELICIANO COUNT 6 [facility] COMPLETE INC INC AUTO&AUTO DIFRNTL WBC GONADOTRO 10918 BRADEN FELICIANO PIN 6 [facility] CHORIONIC INC INC QUALITATI VE COLLECTIO 35577 BRADEN FELICIANO N VENOUS 6 [facility] BLOOD INC INC VENIPUNCT URE THERAPEUT 69303 [facility] RITA IC 6 PHYSICIAN ANTIONE PROPHYLAC S GROUP TIC/DX INJECTION SUBQ/IM INJECTION J1040 [facility] RITA 6 PHYSICIAN ANTIONE METHYLPRE S GROUP DNISOLONE ACETATE 80 MG NEEDLE 67249 CAODAISM TIKHTMAN EMG EA 6 HEALTH EXTREMTY MEDICAL W/PARASPI GROUP NL AREA COMPLETE NERVE 79048 CAODAISM LAURENCE CONDUCTIO 6 HEALTH N STUDIES MEDICAL 7-8 GROUP STUDIES RADEX 04088 [facility] JEFFREY HAND 6 [place] CORTEZ MINIMUM 3 ORTHOPAED VIEWS [facility] COMPREHEN 13442 BRADEN FELICIANO SIVE 5 [facility] METABOLIC INC INC PANEL CULTURE 88487 BRADEN FELICIANO BACTERIAL 5 [facility] INC INC QUANTTATI VE COLONY COUNT URINE URNLS DIP 01052 [facility] FELICIANO 5 [facility] STICK/TAB INC INC LET REAGENT AUTO MICROSCOP Y BLOOD 35090 BRADEN FELICIANO COUNT 5 [facility] COMPLETE INC INC AUTO&[place] [address] BRADEN FELICIANO ABDOMEN & 5 [facility] PELVIS INC INC W/O CONTRAST MATERIAL COLSC FLX 35797 [facility] EMILY MARTIN W/RMVL 5 PHYSICIAN OF TUMOR S [place] [address] P&C LABS, BO SURG 5 [facility] PATHOLOGY GROSS&ANTIONE ROSCOPIC EXAM COLLECTIO 07524 BRADEN FELICIANO N VENOUS 5 [facility] BLOOD INC INC VENIPUNCT URE GONADOTRO 77951 BRADEN FELICIANO PIN 5 [facility] CHORIONIC INC INC QUALITATI VE BLOOD 84021 BRADEN FELICIANO COUNT 5 [facility] COMPLETE INC INC AUTO&AUTO DIFRNTL WBC RADEX 42678 BRADEN FELICIANO ABDOMEN 5 [facility] COMPL INC INC W/DCBTS&/ ERC VIEWS COLLECTIO 05657 BRADEN FELICIANO N VENOUS 5 [facility] BLOOD INC INC VENIPUNCT URE COMPREHEN 59613 BRADEN FELICIANO SIVE 5 [facility] METABOLIC INC INC PANEL ECG 14146 BRADEN FELICIANO ROUTINE 5 [facility] ECG INC INC W/LEAST 12 LDS TRCG ONLY W/O I&R ECG 01512 CARDIOVAS LILIA ROUTINE 5 CULAR MAT ECG CONSULTAN W/LEAST TS O 12 LDS I&R ONLY ECG 85561 BRADEN FELICIANO ROUTINE 5 [facility] ECG INC INC W/LEAST 12 LDS TRCG ONLY W/O I&R ECHO 23059 ARIC DUONG TTHR R-T 5 MEDICAL 2D SERV W/WOM-MOD FOUNDATIO E COMPL N SPEC&COLR D ECG 22494 BRADEN FELICIANO ROUTINE 5 [facility] ECG INC INC W/LEAST 12 LDS TRCG ONLY W/O I&R COLLECTIO 67310 BRADEN FELICIANO N VENOUS 5 [facility] BLOOD INC INC VENIPUNCT URE BLOOD 95188 BRADEN FELICIANO COUNT 5 [facility] COMPLETE INC INC AUTO&[place] [address] BRADEN FELICIANO TROPONIN 5 [facility] QUANTITAT INC INC AMARA ECG 64685 BRADEN CASTREJON ROUTINE 5 [facility] W/LEAST P 12 LDS I&R ONLY LIPID 12692 BRADEN FELICIANO PANEL 5 [facility] INC INC COMPREHEN 70366 BRADEN FELICIANO SIVE 5 [facility] [place] [address] BRADEN FELICIANO THYROID 5 [facility] STIMULATI [place] [address] BRADEN FELIICANO FREE 5 [facility] THYROXINE INC INC 25 82122 BRADEN FELICIANO HYDROXY 5 [facility] INCLUDES INC INC FRACTIONS IF PERFORMED CREATINE 68147 BRADEN FELICIANO KINASE 5 [facility] TOTAL INC INC CYANOCOBA 25429 BRADEN FELICIANO JENISE 5 [facility] VITAMIN INC INC B-12 CREATINE 08130 BRADEN FELICIANO KINASE MB 5 [facility] [place] [address] [place] MOLINA ALL ABDOMEN & 5 MEDICAL PELVIS IMAGING W/O ASS CONTRAST MATERIAL COLLECTIO 11566 BRADEN FELICIANO N VENOUS 5 [facility] BLOOD INC INC VENIPUNCT URE CALCIUM 00679 BRADEN FELICIANO TOTAL 5 [place] [address] BRADEN FELICIANO THYROXINE 5 [facility] [place] [address] BRADEN FELICIANO THYROID 5 [facility] STIMULATI INC INC NG HORMONE TSH CYTP 29976 P&C LABS, PICKLESIM CERV/VAG 5 LLC ER JR VANDANA AUTO THIN LAYER PREP MNL SCREEN RADIOLOGI 73006 [facility] C EXAM 5 MEDICAL [place] CHEST 2 IMAGING VIEWS ASS FRONTAL&[place] [address] [facility] TRANSVAGI 5 PHYSICIAN BOOKER NAL S GROUP COLLECTIO 25398 BRADEN FELICIANO N VENOUS 5 [facility] BLOOD INC INC VENIPUNCT URE CALCIUM 36310 BRADEN FELICIANO TOTAL 5 [place] [address] BRADEN FELICIANO THYROID 5 [facility] STIMULATI [place] [address] BRADEN BRADEN FREE 5 [facility] THYROXINE INC INC URINE 38444 BRADEN FELICIANO 4 [facility] TEST INC [place] [address] BRADEN FELICIANO ABDOMEN & 4 [facility] PELVIS INC INC W/O CONTRAST MATERIAL URNLS DIP 58098 BRADENBRENTON FELICIANO 4 [facility] STICK/TAB INC INC LET REAGENT AUTO MICROSCOP Y FLUOROSCO 61015 [facility] PETTEY PY SPX UP 4 PHYSICIAN JAM TO 1 S GROUP HOUR PHYS/QHP TIME MANUAL 30459 [facility] PET[facility] APPL 4 PHYSICIAN JAM STRESS S GROUP PFRMD PHYS/QHP JOINT FILMS PARATHYRO 58423 JUDE ROQUE ID 4 NATTY NATTY AUTOTRANS PLANTATIO N ADD-ON LEVEL V 45002 [facility] M[facility] SURG 4 Y OF PATHOLOGY [place] [facility] GROSS&ANTIONE ROSCOPIC EXAM PATH 64149 [facility] MOL CONSLTJ 4 Y OF SURG 1ST [place] [facility] FROZEN SCTJ 1 SPEC THYROIDEC 19991 JUDE ROQUE KAYLA 4 NATTY NATTY TOTAL/[place] [address] [facility] MOL SURG 4 Y OF PATHOLOGY [facility] GROSS&ANTIONE ROSCOPIC EXAM ANES 80808 MAZIN DAY ESOPH 4 LTH ANT THYRD ANESTHESI LARYNX A PSC TRACH & LYMPH NECK 1YR ECG 49645 BRADEN DE LA CRUZ JR ROUTINE 4 [facility] W/LEAST P 12 LDS I&R ONLY BLOOD 24876 BRADEN BRADEN COUNT 4 [facility] COMPLETE INC INC AUTO&AUTO DIFRNTL WBC ECG 76571 BRADEN BRADEN ROUTINE 4 [facility] ECG INC INC W/LEAST 12 LDS TRCG ONLY W/O I&R RADEX 30939 [place] KRISTIE ANKLE 4 MEDICAL TAM COMPLETE IMAGING MINIMUM 3 ASS VIEWS CRTCHS E0114 [facility] INC. BREG INC. UNDARM 4 OTH THAN WOOD PAIR PAD TIP&HNDGR IP ANKLE L4350 [facility] BREG INC. CONTROL 4 ORTHOSIS STIRRUP STYL RIGID PREFAB CALCIUM 17678 BRADEN CHENON TOTAL 4 [place] [address] BRADEN CHENON FREE 4 [facility] [place] [address] BRADEN FELICIANO THYROID 4 [facility] STIMULATI [place] [address] REYES REYES SURG 4 ANA ANA PATHOLOGY GROSS&ANTIONE ROSCOPIC EXAM PATH 47951 REYES REYES CONSLTJ 4 ANA ANA SURG 1ST BLK FROZEN SCTJ 1 SPEC ANES 83331 MAZIN DG ESOPH 4 LTH MAR THYRD ANESTHESI LARYNX A PSC TRACH & [place] 1[place] [address] BRADEN FELICIANO THYROID 4 [facility] STIMULATI [place] [address] BRADEN BRADEN FREE 4 [facility] THYROXINE INC INC CALCIUM 93374 BRADEN CHENON TOTAL 4 [facility] INC INC US SOFT 85383 [facility] K[facility]STIE TISSUE 4 MEDICAL TAM HEAD & IMAGING NECK REAL ASS TIME IMGE DOCM URNLS DIP 78014 CHUCK WOODS 4 [facility]ER STICK/TAB LET RGNT NON-AUTO W/O MICRSCP ENDOMETRI 03630 CHUCK WOODS AL BX 4 [facility]ER W/WO ENDOCERVI X BX W/[place] [address] [facility] TRANSVAGI 4 [facility]OOKER NAL COLPOSCOP 98647 CHUCK WOODS Y CERVIX 4 BOOKER BOOKER BX CERVIX & [place] [address] AMALIA CHINO AMALIA PAT SURG 4 PATHOLOGY GROSS&ANTIONE ROSCOPIC EXAM IMHISTOCH 97751 AMALIA HOLLAND PAT EM/CYTCHM 4 1ST ANTIBODY STAIN PROCEDURE IADNA 39961 [facility] NEISSERIA 4 [facility] DEPT [facility] DEPT GONORRHOE [facility] AE AMPLIFIED PROBE TQ CYTP [address] CERV/VAG 4 AUTO THIN LAYER PREP MNL SCREEN PH BODY 34943 [facility] FLUID NOT 4 [facility] DEPT [facility] DEPT ELSEWHERE [facility] SPECIFIED SMR PRIM 97841 [facility] SRC WET 4 [facility]PT NFCT AGT [facility] IADNA 51097 [facility] CHLAMYDIA 4 [facility] DEPT [facility] DEPT TRACHOMAT [facility] IS AMPLIFIED PROBE TQ AMINES 55665 [facility] VAGINAL 4 [facility] FLUID [facility] DEPT [facility] DEPT QUALITATI [facility] VE URNLS DIP 95388 [facility] 4 [facility] STICK/TAB TH DEPT [facility] DEPT LET RGNT [facility] NON-AUTO W/O MICRSCP CYTP [address] CERVICAL/ 4 VAGINAL REQ INTERP PHYSICIAN WET Q0111 [facility] SARBJIT 4 [facility] INCL PREP [facility] DEPT [facility] VAGINAL [facility] CERV/SKIN SPECIMENS IADNA [address] PAPILLOMA 4 VIRUS HUMAN AMPLIFIED PROBE TQ ECG 97512 JUHI JOSE JUHI JOSE ROUTINE 4 ECG W/LEAST 12 LDS I&R ONLY URNLS DIP 69384 BRADEN FELICIANO 4 [facility] STICK/TAB INC INC LET REAGENT AUTO MICROSCOP Y URINE 15384 BRADEN FELICIANO 4 [facility] TEST INC INC VISUAL COLOR CMPRSN METHS IAADI 97096 BRADEN FELICIANO INFLUENZA 4 [facility] B VIRUS INC INC IAADI 71594 BRADEN FELICIANO INFFLUENZ 4 [facility] A A VIRUS INC INC MICROSOMA 50430 BRADEN FELICIANO L 1 [facility] [place] [address] BRADEN FELICIANO THYROID 1 [facility] STIMULATI [place] [address] BRADEN FELICIANO FREE 1 [facility] THYROXINE INC INC US SOFT 81499 [place] KRISTIE TISSUE 1 MEDICAL TAM HEAD & IMAG[place] [address] [place] KRISTIE ABDOMEN & 1 MEDICAL TAM PELVIS IMAGING W/O ASS CONTRAST MATERIAL ANESTHESI 22089 [facility] REBOLLAR BREANNA A 1 ANESTH INTRAPERI OF THE TONEAL BLUE LOWER ABD W/LAPS NOS 3D 35548 [place] KRISTIE RENDERING 1 MEDICAL TAM IMAGING W/INTERP& ASS POSTPROC DIFF WORK STATION URNLS DIP 91842 BRADEN FELICIANO 1 [facility] STICK/TAB INC INC LET REAGENT AUTO MICROSCOP Y BLOOD 87566 BRADEN FELICIANO COUNT 1 [facility] COMPLETE INC INC AUTO&AUTO DIFRNTL WBC LAPAROSCO 88968 C ASAD CHAVES PIC 1 ANDIE CHAO MD PSC ADAM LEVEL III 99828 [facility]IPPS ROVERTO ANTIONE SURG 1 MANJINDER & PATHOLOGY SUREKHAILIMACIEJ GROSS&ANTIONE ROSCOPIC EXAM HOSPITAL G0378 BRADEN FELICIANO OBSERVATI 1 [facility] ON INC INC SERVICE PER HOUR COMPREHEN 30424 BRADEN FELICIANO SIVE 1 [facility] METABOLIC INC INC PANEL URINE 16769 BRADEN BRADEN 1 [facility] TEST INC INC VISUAL COLOR CMPRSN METHS CULTURE 30278 BRADEN FELICIANO BACTERIAL 1 [facility] INC INC [place]TTAT[place] [address] BRADEN FELICIANO LIPASE 1 [facility] [place] [address] BRADEN FELICIANO AMYLASE 1 [facility] INC INC LAPAROSCO 4701 BRADEN FELICIANO PIC 1 [facility] HOSP APPENDECT INC INC ADAM URINE 72623 BRADEN FELICIANO 1 [facility] TEST INC INC VISUAL COLOR CMPRSN METHS URNLS DIP 85592 BRADEN BRADEN 1 [facility] H[facility]P STICK/TAB INC INC LET REAGENT AUTO MICROSCOP Y 3D 71557 JAVIER MCALLISTERUTCHER RENDERING 1 MEDICAL TAM IMAGING W/INTERP& [place] [address] JAVIER MCALLISTERUTCHER ABDOMEN & 1 MEDICAL TAM PELVIS IMAGING W/O ASS CONTRAST MATERIAL ECG 74882 BRADEN FELICIANO ROUTINE 1 [facility] ECG INC INC W/LEAST 12 LDS TRCG ONLY W/O I&R ECG 20182 BRADEN MCKEMIE ROUTINE 1 [facility] W/LEAST P 12 LDS I&[place] [address] BRADEN FELICIANO TROPONIN 1 [facility]P QUANTITAT INC INC AMARA RADIOLOGI 15012 JAVIER MCALLISTERUTCHER C EXAM 1 MEDICAL TAM CHEST 2 IMAGING VIEWS ASS FRONTAL&L ATERAL CREATINE 89948 BRADEN FELICIANO KINASE MB 1 [facility]OSP FRACTION INC INC ONLY CREATINE 86399 BRADEN FELICIANO KINASE 1 [facility]P TOTAL INC INC CV STRS 61325 [facility] FALLUJI TST 1 PHYSICIAN COLT XERS&/OR S GROUP RX CONT ECG W/O I&R CV STRS 63447 BRADEN FELICIANO TST 1 [facility] XERS&/OR INC INC RX CONT ECG TRCG ONLY CV STRS 60528 BRADEN DE LA CRUZ DWI TST 1 [facility] RX CONT P ECG I&R ONLY MYOCARDIA 88595 JAVIER KRISTIE L SPECT 1 MEDICAL TAM MULTIPLE IMAGING STUDIES ASS LIPID 10340 BRADEN FELICIANO PANEL 1 [facility] INC INC COMPREHEN 50060 BRADEN FELICIANO SIVE 1 [facility] METABOLIC INC INC PANEL ECG 00477 BRADEN FELICIANO ROUTINE 1 [facility] ECG INC INC W/LEAST 12 LDS TRCG ONLY W/O I&R US SOFT 75178 [facility] KRISTIE TISSUE 1 MEDICAL TAM HEAD & IMAGING N[place] [address] BRADEN FELICIANO THYROID 1 [facility] STIMULATI [place] [address] BRADEN FELICIANO FREE 1 [facility] THYROXINE INC INC RADIOLOGI 03689 [facility] KRISTIE C EXAM 1 MEDICAL TAM CHEST 2 IMAGING VIEWS ASS FRONTAL&L ATERAL RADEX 82699 [place] KRISTIE WRIST 1 MEDICAL TAM COMPLETE IMAGING MINIMUM 3 ASS VIEWS MICROSOMA 20080 BRADEN FELICIANO L 1 [facility] [place] [address] BRADEN FELICIANO FREE 1 [facility] [place] [address] BRADEN FELICIANO THYROID 1 [facility] STIMULATI INC INC NG HORMONE TSH US SOFT 59882 [place] DAHIANA TISSUE 1 MEDICAL KRISTIE HEAD & IMAGING NECK REAL ASS TIME IMGE DOCM IAADI 44129 BRADEN FELICIANO INFLUENZA 1 [facility] B VIRUS INC INC IAADI 61511 BRADEN FELICIANO INFFLUENZ 1 [facility] A A VIRUS INC INC RADEX 00477 [place] KRISTIE WRIST 0 MEDICAL TAM COMPLETE IMAGING MINIMUM 3 ASS VIEWS RADEX 45467 [facility] K[facility]IE HAND 0 MEDICAL TAM MINIMUM 3 [place] [address] BRADEN FELICIANO FREE 0 [facility] [place] [address] BRADEN FELICIANO THYROID 0 [facility] STIMULATI INC INC NG HORMONE TSH US SOFT 49538 [place] KRISTIE TISSUE 0 MEDICAL TAM HEAD & IMAGING NECK REAL ASS TIME IMGE DOCM 3D 32613 BRADEN FELICIANO RENDERING 0 [facility] INC INC W/INTERP& POSTPROC DIFF WORK STATION BLOOD 31598 BRADEN FELICIANO COUNT 0 [facility] COMPLETE INC INC AUTO&AUTO DIFRNTL WBC URNLS DIP 89550 BRADEN BRADEN 0 [facility] STICK/TAB INC [place] [address] [place] KRISTIE ABDOMEN 0 MEDICAL TAM W/O IMAGING CONTRAST ASS MATERIAL COMPREHEN 33398 BRADEN FELICIANO SIVE 0 [facility] METABOLIC INC INC PANEL URINE 36064 BRADEN FELICIANO 0 [facility] TEST INC INC VISUAL COLOR CMPRSN METHS CULTURE 45887 BRADEN FELICIANO BACTERIAL 0 [facility] INC INC QUANTTATI VE COLONY COUNT URINE CT PELVIS 87898 [place] KRISTIE W/O 0 MEDICAL TAM CONTRAST IMAGING MATERIAL ASS RADEX 55708 [place] DAHIANA SPINE 0 MEDICAL KRISTIE LUMBOSACR IMAGING AL ASS MINIMUM 4 VIEWS RADIOLOGI 22732 [place] DAHIANA C 0 MEDICAL KRISTIE EXAMINATI IMAGING ON PELVIS ASS 1/2 VIEWS RADEX 96745 [place] DAHIANA FOOT 0 MEDICAL KRISTIE COMPLETE IMAGING MINIMUM 3 ASS VIEWS APPLICATI 72112 BRADEN FELICIANO ON 0 [facility] MODALITY INC INC 1/> AREAS HOT/COLD PACKS THERAPEUT 38846 BRADEN FELICIANO IC PX 1/> 0 [facility] AREAS INC INC EACH 15 MIN EXERCISES APPL 33336 BRADEN FELICIANO MODALITY 0 [facility] 1/> AREAS INC INC ELEC STIMJ UNATTENDE D APPL 50495 BRADEN FELICIANO MODALITY 0 [facility] 1/> AREAS INC INC ELEC STIMJ UNATTENDE D THERAPEUT 46123 BRADEN FELICIANO IC PX 1/> 0 [facility] AREAS INC INC EACH 15 MIN EXERCISES APPLICATI 15698 BRADEN FELICIANO ON 0 [facility] MODALITY INC INC 1/> AREAS HOT/COLD PACKS PHYSICAL 04335 BRADEN BRADEN THERAPY 0 [facility] [place] [address] PATHOLOGY PATHOLOGY SURG 0 & & PATHOLOGY CYTOLOGY CYTOLOGY LAB LAB GROSS&ANTIONE ROSCOPIC EXAM CYSTO 35578 COMMONWEA MOSQUERA, W/URETERO 0 LTH ARIS D SCOPY UROLOGY W/RMVL/MA PSC [place] STONES ANES 72377 ANESTHESI WHITE, TRURL 0 A JOHN E FRAGMNTJ ASSOCIATE MANJ&/RMV S, PSC L URETERAL CALCULUS FINE 93846 JUDE ROQUE, NEEDLE 0 CYDNEY Bose ASPIRATIO N W/[place] [address] BRADEN CHENON FREE 0 [facility] [place] [address] BRADEN FELICIANO THYROID 0 [facility] STIMULATI INC INC NG HORMONE TSH MICROSOMA 66064 BRADEN FELICIANO L 0 [facility] ANTIBODIE INC INC S EACH CALCIUM 81509 BRADEN FELICIANO TOTAL 0 [facility] INC INC BASIC 59865 BRADEN FELICIANO METABOLIC 0 [facility] PANEL INC INC CALCIUM TOTAL BLOOD 73996 BRADEN CHENON COUNT 0 [facility] COMPLETE INC INC AUTO&AUTO DIFRNTL WBC OBSERVATI 40780 [place] FLORSON, ON CARE 0 ANIKET Ruiz DISCHARGE INTERNAL MED MANAGEMEN T TOBACCO 47908 BRADEN FELICIANO USE 0 [facility] CESSATION INC INC INTERMEDI ATE 3-10 MINUTES INITIAL 97450 [place] MCKEMIE OBSERVATI 0 ANIKET JR, ON INTERNAL RORY F CARE/DAY MED 30 MINUTES 3D 23126 JAVIER TALBOT, RENDERING 0 MEDICAL JOSEFINA P IMAGING W/INTERP& ASSOCIATE POSTPROC S DIFF WORK STATION BLOOD 50807 BRADEN FELICIANO COUNT 0 [facility] COMPLETE INC INC AUTO&[place] [address] JAVIER TALBOT, ABDOMEN 0 MEDICAL JOSEFINA P W/O IMAGING CONTRAST ASSOCIATE MATERIAL S URNLS DIP 42996 [facility]AD[facility] FELICIANO 0 [facility] STICK/TAB INC INC LET REAGENT AUTO MICROSCOP Y CT PELVIS 80461 JAVIER DAHIANA, W/O 0 MEDICAL JOSEFINA P CONTRAST [place] [address] BR[place] FELICIANO AMYLASE 0 [place] [address] BRADEN FELICIANO LIPASE 0 [facility] INC INC COMPREHEN 54147 BRADEN FELICIANO SIVE 0 [facility] METABOLIC INC INC PANEL IADNA 71971 PATHOLOGY PATHOLOGY PAPILLOMA 0 & & VIRUS CYTOLOGY CYTOLOGY HUMAN LAB LAB AMPLIFIED PROBE TQ CYTP 03600 PATHOLOGY PATHOLOGY CERVICAL/ 0 & & VAGINAL CYTOLOGY CYTOLOGY REQ LAB LAB INTERP PHYSICIAN URNLS DIP 15171 BRAD[facility]ELICIANO [facility] STICK/TAB CENTER CENTER LET RGNT NON-AUTO W/O MICRSCP CYTP 09033 PATHOLOGY PATHOLOGY CERV/VAG 0 & & AUTO THIN CYTOLOGY CYTOLOGY LAYER LAB LAB PREP MNL SCREEN US SOFT 65490 [place] KRISTIE, TISSUE 0 MEDICAL KUSH HEAD & IMAGING NECK REAL ASSOCIATE TIME S IMGE DOCM 3D 29383 KUSH C KRISTIE, RENDERING 0 KRISTIE KUSH W/INTERP & [place] MRI 35464 KUSH C KRISTIE, SPINAL 0 KRISTIE KUSH CANAL CERVICAL W/O CONTRAST MATRL MRI 45675 KUSH C KRISTIE, SPINAL 0 KRISTIE KUSH CANAL LUMBAR W/O CONTRAST MATERIAL CT PELVIS 99703 BRADENBRENT[place] FELICIANO W/O 9 [facility] CONTRAST INC INC MATERIAL CULTURE 64065 BRADEN FELICIANO BACTERIAL 9 [facility] INC INC QUANTTATI VE COLONY COUNT URINE URINE 13444 BRADEN FELICIANO 9 [facility] TEST INC [place] [address] BRADEN FELICIANO AMYLASE 9 [place] [address] BRADEN FELICIANO LIPASE 9 [facility] INC INC COMPREHEN 51795 BRADEN FELICIANO SIVE 9 [facility] METABOLIC INC INC PANEL BLOOD 55802 BRADEN FELICIANO COUNT 9 [facility] COMPLETE INC INC AUTO&[place] [address] BRADEN FELICIANO ABDOMEN 9 [facility] W/O INC INC CONTRAST MATERIAL URNLS DIP 72636 BRADEN FELICIANO 9 [facility] STICK/TAB INC INC LET REAGENT AUTO MICROSCOP Y 3D 59826 BRADEN FELICIANO RENDERING 9 [facility] INC INC W/INTERP& POSTPROC DIFF WORK STATION GLUC BLD 65441 DHS/CO BRADEN GLUC MNTR 9 [facility] CLE[facility] ACCT FDA SPEC HOME USE COMPLEX 40209 MAZIN HOLLAND JR, UROFLOMET 9 LTH RORY [place] UROLOGY R PSC CYSTO 87034 COMMONWEA COMMONWEA CALIBRATI 9 LTH LTH ON DILAT UROLOGY UROLOGY URTL ASC ASC STRIX/JOSE NOSIS BLADDER 24929 MAZIN HOLLAND JR, PRESSURE 9 LTH RORY MEASUREME UROLOGY R NT DURING PSC FILLING EMG STDS 54768 MAZIN HOLLAND JR, ANAL/URTL 9 LTH RORY SPHNCTR UROLOGY R OTH/THN PSC NDL VOIDING 27711 MAZIN HOLLAND JR, PRESS 9 LTH RORY STDS BLDR UROLOGY R VOIDING PSC PRESS ANY TQ VOID 25890 MAZIN HOLLAND JR, PRESSURE 9 LTH RORY IBANEZ UROLOGY R INTRAABDO PSC BALJIT CULTURE 94990 BRADEN FELICIANO BACTERIAL 9 [facility] INC INC QUANTTATI VE COLONY COUNT URINE IAADI 38172 [facility] FELICIANO INFFLUENZ 9 [facility] A A VIRUS INC INC IAADI 55720 BRADEN FELICIANO INFLUENZA 9 [facility] [place] [address] [facility] FELICIANO STREPTOCO 9 [facility] CCUS INC INC GROUP A OPHTH 31819 [facility] 8 VISION NAMRATA M XM&EVAL COMPRHNSV ESTAB PT 1/> [place] [address] [facility] FELICIANO LIPASE 8 [facility] INC INC ECG 77580 [facility] FELICIANO ROUTINE 8 [facility] ECG INC INC W/LEAST 12 LDS TRCG ONLY W/O I&[place] [address] BRADEN FELICIANO AMYLASE 8 [facility] INC INC COMPREHEN 14653 BRADEN FELICIANO SIVE 8 [facility] METABOLIC INC INC PANEL ECG 80789 BRADEN MCKEMIE ROUTINE 8 [facility] W/LEAST PROF SERV 12 LDS I&R ONLY URNLS DIP 68525 [facility] FELICIANO 8 [facility] STICK/TAB INC INC LET REAGENT AUTO MICROSCOP Y BLOOD 00892 [facility] FELICIANO COUNT 8 [facility] COMPLETE INC INC AUTO&AUTO DIFRNTL WBC BLOOD 80689 [facility] BRADEN COUNT 8 [facility] COMPLETE INC INC AUTO&AUTO DIFRNTL WBC LIPID 75098 [facility] BRADEN PANEL 8 [facility] INC COMPREHEN 76633 BRADEN FELICIANO SIVE 8 [facility] [address] BRADEN FELICIANO THYROID 8 [facility] STIMULATI INC INC NG HORMONE TSH Encounters Encounter Start End Date Code Location Performer Type Date [facility] BRADEN Gentile 7 [facility] OUTPATIEN [facility] BRADEN Gentile 7 [facility] OUTPATIEN INC T EMERGENCY 77855 SUKHDEV [facility] DEPT 7 7 PHYSICIAN VISIT S, PLLC HIGH SEVERITY& THREAT FUNCJ EMERGENCY 14275 BRADEN 7 7 [facility] DEPARTMEN INC T VISIT HIGH/URGE NT SEVERITY OFFICE 98889 [facility] GIULIA [facility] 7 7 PHYSICIAN T VISIT S GROUP 25 MINUTES OFFICE 68966 [facility] OUTPATIEN 7 7 PHYSICIAN T VISIT S GROUP 25 MINUTES OFFICE 62726 BRADEN MOSQUERA OUTPATIEN 7 7 [facility] 10 P MINUTES HOSPITAL BRADEN - 7 7 [facility] OUTPATIEN INC T OFFICE 89137 [facility] EMILY OUTPATIEN 7 7 PHYSICIAN T VISIT S GROUP 10 MINUTES HOSPITAL [facility]EN - 6 6 [facility] OUTPATIEN INC T OFFICE 73540 [facility] EMILY OUTPATIEN 6 6 PHYSICIAN T VISIT S GROUP 10 MINUTES HOSPITAL BRADEN - 6 6 [facility] OUTPATIEN INC T OFFICE 76757 BRADEN MOSQUERA OUTPATIEN 6 6 [facility] 10 P MINUTES HOSPITAL BRADEN - 6 6 [facility] OUTPATIEN INC T OFFICE 29483 BRADEN MOSQUERA OUTPATIEN [address] MINUTES P OFFICE 78527 [facility] FRYMAN OUTPATIEN 6 6 PHYSICIAN EUG T VISIT S GROUP 15 MINUTES EMERGENCY 37693 [facility]ADEN 6 6 [facility] DEPARTMEN INC T VISIT LOW/MODER SEVERITY [facility]OSPITAL [facility] - 6 6 [facility] OUTPATIEN INC T EMERGENCY 34475 SUKHDEV COLLINS 6 6 PHYSICIAN ANTIONE DEPARTMEN S, [facility] T VISIT MODERATE SEVERITY EMERGENCY 59836 SUKHDEV WEISS 6 6 PHYSICIAN HONG DEPARTMEN S, [facility] T VISIT HIGH/URGE NT SEVERITY OFFICE 92009 [facility] FRYMAN OUTPATIEN 6 6 PHYSICIAN EUG T VISIT S GROUP 15 MINUTES EMERGENCY 55217 [facility]AD[facility] 6 6 [facility] DEPARTMEN INC T VISIT LOW/MODER SEVERITY [facility]OSPITAL [facility] - 6 6 [facility] OUTPAT[facility] INC T [facility]OSPITAL [facility] - 6 6 [facility] OUTPATIEN INC T EMERGENCY 11187 [facility] 6 6 [facility] DEPARTMEN INC T VISIT LOW/MODER SEVERITY HOSPITAL [facility] - 6 6 [facility] OUTPATIEN INC T EMERGENCY 97844 SUKHDEV WEISS 6 6 PHYSICIAN HONG ALVAREZ S, [facility] T VISIT HIGH/URGE NT SEVERITY PERIODIC 70946 [facility] PREVENTIV 6 6 PHYSICIAN E MED EST S GROUP PATIENT 40-64YRS HOSPITAL [facility]ADEN - 6 6 [facility] OUTPATIEN INC T OFFICE 71151 [facility] EMILY TOGarcia OUTPATIEN 6 6 PHYSICIAN T VISIT S GROUP 10 MINUTES OFFICE 74419 [facility] WOODS OUTPATIEN 6 6 PHYSICIAN BOOKER T VISIT S GROUP 25 MINUTES HOSPITAL BRADEN - 6 6 [facility] OUTPATIEN [facility] BRADEN - 6 6 [facility] OUTPATIEN INC T EMERGENCY 27474 BRADEN 6 6 [facility] T VISIT HIGH/URGE NT SEVERITY OFFICE 64125 [facility] EMILY MARTIN CONSULTAT 6 6 PHYSICIAN ION S GROUP NEW/ESTAB PATIENT 30 MIN OFFICE 73357 [facility] STONE MARY OUTPATIEN 6 6 PHYSICIAN T VISIT S GROUP 15 MINUTES HOSPITAL BRADEN - 6 6 [facility] OUTPATIEN [facility] GEORGEEDWINW - 6 6 N OUTPATIEN COMMUNTIY T [facility] BRADEN - 6 6 [facility] OUTPATIEN INC T OFFICE 07596 [facility] RITA OUTPATIEN 6 6 PHYSICIAN ANTIONE T VISIT S GROUP 15 MINUTES OFFICE [address] [facility] [address] OUTPATIEN 6 6 PHYSICIAN T VISIT S GROUP 10 MINUTES OFFICE 22532 AMARI LEMUST OUTPATIEN 6 6 T VISIT ORTHOPAED 15 ICS PSC MINUTES OFFICE 82146 [facility] KARINA OUTPATIEN 6 6 PHYSICIAN ANTIONE T VISIT S GROUP 15 MINUTES OFFICE 45931 [facility] TRA OUTPATIEN 6 6 [place] T NEW 30 ORTHOPAED MINUTES ICS PLC OFFICE 02867 [facility] KARINA OUTPATIEN 6 6 PHYSICIAN ANTIONE T VISIT S GROUP 15 MINUTES OFFICE 64850 [facility] EMILY TOD OUTPATIEN 5 5 PHYSICIAN T VISIT S GROUP 10 MINUTES HOSPITAL [facility]ADEN - 5 5 [facility] OUTPATIEN INC T EMERGENCY 70596 [facility] 5 5 [facility] DEPARTMEN INC T VISIT MODERATE SEVERITY EMERGENCY 12174 SUKHDEV COLLINS DEPT 5 5 PHYSICIAN ANTIONE VISIT S, [facility] HIGH SEVERITY& THREAT [facility] BRADEN - 5 5 [facility] OUTPATIEN INC [facility]OSPITAL [facility] - 5 5 [facility] OUTPATIEN [facility] T OFFICE 04711 [facility] EMILY TOD CONSULTAT 5 5 PHYSICIAN ION S GROUP NEW/ESTAB PATIENT 40 MIN HOSPITAL [facility] - 5 5 [facility] OUTPATIEN INC T OFFICE 31567 BRADEN PLATT OUTPATIEN 5 5 [facility] T VISIT HOSPITAL 15 MINUTES EMERGENCY 60516 [facility]EN 5 5 [facility] DEPARTMEN INC T VISIT LOW/MODER SEVERITY EMERGENCY 07449 SUKHDEV PARKER 5 5 PHYSICIAN DEPARTMEN S, [facility] T VISIT MODERATE SEVERITY HOSPITAL [facility]ADEN - 5 5 [facility] OUTPATIEN INC T OFFICE 11970 CARDIOVAS LILIA OUTPATIEN 5 5 CULAR MAT T VISIT CONSULTAN 25 TS O MINUTES HOSPITAL BRADEN - 5 5 [facility] OUTPATIEN INC HOSPITAL BRADEN - 5 5 [facility] OUTPATIEN INC T OFFICE 24460 BRADEN PLATT OUTPATIEN [address] HOSPITAL BRADEN - 5 5 [facility] OUTPATIEN INC T EMERGENCY 00318 SUKHDEV FRANKLIN 5 5 PHYSICIAN RAEGAN [facility] S, [facility] T VISIT HIGH/URGE NT SEVERITY EMERGENCY 74937 SUKHDEV STARK 5 5 PHYSICIAN SHELLEY [facility] S, [facility] T VISIT HIGH/URGE NT SEVERITY OFFICE 74363 [facility] ROQUE OUTPATIEN 5 5 PHYSICIAN NATTY T VISIT S GROUP 15 MINUTES HOSPITAL BRADEN - 5 5 [facility] OUTPATIEN [facility] T PERIODIC 14501 [facility]TH DEPT HLTH DEPT PATIENT DANIELLE DANIELLE 18-39 YRS HOSPITAL [facility]EN - 5 5 [facility] OUTPATIEN INC T EMERGENCY 10162 BRADEN MATHEWS 5 5 [facility] T VISIT P MODERATE SEVERITY EMERGENCY 37156 BRADEN 5 5 [facility] T VISIT LOW/MODER SEVERITY OFFICE 57904 [facility] OUTPATIEN 5 5 PHYSICIAN T VISIT S GROUP 25 MINUTES OFFICE 62828 JUDE ROQUE OUTPATIEN 5 5 NATTY NATTY T VISIT 10 MINUTES HOSPITAL [facility]ADEN - 5 5 [facility] OUTPATIEN INC T [facility]OSPITAL [facility]AD[facility] - 5 5 [facility] OUTPATIEN INC T EMERGENCY 77980 [facility]AD[facility] 5 5 [facility] T VISIT LOW/MODER SEVERITY EMERGENCY 47922 BRADEN 4 4 [facility] T VISIT MODERATE SEVERITY HOSPITAL BRADEN - 4 4 [facility] OUTPATIEN INC T [facility]OSPITAL [facility] - 4 4 [facility] OUTPAT[facility] INC T OFFICE 86028 [facility] PETTEY OUTPATIEN 4 4 PHYSICIAN JAM T VISIT S GROUP 15 MINUTES HOSPITAL BRADEN - 4 4 [facility] OUTPATIEN INC T OFFICE 85470 [facility] PETTEY OUTPATIEN 4 4 PHYSICIAN JAM T NEW 30 S GROUP MINUTES EMERGENCY 79968 HILDA SAHU 4 4 SB DEPARTMEN EMERGENCY T VISIT PHYS MODERATE SEVERITY HOSPITAL [facility]ADEN - 4 4 [facility] OUTPATIEN INC T [facility] BR[facility] - 4 4 [facility] OUTPATIEN INC T OFFICE 24352 ROQUE ROQUE OUTPATIEN 4 4 NATTY NATTY T VISIT 25 MINUTES EMERGENCY 11316 ALFARIS ALFARIS 4 4 [facility] DEPARTMEN T VISIT HIGH/URGE NT SEVERITY OFFICE 19950 [facility]ISIT TH DEPT HLTH DEPT 10 DANIELLE DANIELLE MINUTES PERIODIC 42758 [facility] DEPT HLTH DEPT PATIENT DANIELLE DANIELLE 18-39 YRS EMERGENCY 10692 JUHI JOSE JUIH JOSE DEPT 4 4 VISIT HIGH SEVERITY& THREAT [facility] HOSPITAL BRADEN - 4 4 [facility] OUTPATIEN INC T EMERGENCY 75247 BRADEN 4 4 [facility] DEPARTMEN INC T VISIT LOW/MODER SEVERITY EMERGENCY 20500 JOLYNN GATES 4 4 DEPARTMEN T VISIT MODERATE SEVERITY EMERGENCY 78013 GINA FUENTES [address] DEPARTMEN T VISIT HIGH/URGE NT SEVERITY OFFICE 77764 [facility] OUTLARRYEN 1 1 NATTY NATTY T VISIT 10 MINUTES HOSPITAL [facility]EN - 1 1 [facility] OUTPATIEN INC T OFFICE 88500 JUDE ROQUE OUTPATIEN 1 1 NATTY NATTY T VISIT 10 MINUTES EMERGENCY 28379 [facility] DEPT 1 1 [facility] VISIT INC HIGH SEVERITY& THREAT [facility] BRADEN - 1 1 [facility] OUTPATIEN INC T OFFICE 34870 AKUA MURRAY 1 1 [facility] MITCHELL T VISIT 15 MINUTES EMERGENCY 66736 [facility]ADEN 1 1 [facility] DEPARTMEN INC T VISIT LOW/MODER SEVERITY EMERGENCY 40402 NELY COLLINS DEPT 1 1 EMERGENCY ANTIONE VISIT SERVICES HIGH SEVERITY& THREAT [facility] BRADEN - 1 1 [facility] OUTPATIEN INC T OFFICE 41561 AKUA MURRAY 1 1 [facility] MITCHELL T VISIT 15 MINUTES OFFICE 31489 AKUA MURRAY 1 1 [facility] MITCHELL T VISIT 15 MINUTES EMERGENCY 36904 NELY COLLINS DEPT 1 1 EMERGENCY ANTIONE VISIT SERVICES HIGH SEVERITY& THREAT [facility] BRADEN - 1 1 [facility] OUTPATIEN INC T EMERGENCY 90145 [facility]AD[facility] 1 1 [facility] DEPARTMEN INC T VISIT HIGH/URGE NT SEVERITY HOSPITAL [facility] - 1 1 [facility] OUTPATIEN INC T OFFICE 36298 JUDE ROQUE OUTPATIEN 1 1 NATTY NATTY T VISIT 15 MINUTES HOSPITAL [facility]ADEN - 1 1 [facility] OUTPATIEN INC [facility] - 1 1 [facility] OUTPATIEN INC T OFFICE 25693 LASHELL RUGGIERO CONSULTAT 1 1 JAM ION CARDIOLOG NEW/ESTAB Y CONSULT PATIENT 40 MIN OFFICE 26565 ARNOLD ARNOLD OUTPATIEN 1 1 MITCHELL MITCHELL T VISIT 15 MINUTES HOSPITAL [facility]ADEN - 1 1 [facility] OUTPATIEN INC T EMERGENCY 55017 BRADEN 1 1 [facility] DEPARTMEN INC T VISIT LOW/MODER SEVERITY EMERGENCY 85020 NELY PINTO 1 1 EMERGENCY DEPARTMEN SERVICES T VISIT HIGH/URGE NT SEVERITY HOSPITAL [facility] - 1 1 [facility] OUTPATIEN INC T EMERGENCY 18761 NELY COLLINS 1 1 EMERGENCY [facility] DEPARTMEN SERVICES T VISIT HIGH/URGE NT SEVERITY HOSPITAL BRADEN - 1 1 [facility] OUTPATIEN INC T EMERGENCY 66809 BRADEN 1 1 [facility] DEPARTMEN INC T VISIT LOW/MODER SEVERITY OFFICE 30729 PIETRO CALL CONSULTAT 1 1 NEUROLOGY [facility] NEW/ESTAB JOHN PATIENT 80 MIN OFFICE 49618 JUDE ROQUE OUTLARRYEN 1 1 NATTY NATTY T VISIT 10 MINUTES EMERGENCY 49072 NELY CAMPOS 1 1 EMERGENCY III [facility] DEPARTMEN SERVICES T VISIT MODERATE SEVERITY HOSPITAL BRADEN - 1 1 [facility] OUTPATIEN INC T EMERGENCY 08801 BRADEN 1 1 [facility] DEPARTMEN INC T VISIT LOW/MODER SEVERITY OFFICE 09392 AKUA FATIMA OUTLARRYEN 1 1 [facility] MITCHELL T VISIT 15 MINUTES OFFICE 77515 JUDE GLYNNON OUTPATIEN 1 1 NATTY NATTY T VISIT 10 MINUTES HOSPITAL [facility]ADEN - 1 1 [facility] OUTPATIEN INC T [facility]PITAL [facility]AD[facility] - 1 1 [facility] OUTPATIEN INC T OFFICE 42381 JUDE ROQUE OUTLARRYEN 1 1 NATTY NATTY T VISIT 15 MINUTES EMERGENCY 54523 NELY COLLINS 1 1 EMERGENCY [facility] DEPARTMEN SERVICES T VISIT HIGH/URGE NT SEVERITY EMERGENCY 48180 [facility] 1 1 [facility] DEPARTMEN INC T VISIT LOW/MODER SEVERITY HOSPITAL [facility] - 1 1 [facility] OUTPATIEN [facility] T OFFICE 64398 JUDE ROQUE OUTPATIEN 1 1 NATTY NATTY T VISIT 10 MINUTES HOSPITAL BRADEN - 0 0 [facility] OUTPATIEN INC T EMERGENCY 31880 BRADEN 0 0 [facility] DEPARTMEN INC T VISIT LOW/MODER SEVERITY PERIODIC 11517 BRADEN FELICIANO PREVENTIV 0 0 Kyn[facility] CENTER PATIENT 18-39 YRS HOSPITAL BRAD[facility] - 0 0 [facility] T EMERGENCY 37800 NELY SEVILLA DEPT 0 0 EMERGENCY GRE VISIT SERVICES HIGH SEVERITY& THREAT FUNCJ EMERGENCY 84732 BRADEN 0 0 [facility] DEPARTMEN INC T VISIT HIGH/URGE NT SEVERITY HOSPITAL BRADEN - 0 0 [facility] OUTPATIEN [facility] T EMERGENCY 82548 NELY COLLINS 0 0 EMERGENCY [facility] DEPARTMEN SERVICES T VISIT HIGH/URGE NT SEVERITY EMERGENCY 48434 [facility] 0 0 [facility] DEPARTMEN INC T VISIT LOW/MODER SEVERITY HOSPITAL BRADEN - 0 0 [facility] OUTPATIEN [facility] T OFFICE 69129 ROQUEJUDE, OUTPATIEN 0 0 CYDNEY G CYDNEY G T VISIT 15 MINUTES HOSPITAL [facility]AD[facility] - 0 0 [facility] OUT[facility]IEN [facility] T OFFICE 70247 [facility] 0 [place] T VISIT ORTHOPAED 15 [facility] MINUTES OFFICE 05871 [facility], OUTPATIEN 0 0 [facility]ALTH [facility]ELIX J T NEW 30 CLINIC OF MINUTES [facility] OFF[facility] 78437 JUDE JUDE, OUTPATIEN 0 0 CYDNEY Bose T VISIT 10 MINUTES HOSPITAL [facility] - 0 0 [facility] OUTPATIEN INC T OFFICE 70851 JUDE ROQUE, OUTPATIEN 0 0 CYDNEY Bose T NEW 45 MINUTES OFFICE 18819 MAZIN MOSQUERA, OUTPATIEN 0 0 [facility] ARIS Zelaya T VISIT UROLOGY 25 PSC MINUTES OFFICE 07207 AKUA FATIMA OUTPATIEN 0 0 JAMES Bui T VISIT 15 MINUTES EMERGENCY 03857 NELY COLLINS, DEPT 0 0 EMERGENCY [facility] VISIT SERVICES HIGH SEVERITY& ASSOCIATE THREAT S [facility] BRADEN - 0 0 [facility] OUTPATIEN INC T EMERGENCY 39024 [facility]AD[facility] 0 0 [facility] DEPARTMEN INC T VISIT HIGH/URGE NT SEVERITY OFFICE 52431 BRADEN FELICIANO OUTPATIEN 0 0 [facility] T VISIT CENTER CENTER 15 MINUTES OFFICE 72489 [facility] ANDRES, CONSULTAT 0 0 [place] TRUDY A ION ORTHOPAED NEW/ESTAB [facility] PATIENT 60 MIN HOSPITAL [facility]ADEN - 0 0 [facility] OUTPATIEN INC T OFFICE 22785 AKUA FATIMA OUTPATIEN 0 0 JAMES Bui T VISIT 15 MINUTES OFFICE 58293 AKUA FATIMA OUTPATIEN 9 9 JAMES Bui T NEW 30 MINUTES HOSPITAL [facility]AD[facility] - 9 9 [facility] OUTPATIEN INC T EMERGENCY 57139 NELY CAMPOS 9 9 [facility]Y III, [facility] T VISIT HIGH/URGE ASSOCIATE NT S SEVERITY OFFICE 77055 BEULAH RIOJAS OUTPATIEN 9 9 DON R DON R T VISIT 15 MINUTES OFFICE 37929 [facility] OUTPATIEN 9 9 HEALTH [facility] T VISIT [facility] 10 BANK ACCT MINUTES OFFICE 54583 MAZIN HOLLAND JR OUTPATIEN 9 9 [facility] RORY T VISIT UROLOGY R 10 PSC MINUTES OFFICE 51398 MAZIN HOLLAND JR, CONSULTAT 9 9 [facility] RORY ION UROLOGY R NEW/ESTAB PSC PATIENT 30 MIN OFFICE 58150 BEULAH RIOJAS OUTPATIEN 9 9 DON R DON R T VISIT 15 MINUTES OFFICE 69919 BEULAH RIOJAS OUTPATIEN 9 9 DON R DON R T VISIT 15 MINUTES OFFICE 00476 BEULAH RIOJAS OUTPATIEN 9 9 DON R DON R T VISIT 15 MINUTES OFFICE 35395 BEULAH RIOJAS OUTPATIEN 9 9 DON R DON R T VISIT 15 MINUTES HOSPITAL [facility]AD[facility] - 9 9 [facility] OUTPATIEN INC T EMERGENCY 80706 [facility] 9 9 [facility] DEPARTMEN INC T VISIT HIGH/URGE NT SEVERITY HOSPITAL BRADEN - 9 9 [facility] OUTPATIEN INC T EMERGENCY 11339 NELY COLLINS, 9 9 EMERGENCY [facility] SERVICES T VISIT MODERATE ASSOCIATE SEVERITY S OFFICE 93132 BEULAH RIOJAS OUTPATIEN 9 9 DON R DON R T VISIT 15 MINUTES EMERGENCY 51338 NELY COLLINS, 9 9 EMERGENCY [facility] SERVICES T VISIT MODERATE ASSOCIATE SEVERITY S EMERGENCY 20811 [facility] 9 9 [facility] DEPARTMEN INC T VISIT LOW/MODER SEVERITY [facility]OSPITAL [facility]AD[facility] - 9 9 [facility] OUTPATIEN INC T OFFICE 49281 BEULAH RIOJAS OUTPATIEN 9 9 DON R DON R T VISIT 15 MINUTES OFFICE 70385 BEULAH RIOJAS OUTPATIEN 9 9 DON R DON R T VISIT 15 MINUTES OFFICE 91832 BEULAH RIOJAS OUTPATIEN 8 8 DON R DON R T VISIT 15 MINUTES OFFICE 12963 BEULAH RIOJAS OUTPATIEN 8 8 DON R DON R T VISIT 15 MINUTES HOSPITAL [facility]AD[facility] - 8 8 [facility] OUTPATIEN INC T EMERGENCY 00216 [facility]AD[facility] DEPT 8 8 [facility] VISIT INC HIGH SEVERITY& THREAT [facility] BRADEN - 8 8 [facility] OUTPATIEN INC T OFFICE 66417 BEULAH RIOJAS OUTPATIEN 8 8 DON R DON R T VISIT 15 MINUTES HOSPITAL BRADEN - 8 8 [facility] OUTPATIEN INC T EMERGENCY 54405 [facility] 8 8 [facility] DEPARTMEN INC T VISIT MODERATE SEVERITY
--- OUTSIDE RECORDS SUMMARY | 2017-03-06 10:01 | External Medical Summary Rpt ---
Author Author CARIN Sinclair, [employer] Organization [employer] Address Unknown Phone Unavailable
--- OUTSIDE RECORDS SUMMARY | 2017-03-06 10:01 | External Medical Summary Rpt ---
Demographics Preferred Language Belarusian Marital Status Unknown Buddhism Affiliation Unknown Race Unknown Ethnic Group Unknown Author Author , Organization [employer] Address Unknown Phone Unavailable Purpose Continuity of Care Document - through 2016 Immunization No patient found.
--- OUTSIDE RECORDS SUMMARY | 2017-03-06 10:01 | External Medical Summary Rpt ---
Demographics Preferred Language Colombian Marital Status Unknown Denominational Affiliation Unknown Race Unknown Ethnic Group Unknown Author Author , Organization [employer] Address Unknown Phone Unavailable Purpose Continuity of Care Document - through 2016 Immunization No patient found.
--- OUTSIDE RECORDS SUMMARY | 2017-03-06 10:01 | External Medical Summary Rpt ---
Author Author CARIN Sinclair, [employer] Organization [employer] Address Unknown Phone Unavailable
[2017-03-06 10:38] LABS: HEMOGLOBIN 11.8 g/dL (12.2-16.2)
[2017-03-06 13:56] LABS: URINE BILIRUBIN - DIPSTICK NEGATIVE (NEG); URINE BLOOD 2+ (NEG)
[2017-03-07 00:58] VITALS: BP 125/65
[2017-03-07 06:21] VITALS: BP 104/49
--- NOTE | 2017-03-07 06:57 | ACUTE CARE PROGRESS NOTE (QUA) ---
Progress Notes Subjective Date 03/07/17 Time 0656 Note This is postop day number 1. The patient is afebrile. Vital signs stable. Abdomen soft. Urine output good. She will be discharged today, with her Srinivasan catheter. Her hemoglobin is 11.8 g. Assessment/Plan This inpt stay is expected to cross 2 MNs from start of care No at 0657
--- NOTE | 2017-03-07 07:00 | DISCHARGE SUMMARY STANDARD ---
Discharge Summary Date of admission: 03/06/17 Date of discharge: 03/07/17 Patient condition: Stable Discharge diagnosis (es): 1. Dysfunctional uterine bleeding. 2. Pelvic pain. 3. Symptomatic pelvic relaxation. 4. Mild anemia. Hospital course: This 41-year-old white female was admitted for definitive treatment of the above diagnoses. On the date of admission, she was taken to the operating room, where she underwent a total vaginal hysterectomy, anterior and posterior colporrhaphy' s, and enterocele repair, without complications. Postoperatively, the patient has done well. She is eating and ambulating, and passing flatus. Her urine output is good/clear. Her abdomen is soft. Her hemoglobin is 11.8 g, but she is clinically stable. She is a smoker, but refuses smoking cessation patches. She is discharged home on the first postoperative day on Dilaudid, 4 mg, one by mouth every 6 hours when necessary pain; and Macrobid 100 mg ([id number]), 1 by mouth twice a day, to cover the catheter, with which she is going home. She is given appropriate instructions as to diet, exercise, and catheter care, and she is to return the office in 3 days for catheter removal. at 0700
[2017-03-07] MEDS ORDERED: DILAUDID4 MG PO (07:03)
[2017-03-07] MEDS ORDERED: MACROBID100 M3 PO (07:04)
[2017-03-07 07:52] VITALS: BP 98/56
== END 2017-03-07 09:55 | disposition home or self-care (01) ==
LOC: SDC 06:23 → OB 09:16 → 2ND 09:16 → OB 09:16 → 2ND 09:21 → OB 09:31
PROVIDERS: Obstetrics & Gynecology
PROC: 0UTC7ZZ Resection of Cervix, Via Natural or Artificial Opening (ICD-10-PCS; principal; 2017-03-06 07:30)
PROC: 0JQC0ZZ Repair Pelvic Region Subcutaneous Tissue and Fascia, Open Approach (ICD-10-PCS; principal; 2017-03-06 07:30)
PROC: 0UT97ZZ Resection of Uterus, Via Natural or Artificial Opening (ICD-10-PCS; principal; 2017-03-06 07:30)
PROC: 0UQF0ZZ Repair Cul-de-sac, Open Approach (ICD-10-PCS; principal; 2017-03-06 07:30)
DX: N93.8 Other specified abnormal uterine and vaginal bleeding (principal); R10.2 Pelvic and perineal pain; N81.89 Other female genital prolapse; N81.5 Vaginal enterocele
CPT/HCPCS: G0378; J2405

== ENCOUNTER 2017-07-22 16:37 | Emergency (ER) | payer SELFPAY ==
[~2017-07-22] VITALS: Ht 170.2 cm; Wt 90.7 kg
--- NOTE | 2017-07-22 17:18 | [facility]gent Treatment [facility] Report ---
History of Present Issue Date/Time Seen by Provider 07/22/17 1702 Visit Reason Pt arrived:Walked Presenting Problem:COUGHING, CONGESTION AND EAR PAIN FOR TWO DAYS Location if Accident: Onset of symptoms date/time:/ or onset unknown for:MEDICAL HX UNKNOWN Have you (or family members/close friends) recently traveled outside the [place]? N If Yes, where/when: Have you had exposure to infectious disease within the past month? TB? Other? Specify: Patient presents with cough, congestion, headache, and right ear pain that started 5-6 days ago but has worsened in the last 24 hours. Denies recent exposure to known ill persons. Denies taking medications for symptoms. Source patient Exam Limitations no limitations ALLERGIES Coded Allergies: morphine (Severe, S-DIFF. BREATHING 03/06/17) Penicillins (03/06/17) Sulfa (Sulfonamide Antibiotics) (03/06/17) ciprofloxacin (From Cipro) (03/06/17) erythromycin base (03/06/17) latex (03/06/17) nitrofurantoin (From Macrobid) (NA-DIARRHEA 03/06/17) sulfamethoxazole (From BACTRIM) (03/06/17) trimethoprim (From BACTRIM) (03/06/17) Home Medications Reported Medications Levothyroxine Sodium (Synthroid 0.175MG) 0.175 MG PO DAILY History Medical History General CAD? No Angina: Yes [place]: No Hypertension? Yes Hyperlipidemia? Yes CHF? No DVT? No PE? No COPD? No Asthma? No Anemia? No GERD? No Gastric ulcers? No GI Bleed? No Hernia? No Thyroid Problems? Yes Hypothyroidism? Yes CVA? No Seizures? No Diabetes? No Insulin Dependent: No Insulin Pump: No Home FSBS? No Renal Insuffiency? No UTI? Yes Stones? Yes BPH? No GB Disease: Yes Nephritic Syndrome? No Asplenia? No Hepatitis? No Sickle Cell Disease? No Arthritis? Yes Migraines? Yes Cataracts? No Glaucoma? No MRSA? No HIV? No TB? No Anxiety? No Depression? No Cancer? Yes Site: THYROID More? No Immunization HX DT/Tetanus 5-10 YRS Flu Refused Pneumonia Refuses Surgical Hx Previous Surgery?Y Tubal Ligation Gall[place]add GREAT TOENAILS REMOVED Oral Surgery STINT PLACED FOR KIDNEYST APPENDECTOMY THYROIDECTOMY X 2 COLONSCOPY Family History Family HX Diabetes Yes CAD Yes Hypertension Yes Hyperlipidemia Yes Cancer Yes TB No Social History Smoking Hx Smoker: Current Every Day Smoker Tobacco: Yes Type Cigarettes Packs/day < 1 Pack Alcohol Alcohol: No Review of Systems All Other Systems Reviewed and Negative Constitutional chills, fever ENT ear pain (right). Respiratory cough, denies shortness of breath, denies wheezing Gastrointestinal denies diarrhea, denies nausea, denies vomiting Skin denies rash Physical Exam Vital Signs Vital Signs Date Time Temp Pulse Resp B/P Pulse O2 O2 Flow FiO2 Ox Delivery Rate 07/22 1720 97.7 91 16 147/85 98 07/22 1655 97.7 91 16 147/ 98 General Appearance normal appearance, WD/WN, no apparent distress Ear, Nose, Throat pharyngeal erythema (mild), right ear moderate serous effusion ; left ear slight serous effusion; no tonsillar swelling or exudate noted Neck bilateral cervical anterior adenopathy Respiratory Status Yes: chest symmetrical, tender on palpation, productive cough. No: respiratory distress. Lung Sounds anterior: rhonchi. posterior: rhonchi. left: rhonchi. right: rhonchi. Cardiovascular normal exam, regular rate/rhythm, no peripheral edema, no murmur Neurologic alert, oriented x 3 Skin normal color, warm/dry Medical Decision Making LABS/Meds/Orders Pt receiving controlled substance in ED? No Departure Departure Time of Disposition 171 Disposition DC Home or Self Care(routine) Clinical Impression Primary Impression: Acute bronchitis Qualifiers: Bronchitis organism: unspecified organism Qualified Code: J20.9 - Acute bronchitis, unspecified Secondary Impressions: Acute serous otitis media, right ear Qualifiers: Recurrence: not specified as recurrent Qualified Code: H65.01 - Acute serous otitis media, right ear Condition STABLE Referrals Nile Sears APRN (Family) Patient Instructions DI for Acute Bronchitis Additional Instructions Increase fluid intake and rest. Medications as prescribed. If symptoms persist or worsen follow-up with primary care provider for further evaluation. Discussed smoking cessation. Patient verbalizes understanding. Discharge Counseling Counseled pt/family regarding diagnosis, medications/RX, home care, follow up needs Prescriptions Current Visit Scripts Azithromycin (Zithromycin (Z-YUMIKO) 250MG Tab) 250 MG PO DAILY #6 TAB TAKE TWO (2) TABLETS ON DAY 1, THEN ONE (1) TABLET DAY #2 THRU #5 Benzonatate (Tessalon Perle) 100 MG PO TIDP PRN cough #15 SGL take one capsule three times daily as needed for cough Methylprednisolone (Medrol) 4 MG PO DAILY #21 TAB take as directed at 2218
[2017-07-22 17:20] VITALS: BP 147/85
--- OUTSIDE RECORDS SUMMARY | 2017-08-01 23:00 | External Medical Summary Rpt | CCD ---
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 L- 61 KE ti OF 83 9- 0- 00 MA 91 OK ve UR 42 20 20 RT 7 E AN 20 10 10 JR TO 1 PH IN AR WI MA LL MO CY IA NO # M -M F CR 10 05 10 91 0 MG 00 03 03 0 60 20 WA 70 HU Ac 37 -0 -0 .0 L- 60 NT ti 80 1- 1- 00 MA 56 ve 75 20 20 RT 4 TR 19 10 10 AV 3 PH IS AR A MA CY # 10 05 91 ME 68 02 03 0 60 30 WA 70 HU Ac LO 38 -2 -0 .0 L- 60 NT ti XI 20 8- 1- 00 MA 56 ve CA 05 20 20 RT 3 TR M 00 10 10 AV 7. 1 PH IS 5 AR A MG MA CY TA # BL ET 10 05 91 GA 53 02 02 00 90 30 WA 70 AR Ac BA 74 -0 -2 .0 L- 57 NO ti PE 60 8- 6- 00 MA 80 LD ve NT 10 20 20 RT 9 IN 20 10 10 RI 1 PH CH 30 AR AR 0 MA D MG CY W CA #5 PS 91 UL E DO 53 12 12 00 20 10 WA 70 AR Ac XY 48 -1 -1 .0 L- 49 NO ti CY 90 0- 7- 00 MA 51 LD ve CL 11 20 20 RT 4 IN 90 09 09 RI E 2 PH CH HY AR AR CL MA D AT CY W E 10 #5 0 91 MG CA P 00 12 12 00 12 2 WA 44 WE Ac 40 -0 -1 .0 L- 81 HR ti 60 5- 7- 00 MA 77 MA ve 35 20 20 RT 7 N 70 09 09 II 5 PH I AR WI MA LL CY IA M #5 E 91 60 12 12 00 24 6 WA 70 AR Ac 25 -1 -1 0. L- 49 NO ti 80 0- 7- 00 MA 51 LD ve 23 20 20 0 RT 5 91 09 09 RI 6 PH CH AR AR MA D CY W #5 91 ME 00 12 12 00 21 6 AL 70 AR Ac TH 60 -1 -1 .0 L- 49 NO ti YL 34 0- 7- 00 MA 51 LD ve [place] 59 20 20 RT 3 ED 31 [...] #5 E CR 91 10 0 MG LO 63 11 11 00 [address] Ac RA 30 -1 -1 .0 L- 81 EP ti ZE 40 1- 9- 00 MA 19 HE ve PA 77 20 20 RT 7 NS M 30 09 09 1 1 PH DO MG AR N MA R TA CY BL ET #5 91 RA 00 11 11 00 [address] Ac NI 17 -1 -1 .0 L- 45 EP ti TI 24 1- 9- 00 MA 27 HE ve DI 35 20 20 RT 6 NS NE 74 09 09 9 PH DO 15 AR N 0 MA R MG CY TA #5 BL 91 ET 65 09 09 01 [address] Ac 16 -0 -2 .0 L- 35 EP ti 20 4- 4- 00 MA 50 HE ve 52 20 20 RT 5 NS 01 09 09 0 PH DO AR N MA R CY #5 91 NI 00 09 09 01 [address] Ac TR 37 -0 -2 .0 L- 35 EP ti OF 83 4- 4- 00 MA 50 HE ve UR 42 20 20 RT 4 NS AN 20 09 09 TO 1 PH DO IN AR N MA R MO CY NO -M #5 CR 91 10 0 MG 65 09 09 00 [address] Ac 16 -0 -1 .0 L- 35 EP ti 20 4- 0- 00 MA 50 HE ve 52 20 20 RT 5 NS 01 09 09 0 PH DO AR N MA R CY #5 91 NI 00 09 09 00 [address] Ac TR 37 -0 -1 .0 L- 35 EP ti OF 83 4- 0- 00 MA 50 HE ve UR 42 20 20 RT 4 NS AN 20 09 09 TO 1 PH DO IN AR N MA R MO CY NO -M #5 CR 91 10 0 MG 00 08 08 00 12 3 WA 44 GA Ac 40 -0 -2 .0 L- 78 IN ti 60 8- 7- 00 MA 76 EY ve 35 20 20 RT 5 70 09 09 OK 5 PH CH AR AE MA L CY S #5 91 00 08 08 00 14 7 WA 70 GA Ac 37 -0 -2 .0 L- 31 IN ti 80 8- 7- 00 MA 55 EY ve 75 20 20 RT 7 19 09 09 OK 3 PH CH AR AE MA L CY S #5 91 DI 00 08 08 00 14 7 WA 70 GA Ac CL 78 -0 -2 .0 L- 31 IN ti OF 11 8- 7- 00 MA 55 EY ve EN 78 20 20 RT 8 AC 90 09 09 OK 1 PH CH SO AR AE D MA L EC CY S 75 #5 91 MG TA B DE 00 08 08 00 [address] Ac TR 00 -1 -2 .0 L- 32 EP ti OL 95 5- 7- 00 MA 41 HE ve 19 20 20 RT 4 NS LA 10 09 09 4 1 PH DO AR N MG MA R CY CA PS #5 UL 91 E CI 55 08 08 00 [address] [place] 11 -0 -1 .0 L- 30 EP ti OF 10 3- 3- 00 MA 87 HE ve LO 12 20 20 RT 4 NS XA 70 09 09 CI 1 PH DO N AR N HC MA R L CY 50 0 #5 MG 91 TA B 65 08 08 00 [address] Ac 16 -0 -1 .0 L- 30 EP ti 20 3- 3- 00 MA 87 HE ve 52 20 20 RT 5 NS 01 09 09 0 PH DO AR N MA R CY #5 91 63 03 04 00 [address] Ac 82 -2 -0 .0 L- 13 EP ti 40 0- 9- 00 MA 74 HE ve 05 20 20 RT 2 NS 64 09 09 0 PH DO AR N MA R CY #5 91 [place] 00 03 03 00 6. 5 WA 70 GA Ac IT 78 -1 -2 00 L- 12 IN ti HR 11 7- 6- 0 MA 99 EY ve OM 49 20 20 RT 4 YC 66 09 09 OK IN 8 PH CH AR AE 25 MA L 0 CY S MG #5 TA 91 BL ET ME 00 03 03 00 21 6 WA 70 GA Ac TH 60 -1 -2 .0 L- 12 IN ti YL 34 7- 6- 00 MA 99 EY ve [place] 59 20 20 RT 5 ED 31 09 09 OK NI 5 PH CH SO AR AE LO MA L NE CY S 4 #5 MG 91 DO SE PK TA 00 03 03 00 [address] Ac OK 00 -0 -1 .0 L- 10 EP ti FL 40 2- 2- 00 MA 25 HE ve U 80 20 20 RT 1 NS 75 08 09 09 5 PH DO MG AR N MA R CA CY PS UL #5 E 91 LO 63 02 02 00 [address] Ac RA 30 -1 -2 .0 L- 74 EP ti ZE 40 1- 6- 00 MA 28 HE ve PA 77 20 20 RT 9 NS M 30 09 09 1 1 PH DO MG AR N MA R TA CY BL ET #5 91 53 02 02 00 40 10 [...] R LO CY TI ON #5 91 53 12 01 00 [address] Ac 74 -1 -0 .0 L- 00 EP ti 60 9- 1- 00 MA 57 HE ve 13 20 20 RT 6 NS 20 08 09 5 PH DO AR N MA R CY #5 91 NI 00 10 10 00 [address] Ac TR 37 -1 -2 .0 L- 91 EP ti OF 83 3- 3- 00 MA 30 HE ve UR 42 20 20 RT 6 NS AN 20 08 08 TO 1 PH DO IN AR N MA R MO CY NO -M #5 CR 91 10 0 MG LO 00 10 10 00 [address] Ac RA 78 -1 -2 .0 L- 12 EP ti TA 15 3- 3- 00 MA 94 HE ve DI 07 20 20 RT 8 NS NE 70 08 08 1 PH DO 10 AR N MA R MG CY TA #5 BL 91 ET 00 10 10 00 [address] Ac 09 -0 -2 .0 L- 71 EP ti 30 6- 3- 00 MA 31 HE ve 89 20 20 RT 2 NS 00 08 08 5 PH DO AR N MA R CY #5 91 TE 51 10 10 [...] 91 00 10 10 00 15 2 WA 69 GO Ac 40 -0 -0 .0 L- 89 BL ti 62 2- 9- 00 MA 87 E ve 04 20 20 RT 0 RO 10 08 08 ND 1 PH AL AR E MA CY #5 91 [place] 37 10 10 00 30 30 WA 88 GO Ac IL 00 -0 -0 .0 L- 12 BL ti OS 00 3- 9- 00 MA 90 E ve EC 45 20 20 RT 5 RO 50 08 08 ND OT 4 PH AL C AR E 20 MA .6 CY MG #5 91 TA BL ET 63 10 10 00 14 7 WA [...] Order Detail nces retati t Range on Urinalysis dipstick W Reflex Microscopic panel in Urine (03-06-2017 07:25) Bacteri 3+ O complet a 017 ed [Presen 07:25 ce] in Urine sedimen t by Light microsc opy Mucus 4+ OCC complet [Presen 017 ed ce] in 07:25 Urine sedimen t by Light microsc opy Epithel 10-20 0#/hp complet ial 017 f - ed cells.s 07:25 5#/hp quamous f [Presen ce] in Urine sedimen t by Microsc opy high power field Leukocy 5-10 O complet kay 017 wbc/hpf ed [#/volu 07:25 me] in Urine Urinalysis dipstick W Reflex Microscopic panel in Urine (03-06-2017 07:25) Appeara CLEAR CLEAR complet nce of 017 ed Urine 07:25 Bilirub NEGATIV NEG complet in 017 E ed [Presen 07:25 ce] in Urine by Test strip Erythro 2+ NEG Abnorma complet cytes 017 l ed [Presen 07:25 ce] in Urine Color YELLOW YELLOW complet of 017 ed Urine 07:25 Ketones NEGATIV NEG complet 017 E ed [Presen 07:25 ce] in Urine by Automat ed test strip Mucus NEGATIV NEG complet [Presen 017 E ed ce] in 07:25 Urine sedimen t by Light microsc opy Nitrite NEGATIV NEG complet 017 E ed [Presen 07:25 ce] in Urine by Test strip Urobili 1.0 NEG complet nogen 017 ed [Presen 07:25 ce] in Urine by Test strip TROPONIN I (12-03-2013 11:50) TROPONI Less 0.00-0. complet N I 014 than 06 ed 11:50 0.02 ng/mL B-HCG Ur Ql (12-03-2013 10:10) B-HCG NEGATIV NEG complet Ur Ql 014 E ed 10:10 COMPREHENSIVE METABOLIC PANEL (12-03-2013 09:35) Glucose 98 74-106 complet 014 mg/dL ed Bld-mCn 09:35 c BUN 9 mg/dL 7-18 complet Bld-mCn 014 ed c 09:35 Creat 0.8 0.6-1.0 complet SerPl-m 014 mg/dL ed Cnc 09:35 Creat 159 50-200 complet Cl 014 ML/MIN ed predict 09:35 ed SerPl C-G-vRa te GFR/BSA 81 59- complet .pred 014 ML/MIN ed SerPl 09:35 Schwart z-vRate Sodium 138 136-145 complet SerPl-s 014 mmoL/L ed Cnc 09:35 Potassi 3.6 3.5-5.1 complet um 014 mmoL/L ed SerPl-s 09:35 Cnc Chlorid 101 98-107 complet e 014 mmoL/L ed SerPl-s 09:35 Cnc CO2 25 21.0-32 complet SerPl-s 014 mmoL/L .0 ed Cnc 09:35 Calcium 8.7 8.5-10. complet 014 mg/dL 1 ed SerPl-m 09:35 Cnc Prot 8.2 6.4-8.2 complet SerPl-m 014 gm/dL ed Cnc 09:35 Albumin 02-12-2 3.8 3.4-5.0 complet 014 gm/dL ed SerPl-m 09:35 Cnc Globuli 02-2 4.4 1.3-3.2 complet n 014 gm/dL ed Ser-mCn 09:35 c Albumin 0212-2 0.9 UNK 1.1-1.8 complet /Glob 014 ed SerPl-m 09:35 Rto Bilirub 12-03-2 0.3 0.2-1.0 complet 014 mg/dL ed SerPl-m 09:35 Cnc AST 12-03-2 11 U/L 15-37 complet SerPl-c 014 ed Cnc 09:35 ALT 02-2 22 U/L 12-78 complet SerPl-c 014 ed Cnc 09:35 ALP 12-03-2 123 U/L 50-136 complet SerPl-c 014 ed Cnc 09:35 THYROID STIM HORMONE (12-03-2013 09:35) THYROID 12-03-2 0.89 0.358-3 complet STIM 014 uIU/ml .740 ed HORMONE 09:35 CBC with AUTO DIFF (12-03-2013 09:35) WBC # 12-2 11.1 4.8-10. complet Bld 014 K/MM3 8 ed Auto 09:35 RBC # 12-2 4.99 4.2-5.4 complet Bld 014 M/mm3 ed Auto 09:35 Hgb 12-03-2 14.8 12.2-16 complet Bld-mCn 014 g/dL .2 ed c 09:35 Hct Fr 2 44.1 % 37.0-47 complet Bld 014 .0 ed 09:35 MCV RBC 12-03-2 88.5 fl 82.2-97 complet 014 .8 ed 09:35 MCH RBC 12-03-2 29.7 pg 27-31.2 complet Qn 014 ed Auto 09:35 MEAN 2 33.6 31.8-35 complet CORPUSC 014 g/dl .4 ed ULAR 09:35 HGB CONC RDW RBC 12-03-2 13.2 % 11.5-17 complet Auto 014 .5 ed 09:35 Platele 349 142-424 complet t Bld 014 K/mm3 ed Ql 09:35 Manual MEAN 02-12-2 7.6 fl 7.4-10. complet PLATELE 014 4 ed T 09:35 VOLUME Granulo 02-12-2 73.5 % 37.0-80 complet cytes 014 .0 ed Fr Bld 09:35 Auto LYMPH % 02-12-2 20.7 % 10-50.0 complet 014 ed 09:35 Monocyt 02-12-2 3.2 % 1.7-9.3 complet es Fr 014 ed Bld 09:35 Auto Eosinop 02-12-2 2.0 % 0.1-12. complet hil Fr 014 0 ed Bld 09:35 Auto Basophi 02-12-2 0.6 % 0.1-2.0 complet ls Fr 014 ed Bld 09:35 Auto Granulo 02-12-2 8.1 1.8-7.8 complet cytes # 014 K/mm3 ed Bld 09:35 Auto Lymphoc 12-2 2.3 0.7-4.5 complet ytes Fr 014 K/mm3 ed Bld 09:35 Auto Monocyt 02-12-2 0.4 0.1-1.0 complet es # 014 K/mm3 ed Bld 09:35 Auto Eosinop 02-12-2 0.2 0.0-0.4 complet hil # 014 K/mm3 ed Bld 09:35 Auto Basophi 02-12-2 0.1 0-0.2 complet ls # 014 K/MM3 ed Bld 09:35 Auto B-HCG Ur Ql (11-16-2013 16:46) B-HCG 11-16-2 NEGATIV NEG complet Ur Ql 014 E ed 16:46 URINALYSIS/COMPLETE (11-16-2013 16:46) URINE 11-16-2 YELLOW YELLOW complet COLOR 014 ed 16:46 URINE 11-16-2 Sl CLEAR complet APPEARA 014 Cloudy ed NCE 16:46 URINE 11-16-2 NEGATIV NEG complet GLUCOSE 014 E ed - 16:46 DIPSTIC K URINE 11-16-2 NEGATIV NEG complet BILIRUB 014 E ed IN - 16:46 DIPSTIC K URINE 11-16-2 NEGATIV NEG complet KETONE 014 E mg/dL ed 16:46 URINE 11-16-2 Less 1.005-1 complet SPECIFI 014 than or .030 ed C 16:46 equal GRAVITY to 1.005 URINE 1+ NEG complet BLOOD 014 ed 16:46 URINE 6.0 UNK 5.0-8.5 complet PH 014 ed 16:46 URINE NEGATIV NEG complet PROTEIN 014 E mg/dL ed - 16:46 DIPSTIC K URINE 0.2 NEG complet UROBILI 014 E.U./dL ed NOGEN - 16:46 DIPSTIC K URINE NEGATIV NEG complet NITRATE 014 E ed - 16:46 DIPSTIC K URINE NEGATIV NEG complet LEUK 014 E ed ESTERAS 16:46 E URINE 3-5 0 complet RBC 014 rbc/hpf ed 16:46 URINE 3-5 O complet WBC 014 wbc/hpf ed 16:46 URINE 5-10 0-5 complet SQUAMOU 014 #/hpf ed [...] E ed - 09:39 DIPSTIC K URINE 01-11-2 NEGATIV NEG complet LEUK 014 E ed ESTERAS 09:39 E URINE 11-01-2 10-20 0 complet RBC 014 rbc/hpf ed 09:39 URINE -11-2 5-10 O complet WBC 014 wbc/hpf ed 09:39 URINE -11-2 5-10 0-5 complet SQUAMOU 014 #/hpf ed S CELLS 09:39 URINE 11-01-2 2+ O complet BACTERI 014 ed A 09:39 URINE 11-01-2 2+ OCC complet MUCUS 014 ed 09:39 COMPREHENSIVE METABOLIC PANEL (04-02-2013 02:28) Glucose 12-2 104 74-106 complet 013 mg/dL ed Bld-mCn 02:28 c BUN 04-02-2 11 7-18 complet Bld-mCn 013 mg/dL ed c 02:28 Creat 04-02-2 0.8 0.6-1.0 complet SerPl-m 013 mg/dL ed Cnc 02:28 ESTIMAT 04-02-2 166 50-200 complet ED 013 ML/MIN ed CREATIN 02:28 INE CLEARAN CE GFR 04-02-2 81 59- complet (ESTIMA 013 ML/MIN ed DAV) 02:28 Sodium 12-2 138 136-145 complet SerPl-s 013 mmoL/L ed Cnc 02:28 Potassi 04-02-2 3.9 3.5-5.1 complet um 013 mmoL/L ed SerPl-s 02:28 Cnc Chlorid 04-02-2 105 98-107 complet e 013 mmoL/L ed SerPl-s 02:28 Cnc CO2 04-02-2 26 21.0-32 complet SerPl-s 013 mmoL/L .0 ed Cnc 02:28 Calcium 12-2 8.4 8.5-10. complet 013 mg/dL 1 ed SerPl-m 02:28 Cnc Prot 12-2 7.2 6.4-8.2 complet SerPl-m 013 gm/dL ed Cnc 02:28 Albumin 12-2 3.5 3.4-5.0 complet 013 gm/dL ed SerPl-m 02:28 Cnc Globuli 04-02-2 3.7 1.3-3.2 complet n 013 gm/dL ed Ser-mCn 02:28 c Albumin 12-2 0.9 UNK 1.1-1.8 complet /Glob 013 ed SerPl-m 02:28 Rto Bilirub 04-02-2 0.3 0.2-1.0 complet 013 mg/dL ed SerPl-m 02:28 Cnc AST 04-02-2 10 U/L 15-37 complet SerPl-c 013 ed Cnc 02:28 ALT 12-2 32 U/L 30-65 complet SerPl-c 013 ed Cnc 02:28 ALP 04-02-2 107 U/L 50-136 complet SerPl-c 013 ed Cnc 02:28 Amylase SerPl-cCnc (04-02-2013 02:28) Amylase 04-02-2 32 U/L 25-115 complet 013 ed SerPl-c 02:28 Cnc LIPASE (04-02-2013 02:28) LIPASE 04-02- 106 U/L 73-393 complet 013 ed 02:28 CBC with AUTO DIFF (04-02-2013 02:28) WBC # 0612-2 12.4 4.8-10. complet Bld 013 K/MM3 8 ed Auto 02:28 RBC # 12-2 4.41 4.2-5.4 complet Bld 013 M/mm3 ed Auto 02:28 Hgb -12-2 13.4 12.2-16 complet Bld-mCn 013 g/dL .2 ed c 02:28 Hct Fr 12-2 39.3 % 37.0-47 complet Bld 013 .0 ed 02:28 MCV RBC 12-2 89.1 fl 82.2-97 complet 013 .8 ed 02:28 MCH RBC 12-2 30.3 pg 27-31.2 complet Qn 013 ed Auto 02:28 MEAN 12-2 34.0 31.8-35 complet CORPUSC 013 g/dl .4 ed ULAR 02:28 HGB CONC RDW RBC 12-2 13.7 % 11.5-17 complet Auto 013 .5 ed 02:28 Platele -12-2 320 142-424 complet t Bld 013 K/mm3 ed Ql 02:28 Manual MEAN 12-2 7.5 fl 7.4-10. complet PLATELE 013 4 ed T 02:28 VOLUME Granulo 12-2 72.1 % 37.0-80 complet cytes 013 .0 [...] C 01:38 equal GRAVITY to 1.005 URINE 04-02-2 1+ NEG complet BLOOD 013 ed 01:38 URINE 04-02-2 6.0 UNK 5.0-8.5 complet PH 013 ed 01:38 URINE 04-02-2 NEGATIV NEG complet PROTEIN 013 E mg/dL ed - 01:38 DIPSTIC K URINE 0612-2 0.2 NEG complet UROBILI 013 E.U./dL ed NOGEN - 01:38 DIPSTIC K URINE 12-2 NEGATIV NEG complet NITRATE 013 E ed - 01:38 DIPSTIC K URINE -12-2 NEGATIV NEG complet LEUK 013 E ed ESTERAS 01:38 E URINE 04-02-2 OCC 0 complet RBC 013 rbc/hpf ed 01:38 URINE 04-02-2 5-10 0-5 complet SQUAMOU 013 #/hpf ed S CELLS 01:38 Procedures Procedure DOS Code Location Performer Comment HOSP[facility] [id number] [facility] OBSERVATI 7 [facility] ON INC INC SERVICE [facility] [id number] [facility] OBSERVAT[facility] 7 [facility] ON INC INC SERVICE PER HOUR NONINVASI 91531 [facility] FELICIAN[facility] VE 7 [facility] EAR/PULSE INC INC OXIMETRY MULTIPLE DETER URNLS DIP 28792 [facility] 7 [facility] STICK/TAB INC INC LET REAGENT AUTO MICROSCOP Y URINE 47835 [facility] FELICIAN[facility] 7 [facility] TEST INC INC VISUAL COLOR CMPRSN METHS COMBINED 65580 [facility] ANTEROPOS 7 PHYSICIAN PHYSICIAN TERIOR S GROUP S GROUP COLPORRHA PHY CULTURE 23509 [facility] BACTERIAL 7 [facility] INC INC QUANTTATI VE COLONY COUNT URINE ANESTHESI 54317 [facility] SHERIN A VAGINAL 7 ANESTH OF THE HYSTERECT BLUE ADAM INCL BIOPSY CMBND 50757 [facility]EL[facility] ANTEROPOS 7 [facility] T INC INC COLPORRHA PHY W/ENTEROC PELON RPR VAGINAL 01562 [facility]EL[facility] HYSTERECT 7 [facility] ADAM INC INC UTERUS 250 GM/< BLOOD 57033 [facility] COUNT 7 [facility] HEMATOCRI INC INC T COLLECTIO 59591 [facility]EL[facility] N VENOUS 7 [facility] BLOOD INC INC VENIPUNCT URE BLOOD 63773 [facility]EL[facility] COUNT 7 [facility] HEMOGLOBI INC INC N VAGINAL 82350 [facility] HYSTERECT 7 PHYSICIAN ADAM 250 S GROUP GM/< W/RPR [place] [address] [facility] SURG 7 [facility] PATHOLOGY GROSS&ANTIONE ROSCOPIC EXAM BLOOD 12345 [facility] FELICIAN[facility] COUNT 7 [facility] COMPLETE INC INC AUTO&AUTO DIFRNTL WBC COLLECTIO 48390 [facility] FELIC[facility] N VENOUS 7 [facility] BLOOD INC INC VENIPUNCT URE GONADOTRO 86901 [facility] FELICIAN[facility] PIN 7 [facility] CHORIONIC INC INC QUALITATI VE CULTURE 54508 [facility] FELICIAN[facility] BACTERIAL 7 [facility] INC INC QUANTTATI VE COLONY COUNT URINE URNLS DIP 54345 [facility] FELICIANO 7 [facility] STICK/TAB INC INC LET REAGENT AUTO MICROSCOP Y BASIC 47030 [facility] FELICIAN[facility] METABOLIC 7 [facility] PANEL INC INC CALCIUM TOTAL ENDOMETRI 08766 [facility] AL BX 7 PHYSICIAN W/WO S GROUP ENDOCERV[place] [address] [place] TRANSVAGI 7 MEDICAL NAL IMAGING ASS BLOOD 35781 [facility] MORRISSEY OCCULT 7 PHYSICIAN PEROXIDAS S GROUP E ACTV QUAL FECES 1-3 SPEC IADNA 58795 [facility] NEISSERIA 7 PHYSICIAN PHYSICIAN S GROUP S GROUP GONORRHOE AE DIRECT PROBE TQ URINLS 24866 [facility] DIP 7 PHYSICIAN STICK/TAB S GROUP LET REAGNT NON-AUTO MICRSCPY CULTURE 95609 [facility]YSICIAN ANY S GROUP SOURCE THER 90291 [facility] FELICIANO PROPH/DX 7 [facility] NJX IV INC INC PUSH SINGLE/1S T SBST/DRUG RADIOLOGI 34027 [facility] FELICIANO C EXAM 7 [facility] CHEST 2 INC INC VIEWS FRONTAL&L ATERAL ECG 94776 [facility] FELICIANO ROUTINE 7 [facility] ECG INC INC W/LEAST 12 LDS TRCG ONLY W/O I&R COMPREHEN 61468 [facility] FELICIANO SIVE 7 [facility] METABOLIC INC INC PANEL ECG 93147 BRADEN CASTREJON ROUTINE 7 [facility] W/LEAST P 12 LDS I&[place] [address] [facility] FELICIANO TROPONIN 7 [facility] QUANTITAT INC INC AMARA BLOOD 17907 BR[facility] FELICIANO COUNT 7 [facility] COMPLETE INC INC AUTO&AUTO DIFRNTL WBC CREATINE 73206 BRADEN FELICIANO KINASE 7 [facility] TOTAL INC INC CREATINE 57465 BRADEN FELICIANO KINASE MB 7 [facility] FRACTION INC INC ONLY INJECTION J0696 [facility] FR[facility]MAN 7 PHYSICIAN CEFTRIAXO S GROUP NE SODIUM PER 250 MG THERAPEUT 04503 [facility] IC 7 PHYSICIAN PROPHYLAC S GROUP TIC/DX INJECTION SUBQ/IM CULTURE 08673 [facility] FELICIANO BACTERIAL 7 [facility] INC INC [place]TTAT[place] [address] [facility], BAEWER SURG 6 [facility] PATHOLOGY GROSS&ANTIONE ROSCOPIC EXAM COLONOSCO 59489 BRADEN FELICIANO PY 6 [facility] W/BIOPSY INC INC SINGLE/MU LTIPLE BLOOD 84703 BRADEN FELICIANO COUNT 6 [facility] COMPLETE INC INC AUTO&AUTO DIFRNTL WBC COLLECTIO 67399 BRADEN FELICIANO N VENOUS 6 [facility] BLOOD INC INC VENIPUNCT URE BASIC 90632 BRADEN FELICIANO METABOLIC 6 [facility] PANEL INC INC CALCIUM TOTAL ANES 46570 COMMUNITY FEEBACK TRANSURET 6 ANESTH HRAL OF THE W/URETHRO BLUE CYSTOSCOP Y NOS CYSTO 26314 BRADEN MOSQUERA CALIBRATI 6 [facility] URTL P STRIX/JOSE NOSIS SCREENING G0202 [place] 6 MEDICAL TAM MAMMOGRAP IMAGING HY MICHELLE ASS INCL CAD WHEN PERFORMD COMPUTER- [id number] [place] AIDED 6 MEDICAL TAM DETECTION IMAGING ASS SCREENING MAMMOGRAP HY IADNA 35918 BRADEN BRADEN NEISSERIA 6 [facility] INC INC GONORRHOE AE AMPLIFIED PROBE TQ IADNA 29211 BRADEN BRADEN CHLAMYDIA 6 [facility] INC INC TRACHOMAT IS AMPLIFIED PROBE TQ URINE 41036 BRAD[facility] BRADEN 6 [facility] TEST INC INC VISUAL COLOR CMPRSN METHS URNLS DIP 43059 BRADEN FELICIANO 6 [facility] STICK/TAB INC [place] [address] BRADEN FELICIANO ABDOMEN & 6 [facility] PELVIS INC INC W/O CONTRAST MATERIAL CYTP 27534 [facility], N[facility] CERVICAL/ 6 [facility] RAFI VAGINAL REQ INTERP PHYSICIAN CYTP C/V 84193 [facility], [facility] AUTO THIN 6 [facility] LYR PREPJ SCR MNL RESCR PHYS IADNA 55862 [facility], [facility] HUMAN 6 [facility] RAFI [place] VIRUS HIGH-RISK TYPES 21154 BRADEN FELICIANO TRANSVAGI 6 [facility] [place] [address] BRADEN FELICIANO THYROXINE 6 [facility] [place] [address] BRADEN FELICIANO THYROID 6 [facility] STIMULATI INC INC NG HORMONE TSH COLLECTIO 67168 BRADEN FELICIANO N VENOUS 6 [facility] BLOOD INC INC VENIPUNCT URE THER 34886 BRADEN FELICIANO PROPH/DX 6 [facility] NJX IV INC INC PUSH SINGLE/1S T SBST/DRUG THERAPEUT 04855 BRADEN FELICIANO IC 6 [facility] INJECTION INC INC IV PUSH EACH NEW DRUG COMPREHEN 47110 BRADEN FELICIANO SIVE 6 [facility] METABOLIC INC INC PANEL ECG 13212 BRADEN FELICIANO ROUTINE 6 [facility] ECG INC INC W/LEAST 12 LDS TRCG ONLY W/O I&R ECG 02977 BRADEN DE LA CRUZ JR ROUTINE 6 [facility] W/LEAST P 12 LDS I&R ONLY RADIOLOGI 59134 BRADEN FELICIANO C 6 [facility] EXAMINATI INC INC ON CHEST SINGLE VIEW FRONTAL HEMOGLOBI 50054 BRADEN FELICIANO N 6 [facility] GLYCOSYLA [place] A1[place] [address] BRADEN FELICIANO TROPONIN 6 [facility] QUANTITAT INC INC AMARA BLOOD 70010 BRADEN FELICIANO COUNT 6 [facility] COMPLETE INC INC AUTO&AUTO DIFRNTL WBC CREATINE 94100 BRADEN FELICIANO KINASE MB 6 [facility] FRACTION INC INC ONLY CREATINE 59660 BRADEN FELICIANO KINASE 6 [facility] TOTAL INC INC BLOOD 95870 BRADEN FELICIANO COUNT 6 [facility] COMPLETE INC INC AUTO&AUTO DIFRNTL WBC COLLECTIO 67131 BRADEN FELICIANO N VENOUS 6 [facility] BLOOD INC INC VENIPUNCT URE COMPREHEN 37588 BRADEN FELICIANO SIVE 6 [facility] METABOLIC INC INC PANEL INJECTION J2250 [facility] 6 N N [place] COMMUNTIY COMMUNTIY HCL PER HOSPITA HOSPITA 1 MG INJECTION J1885 [facility] 6 N N [place] COMMUNTIY COMMUNTIY HOSPITA HOSPITA TROMETHAM INE PER 15 MG INJECTION J3010 [facility] [place] 6 N N [place] COMMUNTIY COMMUNTIY 0.1 MG HOSPITA HOSPITA NEUROPLAS 97393 [facility] TY 6 &/TRANSPO ORTHOPAED S MEDIAN ICS PSC NRV CARPAL TUNNE ANES 64172 [facility] NERVE 6 ANESTHESI MUSCLE A GROUP TDN PS FASCIA&BU RSA FOREARM WRIST INJECTION J1100 [facility] 6 N N DEXAMETHO COMMUNTIY COMMUNTIY SONE HOSPITA HOSPITA SODIUM PHOSPHATE 1 MG INJECTION J2001 [facility] [facility] 6 N N LIDOCAINE COMMUNTIY COMMUNTIY HCL HOSPITA HOSPITA INTRAVENO US INFUS 10 MG RINGERS J7120 [facility] LACTATE 6 N N INFUSION COMMUNTIY COMMUNTIY UP TO HOSPITA HOSPITA 1000 CC GONADOTRO 58629 BRADEN FELICIANO PIN 6 [facility] CHORIONIC INC INC QUALITATI VE BLOOD 56414 BRADEN FELICIANO COUNT 6 [facility] COMPLETE INC INC AUTO&AUTO DIFRNTL WBC COLLECTIO 59021 BRADEN FELICIANO N VENOUS 6 [facility] BLOOD INC INC VENIPUNCT URE BASIC 58683 BRADEN FELICIANO METABOLIC 6 [facility] PANEL INC INC CALCIUM TOTAL INJECTION J1040 [facility] RITA 6 PHYSICIAN ANTIONE METHYLPRE S GROUP DNISOLONE ACETATE 80 MG THERAPEUT 85425 [facility] RITA IC 6 PHYSICIAN ANTIONE PROPHYLAC S GROUP TIC/DX INJECTION SUBQ/IM NEEDLE 25657 UATSDIN TIKHTMANGELA EMG EA 6 HEALTH EXTREMTY MEDICAL W/PARASPI GROUP NL AREA COMPLETE NERVE 47327 UATSDIN TIKHTMAN CONDUCTIO 6 HEALTH N STUDIES MEDICAL 7-8 GROUP STUDIES RADEX 87628 [facility] JEFFREY HAND 6 [place] CORTEZ MINIMUM 3 [place] [address] BRADEN FELICIANO ABDOMEN & 5 [facility] PELVIS INC INC W/O CONTRAST MATERIAL COMPREHEN 78160 BRADEN FELICIANO SIVE 5 [facility] METABOLIC INC INC PANEL URNLS DIP 72235 BRAD[facility] FELICIANO 5 [facility] STICK/TAB INC INC LET REAGENT AUTO MICROSCOP Y BLOOD 51489 BRADEN FELICIANO COUNT 5 [facility] COMPLETE INC INC AUTO&AUTO DIFRNTL WBC CULTURE 91064 BRADEN FELICIANO BACTERIAL 5 [facility] INC INC QU[place]TTAT[place] [address] [facility], BO SURG 5 [facility] PATHOLOGY GROSS&ANTIONE ROSCOPIC EXAM COLSC FLX 24619 [facility] EMILY TOD W/RMVL 5 PHYSICIAN OF TUMOR S GROUP POLYP LESION SNARE TQ COLLECTIO 95630 BRADEN FELICIANO N VENOUS 5 [facility] BLOOD INC INC VENIPUNCT URE GONADOTRO 97479 BRADEN FELICIANO PIN 5 [facility] CHORIONIC INC INC QUALITATI VE COLLECTIO 82114 BRADEN FELICIANO N VENOUS 5 [facility] BLOOD INC INC VENIPUNCT URE BLOOD 93293 BRADEN FELICIANO COUNT 5 [facility] COMPLETE INC INC AUTO&AUTO DIFRNTL WBC COMPREHEN 15602 BRADEN FELICIANO SIVE 5 [facility] METABOLIC INC INC PANEL RADEX 18644 BRADEN FELICIANO ABDOMEN 5 [facility] COMPL INC INC W/DCBTS&/ ERC VIEWS ECG 76453 BRADEN FELICIANO ROUTINE 5 [facility] ECG INC INC W/LEAST 12 LDS TRCG ONLY W/O I&R ECG 64263 CARDIOVAS LILIA ROUTINE 5 [facility] ECG CONSULTAN W/LEAST TS O 12 LDS I&R ONLY ECG 08372 BRADEN FELICIANO ROUTINE 5 [facility] ECG INC INC W/LEAST 12 LDS TRCG ONLY W/O I&R ECHO 39552 ARIC MORRISSEY [facility] TTHRC R-T 5 MEDICAL 2D SERV W/WOM-MOD FOUNDATIO E COMPL N SPEC&COLR D LIPID 93835 BRADEN FELICIANO PANEL 5 [facility] INC INC ECG 18095 BRADEN FELICIANO ROUTINE 5 [facility] ECG INC INC W/LEAST 12 LDS TRCG ONLY W/O I&R COMPREHEN 71766 BRADEN FELICIANO SIVE 5 [facility] METABOLIC INC INC PANEL ECG 43903 BRADEN CASTREJON ROUTINE 5 [facility] W/LEAST P 12 LDS I&R ONLY BLOOD 51481 BRADEN FELICIANO COUNT 5 [facility] COMPLETE INC INC AUTO&AUTO DIFRNTL WBC COLLECTIO 34098 BRADEN FELICIANO N VENOUS 5 [facility]OSP [place] [address] BRADEN FELICIANO THYROID 5 [facility] STIMULATI [place] [address] BRADEN FELICIANO TROPONIN 5 [facility] QUANTITAT INC INC AMARA CREATINE 38420 BRADEN FELICIANO KINASE 5 [facility] TOTAL INC INC CYANOCOBA 51181 BRADEN FELICIANO JENISE 5 [facility] VITAMIN INC INC B-12 25 07254 BRADEN [place] HYDROXY 5 [facility] INCLUD[facility] INC HEALTH [place] [address] BRADEN FELICIANO FREE 5 [facility] THYROXINE INC INC CREATINE 53702 BRADEN FELICIANO KINASE MB 5 [facility] [place] [address] [place] MOLINA ALL ABDOMEN & 5 MEDICAL PELVIS IMAGING W/O ASS CONTRAST MATERIAL CYTP 62671 [facility], PICKLESIM CERV/VAG 5 LLC ER JR VANDANA AUTO THIN LAYER PREP MNL SCREEN RADIOLOGI 44714 [facility] C EXAM 5 MEDICAL SHELLEY CHEST 2 IMAGING VIEWS ASS FRONTAL&[place] [address] [facility] WOODS TRANSVAGI 5 PHYSICIAN BOOKER NAL S GROUP CALCIUM 43610 BRADEN FELICIANO TOTAL 5 [place] [address] BRADEN FELICIANO FREE 5 [facility] [place] [address] BRADEN FELICIANO THYROID 5 [facility] STIMULATI INC INC NG HORMONE TSH COLLECTIO 68543 BRADEN FELICIANO N VENOUS 5 [facility] [place] [address] BRADEN FELICIANO ABDOMEN & 4 [facility] PELVIS INC INC W/O CONTRAST MATERIAL URNLS DIP 75746 BRADEN FELICIANO 4 [facility] STICK/TAB INC INC LET REAGENT AUTO MICROSCOP Y URINE 22888 BRADEN BRADEN 4 [facility] TEST INC INC VISUAL COLOR CMPRSN METHS FLUOROSCO 01851 [facility] PETTEY PY SPX UP 4 PHYSICIAN JAM TO 1 S GROUP HOUR PHYS/QHP TIME MANUAL 98309 [facility] PETTEY APPL 4 PHYSICIAN JAM STRESS S GROUP PFRMD PHYS/QHP JOINT FILMS PATH 47550 UNIVERSIT AGUDELO MOL CONSLTJ 4 Y OF SURG 1ST [place] [facility] FROZEN SCTJ 1 SPEC THYROIDEC 81014 JUDE ROQUE KAYLA 4 NATTY NATTY TOTAL/SUB TOTAL LMTD NECK DISSECT ANES 95652 COMMON[facility]A DAY ESOPH 4 LTH ANT THYRD ANESTHESI LARYNX A PSC TRACH & LYMPH NECK 1YR LEVEL V 90531 UNIVERSIT AGUDELO MOL SURG 4 Y OF PATHOLOGY [place] [facility] GROSS&[place] [address] UNIVERSIT AGUDELO MOL SURG 4 Y OF PATHOLOGY [place] [facility] GROSS&ANTIONE ROSCOPIC EXAM PARATHYRO 99542 JUDE ROQUE ID 4 NATTY NATTY AUTOTRANS PLANTATIO N ADD-ON BLOOD 23209 BRADEN FELICIANO COUNT 4 [facility] COMPLETE INC INC AUTO&AUTO DIFRNTL WBC ECG 36682 BRADEN DE LA CRUZ JR ROUTINE 4 [facility] W/LEAST P 12 LDS I&R ONLY ECG 46625 BRADEN FELICIANO ROUTINE 4 [facility] ECG INC INC W/LEAST 12 LDS TRCG ONLY W/O I&R RADEX 14466 [place] KRISTIE ANKLE 4 MEDICAL TAM COMPLETE IMAGING MINIMUM 3 ASS VIEWS ANKLE L4350 [facility]. BREG INC. CONTROL 4 ORTHOSIS STIRRUP STYL RIGID PREFAB CRTCHS E0114 [facility] BREG INC. UNDARM 4 OTH THAN WOOD PAIR PAD TIP&[place] [address] BRADEN FELICIANO FREE 4 [facility] [place] [address] BRADEN FELICIANO THYROID 4 [facility] STIMULATI INC INC NG HORMONE TSH CALCIUM 66627 BRADEN FELICIANO TOTAL 4 [facility] INC INC ANES 76651 COMMONWARD CONTE ESOPH 4 LTH MAR THYRD ANESTHESI LARYNX A PSC TRACH & LYMPH NECK 1YR LEVEL V [address]10 REYES REYES SURG 4 ANA ANA PATHOLOGY GROSS&ANTIONE ROSCOPIC EXAM PATH 05880 REYES REYES CONSLTJ 4 ANA ANA SURG 1ST BLK FROZEN SCTJ 1 [place] [address] BRADEN FELICIANO THYROID 4 [facility] STIMULATI [place] [address] BRADEN FELICIANO FREE 4 [facility] THYROXINE INC INC CALCIUM 41380 BRADEN FELICIANO TOTAL 4 [facility] INC INC US SOFT 99338 [place] KRISTIE TISSUE 4 MEDICAL TAM HEAD & IMAGING NECK REAL ASS TIME IMGE DOCM URNLS DIP 78784 CHUCK WOODS 4 BOOKER BOOKER STICK/TAB LET RGNT NON-AUTO W/O MICRSCP ENDOMETRI 93890 CHUCK WOODS AL BX 4 BOOKER BOOKER W/WO ENDOCERVI [place] [address] CH[facility] WO[facility]S TRANSVAGI 4 [place] [address] AMALIA HOLLAND PAT SURG 4 PATHOLOGY GROSS&ANTIONE ROSCOPIC EXAM COLPOSCOP 38894 CHUCK WOODS Y CERVIX 4 BOOKER BOOKER BX CERVIX & ENDOCRV CURRETAGE IMHISTOCH 68793 AMALIA HOLLAND PAT EM/CYTCHM 4 1ST ANTIBODY STAIN PROCEDURE CYTP [address] CERVICAL/ 4 VAGINAL REQ INTERP PHYSICIAN IADNA 16054 VANITA ALVA PAPILLOMA 4 VIRUS HUMAN AMPLIFIED PROBE TQ URNLS DIP 11393 [facility] STICK/TAB [facility] DEPT [facility] DEPT LET RGNT DANIELLE DANIELLE NON-AUTO W/O MICRSCP IADNA 04673 [facility] DE[facility] GONORRHOE DANIELLE [facility] AMPLIFIED PROBE TQ SMR PRIM 58045 [facility] SRC WET 4 [facility] DE[facility] NFCT AGT DANIELLE DANIELLE IADNA 90990 [facility] CHLAMYDIA 4 [facility] DEPT TRACHOMAT [facility] IS AMPLIFIED PROBE TQ CYTP [address] CERV/VAG 4 AUTO THIN LAYER PREP MNL SCREEN PH BODY 86790 [facility] FLUID NOT [facility] DEPT ELSEWHERE DANIELLE DANIELLE SPECIFIED AMINES 81105 [facility] VAGINAL [facility] FLUID HLTH DEPT HLTH DEPT QUALITATI DANIELLE DANIELLE VE WET Q0111 [facility] SARBJIT [facility] INCL PREP HLTH DEPT HLTH DEPT VAGINAL DANIELLE DANIELLE CERV/SKIN SPECIMENS ECG 49547 DOROTHY DE LA CRUZ JR ROUTINE 4 DWI DWI ECG W/LEAST 12 LDS I&R ONLY IAADI 48279 BRADEN FELICIANO INFLUENZA 4 [facility] B VIRUS INC INC IAADI 77365 BRADEN FELICIANO INFFLUENZ 4 [facility] A A VIRUS INC INC URINE 34873 BRADEN FELICIANO 4 [facility] TEST INC INC VISUAL COLOR CMPRSN METHS URNLS DIP 46588 BRADEN FELICIANO 4 [facility] STICK/TAB INC INC LET REAGENT AUTO MICROSCOP Y US SOFT 47013 BRADEN FELICIANO TISSUE 1 [facility] HEAD & INC INC NECK REAL TIME IMGE DOCM MICROSOMA 71994 BRADEN FELICIANO L 1 [facility] [place] [address] BRADEN FELICIANO THYROID 1 [facility] STIMULAT[place] [address] BRADEN FELICIANO FREE 1 [facility] [place] [address] BRADEN FELICIANO AMYLASE 1 [facility] INC INC CULTURE 94686 BRADEN FELICIANO BACTERIAL 1 [facility] INC INC [place]TT[place] [address] BRADEN FELICIANO LIPASE 1 [facility] INC INC ANESTHESI 09978 COMMUNITY REBOLLAR BREANNA A 1 ANESTH INTRAPERI OF THE TONEAL BLUE LOWER ABD W/LAPS NOS LEVEL III 37164 CHIPPS ROVERTO ANTIONE SURG 1 MANJINDER & PATHOLOGY SUREKHAILIER GROSS&ANTIONE ROSCOPIC EXAM BLOOD 07542 BRADEN FELICIANO COUNT 1 [facility] COMPLETE INC INC AUTO&AUTO DIFRNTL WBC 3D 43682 BRADEN FELICIANO RENDERING 1 [facility] INC INC W/INTERP& POSTPROC DIFF [facility] G[facility]8 BRADEN FELICIANO OBSERVATI 1 [facility] [place] [address] BRADEN FELICIANO ABDOMEN & 1 [facility] PELVIS INC INC W/O CONTRAST MATERIAL URNLS DIP 79851 BRADENBRENTON FELICIANO 1 [facility] STICK/TAB INC INC LET REAGENT AUTO MICROSCOP Y COMPREHEN 28001 BRADEN FELICIANO SIVE 1 [facility] METABOLIC INC INC PANEL LAPAROSCO 74443 BRADEN FELICIANO PIC 1 [facility] APPENDECT INC INC ADAM URINE 66504 BRADEN FELICIANO 1 [facility] TEST INC INC VISUAL COLOR CMPRSN METHS LAPAROSCO 4701 BRADEN FELICIANO PIC 1 [facility] APPENDECT INC INC ADAM URINE 33373 BRADEN FELICIANO 1 [facility] TEST INC INC VISUAL COLOR CMPRSN METHS URNLS DIP 35729 BRADENBRENTON FELICIANO 1 [facility] STICK/TAB INC [place] [address] BRADEN FELICIANO ABDOMEN & 1 [facility] PELVIS INC INC W/O CONTRAST MATERIAL 3D 18463 BRADEN FELICIANO RENDERING 1 [facility] INC INC W/INTERP& POSTPROC DIFF WORK STATION ECG 92800 BRADEN FELICIANO ROUTINE 1 [facility] ECG INC INC W/LEAST 12 LDS TRCG ONLY W/O I&R RADIOLOGI 92451 BRADEN FELICIANO C EXAM 1 [facility] CHEST 2 INC INC VIEWS FRONTAL&L ATERAL ECG 38101 NELY PETERSON ROUTINE 1 EMERGENCY ANTIONE ECG SERVICES W/LEAST 12 LDS I&[place] [address] BRADEN FELICIANO TROPONIN 1 [facility] QUANTITAT INC INC AMARA CREATINE 15926 BRADEN FELICIANO KINASE 1 [facility] TOTAL INC INC CREATINE 60593 BRADEN FELICIANO KINASE MB 1 [facility] FRACTION INC INC ONLY CV STRS 45357 [facility] FALLUJI TST 1 PHYSICIAN COLT XERS&/OR S GROUP RX CONT ECG W/O I&R CV STRS 67515 BRADEN FELICIANO TST 1 [facility] XERS&/OR INC INC RX CONT ECG TRCG ONLY MYOCARDIA 78456 JAVIER FLOWERS L SPECT 1 MEDICAL TAM MULTIPLE IMAGING STUDIES ASS CV STRS 03612 BRADEN DE LA CRUZ DWI TST 1 [facility] XERS&/OR HOSPITAL RX CONT P ECG I&R ONLY LIPID 21415 BRADEN FELICIANO PANEL 1 [facility] INC INC COMPREHEN 67239 BRADEN FELICIANO SIVE 1 [facility] METABOLIC INC INC PANEL ECG 98266 BRADEN FELICIANO ROUTINE 1 [facility] ECG INC INC W/LEAST 12 LDS TRCG ONLY W/O I&R US SOFT 58628 BRADEN FELICIANO TISSUE 1 [facility] HEAD & INC [place] [address] BRADEN FELICIANO FREE 1 [facility] [place] [address] BRADEN FELICIANO THYROID 1 [facility] STIMULATI INC INC NG HORMONE TSH RADIOLOGI 08392 BRADEN FELICIANO C EXAM 1 [facility] CHEST 2 INC INC VIEWS FRONTAL&L ATERAL RADEX 23930 BRADEN FELICIANO WRIST 1 [facility] COMPLETE INC INC MINIMUM 3 [place] [address] BRADEN FELICIANO THYROID 1 [facility] STIMULATI [place] [address] BRADEN FELICIANO FREE 1 [facility] THYROXINE INC INC MICROSOMA 04649 BRADEN FELICIANO L 1 [facility] ANTIBODIE INC INC S EACH US SOFT 81974 BRADEN FELICIANO TISSUE 1 [facility] HEAD & INC INC NECK REAL TIME IMGE DOCM IAADI 73117 BRADEN FELICIANO INFFLUENZ 1 [facility] A A VIRUS INC INC IAADI 74833 BRADEN FELICIANO INFLUENZA 1 [facility] B VIRUS INC INC RADEX 94288 BRADEN FELICIANO HAND 0 [facility] MINIMUM 3 INC INC VIEWS RADEX 33824 BRADEN FELICIANO WRIST 0 [facility] COMPLETE INC INC MINIMUM 3 VIEWS US SOFT 36472 BRADEN FELICIANO TISSUE 0 [facility] HEAD & INC [place] [address] BRADEN FELICIANO FREE 0 [facility] [place] [address] BRADEN FELICIANO THYROID 0 [facility] STIMULATI INC INC NG HORMONE TSH CULTURE 48655 BRADEN FELICIANO BACTERIAL 0 [facility] INC INC QUANTTATI VE COLONY COUNT URINE BLOOD 56892 BRADEN FELICIANO COUNT 0 [facility] COMPLETE INC INC AUTO&AUTO DIFRNTL WBC CT PELVIS 73971 BRADEN FELICIANO W/O 0 [facility] CONTRAST INC INC MATERIAL 3D 56554 BRADENBRENTON FELICIANO RENDERING 0 [facility] INC INC W/INTERP& POSTPROC DIFF WORK STATION COMPREHEN 26263 BRADEN FELICIANO SIVE 0 [facility] METABOLIC INC INC PANEL URNLS DIP 03424 BRADEN FELICIANO 0 [facility] STICK/TAB INC [place] [address] BRADEN FELICIANO ABDOMEN 0 [facility] W/O INC INC CONTRAST MATERIAL URINE 45743 BRADEN FELICIANO 0 [facility] TEST INC INC VISUAL COLOR CMPRSN METHS RADEX 40076 [place] DAHIANA SPINE 0 MEDICAL KRISTIE LUMBOSACR IMAGING AL ASS MINIMUM 4 VIEWS RADIOLOGI 62533 [place] DAHIANA C 0 MEDICAL KRISTIE EXAMINATI IMAGING ON PELVIS ASS 1/2 VIEWS RADEX 89475 [place] DAHIANA FOOT 0 MEDICAL KRISTIE COMPLETE IMAGING MINIMUM 3 ASS VIEWS APPLICATI 61595 BRADEN FELICIANO ON 0 [facility] MODALITY INC INC 1/> AREAS HOT/COLD PACKS APPL 11451 BRADEN FELICIANO MODALITY 0 [facility] 1/> AREAS INC INC ELEC STIMJ UNATTENDE D THERAPEUT 39417 BRADEN FELICIANO IC PX 1/> 0 [facility] AREAS INC INC EACH 15 MIN EXERCISES PHYSICAL 31613 BRADEN FELICIANO THERAPY 0 [facility] EVALUATIO INC INC N THERAPEUT 03615 BRADEN FELICIANO IC PX 1/> 0 [facility] AREAS INC INC EACH 15 MIN EXERCISES APPL 76251 BRADEN FELICIANO MODALITY 0 [facility] 1/> AREAS INC INC ELEC STIMJ UNATTENDE D APPLICATI 64526 BRADEN FELICIANO ON 0 [facility] MODALITY INC INC 1/> AREAS HOT/[place] [address] PATHOLOGY PATHOLOGY SURG 0 & & PATHOLOGY CYTOLOGY CYTOLOGY LAB LAB GROSS&ANTIONE ROSCOPIC EXAM ANES 11636 ANESTHESI LON BANEGAS 0 A JOHN E FRAGMNTJ ASSOCIATE MANJ&/RMV S, PSC L URETERAL CALCULUS CYSTO 83955 COMMONWEA MOSQUERA, W/URETERO 0 LTH ARIS D SCOPY UROLOGY W/RMVL/[place] [address] BRADEN FELICIANO THYROID 0 [facility] STIMULATI [place] [address] BRADEN FELICIANO FREE 0 [facility] THYROXINE INC INC CALCIUM 06600 BRADEN FELICIANO TOTAL 0 [facility] INC INC FINE 57739 JUDE ROQUE, NEEDLE 0 CYDNEY G CYDNEY G ASPIRATIO N W/O IMAGING GUIDANCE MICROSOMA 08200 BRADEN FELICIANO L 0 [facility] ANTIBODIE INC INC S EACH BASIC 04291 BRADEN FELICIANO METABOLIC 0 [facility] PANEL INC INC CALCIUM TOTAL TOBACCO 01921 BRADEN FELICIANO USE 0 [facility] CESSATION INC INC INTERMEDI ATE 3-10 MINUTES OBSERVATI 01577 [place]ICK[place] BESSON, ON CARE 0 ANIKET ROWE A DISCHARGE INTERNAL MED MANAGEMEN T BLOOD 74460 BRADEN FELICIANO COUNT 0 [facility] COMPLETE INC INC AUTO&AUTO DIFRNTL WBC BLOOD 93903 BRADEN FELICIANO COUNT 0 [facility] COMPLETE INC INC AUTO&[place] [address] BRADEN FELICIANO AMYLASE 0 [facility] [place] [address] BRADEN FELICIANO LIPASE 0 [facility] INC INC INITIAL 72558 LICKING NORMA VALEATI 0 ANIKET LEDESMA, ON INTERNAL RORY F CARE/DAY [place] [address] [place] [address] BRADEN FELICIANO ABDOMEN 0 [facility] W/O INC INC CONTRAST MATERIAL URNLS DIP 57415 BRADEN FELICIANO 0 [facility] STICK/TAB INC INC LET REAGENT AUTO MICROSCOP Y COMPREHEN 48752 BRADEN FELICIANO SIVE 0 [facility] METABOLIC INC INC PANEL 3D 19336 BRADEN FELICIANO RENDERING 0 [facility] INC INC W/INTERP& POSTPROC DIFF WORK STATION CT PELVIS 74985 BRADEN FELICIANO W/O 0 [facility] CONTRAST INC INC MATERIAL IADNA 79651 PATHOLOGY PATHOLOGY PAPILLOMA 0 & & VIRUS CYTOLOGY CYTOLOGY HUMAN LAB LAB AMPLIFIED PROBE TQ CYTP 23622 PATHOLOGY PATHOLOGY CERVICAL/ 0 & & VAGINAL CYTOLOGY CYTOLOGY REQ LAB LAB INTERP PHYSICIAN URNLS DIP 63823 BRADEN FELICIANO 0 [facility] STICK/TAB CENTER CENTER LET RGNT NON-AUTO W/O MICRSCP CYTP 56744 PATHOLOGY PATHOLOGY CERV/VAG 0 & & AUTO THIN CYTOLOGY CYTOLOGY LAYER LAB LAB PREP MNL SCREEN US SOFT 13156 [place] KRISTIE, TISSUE 0 MEDICAL KUSH HEAD & IMAGING NECK REAL ASSOCIATE TIME S IMGE DOCM 3D 49801 KUSH C KRISTIE, RENDERING 0 KRISTIE KUSH W/INTERP & [place] [address] KUSH C KRISTIE, SPINAL 0 KRISTIE KUSH CANAL LUMBAR W/O CONTRAST MATERIAL MRI 93456 KUSH C KRISTIE, SPINAL 0 KRISTIE KUSH CANAL CERVICAL W/O CONTRAST MATRL CT PELVIS 51266 BRADEN FELICIANO W/O 9 [facility] CONTRAST INC INC MATERIAL 3D 45106 BRADEN FELICIANO RENDERING 9 [facility] INC INC W/INTERP& POSTPROC DIFF WORK STATION URINE 98544 BRADEN FELICIANO 9 [facility] TEST INC INC VISUAL COLOR CMPRSN METHS COMPREHEN 97616 BRADEN FELICIANO SIVE 9 [facility] METABOLIC INC INC PANEL URNLS DIP 33675 BRADEN FELICIANO 9 [facility] STICK/TAB INC [place] [address] BRDAEN FELICIANO ABDOMEN 9 [facility] W/O INC INC CONTRAST MATERIAL CULTURE 68703 [facility] FELICIANO BACTERIAL 9 [facility] INC INC [place]ANTTAT[place] [address] BRADEN FELICIANO LIPASE 9 [facility] [place] [address] BRADEN FELICIANO AMYLASE 9 [facility] INC INC BLOOD 27393 BRAD[facility] FELICIANO COUNT 9 [facility] COMPLETE INC INC AUTO&AUTO DIFRNTL WBC GLUC BLD 08266 [facility] BRADEN GLUC MNTR 9 [facility] CLEARED BANK ACCT FDA SPEC HOME USE BLADDER 99175 MAZIN HOLLAND JR, PRESSURE 9 LTH RORY MEASUREME UROLOGY R NT DURING PSC FILLING EMG STDS 59576 MAZIN HOLLAND JR, ANAL/URTL 9 LTH RORY SPHNCTR UROLOGY R OTH/THN PSC NDL VOIDING 75084 MAZIN HOLLAND JR, PRESS 9 LTH RORY STDS BLDR UROLOGY R VOIDING PSC PRESS ANY TQ VOID 87325 MAZIN HOLLAND JR, PRESSURE 9 LTH RORY STUDIES UROLOGY R INTRAABDO PSC BALJIT COMPLEX 36489 MAZIN HOLLAND JR, UROFLOMET 9 LTH RORY RY UROLOGY R PSC CYSTO 12795 MAZIN HOLLAND JR, CALIBRATI 9 LTH RORY ON DILAT UROLOGY R URTL PSC STRIX/JOSE NOSIS CULTURE 38243 [facility] FELICIANO BACTERIAL 9 [facility] INC INC [place] [address] BRADEN FELICIANO STREPTOCO 9 [facility] CCUS INC INC GROUP A IAADI 99923 BRADEN FELICIANO INFLUENZA 9 [facility] B VIRUS INC INC IAADI 13225 BRADEN FELICIANO INFFLUENZ 9 [facility] A A VIRUS INC INC OPHTH 19618 [facility] 8 VISION NAMRATA M XM&EVAL COMPRHNSV ESTAB PT 1/> URNLS DIP 90934 [facility] FELICIANO 8 [facility] STICK/TAB INC INC LET REAGENT AUTO MICROSCOP Y COMPREHEN 44057 [facility] FELICIANO SIVE 8 [facility] METABOLIC INC INC PANEL ECG 24552 BRADEN KNIGHTMIKarson ROUTINE 8 [facility] W/LEAST PROF SERV 12 LDS I&R ONLY ECG 83777 BRADEN BRADEN ROUTINE 8 [facility] ECG INC INC W/LEAST 12 LDS TRCG ONLY W/O I&R BLOOD 57669 [facility] FELICIANO COUNT 8 [facility] COMPLETE INC INC AUTO&[place] [address] BRADEN BRADEN LIPASE 8 [place] [address] BRADEN FELICIANO AMYLASE 8 [place] [address] BRADEN BRADEN THYROID 8 [facility] STIMULATI INC INC NG HORMONE TSH BLOOD 74743 BRADEN BRADEN COUNT 8 [facility] COMPLETE INC INC AUTO&AUTO DIFRNTL WBC COMPREHEN 51278 BRADEN CHENON SIVE 8 [facility] METABOLIC INC INC PANEL LIPID 14969 BRAD[facility] FELICIANO PANEL 8 [facility] INC INC Encounters Encounter Start End Date Code Location Performer Type Date [facility] BRAD[facility] - Seferino 7 [facility] OUTPATIEN INC T OFFICE 89704 BRADEN COOKPATIEN 7 7 [facility] T VISIT 5 INC MINUTES [facility]OSPITAL BR[facility] - 7 7 [facility]PATIEN INC [facility] BRADEN - 7 7 [facility] OUTPATIEN INC T OFFICE 76943 [facility] OUTPATIEN 7 7 PHYSICIAN T VISIT S GROUP 15 MINUTES HOSPITAL BRADEN - 7 7 [facility] OUTPATIEN INC T EMERGENCY 77401 SUKHDEV PETERSON DEPT 7 7 PHYSICIAN VISIT S, PLLC HIGH SEVERITY& THREAT [facility] BRADEN - 7 7 [facility] OUTPATIEN INC T EMERGENCY 94186 [facility]AD[facility] 7 7 [facility] DEPARTMEN INC T VISIT HIGH/URGE NT SEVERITY OFFICE 45810 [facility] OUTPATIEN 7 7 PHYSICIAN T VISIT S GROUP 25 MINUTES OFFICE 59264 [facility] OUTPATIEN 7 7 PHYSICIAN T VISIT S GROUP 25 MINUTES HOSPITAL BRADEN - 7 7 [facility] OUTPATIEN INC T OFFICE 40079 BRADEN MOSQUERA OUTPATIEN 7 7 [facility] 10 P MINUTES OFFICE 20237 [facility] OUTPATIEN 7 7 PHYSICIAN T VISIT S GROUP 10 MINUTES HOSPITAL BRADEN - 6 6 [facility] OUTPATIEN INC T OFFICE 96766 [facility] OUTPATIEN 6 6 PHYSICIAN T VISIT S GROUP 10 MINUTES HOSPITAL BRADEN - 6 6 [facility] OUTPATIEN INC T OFFICE 06966 BRADEN MOSQUERA OUTPATIEN 6 6 [facility] 10 P MINUTES OFFICE 65594 BRADEN MOSQUERA OUTPATIEN [address] [facility] 20 HOSPITAL MINUTES P OFFICE 64517 [facility] OUTPATIEN 6 6 PHYSICIAN EUG T VISIT S GROUP 15 MINUTES EMERGENCY 58036 SUKHDEV PETERSON 6 6 PHYSICIAN ANTIONE DEPARTMEN S, PLLC T VISIT MODERATE SEVERITY OFFICE 48994 [facility] [place] OUTPATIEN 6 6 PHYSICIAN EUG T VISIT S GROUP 15 MINUTES EMERGENCY 61505 SUKHDEV RENUSCH 6 6 PHYSICIAN HONG ALVAREZ S, [facility] T VISIT HIGH/URGE NT SEVERITY EMERGENCY 48346 SUKHDEV RENUSCH 6 6 PHYSICIAN HONG ALVAREZ S, [facility] T VISIT HIGH/URGE NT SEVERITY HOSPITAL BRADEN - 6 6 [facility] OUTPATIEN [facility] T EMERGENCY 84758 BRADEN 6 6 [facility] T VISIT LOW/MODER SEVERITY PERIODIC 94753 [facility] PREVENTIV 6 6 PHYSICIAN E MED EST S GROUP PATIENT 40-64YRS HOSPITAL BRADEN - 6 6 [facility] OUTPATIEN [facility] OFFICE 40688 [facility] EMILY TOGarcia OUTPATIEN 6 6 PHYSICIAN T VISIT S GROUP 10 MINUTES OFFICE 55266 [facility] WOODS OUTPATIEN 6 6 PHYSICIAN BOOKER T VISIT S GROUP 25 MINUTES HOSPITAL [facility] - 6 6 [facility] OUTPATIEN [facility] HOSPITAL BRADEN - 6 6 [facility] OUTPATIEN [facility] T EMERGENCY 62296 BRADEN 6 6 [facility] T VISIT HIGH/URGE NT SEVERITY OFFICE 62934 [facility] EMILY TOGarcia CONSULTAT 6 6 PHYSICIAN ION S GROUP NEW/ESTAB PATIENT 30 MIN OFFICE 32292 [facility] STONE MARY OUTPATIEN 6 6 PHYSICIAN T VISIT S GROUP 15 MINUTES HOSPITAL BRADEN - 6 6 [facility] OUTPATIEN [facility] HOSPITAL [place] - 6 6 N OUTPATIEN [facility] BRADEN [facility] 6 6 [facility] OUTPATIEN [facility] T OFFICE 87601 [facility] RITA OUTPATIEN 6 6 PHYSICIAN ANTIONE T VISIT S GROUP 15 MINUTES OFFICE 13318 [facility] MEGHNA ALVA OUTPATIEN 6 6 PHYSICIAN T VISIT S GROUP 10 MINUTES OFFICE 68455 AMARI ANDRES OUTPATIEN 6 6 T VISIT ORTHOPAED 15 ICS PSC MINUTES OFFICE 30804 [facility] KARINA OUTPATIEN 6 6 PHYSICIAN ANTIONE T VISIT S GROUP 15 MINUTES OFFICE 90599 [facility] MCKEN[facility] TRA OUTPATIEN 6 6 [place] T NEW 30 ORTHOPAED MINUTES ICS PLC OFFICE 25079 [facility] KARINA OUTPATIEN 6 6 PHYSICIAN ANTIONE T VISIT S GROUP 15 MINUTES OFFICE 89071 [facility] EMILY TOGarcia OUTPATIEN 5 5 PHYSICIAN T VISIT S GROUP 10 MINUTES EMERGENCY 39288 SUKHDEV PETERSON DEPT 5 5 PHYSICIAN ANTIONE VISIT S, PLL HIGH SEVERITY& THREAT FUNCJ EMERGENCY 26434 [facility] 5 5 [facility] DEPART[facility] INC T VISIT MODERATE SEVERITY HOSP[facility] - 5 5 [facility] INC T [facility] - 5 5 [facility] INC T [facility] - 5 5 [facility] INC T OFFICE 83969 [facility] EMILY MARTIN CONSULTAT 5 5 PHYSICIAN ION S GROUP NEW/ESTAB PATIENT 40 MIN HOSPITAL [facility] - 5 5 [facility] OUT[facility] INC T OFFICE 69460 BRADEN PLATT OUTPATIEN 5 5 [facility] T VISIT HOSPITAL 15 MINUTES EMERGENCY 10739 [facility] 5 5 [facility] DEPARTMEN INC T VISIT LOW/MODER SEVERITY HOSPITAL [facility] - 5 5 [facility] INC T EMERGENCY 05665 SUKHDEV PARKER 5 5 PHYSICIAN DEPARTMEN S, [facility] VISIT MODERATE SEVERITY [facility] - 5 5 [facility] OUTPATIEN INC T OFFICE 91556 CARDIOVAS LILIA OUTPATIEN 5 5 CULAR MAT T VISIT CONSULTAN 25 TS O MINUTES HOSPITAL BRADEN - 5 5 [facility] OUTPATIEN INC T [facility] BRADEN - 5 5 [facility] OUTPATIEN [facility] T OFFICE 24841 BRADEN PLATT OUTPATIEN [address] MINUTES EMERGENCY 31742 SUKHDEV FRANKLIN 5 5 PHYSICIAN RAEGAN [facility] T VISIT HIGH/URGE NT SEVERITY EMERGENCY 63258 SUKHDEV STARK 5 5 PHYSICIAN SHELLEY [facility], [facility] T VISIT HIGH/URGE NT SEVERITY OFFICE 33140 [facility] ROQUE OUTPATIEN 5 5 PHYSICIAN NATTY T VISIT S GROUP 15 MINUTES PERIODIC 89874 [facility] E MED EST HLTH DEPT HLTH DEPT PATIENT DANIELLE DANIELLE 18-39 YRS [facility] BRADEN - 5 5 [facility] OUTPATIEN [facility] T EMERGENCY 07172 BRADEN 5 5 [facility] T VISIT LOW/MODER SEVERITY EMERGENCY 38820 BRADEN MATHEWS [address] [facility] T VISIT P MODERATE SEVERITY OFFICE 72914 [facility] OUTPATIEN 5 5 PHYSICIAN T VISIT S GROUP 25 MINUTES OFFICE 66917 JUDE ROQUE OUTPATIEN 5 5 NATTY NATTY T VISIT 10 MINUTES HOSPITAL [facility]AD[facility] - 5 5 [facility] INC T EMERGENCY 26517 BRADEN 5 5 [facility] T VISIT LOW/MODER SEVERITY HOSPITAL [facility] - 5 5 [facility] OUTPATIEN INC T EMERGENCY 72687 [facility] 4 4 [facility] DEPARTMEN INC T VISIT MODERATE SEVERITY HOSPITAL BRADEN - 4 4 [facility] OUTPATIEN INC HOSPITAL BRADEN - 4 4 [facility] OUTPATIEN INC T OFFICE 64078 [facility] PETTEY OUTPATIEN 4 4 PHYSICIAN JAM T VISIT S GROUP 15 MINUTES HOSPITAL BRADEN - 4 4 [facility] OUTPATIEN INC T OFFICE 71021 [facility] PETTEY OUTPATIEN 4 4 PHYSICIAN JAM T NEW 30 S GROUP MINUTES EMERGENCY 44259 [facility] [address] [facility] EMERGENCY T VISIT PHYS MODERATE SEVERITY HOSPITAL BRADEN - 4 4 [facility] OUTPATIEN INC HOSPITAL BRADEN - 4 4 [facility] OUTPATIEN INC T OFFICE 77244 JUDE ROQUE OUTPATIEN 4 4 NATTY NATTY T VISIT 25 MINUTES EMERGENCY 86654 ALFARIS ALFARIS 4 4 [facility] DEPARTMEN T VISIT HIGH/URGE NT SEVERITY PERIODIC 63893 [facility] E MED EST TH DEPT HLTH DEPT PATIENT DANIELLE DANIELLE 18-39 YRS OFFICE 68128 [facility] OUT[facility] 4 4 [facility] T VISIT TH DEPT HLTH DEPT 10 DANIELLE DANIELLE MINUTES Emergency JUNO REYNAGA DO (ER) 4 10:11 4 12:50 [facility] EMERGENCY 20037 JUHI JOSE JUHI JOSE DEPT 4 4 VISIT HIGH SEVERITY& THREAT FUNCJ Emergency JUNO Foley MD (ER) 4 15:52 4 17:15 [facility] EMERGENCY 95622 BRADEN 4 4 [facility] DEPARTMEN INC T VISIT LOW/MODER SEVERITY EMERGENCY 68598 JOLYNN GATES 4 4 DEPARTMEN T VISIT MODERATE SEVERITY HOSPITAL [facility]AD[facility] - 4 4 [facility] OUTPATIEN INC T Emergency JUNO FUENTES MD (ER) 4 09:25 4 11:46 [facility] EMERGENCY [address] [facility] DEPARTMEN T VISIT HIGH/URGE NT SEVERITY Emergency JUNO Peterson MD (ER) 3 02:20 3 05:42 [facility] Emergency JUNO Peterson MD (ER) 3 20:10 3 20:50 [facility] Emergency JUNO Levi MD (ER) 3 15:02 3 16:20 [facility] OFFICE 69219 JUDE ROQUE OUTLARRYEN 1 1 NATTY NATTY T VISIT 10 MINUTES HOSPITAL BRADEN - 1 1 [facility] OUTPATIEN INC T OFFICE 95016 JUDE ROQUE OUTPATIEN 1 1 NATTY NATTY T VISIT 10 MINUTES EMERGENCY 26378 NELY PETERSON DEPT 1 1 EMERGENCY ANTIONE VISIT SERVICES HIGH SEVERITY& THREAT [facility] BRADEN - 1 1 [facility] OUTPATI[facility] T OFFICE 39830 AKUA MURRAY 1 1 [facility] MIT[facility] T VISIT 15 MINUTES HOSPITAL BR[facility] - 1 1 [facility] OUTPATIEN INC T EMERGENCY 80031 [facility]AD[facility] 1 1 [facility] DEPARTMEN INC T VISIT LOW/MODER SEVERITY EMERGENCY 17341 NELY PETERSON DEPT 1 1 EMERGENCY ANTIONE VISIT SERVICES HIGH SEVERITY& THREAT [facility] OFFICE 51941 AKUA MURRAY 1 1 [facility] T VISIT 15 MINUTES OFFICE 34197 ARNOLD ARNOLD OUTPATIEN 1 1 [facility] MIT[facility] T VISIT 15 MINUTES HOSPITAL BRADEN - 1 1 [facility] OUTPATIEN [facility] T EMERGENCY 62333 NELY PETERSON DEPT 1 1 EMERGENCY ANTIONE VISIT SERVICES HIGH SEVERITY& THREAT FUNCJ EMERGENCY 30654 BRADEN 1 1 [facility] DEPARTMEN INC T VISIT HIGH/URGE NT SEVERITY HOSPITAL [facility] - 1 1 [facility] OUT[facility]IEN [facility] T OFFICE 33233 RO[place]BRENTON ROQUE OUTPATIEN 1 1 NATTY NATTY T VISIT 15 MINUTES HOSPITAL BRADEN - 1 1 [facility] OUTPATIEN [facility] HOSPITAL BRADEN - 1 1 [facility] OUTPATIEN [facility] T OFFICE 90050 LASHELL RUGGIERO CONSULTAT 1 1 JAM ION CARDIOLOG NEW/ESTAB Y CONSULT PATIENT 40 MIN OFFICE 64609 AKUA GARSIAREGINO OUTLARRYEN 1 1 [facility] T VISIT 15 MINUTES HOSPITAL BRADEN - 1 1 [facility] OUTPATIEN [facility] HOSPITAL BRADEN - 1 1 [facility] OUTPATIEN [facility] T EMERGENCY 82608 NELY PINTO 1 1 EMERGENCY DEPARTMEN SERVICES T VISIT HIGH/URGE NT SEVERITY EMERGENCY 64881 [facility] 1 1 [facility] DEPARTMEN INC T VISIT LOW/MODER SEVERITY EMERGENCY 66181 [facility] 1 1 [facility] DEPARTMEN INC T VISIT LOW/MODER SEVERITY EMERGENCY 58666 NELY PETERSON 1 1 EMERGENCY ANTIONE DEPARTMEN SERVICES T VISIT HIGH/URGE NT SEVERITY HOSPITAL BRADEN - 1 1 [facility] OUTPATIEN INC T OFFICE 04162 UATSDIN ONEYDA CONSULTAT 1 1 NE[facility]Y [facility] NEW/ESTAB JOHN PATIENT 80 MIN OFFICE 61044 ROQUE ROQUE OUTPATIEN 1 1 NATTY NATTY T VISIT 10 MINUTES EMERGENCY 95410 BRADEN 1 1 [facility] DEPARTMEN INC T VISIT LOW/MODER SEVERITY EMERGENCY 70887 NELY CAMPOS 1 1 [facility] VISIT MODERATE SEVERITY [facility] - 1 1 [facility] OUTPATIEN INC T OFFICE 01764 AKUA FATIMA OUTPATIEN 1 1 [facility] MIT[facility] T VISIT 15 MINUTES HOSPITAL BRADEN - 1 1 [facility] OUTPATIEN INC T OFFICE 17502 JUDE GLYNNON OUTPATIEN 1 1 NATTY NATTY T VISIT 10 MINUTES HOSPITAL BRADEN - 1 1 [facility] OUTPATIEN INC T OFFICE 24077 JUDE GLYNNON OUTPATIEN 1 1 NATTY NATTY T VISIT 15 MINUTES EMERGENCY 52108 BRADEN 1 1 [facility] DEPARTMEN INC T VISIT LOW/MODER SEVERITY EMERGENCY 67295 NELY PETERSON 1 1 [facility]IS[facility] HIGH/URGE NT SEVERITY [facility] - 1 1 [facility] OUTPATIEN INC T OFFICE 94850 JUDE GLYNNON OUTPATIEN 1 1 NATTY NATTY T VISIT 10 MINUTES HOSPITAL BRADEN - 0 0 [facility] OUTPATIEN INC T EMERGENCY 87203 [facility] 0 0 [facility] DEPARTMEN INC T VISIT LOW/MODER SEVERITY PERIODIC 41285 BRADEN FELICIANO PREVENTIV 0 0 [facility] PATIENT 18-39 YRS HOSPITAL BRADEN - 0 0 [facility] OUTPATIEN INC T EMERGENCY 84923 [facility]AD[facility] 0 0 [facility] DEPARTMEN INC T VISIT HIGH/URGE NT SEVERITY EMERGENCY 30637 NELY SEVILLA DEPT 0 0 EMERGENCY GRE VISIT SERVICES HIGH SEVERITY& THREAT FUNJ HOSPITAL BRADEN - 0 0 [facility] OUTPATIEN INC T EMERGENCY 70817 BRADEN 0 0 [facility] DEPARTMEN INC T VISIT LOW/MODER SEVERITY HOSPITAL BRADEN - 0 0 [facility] OUTPATIEN INC T EMERGENCY 02914 NELY PETERSON 0 0 EMERGENCY [facility] DEPARTMEN SERVICES T VISIT HIGH/URGE NT SEVERITY OFFICE 92835 JUDE ROQUE, OUTPATIEN 0 0 CYDNEY G CYDNEY G T VISIT 15 MINUTES HOSPITAL BRADEN - 0 0 [facility]PATIEN INC T OFFICE 45745 [facility] OUTPATI[facility] 0 0 [place] T VISIT ORTHOPAED 15 ICS [facility] MINUTES OFFICE 07593 [facility] OUT[facility] 0 0 [facility] J T NEW 30 [facility]INIC [facility] 10984 JUDE ROQUE, OUTPATIEN 0 0 CYDNEY G CYDNEY G T VISIT 10 MINUTES HOSPITAL BRADEN - 0 0 [facility] OUTPATIEN INC T OFFICE 34001 JUDE ROQUE, OUTPATIEN 0 0 CYDNEY G CYDNEY G T NEW 45 MINUTES OFFICE 67288 AKUA FATIMA OUTPATIEN 0 0 JAMES Bui T VISIT 15 MINUTES OFFICE 78277 MAZIN MOSQUERA OUTPATIEN 0 0 H ARIS D T VISIT UROLOGY 25 PSC MINUTES EMERGENCY 60099 NELY PETERSON, HANST 0 0 EMERGENCY NEMO S VISIT SERVICES HIGH SEVERITY& ASSOCIATE THREAT S FUN EMERGENCY 30539 [facility]EN 0 0 [facility] DEPARTMEN INC T VISIT HIGH/URGE NT SEVERITY HOSPITAL BRAD[facility] - 0 0 [facility] OUTPATIEN INC T OFFICE 18782 [facility]AD[facility] FELICIANO OUTPATIEN 0 0 [facility]ISIT C[facility] CENTER 15 MINUTES OFFICE 51349 [facility], CONSULTAT 0 0 [place] TRUDY Ruiz ION ORTHOPAED NEW/ESTAB ICS PLC PATIENT 60 MIN HOSPITAL [facility]ADEN - 0 0 [facility] OUTPATIEN INC T OFFICE 08670 AKUA FATIMA OUTPATIEN 0 0 JAMES Bui T VISIT 15 MINUTES OFFICE 63194 AKUA FATIMA OUTPATIEN 9 9 JAMES Bui T NEW 30 MINUTES EMERGENCY 67792 [facility]EN 9 9 [facility] DEPARTMEN INC T VISIT HIGH/URGE NT SEVERITY HOSPITAL BRADEN - 9 9 [facility] OUTPATIEN INC T OFFICE 42904 BEULAH ROIJAS OUTPATIEN 9 9 DON R DON R T VISIT 15 MINUTES OFFICE 10039 [facility] OUTPATIEN 9 9 [facility] T VISIT [facility] 10 BANK ACCT MINUTES OFFICE 17644 MAZIN HOLLAND JR OUTPATIEN 9 9 [facility] T VISIT UROLOGY R 10 PSC MINUTES OFFICE 39390 MAZIN HOLLAND JR, CONSULTAT 9 9 [facility] RORY ION UROLOGY R NEW/ESTAB PSC PATIENT 30 MIN OFFICE 92836 BEULAH RIOJAS OUTPATIEN 9 9 DON R DON R T VISIT 15 MINUTES OFFICE 98211 BEULAH RIOJAS OUTPATIEN 9 9 DON R DON R T VISIT 15 MINUTES OFFICE 29617 BEULAH RIOJAS OUTPATIEN 9 9 DON R DON R T VISIT 15 MINUTES HOSPITAL BRADEN - 9 9 [facility] OUTPATIEN INC T OFFICE 43183 BEULAH RIOJAS OUTPATIEN 9 9 DON R DON R T VISIT 15 MINUTES HOSPITAL BRADEN - 9 9 [facility] OUTPATIEN INC T EMERGENCY 38947 [facility]AD[facility] 9 9 [facility] DEPARTMEN INC T VISIT HIGH/URGE NT SEVERITY EMERGENCY 28330 NELY PETERSON, 9 9 EMERGENCY [facility] T VISIT MODERATE ASSOCIATE SEVERITY S OFFICE 09304 BEULAH RIOJAS OUTPATIEN 9 9 DON R DON R T VISIT 15 MINUTES EMERGENCY 57349 BRADEN 9 9 [facility] T VISIT LOW/MODER SEVERITY EMERGENCY 02864 NELY PETERSON, 9 9 EMERGENCY [facility] T VISIT MODERATE ASSOCIATE SEVERITY S HOSPITAL BRADEN - 9 9 [facility] OUTPATIEN INC T OFFICE 34871 BEULAH RIOJAS OUTPATIEN 9 9 DON R DON R T VISIT 15 MINUTES OFFICE 28142 BEULAH RIOJAS OUTPATIEN 9 9 DON R DON R T VISIT 15 MINUTES OFFICE 46975 BEULAH RIOJAS OUTPATIEN 8 8 DON R DON R T VISIT 15 MINUTES OFFICE 52119 BEULAH RIOJAS OUTPATIEN 8 8 DON R DON R T VISIT 15 MINUTES HOSPITAL BRADEN - 8 8 [facility] OUTPATIEN INC T EMERGENCY 33357 NAIMA KEENE, HANST 8 8 [employer] E VISIT CORPORATI HIGH ON SEVERITY& THREAT [facility] BRADEN - 8 8 [facility] OUTPATIEN INC T OFFICE 98856 BEULAH RIOJAS OUTPATIEN 8 8 DON R DON R T VISIT 15 MINUTES EMERGENCY 54798 BRADEN 8 8 [facility] DEPARTMEN INC T VISIT MODERATE SEVERITY [facility] BRADEN - 8 8 [facility] OUTPATIEN [facility] T
--- OUTSIDE RECORDS SUMMARY | 2017-08-01 23:00 | External Medical Summary Rpt | CCD ---
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 FELICIANO N VENOUS 6 [facility] BLOOD INC INC VENIPUNCT URE BASIC 10033 BRADEN FELICIANO METABOLIC 6 [facility] PANEL INC INC CALCIUM TOTAL ANES 79377 COMMUNITY FEEBACK TRANSURET 6 ANESTH HRAL OF THE W/URETHRO BLUE CYSTOSCOP Y NOS CYSTO 39638 BRADEN MOSQUERA CALIBRATI 6 [facility] URTL P STRIX/JOSE NOSIS SCREENING G0202 [place] K[facility]STIE 6 MEDICAL TAM MAMMOGRAP IMAGING HY MICHELLE ASS INCL CAD WHEN PERFORMD COMPUTER- 87575 [place] AIDED 6 MEDICAL TAM DETECTION IMAGING ASS SCREENING MAMMOGRAP HY IADNA 05453 BRADEN BRADEN NEISSERIA 6 [facility] INC INC GONORRHOE AE AMPLIFIED PROBE TQ IADNA 25708 BRADEN BRADEN CHLAMYDIA 6 [facility] INC INC TRACHOMAT IS AMPLIFIED PROBE TQ URINE 17292 BRADEN BRADEN 6 [facility] TEST INC INC VISUAL COLOR CMPRSN METHS URNLS DIP 80665 BRADEN FELICIANO 6 [facility] STICK/TAB INC [place] [address] BRADEN FELICIANO ABDOMEN & 6 [facility] PELVIS INC INC W/O CONTRAST MATERIAL CYTP 52670 [facility], NELY CERVICAL/ 6 [facility] RAFI VAGINAL REQ INTERP PHYSICIAN CYTP C/V 55501 [facility] AUTO THIN 6 [facility] LYR PREPJ SCR MNL RESCR PHYS IADNA 11129 [facility], [facility] HUMAN 6 [facility] RAFI [place]APILL[place] VIRUS HIGH-RISK TYPES 72778 BRADEN FELICIANO TRANSVAGI 6 [facility] [place] [address] BRADEN FELICIANO THYROXINE 6 [facility] [place] [address] BRADEN FELICIANO THYROID 6 [facility] STIMULATI INC INC NG HORMONE TSH COLLECTIO 47549 BRADEN FELICIANO N VENOUS 6 [facility] BLOOD INC INC VENIPUNCT URE THER 11278 BRADEN FELICIANO PROPH/DX 6 [facility] NJX IV INC INC PUSH SINGLE/1S T SBST/DRUG THERAPEUT 50726 BRADEN FELICIANO IC 6 [facility] INJECTION INC INC IV PUSH EACH NEW DRUG COMPREHEN 03015 BRADEN FELICIANO SIVE 6 [facility] METABOLIC INC INC PANEL ECG 85073 BRADEN FELICIANO ROUTINE 6 [facility] ECG INC INC W/LEAST 12 LDS TRCG ONLY W/O I&R ECG 85296 BRADEN DE LA CRUZ JR ROUTINE 6 [facility] W/LEAST P 12 LDS I&R ONLY RADIOLOGI 80463 BRADEN FELICIANO C 6 [facility] EXAMINATI INC INC ON CHEST SINGLE VIEW FRONTAL HEMOGLOBI 82321 BRADEN FELICIANO N 6 [facility] GLYCOSYLA INC [place] A1[place] [address] BRADEN FELICIANO TROPONIN 6 [facility] QUANTITAT INC INC AMARA BLOOD 17844 BRADEN FELICIANO COUNT 6 [facility] COMPLETE INC INC AUTO&AUTO DIFRNTL WBC CREATINE 23330 BRADEN FELICIANO KINASE MB 6 [facility] FRACTION INC INC ONLY CREATINE 60745 BRADEN FELICIANO KINASE 6 [facility] TOTAL INC INC BLOOD 64933 BRADEN FELICIANO COUNT 6 [facility] COMPLETE INC INC AUTO&AUTO DIFRNTL WBC COLLECTIO 52658 BRADEN FELICIANO N VENOUS 6 [facility] BLOOD INC INC VENIPUNCT URE COMPREHEN 59610 BRADEN FELICIANO SIVE 6 [facility] METABOLIC INC INC PANEL INJECTION J2250 [facility] 6 N N MID[place]OLAM COMMUNTIY COMMUNTIY HCL PER HOSPITA HOSPITA 1 MG INJECTION J1885 [facility] 6 N N KET[place]OL[place] COMMUNTIY COMMUNTIY HOSPITA HOSPITA TROMETHAM INE PER 15 MG INJECTION J3010 [facility] FENTANYL 6 N N [place] COMMUNTIY COMMUNTIY 0.1 MG HOSPITA HOSPITA NEUROPLAS 31900 [facility] TY 6 &/TRANSPO ORTHOPAED S MEDIAN ICS PSC NRV CARPAL TUNNE ANES 89286 [facility] NERVE 6 ANESTHESI MUSCLE A GROUP TDN PS FASCIA&BU RSA FOREARM WRIST INJECTION J1100 [facility] 6 N N DEXAMETHO COMMUNTIY COMMUNTIY SONE HOSPITA HOSPITA SODIUM PHOSPHATE 1 MG INJECTION J2001 [facility] 6 N N LIDOCAINE COMMUNTIY COMMUNTIY HCL HOSPITA HOSPITA INTRAVENO US INFUS 10 MG RINGERS J7120 [facility] LACTATE 6 N N INFUSION COMMUNTIY COMMUNTIY UP TO HOSPITA HOSPITA 1000 CC GONADOTRO 04618 BRADEN FELICIANO PIN 6 [facility] CHORIONIC INC INC QUALITATI VE BLOOD 75218 BRADEN FELICIANO COUNT 6 [facility] COMPLETE INC INC AUTO&AUTO DIFRNTL WBC COLLECTIO 53939 BRADEN FELICIANO N VENOUS 6 [facility] BLOOD INC INC VENIPUNCT URE BASIC 51197 BRADEN FELICIANO METABOLIC 6 [facility] PANEL INC INC CALCIUM TOTAL INJECTION J1040 [facility] RITA 6 PHYSICIAN ANTIONE METHYLPRE S GROUP DNISOLONE ACETATE 80 MG THERAPEUT 06176 [facility] RITA IC 6 PHYSICIAN ANTIONE PROPHYLAC S GROUP TIC/DX INJECTION SUBQ/IM NEEDLE 52911 BAPTISM TIKHTMANGELA EMG EA 6 HEALTH EXTREMTY MEDICAL W/PARASPI GROUP NL AREA COMPLETE NERVE 92551 BAPTISM TIKHTMAN CONDUCTIO 6 HEALTH N STUDIES MEDICAL 7-8 GROUP STUDIES RADEX 61791 [facility] JEFFREY HAND 6 [place] CORTEZ MINIMUM [address] [place] [address] BRADEN FELICIANO ABDOMEN & 5 [facility] PELVIS INC INC W/O CONTRAST MATERIAL COMPREHEN 27511 BRADEN FELICIANO SIVE 5 [facility] METABOLIC INC INC PANEL URNLS DIP 75925 BRADEN FELICIANO 5 [facility] STICK/TAB INC INC LET REAGENT AUTO MICROSCOP Y BLOOD 54687 BRADEN FELICIANO COUNT 5 [facility] COMPLETE INC INC AUTO&AUTO DIFRNTL WBC CULTURE 28817 BRADEN FELICIANO BACTERIAL 5 [facility] INC INC QU[place]TTAT[place] [address] [facility], BO SURG 5 [facility] PATHOLOGY GROSS&ANTIONE ROSCOPIC EXAM COLSC FLX 90663 [facility] EMILY TOD W/RMVL 5 PHYSICIAN OF TUMOR S GROUP POLYP LESION SNARE TQ COLLECTIO 37891 BRADEN FELICIANO N VENOUS 5 [facility] BLOOD INC INC VENIPUNCT URE GONADOTRO 90936 BRADEN FELICIANO PIN 5 [facility] CHORIONIC INC INC QUALITATI VE COLLECTIO 68229 BRADEN FELICIANO N VENOUS 5 [facility] BLOOD INC INC VENIPUNCT URE BLOOD 19450 BRADEN FELICIANO COUNT 5 [facility] COMPLETE INC INC AUTO&AUTO DIFRNTL WBC COMPREHEN 64592 BRADEN FELICIANO SIVE 5 [facility] METABOLIC INC INC PANEL RADEX 13711 BRADEN FELICIANO ABDOMEN 5 [facility] COMPL INC INC W/DCBTS&/ ERC VIEWS ECG 41146 BRADEN FELICIANO ROUTINE 5 [facility] ECG INC INC W/LEAST 12 LDS TRCG ONLY W/O I&R ECG 80515 CARDIOVAS LILIA ROUTINE 5 [facility] ECG CONSULTAN W/LEAST TS O 12 LDS I&R ONLY ECG 57672 BRADEN FELICIANO ROUTINE 5 [facility] ECG INC INC W/LEAST 12 LDS TRCG ONLY W/O I&R ECHO 04749 ARIC MORRISSEY [facility] TTHRC R-T 5 MEDICAL 2D SERV W/WOM-MOD FOUNDATIO E COMPL N SPEC&COLR D LIPID 04501 BRADEN FELICIANO PANEL 5 [facility] INC INC ECG 83331 BRADEN FELICIANO ROUTINE 5 [facility] ECG INC INC W/LEAST 12 LDS TRCG ONLY W/O I&R COMPREHEN 64146 BRADEN FELICIANO SIVE 5 [facility] METABOLIC INC INC PANEL ECG 21336 BRADEN CASTREJON ROUTINE [address] [facility] W/LEAST P 12 LDS I&R ONLY BLOOD 54762 BRADEN FELICIANO COUNT 5 [facility] COMPLETE INC INC AUTO&AUTO DIFRNTL WBC COLLECTIO 27861 BRADEN FELICIANO N VENOUS 5 [facility] [place] [address] BRADEN FELICIANO THYROID 5 [facility] STIMULATI [place] [address] BRADEN FELICIANO TROPONIN 5 [facility] QUANTITAT INC INC AMARA CREATINE 86608 BRAEDN FELICIANO KINASE 5 [facility] TOTAL INC INC CYANOCOBA 99820 BRADEN FELICIANO JENISE 5 [facility] VITAMIN INC INC B-12 25 11872 BRADEN PULASKI HYDROXY 5 [facility] INCLUDES INC HEALTH [place] [address] BRADEN FELICIANO FREE 5 [facility] THYROXINE INC INC CREATINE 94682 BRADEN FELICIANO KINASE MB 5 [facility] [place] [address] [place] ALL ABDOMEN & 5 MEDICAL PELVIS IMAGING W/O ASS CONTRAST MATERIAL CYTP 28099 [facility], PICKLESIM CERV/VAG 5 LLC ER JR VANDANA AUTO THIN LAYER PREP MNL SCREEN RADIOLOGI 52784 [facility] C EXAM 5 MEDICAL [place] CHEST 2 IMAGING VIEWS ASS FRONTAL&[place] [address] [facility] WOODS TRANSVAGI 5 PHYSICIAN BOOKER NAL S GROUP CALCIUM 87161 BRADEN FELICIANO TOTAL 5 [place] [address] BRADEN FELICIANO FREE 5 [facility] [place] [address] BRADEN FELICIANO THYROID 5 [facility] STIMULATI INC INC NG HORMONE TSH COLLECTIO 35619 BRADEN FELICIANO N VENOUS 5 [facility] [place] [address] BRADEN FELICIANO ABDOMEN & 4 [facility] PELVIS INC INC W/O CONTRAST MATERIAL URNLS DIP 00773 BRADEN FELICIANO 4 [facility] STICK/TAB INC INC LET REAGENT AUTO MICROSCOP Y URINE 36931 BRADEN BRADEN 4 [facility] TEST INC INC VISUAL COLOR CMPRSN METHS FLUOROSCO 64422 [facility] PETTEY PY SPX UP 4 PHYSICIAN JAM TO 1 S GROUP HOUR PHYS/QHP TIME MANUAL 78995 [facility] PETTEY APPL 4 PHYSICIAN JAM STRESS S GROUP PFRMD PHYS/QHP JOINT FILMS PATH 12627 [facility] MOL CONSLTJ 4 Y OF SURG 1ST [place] [facility] FROZEN SCTJ 1 SPEC THYROIDEC 59817 JUDE ROQUE KAYLA 4 NATTY NATTY TOTAL/SUB TOTAL LMTD NECK DISSECT ANES 18791 [facility] DAY ESOPH 4 LTH ANT THYRD ANESTHESI LARYNX A PSC TRACH & [place] 1[place] [address] [facility] MOL SURG 4 Y OF PATHOLOGY [place] [facility] GROSS&[place] [address] [facility] MOL SURG 4 Y OF PATHOLOGY [place] [facility] GROSS&ANTIONE ROSCOPIC EXAM PARATHYRO 95677 JUDE ROQUE ID 4 NATTY NATTY AUTOTRANS PLANTATIO N ADD-ON BLOOD 19490 BRADEN FELICIANO COUNT 4 [facility] COMPLETE INC INC AUTO&AUTO DIFRNTL WBC ECG 66953 BRADEN DE LA CRUZ JR ROUTINE 4 [facility] W/LEAST P 12 LDS I&R ONLY ECG 29966 BRADEN FELICIANO ROUTINE 4 [facility] ECG INC INC W/LEAST 12 LDS TRCG ONLY W/O I&R RADEX 50566 [place]ST[place] ANKLE 4 MEDICAL TAM COMPLETE IMAGING MINIMUM 3 ASS VIEWS ANKLE L4350 [facility] BREG INC. CONTROL 4 ORTHOSIS STIRRUP STYL RIGID PREFAB CRTCHS E0114 [facility] BREG INC. UNDARM 4 OTH THAN WOOD PAIR PAD TIP&[place] [address] BRADEN FELICIANO FREE 4 [facility] [place] [address] BRADEN FELICIANO THYROID 4 [facility] STIMULATI INC INC NG HORMONE TSH CALCIUM 84493 BRADEN FELICIANO TOTAL 4 [facility] INC INC ANES 23507 [facility] CONTE ESOPH 4 LTH MAR THYRD ANESTHESI LARYNX A PSC TRACH & [place]YMPH NECK 1[place] [address] REYES REYES SURG 4 ANA ANA PATHOLOGY GROSS&ANTIONE ROSCOPIC EXAM PATH 18237 REYES REYES CONSLTJ 4 ANA ANA SURG 1ST BLK FROZEN SCTJ 1 [place] [address] BRADEN FELICIANO THYROID 4 [facility] STIMULATI [place] [address] BRADEN FELICIANO FREE 4 [facility] THYROXINE INC INC CALCIUM 03903 BRADEN FELICIANO TOTAL 4 [facility] INC INC US SOFT 83238 [place] TISSUE 4 MEDICAL TAM HEAD & IMAGING NECK REAL ASS TIME IMGE DOCM URNLS DIP 06906 CHUCK WOODS 4 BOOKER BOOKER STICK/TAB LET RGNT NON-AUTO W/O MICRSCP ENDOMETRI 40704 CHUCK WOODS AL BX 4 BOOKER BOOKER W/WO ENDOCERVI [place] [address] [facility] TRANSVAGI 4 [place] [address] AMALIA HOLLAND PAT SURG 4 PATHOLOGY GROSS&ANTIONE ROSCOPIC EXAM COLPOSCOP 67138 [facility] WO[facility]S Y CERVIX 4 BOOKER BOOKER BX CERVIX & ENDOCRV CURRETAGE IMHISTOCH 34418 AMALIA HOLLAND PAT EM/CYTCHM 4 1ST ANTIBODY STAIN PROCEDURE CYTP [address] CERVICAL/ 4 VAGINAL REQ INTERP PHYSICIAN IADNA 55602 VANITA ALVA PAPILLOMA 4 VIRUS HUMAN AMPLIFIED PROBE TQ URNLS DIP [address] [facility] [address] [address] [facility] STICK/TAB [facility] DE[facility] DEPT LET RGNT DANIELLE DANIELLE NON-AUTO W/O MICRSCP IADNA 87064 [facility] NE[facility]ERIA [facility] GONORRHOE DANIELLE [facility] AE AMPLIFIED PROBE TQ SMR PRIM 26345 [facility] SRC WET [facility] NFCT AGT DANIELLE DANIELLE IADNA 14234 [facility] CHLAMYDIA 4 [facility] DE[facility] TRACHOMAT [facility] IS AMPLIFIED PROBE TQ CYTP [address] CERV/VAG 4 AUTO THIN LAYER PREP MNL SCREEN PH BODY 59148 [facility] FLUID NOT [facility] DEPT HL[facility] DEPT ELSEWHERE DANIELLE DANIELLE SPECIFIED AMINES 65088 [facility] VAGINAL [facility] FLUID [facility] DEPT HLTH DEPT QUALITATI DANIELLE DANIELLE VE WET Q0111 [facility] SARBJIT [facility] INCL PREP HLTH DEPT HLTH DEPT VAGINAL DANIELLE DANIELLE CERV/SKIN SPECIMENS ECG 52069 DOROTHY DE LA CRUZ JR ROUTINE 4 DWI DWI ECG W/LEAST 12 LDS I&R ONLY IAADI 41440 BRADEN FELICIANO INFLUENZA 4 [facility] B VIRUS INC INC IAADI 21495 BRADEN FELICIANO INFFLUENZ 4 [facility] A A VIRUS INC INC URINE 59868 BRADEN FELICIANO 4 [facility] TEST INC INC VISUAL COLOR CMPRSN METHS URNLS DIP 12497 BRADEN FELICIANO 4 [facility] STICK/TAB INC INC LET REAGENT AUTO MICROSCOP Y US SOFT 82736 BRADEN FELICIANO TISSUE 1 [facility] HEAD & INC INC NECK REAL TIME IMGE DOCM MICROSOMA 69080 BRADEN FELICIANO L 1 [facility] [place] [address] BRADEN FELICIANO THYROID 1 [facility] STIMULATI [place] [address] BRADEN FELICIANO FREE 1 [facility] [place] [address] BRADEN FELICIANO AMYLASE 1 [facility] INC INC CULTURE 22597 BRADEN FELICIANO BACTERIAL 1 [facility] INC INC QUANTTAT[place] [address] BRADEN FELICIANO LIPASE 1 [facility] INC INC ANESTHESI 66810 COMMUNITY REBOLLAR BREANNA A 1 ANESTH INTRAPERI OF THE TONEAL BLUE LOWER ABD W/LAPS NOS LEVEL III 86391 CHIPPS ROVERTO ANTIONE SURG 1 MANJINDER & PATHOLOGY SUREKHAILIER GROSS&ANTIONE ROSCOPIC EXAM BLOOD 54306 BRADEN FELICIANO COUNT 1 [facility] COMPLETE INC INC AUTO&AUTO DIFRNTL WBC 3D 86560 BRADEN FELICIANO RENDERING 1 [facility] INC INC W/INTERP& POSTPROC DIFF [facility] [id number] [facility] OBSERVATI 1 [facility] [place] [address] BRADEN FELICIANO ABDOMEN & 1 [facility] PELVIS INC INC W/O CONTRAST MATERIAL URNLS DIP 38776 [facility] FELICIANO 1 [facility] STICK/TAB INC INC LET REAGENT AUTO MICROSCOP Y COMPREHEN 89365 BRAD[facility] FELICIANO SIVE 1 [facility] METABOLIC INC INC PANEL LAPAROSCO 17619 [facility] FELICIANO PIC 1 [facility] APPENDECT INC INC ADAM URINE 76039 [facility]IAN[facility] 1 [facility] INC VISUAL COLOR CMPRSN METHS LAPAROSCO 4701 BRADEN FELICIAN[facility] PIC 1 [facility] APPENDECT INC INC ADAM URINE 08664 [facility]ELICIANO 1 [facility] INC INC VISUAL COLOR CMPRSN METHS URNLS DIP 58201 [place] FEILCIANO 1 [facility] STICK/TAB INC [place] [address] BRADEN FELICIANO ABDOMEN & 1 [facility] PELVIS INC INC W/O CONTRAST MATERIAL 3D 13839 BRADEN FELICIANO RENDERING 1 [facility] INC INC W/INTERP& POSTPROC DIFF WORK STATION ECG 04632 BRADEN FELICIANO ROUTINE 1 [facility] ECG INC INC W/LEAST 12 LDS TRCG ONLY W/O I&R RADIOLOGI 33170 BRADEN FELICIANO C EXAM 1 [facility] CHEST 2 INC INC VIEWS FRONTAL&L ATERAL ECG 45464 NELY PETERSON ROUTINE 1 EMERGENCY ANTIONE ECG SERVICES W/LEAST 12 LDS I&[place] [address] BRADEN FELICIANO TROPONIN 1 [facility] QUANTITAT INC INC AMARA CREATINE 30648 BRADEN FELICIANO KINASE 1 [facility] TOTAL INC INC CREATINE 11400 BRADEN FELICIANO KINASE MB 1 [facility] FRACTION INC INC ONLY CV STRS 20801 [facility] FALLUJI TST 1 PHYSICIAN COLT XERS&/OR S GROUP RX CONT ECG W/O I&R CV STRS 04976 BRADEN FELICIANO TST 1 [facility] XERS&/OR INC INC RX CONT ECG TRCG ONLY MYOCARDIA 32165 JAVIER FLOWERS L SPECT 1 MEDICAL TAM MULTIPLE IMAGING STUDIES ASS CV STRS 04268 BRADEN DE LA CRUZ DWI TST 1 [facility] XERS&/OR HOSPITAL RX CONT P ECG I&R ONLY LIPID 56163 BRADEN FELICIANO PANEL 1 [facility] INC INC COMPREHEN 31665 BRADEN FELICIANO SIVE 1 [facility] METABOLIC INC INC PANEL ECG 68895 BRADEN FELICIANO ROUTINE 1 [facility] ECG INC INC W/LEAST 12 LDS TRCG ONLY W/O I&R US SOFT 43797 BRADEN FELICIANO TISSUE 1 [facility] HEAD & INC [place] [address] BRADEN FELICIANO FREE 1 [facility] [place] [address] BRADEN FELICIANO THYROID 1 [facility] STIMULATI INC INC NG HORMONE TSH RADIOLOGI 64226 BRADEN FELICIANO C EXAM 1 [facility] CHEST 2 INC INC VIEWS FRONTAL&L ATERAL RADEX 75689 BRADEN FELICIANO WRIST 1 [facility] COMPLETE INC INC MINIMUM 3 [place] [address] BRADEN FELICIANO THYROID 1 [facility] STIMULATI [place] [address] BRADEN FELICIANO FREE 1 [facility] THYROXINE INC INC MICROSOMA 60017 BRADEN FELICIANO L 1 [facility] ANTIBODIE INC INC S EACH US SOFT 02456 BRADEN FELICIANO TISSUE 1 [facility] HEAD & INC INC NECK REAL TIME IMGE DOCM IAADI 64294 BRADEN FELICIANO INFFLUENZ 1 [facility] A A VIRUS INC INC IAADI 70736 BRADEN FELICIANO INFLUENZA 1 [facility] B VIRUS INC INC RADEX 04665 BRADEN FELICIANO HAND 0 [facility] MINIMUM 3 INC INC VIEWS RADEX 55220 BRADEN FELICIANO WRIST 0 [facility] COMPLETE INC INC MINIMUM 3 VIEWS US SOFT 15259 BRADEN FELICIANO TISSUE 0 [facility] HEAD & INC [place] [address] BRADEN FELICIANO FREE 0 [facility] [place] [address] BRADEN FELICIANO THYROID 0 [facility] STIMULATI INC INC NG HORMONE TSH CULTURE 87464 BRADEN FELICIANO BACTERIAL 0 [facility] INC INC QUANTTATI VE COLONY COUNT URINE BLOOD 49653 BRADEN FELICIANO COUNT 0 [facility] COMPLETE INC INC AUTO&AUTO DIFRNTL WBC CT PELVIS 53811 BRADEN FELICIANO W/O 0 [facility] CONTRAST INC INC MATERIAL 3D 83453 BRADENBRENTON FELICIANO RENDERING 0 [facility] INC INC W/INTERP& POSTPROC DIFF WORK STATION COMPREHEN 00397 BRADEN FELICIANO SIVE 0 [facility] METABOLIC INC INC PANEL URNLS DIP 41844 BRADEN FELICIANO 0 [facility] STICK/TAB INC [place] [address] BRADEN FELICIANO ABDOMEN 0 [facility] W/O INC INC CONTRAST MATERIAL URINE 98476 [facility] TEST INC INC VISUAL COLOR CMPRSN METHS RADEX 43091 [place] DAHIANA SPINE 0 MEDICAL KRISTIE LUMBOSACR IMAGING AL ASS MINIMUM 4 VIEWS RADIOLOGI 64676 [place] DAH[place]NA C 0 MEDICAL KRISTIE EXAMINATI IMAGING ON PELVIS ASS 1/2 VIEWS RADEX 37604 [place] DAH[place]NA FOOT 0 MEDICAL KRISTIE COMPLETE IMAGING MINIMUM 3 ASS VIEWS APPLICATI 75877 [facility] FELICIANO ON 0 [facility] MODALITY INC INC 1/> AREAS HOT/COLD PACKS APPL 51569 [facility] FELICIANO MODALITY 0 [facility] 1/> AREAS INC INC ELEC STIMJ UNATTENDE D THERAPEUT 91069 BRADEN FELICIANO IC PX 1/> 0 [facility] AREAS INC INC EACH 15 MIN EXERCISES PHYSICAL 18841 [facility] FELICIANO THERAPY 0 [facility] EVALUATIO INC INC N THERAPEUT 00252 BRADEN FELICIANO IC PX 1/> 0 [facility] AREAS INC INC EACH 15 MIN EXERCISES APPL 46839 [facility] FELICIANO MODALITY 0 [facility] 1/> AREAS INC INC ELEC STIMJ UNATTENDE D APPLICATI 45768 [facility] FELICIANO ON 0 [facility] MODALITY INC INC 1/> AREAS H[place] [address] PATHOLOGY PATHOLOGY SURG 0 & & PATHOLOGY CYTOLOGY CYTOLOGY LAB LAB GROSS&ANTIONE ROSCOPIC EXAM ANES 94396 ANESTHESI LON BANEGAS 0 A JOHN E FRAGMNTJ ASSOCIATE MANJ&/RMV S, PSC L URETERAL CALCULUS CYSTO 81707 COMMONWEA MOSQUERA, W/URETERO 0 LTH ARIS D SCOPY UROLOGY W/RMVL/[place] [address] BRADEN FELICIANO THYROID 0 [facility] STIMULATI [place] [address] BRAD[facility] FELICIANO FREE 0 [facility] THYROXINE INC INC CALCIUM 69178 [facility] FELICIANO TOTAL 0 [facility] INC INC FINE 37776 JUDE ROQUE, NEEDLE 0 CYDNEY G CYDNEY G ASPIRATIO N W/O IMAGING GUIDANCE MICROSOMA 05031 [facility] FELICIANO L 0 [facility] ANTIBODIE INC INC S EACH BASIC 75625 [facility] FELICIANO METABOLIC 0 [facility] PANEL INC INC CALCIUM TOTAL TOBACCO 75356 [facility] FELICIANO USE 0 [facility] CESSATION INC INC INTERMEDI ATE 3-10 MINUTES OBSERVATI 84028 LICKING BESSON, ON CARE 0 ANIKET ROWE A DISCHARGE INTERNAL MED MANAGEMEN T BLOOD 19002 [facility] FELICIANO COUNT 0 [facility] COMPLETE INC INC AUTO&AUTO DIFRNTL WBC BLOOD 51036 [facility] FELICIANO COUNT 0 [facility] COMPLETE INC INC AUTO&[place] [address] [facility]ADEN FELICIANO AMYLASE 0 [place] [address] BRADEN FELICIANO LIPASE 0 [facility] INC INC INITIAL 56438 LICKING NORMA VALEATI 0 ANIKET LEDESMA, ON INTERNAL RORY F CARE/DAY [place] [address] [place] [address] BR[facility] FELICIANO ABDOMEN 0 [facility] W/O INC INC CONTRAST MATERIAL URNLS DIP 19049 [facility]ICIANO [facility] STICK/TAB INC INC LET REAGENT AUTO MICROSCOP Y COMPREHEN 55378 [facility] FELICIANO SIVE 0 [facility] METABOLIC INC INC PANEL 3D 42624 [facility] FELICIANO RENDERING 0 [facility] INC INC W/INTERP& POSTPROC DIFF WORK STATION CT PELVIS 34309 [facility] FELICIANO W/O 0 [facility] CONTRAST INC INC MATERIAL IADNA 34503 PATHOLOGY PATHOLOGY PAPILLOMA 0 & & VIRUS CYTOLOGY CYTOLOGY HUMAN LAB LAB AMPLIFIED PROBE TQ CYTP 69426 PATHOLOGY PATHOLOGY CERVICAL/ 0 & & VAGINAL CYTOLOGY CYTOLOGY REQ LAB LAB INTERP PHYSICIAN URNLS DIP 09099 [facility] STICK/TAB CENTER CENTER LET RGNT NON-AUTO W/O MICRSCP CYTP 88558 PATHOLOGY PATHOLOGY CERV/VAG 0 & & AUTO THIN CYTOLOGY CYTOLOGY LAYER LAB LAB PREP MNL SCREEN US SOFT 26253 [place] KRISTIE, TISSUE 0 MEDICAL KUSH HEAD & IMAGING NECK REAL ASSOCIATE TIME S IMGE DOCM 3D 66540 KUSH C KRISTIE, RENDERING 0 KRISTIE KUSH W/INTERP & [place] [address] KUSH C KRISTIE, SPINAL 0 KRISTIE KUSH CANAL LUMBAR W/O CONTRAST MATERIAL MRI 50835 KUSH C KRISTIE, SPINAL 0 KRISTIE KUSH CANAL CERVICAL W/O CONTRAST MATRL CT PELVIS 74920 [facility] FELICIANO W/O 9 [facility] CONTRAST INC INC MATERIAL 3D 19717 [facility] FELICIANO RENDERING 9 [facility] INC INC W/INTERP& POSTPROC DIFF WORK STATION URINE 83280 [facility] FELICIANO 9 [facility] TEST INC INC VISUAL COLOR CMPRSN METHS COMPREHEN 85254 [facility] FELICIANO SIVE 9 [facility] METABOLIC INC INC PANEL URNLS DIP 67291 [facility] FELICIANO 9 [facility] STICK/TAB INC [place] [address] BRAD[facility] FELICIANO ABDOMEN 9 [facility] W/O INC INC CONTRAST MATERIAL CULTURE 34136 [facility] FELICIANO BACTERIAL 9 [facility] INC INC QUANTTAT[place] [address] BRADEN FELICIANO LIPASE 9 [facility] [place] [address] BRADEN FELICIANO AMYLASE 9 [facility] INC INC BLOOD 00239 [facility]AD[facility] FELICIANO COUNT 9 [facility] COMPLETE INC INC AUTO&AUTO DIFRNTL WBC GLUC BLD 50191 [facility] BRADEN GLUC MNTR 9 [facility] CLEARED BANK ACCT FDA SPEC HOME USE BLADDER 58839 MAZIN HOLLAND JR, PRESSURE 9 LTH RORY MEASUREME UROLOGY R NT DURING PSC FILLING EMG STDS 61166 MAZIN HOLLAND JR, ANAL/URTL 9 LTH RORY SPHNCTR UROLOGY R OTH/THN PSC NDL VOIDING 37866 MAZIN HOLLAND JR, PRESS 9 LTH RORY STDS BLDR UROLOGY R VOIDING PSC PRESS ANY TQ VOID 92445 MAZIN HOLLAND JR, PRESSURE 9 LTH RORY STUDIES UROLOGY R INTRAABDO PSC BALJIT COMPLEX 53930 MAZIN HOLLAND JR, UROFLOMET 9 LTH RORY RY UROLOGY R PSC CYSTO 25588 MAZIN HOLLAND JR, CALIBRATI 9 LTH RORY ON DILAT UROLOGY R URTL PSC STRIX/JOSE NOSIS CULTURE 21373 [facility] FELICIANO BACTERIAL 9 [facility] INC INC [place] [address] BRADEN FELICIANO STREPTOCO 9 [facility] CCUS INC INC GROUP A IAADI 93252 BRADEN FELICIANO INFLUENZA 9 [facility] B VIRUS INC INC IAADI 94479 BRADEN FELICIANO INFFLUENZ 9 [facility] A A VIRUS INC INC OPHTH 37862 [facility] 8 VISION NAMRATA M XM&EVAL COMPRHNSV ESTAB PT 1/> URNLS DIP 30772 [facility] FELICIANO 8 [facility] STICK/TAB INC INC LET REAGENT AUTO MICROSCOP Y COMPREHEN 41927 [facility] FELICIANO SIVE 8 [facility] METABOLIC INC INC PANEL ECG 59501 BRADEN KNIGHTMIKarson ROUTINE 8 [facility] W/LEAST PROF SERV 12 LDS I&R ONLY ECG 29290 BRADEN BRADEN ROUTINE 8 [facility] ECG INC INC W/LEAST 12 LDS TRCG ONLY W/O I&R BLOOD 30055 [facility] FELICIANO COUNT 8 [facility] COMPLETE INC INC AUTO&[place] [address] BRADEN BRADEN LIPASE 8 [place] [address] BRADEN FELICIANO AMYLASE 8 [place] [address] BRADEN BRADEN THYROID 8 [facility] STIMULATI INC INC NG HORMONE TSH BLOOD 95190 BRADEN BRADEN COUNT 8 [facility] COMPLETE INC INC AUTO&AUTO DIFRNTL WBC COMPREHEN 90707 BRADEN CHENON SIVE 8 [facility] METABOLIC INC INC PANEL LIPID 38031 BRADEN FELICIANO PANEL 8 [facility] INC INC Encounters Encounter Start End Date Code Location Performer Type Date [facility] BRAD[facility] - Seferino 7 [facility] OUTPATIEN INC T OFFICE 23479 BRADEN COOKPATIEN 7 7 [facility] T VISIT 5 INC MINUTES HOSPITAL BRADEN - 7 7 [facility] OUTPATIEN INC [facility] BRADEN - 7 7 [facility] OUTPATIEN INC T OFFICE 39776 [facility] HARPEL OUTPATIEN 7 7 PHYSICIAN T VISIT S GROUP 15 MINUTES HOSPITAL BRADEN - 7 7 [facility] OUTPATIEN INC T EMERGENCY 56682 SUKHDEV PETERSON DEPT 7 7 PHYSICIAN VISIT S, PLLC HIGH SEVERITY& THREAT FUNCJ [facility] BRADEN - 7 7 [facility] OUTPATIEN INC T EMERGENCY 44168 BRADEN 7 7 [facility] DEPARTMEN INC T VISIT HIGH/URGE NT SEVERITY OFFICE 29859 [facility] FRYMAN OUTPATIEN 7 7 PHYSICIAN T VISIT S GROUP 25 MINUTES OFFICE 90392 [facility] OUTPATIEN 7 7 PHYSICIAN T VISIT S GROUP 25 MINUTES HOSPITAL BRADEN - 7 7 [facility] OUTPATIEN INC T OFFICE 70827 BRADEN MOSQUERA OUTPATIEN 7 7 [facility] 10 P MINUTES OFFICE 76661 [facility] EMILY OUTPATIEN 7 7 PHYSICIAN T VISIT S GROUP 10 MINUTES HOSPITAL BRADEN - 6 6 [facility] OUTPATIEN INC T OFFICE 41489 [facility] EMILY OUTPATIEN 6 6 PHYSICIAN T VISIT S GROUP 10 MINUTES HOSPITAL BRADEN - 6 6 [facility] OUTPATIEN INC T OFFICE 35481 BRADEN MOSQUERA OUTPATIEN 6 6 [facility] 10 P MINUTES OFFICE 45318 BRADEN MOSQUERA OUTPATIEN 6 6 [facility] 20 HOSPITAL MINUTES P OFFICE 57739 [facility] FRYMAN OUTPATIEN 6 6 PHYSICIAN EUG T VISIT S GROUP 15 MINUTES EMERGENCY 60051 SUKHDEV PETERSON 6 6 PHYSICIAN ANTIONE DEPARTMEN S, PLLC T VISIT MODERATE SEVERITY OFFICE 91384 [facility] FRYMAN OUTPATIEN 6 6 PHYSICIAN EUG T VISIT S GROUP 15 MINUTES EMERGENCY 38761 SUKHDEV RENUSCH 6 6 PHYSICIAN HONG ALVAREZ S, [facility] T VISIT HIGH/URGE NT SEVERITY EMERGENCY 01376 SUKHDEV RENUSCH 6 6 PHYSICIAN HONG ALVAREZ S, [facility] T VISIT HIGH/URGE NT SEVERITY HOSPITAL [facility]ADEN - 6 6 [facility] T EMERGENCY 12149 BRADEN 6 6 [facility] T VISIT LOW/MODER SEVERITY PERIODIC 68932 [facility] PREVENTIV 6 6 PHYSICIAN E MED EST S GROUP PATIENT 40-64YRS HOSPITAL BRADEN - 6 6 [facility] OUTPATIEN [facility] OFFICE 92796 [facility] EMILY TOGarcia OUTPATIEN 6 6 PHYSICIAN T VISIT S GROUP 10 MINUTES OFFICE 91670 [facility] WOODS OUTPATIEN 6 6 PHYSICIAN BOOKER T VISIT S GROUP 25 MINUTES HOSPITAL BRADEN - 6 6 [facility] OUTPATIEN [facility] HOSPITAL BRADEN - 6 6 [facility] OUTPATIEN [facility] T EMERGENCY 72569 BRADEN 6 6 [facility] T VISIT HIGH/URGE NT SEVERITY OFFICE 58730 [facility] EMILY TOGarcia CONSULTAT 6 6 PHYSICIAN ION S GROUP NEW/ESTAB PATIENT 30 MIN OFFICE 21831 [facility] STONE MARY OUTPATIEN 6 6 PHYSICIAN T VISIT S GROUP 15 MINUTES HOSPITAL BRADEN - 6 6 [facility] HOSPITAL GEORGETOW - 6 6 N OUTPATIEN COMMUNTIY T [facility] BRADEN [facility] 6 6 [facility] T OFFICE 90324 [facility] RITA OUTPATIEN 6 6 PHYSICIAN ANTIONE T VISIT S GROUP 15 MINUTES OFFICE 76974 [facility] MEGHNA ALVA OUTPATIEN 6 6 PHYSICIAN T VISIT S GROUP 10 MINUTES OFFICE 23732 AMARI ANDRES OUTPATIEN 6 6 T VISIT ORTHOPAED 15 ICS PSC MINUTES OFFICE 36790 [facility] KARINA OUTPATIEN 6 6 PHYSICIAN ANTIONE T VISIT S GROUP 15 MINUTES OFFICE 99124 [facility]ENTRAL MCKENNA TRA OUTPATIEN 6 6 [place] T NEW 30 ORTHOPAED MINUTES ICS PLC OFFICE 96664 [facility] KARINA OUTPATIEN 6 6 PHYSICIAN ANTIONE T VISIT S GROUP 15 MINUTES OFFICE 40490 [facility] EMILY TOGarcia OUTPATIEN 5 5 PHYSICIAN T VISIT S GROUP 10 MINUTES EMERGENCY 54039 SUKHDEV PETERSON DEPT 5 5 PHYSICIAN ANTIONE VISIT S, PLL HIGH SEVERITY& THREAT FUNCJ EMERGENCY 46361 BRADEN 5 5 [facility] DEPARTMEN INC T VISIT MODERATE SEVERITY HOSPITAL BRADEN - 5 5 [facility] OUTPATIEN INC T [facility]PITAL BRADEN - 5 5 [facility] OUTPATIEN INC T [facility]PITAL BRADEN - 5 5 [facility] OUTPATIEN INC T OFFICE 73430 [facility] EMILY MATRIN CONSULTAT 5 5 PHYSICIAN ION S GROUP NEW/ESTAB PATIENT 40 MIN HOSPITAL BRADEN - 5 5 [facility] OUTPATIEN INC T OFFICE 21442 BRADEN PLATT OUTPATIEN 5 5 [facility] 15 MINUTES EMERGENCY 09680 BRADEN 5 5 [facility] DEPARTMEN INC T VISIT LOW/MODER SEVERITY HOSPITAL BRADEN - 5 5 [facility] OUTPATIEN INC T EMERGENCY 16113 SUKHDEV PARKER 5 5 [facility]ATE SEVERITY [facility] BRADEN - 5 5 [facility] OUTPATIEN INC T OFFICE 76657 CARDIOVAS LILIA OUTPATIEN 5 5 CULAR MAT T VISIT CONSULTAN 25 TS O MINUTES HOSPITAL BRADEN - 5 5 [facility] OUTPATIEN INC T [facility] BRAD[facility] - 5 5 [facility] T OFFICE 68995 BRADEN PLATT OUTPATIEN [address] MINUTES EMERGENCY 26075 SUKHDEV FRANKLIN 5 5 PHYSICIAN RAEGAN [facility] T VISIT HIGH/URGE NT SEVERITY EMERGENCY 31163 SUKHDEV STARK 5 5 PHYSICIAN SHELLEY [facility] T VISIT HIGH/URGE NT SEVERITY OFFICE 09273 [facility] ROQUE OUTPATIEN 5 5 PHYSICIAN NATTY T VISIT S GROUP 15 MINUTES PERIODIC 65815 [facility] EST [facility] DEPT HLTH DEPT PATIENT DANIELLE DANIELLE 18-39 YRS [facility] BRADEN - 5 5 [facility] T EMERGENCY 90224 [facility]AD[facility] 5 5 [facility] T VISIT LOW/MODER SEVERITY EMERGENCY 91637 BRADEN MATHEWS 5 5 [facility] T VISIT P MODERATE SEVERITY OFFICE 86067 [facility] OUTPATIEN 5 5 PHYSICIAN T VISIT S GROUP 25 MINUTES OFFICE 03459 JUDE ROQUE OUTPATIEN 5 5 NATTY NATTY T VISIT 10 MINUTES HOSPITAL BRADEN - 5 5 [facility] OUTPATIEN INC T EMERGENCY 08241 BRADEN 5 5 [facility] T VISIT LOW/MODER SEVERITY HOSPITAL BRADEN - 5 5 [facility] OUTPATIEN INC T EMERGENCY 86021 BRADEN 4 4 [facility] DEPARTMEN INC T VISIT MODERATE SEVERITY HOSPITAL BRADEN - 4 4 [facility] INC HOSPITAL BRADEN - 4 4 [facility] OUT[facility] INC T OFFICE 58153 [facility] PETTEY OUTPATIEN 4 4 PHYSICIAN JAM T VISIT S GROUP 15 MINUTES HOSPITAL BRADEN - 4 4 [facility] INC T OFFICE 91978 [facility] PETTEY OUTPATIEN 4 4 PHYSICIAN JAM T NEW 30 S GROUP MINUTES EMERGENCY 07853 [facility] 4 4 [facility] EMERGENCY T VISIT PHYS MODERATE SEVERITY HOSPITAL BRADEN - 4 4 [facility] INC HOSPITAL BRADEN [facility] 4 4 [facility] OUTPATIEN INC T OFFICE 67698 JUDE ROQUE OUTPATIEN 4 4 NATTY NATTY T VISIT 25 MINUTES EMERGENCY 22261 ALFARIS ALFARIS 4 4 [facility] DEPART[facility] T VISIT HIGH/URGE NT SEVERITY PERIODIC 94306 [facility] EST TH DEPT HLTH DEPT PATIENT DANIELLE DANIELLE 18-39 YRS OFFICE 18574 [facility] 4 [facility] T VISIT TH DEPT HLTH DEPT 10 DANIELLE DANIELLE MINUTES Emergency JUNO REYNAGA DO (ER) 4 10:11 4 12:50 [facility] EMERGENCY 46780 JUHI JOSE JUHI JOSE DEPT 4 4 VISIT HIGH SEVERITY& THREAT FUNCJ Emergency JUNO Foley MD (ER) 4 15:52 4 17:15 [facility] EMERGENCY 17825 BRADEN 4 4 [facility] DEPARTMEN INC T VISIT LOW/MODER SEVERITY EMERGENCY 96560 JOLYNN GATES 4 4 DEPARTMEN T VISIT MODERATE SEVERITY HOSPITAL BRADEN - 4 4 [facility] OUTPATIEN INC T Emergency JUNO FUENTES MD (ER) 4 09:25 4 11:46 [facility] EMERGENCY 20077 GINA FUENTES 4 4 [facility] T VISIT HIGH/URGE NT SEVERITY Emergency JUNO Peterson MD (ER) 3 02:20 3 05:42 [facility] Emergency JUNO Peterson MD (ER) 3 20:10 3 20:50 [facility] Emergency JUNO Levi MD (ER) 3 15:02 3 16:20 [facility] OFFICE 94934 JUDE ROQUE OUTLARRYEN 1 1 NATTY NATTY T VISIT 10 MINUTES HOSPITAL BRADEN - 1 1 [facility] OUTPATIEN INC T OFFICE 93553 JUDE ROQUE OUTPATIEN 1 1 NATTY NATTY T VISIT 10 MINUTES EMERGENCY 90019 NELY PETERSON DEPT 1 1 EMERGENCY ANTIONE VISIT SERVICES HIGH SEVERITY& THREAT [facility] BRADEN - 1 1 [facility] OUTPATIEN INC T OFFICE 07242 AKUA MURRAY 1 1 MITCHELL MITCHELL T VISIT 15 MINUTES HOSPITAL BRADEN - 1 1 [facility] OUTPATIEN INC T EMERGENCY 60712 BRADEN 1 1 [facility] DEPARTMEN INC T VISIT LOW/MODER SEVERITY EMERGENCY 68868 NELY PETERSON DEPT 1 1 EMERGENCY ANTIONE VISIT SERVICES HIGH SEVERITY& THREAT [facility] OFFICE 32446 AKUA MURRAY 1 1 MITCHELL MITCHELL T VISIT 15 MINUTES OFFICE 25854 ARNOLD ARNOLD OUTPATIEN 1 1 MITCHELL MITCHELL T VISIT 15 MINUTES HOSPITAL BRADEN - 1 1 [facility] OUT[facility]EN [facility] T EMERGENCY 12184 NELY PETERSON DEPT 1 1 EMERGENCY ANTIONE VISIT SERVICES HIGH SEVERITY& THREAT [facility] EMERGENCY 61455 BRADEN 1 1 [facility] DEPARTMEN INC T VISIT HIGH/URGE NT SEVERITY HOSPITAL BRADEN - 1 1 [facility] OUTPATIEN [facility] T OFFICE 39153 [place] ROQUE OUTPATIEN 1 1 NATTY NATTY T VISIT 15 MINUTES HOSPITAL BRADEN - 1 1 [facility] OUT[facility]EN [facility] HOSPITAL BRADEN - 1 1 [facility] T OFFICE 19068 LASHELL RUGGIERO CONSULTAT 1 1 JAM ION CARDIOLOG NEW/ESTAB Y CONSULT PATIENT 40 MIN OFFICE 39143 AKUA GARSIAREGINO OUTLARRYEN 1 1 [facility] MITCHELL T VISIT 15 MINUTES HOSPITAL BRADEN - 1 1 [facility] OUT[facility]IEN [facility] HOSPITAL BRADEN - 1 1 [facility] OUT[facility]IEN [facility] T EMERGENCY 99171 NELY PINTO 1 1 EMERGENCY DEPARTMEN SERVICES T VISIT HIGH/URGE NT SEVERITY EMERGENCY 43185 BRADEN 1 1 [facility] DEPARTMEN INC T VISIT LOW/MODER SEVERITY EMERGENCY 30833 BRADEN 1 1 [facility] DEPARTMEN INC T VISIT LOW/MODER SEVERITY EMERGENCY 64925 NELY PETERSON 1 1 EMERGENCY ANTIONE DEPARTMEN SERVICES T VISIT HIGH/URGE NT SEVERITY HOSPITAL BRADEN - 1 1 [facility] OUTPATIEN INC T OFFICE 16888 BAPTISM ONEYDA CONSULTAT 1 1 [facility] NEW/ESTAB JOHN PATIENT 80 MIN OFFICE 81796 ROQUE ROQUE OUTPATIEN 1 1 NATTY NATTY T VISIT 10 MINUTES EMERGENCY 15367 BRADEN 1 1 [facility] DEPARTMEN INC T VISIT LOW/MODER SEVERITY EMERGENCY 29448 NELY CAMPOS 1 1 [facility] T VISIT MODERATE SEVERITY [facility]EN - 1 1 [facility] OUTPATIEN INC T OFFICE 46259 AKUA FATIMA OUTPATIEN 1 1 MITCHELL MITCHELL T VISIT 15 MINUTES HOSPITAL BRADEN - 1 1 [facility] OUTPATIEN INC T OFFICE 86552 JUDE GLYNNON OUTPATIEN 1 1 NATTY NATTY T VISIT 10 MINUTES HOSPITAL BRADEN - 1 1 [facility] OUTPATIEN INC T OFFICE 72782 JUDE GLYNNON OUTPATIEN 1 1 NATTY NATTY T VISIT 15 MINUTES EMERGENCY 48816 BRADEN 1 1 [facility] DEPARTMEN INC T VISIT LOW/MODER SEVERITY EMERGENCY 08964 NELY PETERSON 1 1 [facility] HIGH/URGE NT SEVERITY [facility] - 1 1 [facility] OUTPATIEN INC T OFFICE 87624 JUDE GLYNNON OUTPATIEN 1 1 NATTY NATTY T VISIT 10 MINUTES HOSPITAL BRADEN - 0 0 [facility] OUTPATIEN INC T EMERGENCY 90440 BRADEN 0 0 [facility] DEPARTMEN INC T VISIT LOW/MODER SEVERITY PERIODIC 18260 BRADEN FELICIANO PREVENTIV 0 0 [facility] PATIENT 18-39 YRS HOSPITAL BRADEN - 0 0 [facility] OUTPATIEN INC T EMERGENCY 83375 BRADEN 0 0 [facility] DEPARTMEN INC T VISIT HIGH/URGE NT SEVERITY EMERGENCY 27227 NELY SEVILLA DEPT 0 0 EMERGENCY GRE VISIT SERVICES HIGH SEVERITY& THREAT [facility] BRADEN - 0 0 [facility] OUTPATIEN INC T EMERGENCY 90201 BRADEN 0 0 [facility] DEPARTMEN INC T VISIT LOW/MODER SEVERITY HOSPITAL BRADEN - 0 0 [facility] OUTPATIEN INC T EMERGENCY 39258 NELY PETERSON 0 0 EMERGENCY [facility] DEPARTMEN SERVICES T VISIT HIGH/URGE NT SEVERITY OFFICE 91080 JUDE ROQUE, OUTPATIEN 0 0 CYDNEY G CYDNEY G T VISIT 15 MINUTES HOSPITAL BRADEN - 0 0 [facility] OUTPATIEN INC T OFFICE 81374 [facility] OUTPATIEN 0 0 [place] T VISIT ORTHOPAED 15 [facility] MINUTES OFFICE 41887 [facility] 0 0 [facility] T [facility]26 JUDE ROQUE, OUTPATIEN 0 0 CYDNEY G CYDNEY G T VISIT 10 MINUTES [facility] - [facility] 0 [facility] T OFFICE 20355 JUDE ROQUE, OUTPATIEN 0 0 CYDNEY G CYDNEY G T NEW 45 MINUTES OFFICE 29396 AKUA FATIMA OUTPATIEN 0 0 JAMES Bui T VISIT 15 MINUTES OFFICE 81478 MAZIN MOSQUERA OUTPATIEN 0 0 H ARIS D T VISIT UROLOGY 25 PSC MINUTES EMERGENCY 34882 NELY PETERSON, HANST 0 0 EMERGENCY NEMO S VISIT SERVICES HIGH SEVERITY& ASSOCIATE THREAT S FUN EMERGENCY 87091 [facility] 0 0 [facility] DEPARTMEN INC T VISIT HIGH/URGE NT SEVERITY [facility] - 0 0 [facility] OUT[facility] INC T OFFICE 89297 [facility] FELICIANO OUTPATIEN 0 0 [facility] VISIT CENTER CENTER 15 MINUTES OFFICE 03413 [facility], CONSULTAT 0 0 [place] TRUDY Ruiz ION ORTHOPAED NEW/ESTAB [facility] PATIENT 60 MIN [facility] - 0 0 [facility] INC T OFFICE 01311 AKUA FATIMA OUTPATIEN 0 0 JAMES Bui T VISIT 15 MINUTES OFFICE 76905 AKUA FATIMA OUTPATIEN 9 9 JAMES Bui T NEW 30 MINUTES EMERGENCY 06907 [facility] 9 9 [facility] DEPARTMEN INC T VISIT HIGH/URGE NT SEVERITY [facility] - 9 9 [facility] OUT[facility] INC T OFFICE 98613 BEULAH RIOJAS OUTPATIEN 9 9 DON R DON R T VISIT 15 MINUTES OFFICE 40295 [facility] OUTPATIEN 9 9 [facility] T VISIT [facility] 10 BANK ACCT MINUTES OFFICE 07505 MAZIN HOLLAND JR OUTPATIEN 9 9 [facility] T VISIT UROLOGY R 10 PSC MINUTES OFFICE 95828 MAZIN HOLLAND JR, CONSULTAT 9 9 [facility] RORY ION UROLOGY R NEW/ESTAB PSC PATIENT 30 MIN OFFICE 13968 BEULAH RIOJAS OUTPATIEN 9 9 DON R DON R T VISIT 15 MINUTES OFFICE 48791 BEULAH RIOJAS OUTPATIEN 9 9 DON R DON R T VISIT 15 MINUTES OFFICE 55878 BEULAH RIOJAS OUTPATIEN 9 9 DON R DON R T VISIT 15 MINUTES [facility] - 9 9 [facility] INC T OFFICE 13359 BEULAH RIOJAS OUTPATIEN 9 9 DON R DON R T VISIT 15 MINUTES [facility]OSP[facility] - 9 9 [facility] OUT[facility] INC T EMERGENCY 86065 [facility] 9 9 [facility] DEPARTMEN INC T VISIT HIGH/URGE NT SEVERITY EMERGENCY 41600 NELY PETERSON, 9 9 EMERGENCY [facility] T VISIT MODERATE ASSOCIATE SEVERITY S OFFICE 59853 BEULAH RIOJAS OUTPATIEN 9 9 DON R DON R T VISIT 15 MINUTES EMERGENCY 97277 [facility] 9 9 [facility] LOW/MODER SEVERITY EMERGENCY 74855 NELY PETERSON, 9 9 EMERGENCY [facility] T VISIT MODERATE ASSOCIATE SEVERITY S [facility]OSP[facility] - 9 9 [facility] T OFFICE 75221 BEULAH RIOJAS OUTPATIEN 9 9 DON R DON R T VISIT 15 MINUTES OFFICE 76891 BEULAH RIOJAS OUTPATIEN 9 9 DON R DON R T VISIT 15 MINUTES OFFICE 40472 BEULAH RIOJAS OUTPATIEN 8 8 DON R DON R T VISIT 15 MINUTES OFFICE 51181 BEULAH RIOJAS OUTPATIEN 8 8 DON R DON R T VISIT 15 MINUTES [facility] - 8 8 [facility] T EMERGENCY 74459 NAIMA KEENE, HANST 8 8 [employer] E VISIT CORPORATI HIGH ON SEVERITY& THREAT [facility] BRADEN - 8 8 [facility] T OFFICE 49484 BEULAH RIOJAS OUTPATIEN 8 8 DON R DON R T VISIT 15 MINUTES EMERGENCY 13105 [facility] 8 8 [facility] DEPART[facility] INC T VISIT MODERATE SEVERITY [facility] - 8 8 [facility] T
--- OUTSIDE RECORDS SUMMARY | 2017-08-01 23:10 | External Medical Summary Rpt | CCD ---
Author Author , CARIN DEL ROSARIO Address Unknown Phone .OPHTHONIX Care Team Providers Care Transportation Economics Teacher Name Role Phone MOSQUERA, MOSQUERA Unavailable Unavailable MOSQUERA CORTEZ, MOSQUERA Unavailable Unavailable CORTEZ MOSQUERA, ARIS D, Unavailable Unavailable MOSQUERA, ARIS D ALFARIS MOH, ALFARIS Unavailable Unavailable MOH ARNOLD MITCHELL, ARNOLD Unavailable Unavailable MITCHELL ARNOLD MITCHELL, ARNOLD Unavailable Unavailable MITCHELL JAMES FATIMA W, Unavailable Unavailable ARNREGINO, JAMES W SAAB KEITH, SAAB KEITH Unavailable Unavailable BAKRISS B[facility] Unavailable Unavailable [facility] Un[facility] Unavailable Unavailable OF [facility], [facility] FUENTES BRO, FUENTES Unavailable Unavailable BRO FUENTES BRO, FUENTES Unavailable Unavailable BRO BEINEKE SHELLEY, BEINEKE Unavailable Unavailable SHELLEY COFFMAN TER, COFFMAN TER Unavailable Unavailable BESSON, BESSON Unavailable Unavailable BESSON JOSE, BESSON Unavailable Unavailable JOSE BESSON, JAE A, Unavailable Unavailable BESSON, JAE A [facility] Unavailable Unavailable [facility], [facility] MOLINA, MOLINA Unavailable Unavailable MOLINA ALL, MOLINA ALL Unavailable Unavailable [facility] Unavailable Unavailable [facility] Unavailable Unavailable [facility], [facility] VANITA TER, VANITA TER Unavailable Unavailable VANITA TER, VANITA TER Unavailable Unavailable WOODS BOOKER, WOODS Unavailable Unavailable BOOKER CHUCK BOOKER, WOODS Unavailable Unavailable BOOKER FELIX WOODS, Unavailable Unavailable FELIX WOODS [facility] Unavailable Unavailable ANESTHESIA [facility], [facility] ANESTHESIA P[facility] Unavailable Unavailable ASC, [facility] Unavailable Unavailable [facility], [facility] CRAGER JAM, CRAGER Unavailable Unavailable JAM AMALIA PAT, AMALIA PAT Unavailable Unavailable AMALIA MATTI, AMALIA PAT Unavailable Unavailable RORY HOLLAND JR, [...] NEMO S, Unavailable Unavailable KARINA, NEMO S [facility] Unavailable Unavailable HOSPITA, [facility] HOSPITA DAY ANT, DAY Unavailable Unavailable ANT YECENIA, RONDAL E, Unavailable Unavailable YECENIA, RONDAL E ROVERTO ANTIONE, ROVERTO ANTIONE Unavailable Unavailable SALAZAR MILLIE, SALAZAR MILLIE Unavailable Unavailable HARPEL, HARPEL Unavailable Unavailable [facility] Unavailable Unavailable CENTER, [facility] Unavailable Unavailable CENTER, [facility] Unavailable Unavailable INC, [facility] Unavailable Unavailable [facility], [facility] Un[facility] Un[facility] P, [facility] P [facility], Unavailable Unavailable [facility] ANDRES, ANDRES Unavailable Unavailable ANDRES TRA, ANDRES TRA Unavailable Unavailable ANDRES, TRUDY A, ANDRES, Unavailable Unavailable TRUDY A [facility] Unavailable GROUP PS, [facility] Un[facility] Un[facility], [facility] Unavailable [facility]available [facility], [facility] ROQUE NATTY, ROQUE Unavailable Unavailable NATTY ROQUE NATTY, ROQUE Unavailable Unavailable NATTY CYDNEY ROQUE, Unavailable Unavailable CYDNEY ROQUE DWI, DOROTHY DWI Unavailable Unavailable DOROTHY JR DWI, DOROTHY Unavailable Unavailable JR DWI DOROTHY JR DWI, DOROTHY Unavailable Unavailable JR DWI BO MITCHELL, BO Unavailable Unavailable MITCHELL NOEMI RAEGAN, NOEMI Unavailable Unavailable RAEGAN NELY [facility], Unavailable Unavailable [facility] Unavailable Unavailable SERVICES, [facility] CONTE MAR, CONTE Unavailable Unavailable MAR NORMA CARLOS, Unavailable Unavailable RORY BEACH JR, JR Unavailable Unavailable F, RORY GREEN JR F DAHIANA RODRIGUEZ Unavailable Unavailable JOSEFINA OLEARY P, Unavailable Unavailable JOSEFINA TALBOT P KETURAH TORRES Unavailable Unavailable [facility], Unavailable Unavailable [facility], [facility] Unavailable Unavailable LAB, [facility] PETTEY JAM, PETTEY Unavailable Unavailable MYRIAM DAVIS VANDANA, Unavailable Unavailable RYAN LEDESMA VANDANA [facility] Unavailable Unavailable DEPT, [facility] DEPT EMILY, EMILY Unavailable Unavailable [...] Unavailable SOTINGEANU SHELLEY, Unavailable Unavailable SOTINGEANU SHELLEY [facility] Unavailable Unavailable EMERGENCY PHYS, [facility] REYES ANA, REYES Unavailable Unavailable ANA RIOJAS, DON R, Unavailable Unavailable RIOJAS, DON R STONE MARY, STONE MARY Unavailable Unavailable SEVILLA GRE, SEVILLA Unavailable Unavailable GRE SHERIN, SHERIN Unavailable Unavailable TIKHTMAN, TIKHTMAN Unavailable Unavailable AGUDELO MOL, AGUDELO MOL Unavailable Unavailable [facility] Unavailable [facility]available [facility] Unavailable Unavailable #[id number], [id number] # Unavailable Unavailable [id number], [facility] # [id number] [facility] Unavailable [facility]available DEPT [facility], [facility] DEPT [facility] Unavailable Unavailable DEPT [facility], [facility] DEPT [facility] WEHRMAN III BREANNA, Unavailable Unavailable WEHRMAN III BREANNA WEHRMAN III, RORY, Unavailable Unavailable WEHRMAN III, RORY JOLYNN GATES, WELLS YAJAIRA Unavailable Unavailable WELLS YAJAIRA, WELLS YAJAIRA Unavailable Unavailable WELLS SHA, WELLS SHA Unavailable Unavailable JOHN BANEGAS E, Unavailable Unavailable JOHN BANEGAS CORTEZ, JEFFREY Unavailable Unavailable CORTEZ Purpose Continuity of Care Document - 06-08-2008 through 2016 Problems Code Diagnosis DOS Provider Status D259 LEIOMYOMA 03-06-2017 [facility] UNSPECIFIED N815 VAGINAL 03-06-2017 [facility] N8189 OTHER 03-06-2017 [facility] FEMALE PHYSICIANS GENITAL GROUP PROLAPSE N938 OTHER SPEC 03-06-2017 [facility] ABNORMAL PHYSICIANS UTERINE & GROUP VAGINAL BLEEDING R102 PELVIC AND 03-06-2017 [facility] PERINEAL [facility] PAIN INC B349 VIRAL 02-28-2017 [facility] INFECTION [facility] UNSPECIFIED INC N819 FEMALE 02-23-2017 [facility] GENITAL [facility] PROLAPSE INC UNSPECIFIED N852 HYPERTROPHY 02-23-2017 [facility] OF [facility]US [facility] INC N920 EXCESS & 02-23-2017 [facility] FREQUENT [facility] MENSTRUATIO INC N W/REGULAR CYCLE I65946 ENCOUNTER 02-23-2017 [facility] FOR OTHER [facility] PREPROCEDUR INC AL EXAMINATION R938 ABNORMAL 01-18-2017 [facility] FIND ON DX MEDICAL IMAGING OT IMAGING ASS SPEC BODY STRCT F27546 ENCOUNTER 01-12-2017 [facility] 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 EXAM PHYSICIANS GENERAL RTN GROUP W/ABNORMAL FIND Z1212 ENCOUNTER 01-12-2017 [facility] SCREENING PHYSICIANS MALIGNANT GROUP NEOPLASM RECTUM R072 PRECORDIAL 12-30-2016 [facility] PAIN [facility] R079 CHEST PAIN 12-30-2016 [place] UNSPECIFIED MEDICAL IMAGING ASS J0100 ACUTE 12-11-2016 [facility] MAXILLARY PHYSICIANS SINUSITIS GROUP UNSPECIFIED J208 ACUTE 11-27-2016 [facility] BRONCHITIS PHYSICIANS DUE TO GROUP OTHER SPEC ORGANISMS N3020 OTHER 11-14-2016 [facility] WITHOUT HEMATURIA N8110 CYSTOCELE 11-14-2016 [facility] P H26775 PERSONAL 11-01-2016 [facility] HISTORY OF PHYSICIANS COLONIC GROUP POLYPS K635 POLYP OF 10-19-2016 [facility] COL[facility] Z09 ENC F/U 10-19-2016 [facility] EXAM AFTR PHYSICIANS CMPL TX OTH GROUP THAN MALIG NEOPLSM K5909 OTHER 10-04-2016 [facility] CONSTIPATIO PHYSICIANS N GROUP R197 DIARRHEA 10-04-2016 [facility] UNSPECIFIED PHYSICIANS GROUP N359 URETHRAL 09-12-2016 [facility] P N390 URINARY 09-12-2016 [facility] ANESTH OF INFECTION THE BLUE SITE NOT SPECIFIED R319 HEMATURIA 08-07-2016 [facility] UNSPECIFIED PHYSICIANS GROUP [id number] ALLERGY 08-04-2016 [facility] UNSPECIFIED PHYSICIANS, INITIAL PLLC ENCOUNTER N210 CALCULUS IN 07-07-2016 [facility] BLADDER PHYSICIANS GROUP N3090 CYSTITIS 07-07-2016 [facility] UNSPECIFIED PHYSICIANS, WITHOUT PLLC HEMATURIA Z1231 ENCOUNTER 07-04-2016 [place] SCREENING MEDICAL MAMMO MALIG IMAGING ASS NEOPLASM BREAST I10 ESSENTIAL 07-02-2016 [facility] HYPERTENSIO INC N R1030 LOWER 07-02-2016 [facility] ABDOMINAL PHYSICIANS, PAIN PLLC UNSPECIFIED Z720 TOBACCO USE 07-02-2016 [facility] INC Z57576 ATYP SQ 06-23-2016 [facility] CELLS UNDET [facility] SIGNIFICANC E CYTOL SMER CERV L77353 ENCOUNTER 06-23-2016 [facility] 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 EXAM PHYSICIANS GENERAL RTN GROUP W/O ABNORMAL FIND N949 UNS COND 06-09-2016 [facility] ASSOC W/FE [facility] GENIT ORGN INC & MENSTRUAL CYCL E039 HYPOTHYROID 06-05-2016 [facility] ISM [facility] UNSPECIFIED INC K5900 CONSTIPATIO 05-01-2016 [facility] N PHYSICIANS UNSPECIFIED GROUP R109 UNSPECIFIED 05-01-2016 [facility] ABDOMINAL PHYSICIANS PAIN GROUP G5601 CARPAL 02-16-2016 [facility] [place] ANESTHESIA SYNDROME GROUP PS RIGHT UPPER LIMB R82025 ENCOUNTER 02-08-2016 [facility] FOR [facility] PREPROCEDUR INC AL LABORATORY EXAM L240 IRRITANT 02-06-2016 [facility] CONTACT PHYSICIANS DERMATITIS GROUP DUE TO DETERGENTS V11850 ACUTE & 01-28-2016 [facility] SUBACUTE PHYSICIANS ALLERGIC GROUP OTITS MEDIA BILATERAL G5602 CARPAL 01-27-2016 [facility] SYNDROME S PSC LEFT UPPER LIMB J40 BRONCHITIS 12-29-2015 [facility] NOT PHYSICIANS SPECIFIED GROUP ACUTE OR CHRONIC R200 ANESTHESIA 11-02-2015 [facility] OF SKIN PHYSICIANS GROUP D126 BENIGN 10-11-2015 [facility] NEOPLASM OF PHYSICIANS COLON GROUP UNSPECIFIED K625 HEMORRHAGE 10-11-2015 [facility] OF ANUS AND PHYSICIANS RECTUM GROUP K9189 OTH 10-07-2015 [facility] POSTPROC PHYSICIANS, COMP & PLLC DISORDERS DIGESTIVE SYSTEM R1032 LEFT LOWER 10-07-2015 [place] QUADRANT MEDICAL PAIN IMAGING ASS M549 DORSALGIA 09-10-2015 [facility] UNSPECIFIED [facility] INC K828 OTHER 09-08-2015 [facility] SPECIFIED [facility] DISEASES OF INC GALLBLADDER W31471G STRAIN 09-08-2015 [facility] MUSCLE PHYSICIANS, FASCIA & PLLC TENDON LOW BACK INITIAL 2468 OTHER 07-20-2015 [facility] SPECIFIED LAR DISORDERS CONSULTANTS OF THYROID O 7644 OTHER AND 07-20-2015 [facility] UNSPECIFIED [facility]OS[facility] INC HYPERLIPIDE KAITLYN 09707 UNSPEC HTN 07-20-2015 [facility] HEART LAR DISEASE CONSULTANTS WITHOUT O HEART FAIL 89837 COR 07-20-2015 [facility] [facility]OSLERO [facility] UNSPEC INC TYPE VESSEL NAVAJO/APURVA T 4019 UNSPECIFIED 07-13-2015 [facility] ESSENTIAL [facility] HYPERTENSIO INC N 4139 OTHER AND 07-13-2015 [facility] UNSPECIFIED [facility] ANGINA INC PECTORIS 12375 NONSPECIFIC 07-08-2015 [place] [facility] ABNORMAL SERV [employer] CRE [facility] IOGRAM 193 MALIGNANT 07-01-2015 [facility] NEOPLASM [facility] THYROID [facility] P GLAND 2449 UNSPECIFIED 07-01-2015 [facility] HYPOTHYROID [facility] P ISM 3540 CARPAL 07-01-2015 [facility] SYNDROME [facility] 77626 CHEST PAIN 07-01-2015 [facility] 5990 URINARY 06-21-2015 [facility] TRACT PHYSICIANS, INFECTION PLLC SITE NOT SPECIFIED 71761 ABDOMINAL 06-21-2015 [place] PAIN OTHER MEDICAL SPECIFIED IMAGING ASS SITE 84430 MIGRAINE 06-12-2015 [facility] UNSP W/O PHYSICIANS, INTRACT W/O PLLC STATUS MIGRAINOSUS 92674 VISUAL 06-12-2015 [facility] DISCOMFORT PHYSICIANS, PLLC 2397 NEOPLSM UNS 04-05-2015 [facility] NATR PHYSICIANS ENDOCRN GROUP GLND&OTH PART NERV SYS V2540 UNSPECIFIED 02-09-2015 [facility] VE DANIELLE SURVEILLANC E V2689 OTHER 02-09-2015 [facility] SPECIFIED [facility] PROCREATIVE [facility] DEPT MANAGEMENT DANIELLE V7231 ROUTINE 02-09-2015 [facility] G[facility] AL EXAMINATION 4659 ACUTE URIS 01-26-2015 [facility] UNSPECIFIED HOSPITAL P SITE 19974 FEVER 01-26-2015 [facility] UNSPECIFIED MEDICAL IMAGING ASS 7862 COUGH 01-26-2015 [facility] 7962 ELEVATED BP 01-26-2015 [facility] WITHOUT DX HOSPITAL P HYPERTENSIO N 6259 UNSPEC 01-14-2015 [facility] SYMPTOM PHYSICIANS ASSOC GROUP W/FEMALE GENITAL ORGANS 21620 ABDOMINAL 01-14-2015 [facility] PAIN, LEFT PHYSICIANS LOWER GROUP QUADRANT 29376 UNSPECIFIED 01-06-2015 [facility] PHYSICIANS CONSTIPATIO GROUP N 33115 THYROTOX 11-26-2014 [facility] W/O [facility] GOITER/OTH INC CAUSE W/O CRISIS 81136 GENERALIZED 10-23-2014 [facility] PAIN [facility] INC 7840 HEADACHE 10-23-2014 [facility] INC V0179 CONTACT OR 10-23-2014 [facility] EXPOSURE TO [facility] OTHER INC VIRAL DISEASES V642 SURG/OTH 10-23-2014 [facility] PROC NOT [facility] CARRIED OUT INC BECAUSE PTS DECN 53953 HEMATURIA 10-04-2014 [place] UNSPECIFIED MEDICAL IMAGING ASS 7880 RENAL COLIC 10-04-2014 [facility] P 22008 UNSPECIFIED 09-25-2014 [facility] SITE OF MEM HOS[facility] ANKLE INC SPRAIN AND STRAIN 75360 OTHER ANKLE 09-25-2014 [facility] SPRAIN AND PHYSICIANS STRAIN GROUP 98789 OTHER JOINT 08-28-2014 [facility] PHYSICIANS DERANGEMENT GROUP NEC ANKLE AND FOOT 226 BENIGN 08-11-2014 [facility] NEOPLASM OF THYROID GLANDS 2419 UNSPECIFIED 08-11-2014 [facility] NODULAR HOS[facility] GOITER V5869 LONG-TERM 08-05-2014 [facility] USE OF HOSPITAL P OTHER MEDICATIONS V7263 PRE-PROCEDU 08-05-2014 [facility] P EXAMINATION 05332 PAIN IN 07-15-2014 [place] JOINT, MEDICAL ANKLE AND IMAGING ASS FOOT 7295 PAIN IN 07-15-2014 [facility] SOFT N EMERGENCY TISSUES OF PHYS LIMB 2411 NONTOXIC 06-10-2014 [facility] MULTINODULA H R GOITER ANESTHESIA PSC 83269 DYSPHAGIA 06-10-2014 [facility] UNSPECIFIED H ANESTHESIA PSC 2410 NONTOXIC 05-29-2014 [facility] UNINODULAR MEM HOSP GOITER INC 6262 EXCESSIVE 04-14-2014 [facility] BOOKER OR FREQUENT MENSTRUATIO N 6264 IRREGULAR 04-14-2014 [facility] MENSTRUAL CYCLE 6253 DYSMENORRHE 03-19-2014 [facility]OOKER A 6227 MUCOUS 03-18-2014 AMAL[facility] CHINO POLYP OF CERVIX 13586 PAP SMER 02-17-2014 [facility]AN[facility] ALVA CERV W/ATYPICAL SQUAMOUS CELLS UNDET V252 STERILIZATI 02-17-2014 [facility] DE[facility] DANIELLE 73300 MORBID 12-03-2013 DOROTHY LEDESMA OBESITY DWI 21477 OTHER CHEST 12-03-2013 JU[facility] JOSE PAIN V140 PERSONAL 12-03-2013 DOROTHY LEDESMA HISTORY OF DWI ALLERGY TO PENICILLIN V148 PERSONAL 12-03-2013 DOROTHY LEDESMA HISTORY DWI ALLERGY OTH SPEC MEDICINAL AGTS 4619 ACUTE 11-16-2013 JOLYNN GATES SINUSITIS, UNSPECIFIED 7242 LUMBAGO 11-01-[address] GOITER, 07-10-2011 [facility] NATTY UNSPECIFIED 2459 UNSPECIFIED 07-03-2011 [facility] NAT[facility] THYROIDITIS 5409 ACUTE 06-27-2011 [facility] APPENDICITI EMERGENCY S WITHOUT SERVICES MENTION PERITONITIS 541 APPENDICITI 06-27-2011 COMMUNITY S, ANESTH OF UNQUALIFIED THE BLUE 13231 ABDOMINAL 06-27-2011 [place] PAIN, MEDICAL UNSPECIFIED IMAGING ASS SITE 6869 UNSPEC 06-21-2011 [facility] LOCAL INFECTION SKIN&SUBCUT ANEOUS TISSUE 7881 DYSURIA 05-21-2011 [place] [facility] 92062 ABDOMINAL 05-21-2011 [facility] PAIN RIGHT [facility] LOWER INC QUADRANT 5641 IRRITABLE 05-04-2011 [facility] BOWEL SYNDROME 6929 CONTACT 05-04-2011 [facility] DERMATITIS& OTHER ECZEMA DUE UNSPEC CAUSE 4871 INFLUENZA 04-17-2011 [facility] WITH OTHER RESPIRATORY MANIFESTATI ONS 17217 PAINFUL 04-07-2011 [place] RESPIRATION MEDICAL IMAGING ASS 2722 MIXED 03-21-2011 [facility] HYPERLIPIDE [facility] K[facility] INC 5110 PLEURISY 03-07-2011 [facility] WITHOUT EMERGENCY MENTION SERVICES EFFUS/CURRE NT TB 4660 ACUTE 01-24-2011 [facility] BRONCHITIS EMERGENCY SERVICES 31635 MIGRAINE 12-28-2010 [facility] W/O [facility] INTRACT W/O CENTER JOHN STATUS MIGRAINOSUS 58867 PAIN IN 12-14-2010 [facility] JOINT, EMERGENCY FOREARM SERVICES 46817 VARIANTS 12-07-2010 [facility] MIGRAINE NEC INTRACT MIGRAINE W/O SM 463 ACUTE 11-28-2010 [facility] TONSILLITIS 27113 ASTHMA, 11-18-2010 [facility] UNSPECIFIED EMERGENCY , SERVICES UNSPECIFIED STATUS 462 ACUTE 10-31-2010 [facility] NAT[facility] PHARYNGITIS 4760 CHRONIC 10-31-2010 [facility] LARYNGITIS 87896 CHRONIC 10-03-2010 [facility] TONSILLITIS 07714 SPRAIN AND 09-18-2010 [facility] STRAIN OF EMERGENCY UNSPECIFIED SERVICES SITE OF WRIST 05924 SPRAIN AND 09-18-2010 [facility] STRAIN OF EMERGENCY UNSPECIFIED SERVICES SITE OF HAND 9593 INJURY 09-18-2010 [place] OTHER&UNSPE MEDICAL CIFIED IMAGING ASS EL[employer]OW [employer]EARM&WRI ST 9594 INJURY 09-18-2010 [place] OTHER AND MEDICAL UNSPECIFIED IMAGING ASS HAND EXCEPT FINGER E8859 FALL FROM 09-18-2010 [facility] OTHER EMERGENCY SLIPPING SERVICES TRIPPING OR STUMBLING 2662 OTHER 09-06-2010 [facility] P[facility]NA S V700 ROUTINE 09-06-2010 [facility] EXAM@HEALTH CARE FACL V7643 SCREENING 09-06-2010 [facility] NEOPLASM OF THE SKIN 6202 OTHER AND 07-11-2010 [facility] UNSPECIFIED EMERGENCY OVARIAN SERVICES CYST 32136 SPRAIN AND 06-20-2010 [facility] STRAIN OF EMERGENCY UNSPECIFIED SERVICES SITE OF FOOT 8472 LUMBAR 06-20-2010 [facility] SPRAIN AND EMERGENCY STRAIN SERVICES 83887 OTHER 06-20-2010 [place] INJURY OF MEDICAL OTHER SITES IMAGING ASS OF TRUNK 9596 INJURY 06-20-2010 [place] OTHER AND MEDICAL UNSPECIFIED IMAGING ASS HIP AND THIGH 9597 INJURY 06-20-2010 [place] OTHER&UNSPE MEDICAL CIFIED KNEE IMAGING ASS LEG ANKLE&FOOT 4721 CHRONIC 04-21-2010 JUDE PHARYNGYVETTE Bose 8470 NECK SPRAIN 04-05-2010 [facility] AND STRAIN [facility] INC 8471 THORACIC 04-05-2010 [facility] SPRAIN AND [facility] STRAIN INC V571 OTHER 04-05-2010 [facility] PHYSICAL [facility] THERAPY INC 0794 HUMAN 03-10-2010 PATHOLOGY & [place] CYTOLOGY VIRUS IN LAB CCE & UNS SITE 6160 CERVICITIS 03-10-2010 PATHOLOGY & AND CYTOLOGY ENDOCERVICI LAB TIS 73620 MILD 03-10-2010 PATHOLOGY & DYSPLASIA CYTOLOGY OF CERVIX LAB 35595 CERV HIGH 03-10-2010 [facility] DNA [place] TEST POS PLLC 5921 CALCULUS OF 01-13-2010 [facility] URETER H UROLOGY PSC 7231 CERVICALGIA 12-02-2009 [facility] FERRERCHER 7919 OTHER 09-25-2009 [facility] NONSPECIFIC [facility] FINDING INC EXAMINATION OF URINE 5535 OTH&UNSPEC 09-01-2009 RIOJAS, NONINFECTIO DON R US GASTROENTER ITIS&COLITI S V771 SCREENING 08-30-2009 [facility] DIABET[facility] ACCT V7791 SCREENING 08-30-2009 [facility] FOR LIPOID HEALTH DISORDERS [facility] ACCT 56953 MIXED 08-26-2009 [facility] INCONTINENC H UROLOGY E URGE AND PSC STRESS 6256 FEMALE 08-16-2009 [facility] STRESS H UROLOGY INCONTINENC ASC E 26919 POLYURIA 07-29-2009 [facility] H UROLOGY PSC 90399 URGENCY OF 07-29-2009 [facility] URINATION H UROLOGY PSC 77993 OTHER 07-14-2009 BE[facility], SPECIFIED DON R DISORDERS OF URINARY TRACT 7224 DEGENERATIO 06-23-2009 [facility] N OF DON R CERVICAL INTERVERTEB RAL DISC 7245 UNSPECIFIED 06-23-2009 [facility] BACKACHE DON R 3829 UNSPECIFIED 03-08-2009 [facility] OTITIS [facility] MEDIA INC 64745 OSTEOARTHRO 12-02-2008 Charanjit RIOJAS INVLV MX DON R SITES BUT NOT SPEC GEN 3671 MYOPIA 10-02-2008 [facility] VISION 14408 OTHER 08-03-2008 [facility] SPECIFIED DON R TYPES OF CYSTITIS 5368 DYSPEPSIA&O 07-23-2008 MCNAM[facility] THER SPEC [employer] FUNCTION STOMACH V180 FAMILY 07-01-2008 [facility] HISTORY OF [facility] DIABETES INC MELLITUS 7804 DIZZINESS 06-30-2008 [facility] AND DON R GIDDINESS 69679 OTHER 06-08-2008 [facility] TENOSYNOVIT [facility] IS [...] LE 00 06 07 30 30 00 [place] Ac VO 78 -0 -1 .0 00 L- ti TH 15 9- 4- 00 07 MA ve YR 18 20 20 49 RT OX 89 17 17 23 IN 2 04 PH E AR 17 MA 5 CY MC G #5 TA 91 BL ET HY 00 05 06 [address] 40 -1 -1 .0 00 L- ti OM 63 7- 6- 00 02 MA ve OR 24 20 20 24 RT PH 40 17 17 03 ON 1 73 PH E AR 4 MA MG CY TA #5 BL 91 ET WV 00 05 06 60 6 00 WA Ac OM 60 -1 -0 .0 00 [...] MC G #5 TA 91 BL ET CE 68 02 03 20 10 00 [place] Ac PH 18 -2 -2 .0 00 L- ti AL 00 0- 4- 00 07 MA ve EX 12 20 20 47 RT IN 20 17 17 17 2 97 PH 50 AR 0 MA MG CY CA #5 PS 91 UL E FL 60 02 03 16 30 00 [place] Ac UT 50 -2 -2 .0 00 L- ti IC 50 0- 4- 00 07 MA ve 82 20 20 47 RT ON 90 17 17 17 E 1 98 PH WV AR OP MA CY 50 #5 MC 91 G SP RA Y LE 00 02 03 30 30 00 [place] Ac VO 78 -2 -2 .0 00 L- ti TH 15 2- 4- 00 07 MA ve YR 18 20 20 47 RT OX 89 17 17 25 IN 2 04 PH E AR 17 MA 5 CY MC G #5 TA 91 BL ET AZ 59 02 03 6. 5 00 [place] Ac IT 76 -0 -1 00 00 L- ti HR 23 6- 0- 0 07 MA ve OM 06 20 20 46 RT YC 00 17 17 91 IN 1 35 PH AR 25 MA 0 CY MG #5 TA 91 BL ET DO 23 02 03 60 30 00 [place] Ac XY 15 -0 -1 .0 00 L- ti CY 50 2- 0- 00 07 MA ve CL 13 20 20 46 RT IN 52 17 17 84 E 5 58 PH MO AR NO MA CY 10 0 #5 MG 91 TA BL ET LE 00 01 02 30 30 00 [place] Ac VO 78 -1 -1 .0 00 L- ti TH 15 1- 0- 00 07 MA ve YR 18 20 20 46 RT OX 89 17 17 40 IN 2 97 PH E AR 17 MA 5 CY MC G #5 TA 91 BL ET NA 65 01 02 14 7 00 WA Ac WV 16 -1 -1 .0 00 L- ti [...] 11 11 RI TA 1 PH CH MO AR AR N- MA D CA CY [...] DI 00 10 10 1 60 20 [place] 71 AR Ac CL 78 -1 -1 .0 L- 38 NO ti OF 11 4- 4- 00 MA 92 LD ve EN 78 20 20 RT 9 AC 76 11 11 RI 0 PH CH SO AR AR D MA D DR CY W # 50 10 MG 05 91 TA B 00 10 10 0 12 2 44 SO Ac 40 -0 -0 .0 L- 96 KA ti 60 5- 5- 00 MA 70 N ve 35 20 20 RT 5 BA 70 11 11 BA 5 PH TU AR ND MA E CY O # 10 05 91 00 10 10 0 15 5 [place] 71 SO Ac 37 -0 -0 .0 L- 37 KA ti 80 5- 5- 00 MA 81 N ve 75 20 20 RT 0 BA 19 11 11 BA 3 PH TU AR ND MA E CY O # 10 05 91 IB 68 10 10 0 15 5 [place] 71 SO Ac UP 64 -0 -0 [...] MU 45 08 09 1 22 10 [place] 71 AR Ac PI 80 -3 -0 .0 L- 33 NO ti RO 20 1- 2- 00 MA 16 LD ve CI 11 20 20 RT 4 N 22 11 11 RI 2% 2 PH CH AR AR OI MA D NT CY W ME # NT 10 05 91 DO 53 08 08 1 20 10 [place] 71 AR Ac XY 48 -3 -3 .0 L- 33 NO ti CY 90 1- 1- 00 MA 16 LD ve CL 11 20 20 RT 5 IN 90 11 11 RI E 2 PH CH HY AR AR CL MA D AT CY W E # 10 0 10 MG 05 91 CA P DI 00 07 07 2 12 30 [place] 71 AR Ac CY 52 -1 -1 0. L- 27 NO ti CL 70 4- 5- 00 MA 11 LD ve OM 58 20 20 0 RT 4 IN 60 11 11 RI E 1 PH CH 10 AR AR MA D MG CY W # CA PS 10 UL 05 E 91 ME 00 07 07 1 21 6 [place] 71 AR Ac TH 60 -1 -1 .0 L- 27 NO ti YL 34 4- 4- 00 MA 11 LD ve WV 59 20 20 RT 2 ED 31 11 11 RI NI 5 PH CH SO AR AR LO MA D NE CY W 4 # MG 10 05 DO 91 SE PK TR 00 07 07 1 80 20 [place] 71 AR Ac IA 16 -1 -1 .0 L- 27 NO ti MC 80 4- 4- 00 MA 11 LD ve IN 00 20 20 RT 3 OL 48 11 11 RI ON 0 PH CH E AR AR 0. MA D 1% CY W # CR EA 10 M 05 91 DO 53 06 06 1 20 10 [place] 71 AR Ac XY 48 -2 -2 .0 L- 24 NO ti CY 90 7- 7- 00 MA 83 LD ve CL 11 20 20 RT 1 IN 90 11 11 RI E 2 PH CH HY AR AR CL MA D AT CY W E # 10 0 10 MG 05 91 CA P AN 43 06 06 1 15 7 [place] 71 AR Ac TI 19 -2 -2 .0 L- 24 NO ti PY 90 7- 7- 00 MA 83 LD ve RI 01 20 20 RT 2 NE 61 11 11 RI -B 5 PH CH EN AR AR ZO MA D CA CY W IN # E EA [address] 91 OP WV 68 06 06 1 30 7 WA [...] 7- 7- 00 MA 83 LD ve MO 10 20 20 RT 4 DE 00 [...] # TA 10 BL 05 ET 91 WV 00 05 05 0 5. 5 WA [...] 11 11 RI TA 1 PH CH MO AR AR N- MA D CA CY [...] 0- 5- 00 MA 63 ON ve WV 59 20 20 RT 3 ED 31 [...] G TA 10 BL 05 ET 91 60 12 04 1 24 6 [place] 70 AR Ac 25 -1 -0 0. L- 49 NO ti 80 0- 6- 00 MA 51 LD ve 23 20 20 0 RT 5 91 09 10 RI 6 PH CH AR AR MA D CY W # 10 05 91 LO 63 11 04 3 [address] Ac RA 30 -1 -0 .0 L- 81 EP ti ZE 40 1- 6- 00 MA 19 HE ve PA 77 20 20 RT 7 NS M 39 09 10 1 0 PH DO MG AR N MA R TA CY BL # ET 10 05 91 LE 00 04 04 [...] Y CY D # 10 05 91 65 03 03 0 30 10 70 AD Ac 16 -2 -2 .0 L- 64 KI ti 20 5- 5- 00 MA 21 NS ve 52 20 20 RT 3 01 10 10 TI 0 PH MO AR TH MA Y CY D # 10 05 91 DO 53 03 03 0 14 [...] TA # BL ET 10 05 91 WV 68 03 03 0 12 3 70 [...] OF 83 9- 0- 00 MA 91 MO ve UR 42 20 20 RT 7 [...] 91 00 03 03 0 60 20 WA [...] W CA #5 PS 91 UL E ME 00 12 12 00 21 6 70 AR Ac TH 60 -1 -1 .0 L- 49 NO ti YL 34 0- 7- 00 MA 51 LD ve WV 59 20 20 RT 3 ED 31 [...] LL CY IA M #5 E 91 DO 53 12 12 00 20 10 [...] 91 10 0 MG 65 09 09 01 [address] Ac 16 -0 -2 .0 L- 35 EP ti 20 4- 4- 00 MA 50 HE ve 52 20 20 RT 5 NS 01 09 09 0 PH DO AR N MA R CY #5 91 NI 00 09 09 00 [address] Ac TR 37 -0 -1 .0 L- 35 EP ti OF 83 4- 0- 00 MA 50 HE ve UR 42 20 20 RT 4 NS AN 20 09 09 TO 1 PH DO IN AR N MA R MO CY NO -M #5 CR 91 10 0 MG 65 09 09 00 [address] Ac 16 -0 -1 .0 L- 35 EP ti 20 4- 0- 00 MA 50 HE ve 52 20 20 RT 5 NS 01 09 09 0 PH DO AR N MA R CY #5 91 00 08 08 00 14 7 [place] 70 GA Ac 37 -0 -2 .0 L- 31 IN ti 80 8- 7- 00 MA 55 EY ve 75 20 20 RT 7 19 09 09 MO 3 PH CH AR AE MA L CY S #5 91 DI 00 08 08 00 14 7 [place] 70 GA Ac CL 78 -0 -2 .0 L- 31 IN ti OF 11 8- 7- 00 MA 55 EY ve EN 78 20 20 RT 8 AC 90 09 09 MO 1 PH CH SO AR AE D MA L EC CY S 75 #5 91 MG TA B 00 08 08 00 12 3 [place] 44 GA Ac 40 -0 -2 .0 L- 78 IN ti 60 8- 7- 00 MA 76 EY ve 35 20 20 RT 5 70 09 09 MO 5 PH CH AR AE MA L CY S #5 91 DE 00 08 08 00 [address] [place] [address] Ac TR 00 -1 -2 .0 L- 32 EP ti OL 95 5- 7- 00 MA 41 HE ve 19 20 20 RT 4 NS LA 10 09 09 4 1 PH DO AR N MG MA R CY CA PS #5 UL 91 E 65 08 08 00 [address] [place] [address] Ac 16 -0 -1 .0 L- 30 EP ti 20 3- 3- 00 MA 87 HE ve 52 20 20 RT 5 NS 01 09 09 0 PH DO AR N MA R CY #5 91 CI 55 08 08 00 [address] Ac WV 11 -0 -1 .0 L- 30 EP [...] 20 RT 4 YC 66 09 09 MO IN 8 PH CH AR AE 25 MA L 0 CY S MG #5 TA 91 BL ET ME 00 03 03 00 21 6 WA 70 GA Ac TH 60 -1 -2 .0 L- 12 IN ti YL 34 7- 6- 00 MA 99 EY ve WV 59 20 20 RT 5 ED 31 09 09 MO NI 5 PH CH SO AR AE LO MA L NE CY S 4 #5 MG 91 DO SE PK TA 00 03 03 00 [address] Ac MO 00 -0 -1 .0 L- 10 EP [...] AL AR E MA CY #5 91 00 10 10 00 15 2 [...] MA CY CR EA #5 M 91 WV 37 10 10 00 30 30 WA 88 GO Ac IL 00 -0 -0 .0 L- 12 BL ti OS 00 3- 9- 00 MA 90 E ve EC 45 20 20 RT 5 RO 50 08 08 ND OT 4 PH AL C AR E 20 MA .6 CY MG #5 91 TA BL ET 63 09 09 00 2. [address] Ac 30 -0 -1 00 L- 85 EP ti 40 3- 1- 0 MA 84 HE ve 80 20 20 RT 6 NS 51 08 08 2 PH DO AR N MA R CY #5 91 Procedures Procedure DOS Code Location Performer [facility] [id number] BRADEN FELICIANO OBSERVATI 7 [facility] ON INC INC SERVICE PER HOUR BLOOD 36197 BRADEN FELICIANO COUNT 7 [facility] [id number] BRADEN FELICIANO OBSERVATI 7 [facility] ON INC INC SERVICE PER HOUR URNLS DIP 52429 BRADEN FELICIANO 7 [facility] STICK/TAB INC INC LET REAGENT AUTO MICROSCOP Y URINE 27697 BRADEN FELICIANO 7 [facility] TEST INC INC VISUAL COLOR CMPRSN METHS NONINVASI 48933 BRADEN FELICIANO VE 7 [facility] EAR/PULSE INC INC OXIMETRY MULTIPLE DETER COLLECTIO 62613 BRADEN FELICIANO N VENOUS 7 [facility] BLOOD INC INC VENIPUNCT URE COMBINED 06664 [facility] ANTEROPOS 7 PHYSICIAN PHYSICIAN TERIOR S GROUP [place] [address] [facility], BAEWER SURG 7 [facility] PATHOLOGY GROSS&ANTIONE ROSCOPIC EXAM BLOOD 85671 BRADEN FELICIANO COUNT 7 [facility] HOSP HEMOGLOBI INC INC N VAGINAL 56789 [facility] HYSTERECT 7 PHYSICIAN ADAM 250 S GROUP GM/< W/RPR ENTEROCEL E CULTURE 38294 BRADEN FELICIANO BACTERIAL 7 [facility] INC INC QUANTTATI VE COLONY COUNT URINE ANESTHESI 65781 [facility] SHERIN A VAGINAL 7 ANESTH OF THE HYSTERECT BLUE ADAM INCL BIOPSY CMBND 46133 BRADEN FELICIANO ANTEROPOS 7 [facility] T INC INC COLPORRHA PHY W/ENTEROC PELON RPR VAGINAL 12454 BRADEN FELICIANO HYSTERECT 7 [facility] ADAM INC INC UTERUS 250 GM/< CULTURE 19171 BRADEN FELICIANO BACTERIAL 7 [facility] INC INC QUANTTATI VE COLONY COUNT URINE BLOOD 20301 BRADEN FELICIANO COUNT 7 [facility] COMPLETE INC INC AUTO&AUTO DIFRNTL WBC GONADOTRO 85812 BRADEN FELICIANO PIN 7 [facility] CHORIONIC INC INC QUALITATI VE BASIC 24934 BRADEN FELICIANO METABOLIC 7 [facility] PANEL INC INC CALCIUM TOTAL URNLS DIP 51951 BRADEN FELICIANO 7 [facility] STICK/TAB INC INC LET REAGENT AUTO MICROSCOP Y COLLECTIO 66624 BRADEN FELICIANO N VENOUS 7 [facility] BLOOD INC INC VENIPUNCT URE ENDOMETRI 09791 [facility] AL BX 7 PHYSICIAN W/WO S GROUP ENDOCERVI [place] [address] [facility] MOLINA TRANSVAGI 7 MEDICAL NAL IMAGING ASS BLOOD 39063 [facility] MORRISSEY OCCULT 7 PHYSICIAN PEROXIDAS S GROUP E ACTV QUAL FECES 1-3 SPEC IADNA 60124 [facility] NEISSERIA 7 PHYSICIAN PHYSICIAN S GROUP S GROUP GONORRHOE AE DIRECT PROBE TQ URINLS 60830 [facility] DIP 7 PHYSICIAN STICK/TAB S GROUP LET REAGNT NON-AUTO MICRSCPY CULTURE 73190 [facility] CHLAMYDIA 7 PHYSICIAN ANY S GROUP SOURCE THER 94234 BRADEN FELICIANO PROPH/DX 7 [facility] NJX IV INC INC PUSH SINGLE/1S T SBST/DRUG ECG 90570 BRADEN FELICIANO ROUTINE 7 [facility] ECG INC INC W/LEAST 12 LDS TRCG ONLY W/O I&R BLOOD 47558 BRADEN FELICIANO COUNT 7 [facility] COMPLETE INC INC AUTO&[place] [address] BRADEN FELICIANO TROPONIN 7 [facility] QUANTITAT INC INC AMARA ECG 44488 BRADEN CASTREJON ROUTINE 7 [facility] W/LEAST P 12 LDS I&R ONLY RADIOLOGI 66456 BRADEN FELICIANO C EXAM 7 [facility] CHEST 2 INC INC VIEWS FRONTAL&L ATERAL COMPREHEN 58662 BRADEN FELICIANO SIVE 7 [facility] METABOLIC INC INC PANEL CREATINE 13425 BRADEN FELICIANO KINASE MB 7 [facility] FRACTION INC INC ONLY CREATINE 21099 BRADEN FELICIANO KINASE 7 [facility] TOTAL INC INC INJECTION J0696 [facility] FRYMAN 7 PHYSICIAN CEFTRIAXO S GROUP NE SODIUM PER 250 MG THERAPEUT 19281 [facility] FR[facility] IC 7 PHYSICIAN PROPHYLAC S GROUP TIC/DX INJECTION SUBQ/IM CULTURE 02840 BRADEN FELICIANO BACTERIAL 7 [facility] INC INC QUANTTATI VE COLONY COUNT URINE COLONOSCO 46551 [facility] EMILY PY 6 PHYSICIAN W/BIOPSY S GROUP SINGLE/[place] [address] [facility], BAEWER SURG 6 [facility] PATHOLOGY GROSS&ANTIONE ROSCOPIC EXAM BASIC 35629 BRADEN FELICIANO METABOLIC 6 [facility] PANEL INC INC CALCIUM TOTAL COLLECTIO 41806 BRADEN FELICIANO N VENOUS 6 [facility] BLOOD INC INC VENIPUNCT URE BLOOD 79208 BRADEN FELICIANO COUNT 6 [facility] COMPLETE INC INC AUTO&AUTO DIFRNTL WBC ANES 44250 COMMUNITY FEEBACK TRANSURET 6 ANESTH HRAL OF THE W/URETHRO BLUE CYSTOSCOP Y NOS CYSTO 02371 BRADEN MOSQUERA CALIBRATI 6 [facility] DORAL URTL P STRIX/JOSE NOSIS SCREENING G0202 [facility] KRISTIE 6 MEDICAL TAM MAMMOGRAP IMAGING HY MICHELLE ASS INCL CAD WHEN PERFORMD COMPUTER- 99208 [facility] DULUTHSly FLOWERS AIDED 6 MEDICAL TAM DETECTION IMAGING ASS SCREENING MAMMOGRAP HY IADNA 94972 BRADEN FELICIANO CHLAMYDIA 6 [facility] INC [place] [address] BRADEN FELICIANO ABDOMEN & 6 [facility] PELVIS INC INC W/O CONTRAST MATERIAL URINE 23373 BRADEN FELICIANO 6 [facility] TEST INC INC VISUAL COLOR CMPRSN METHS IADNA 32692 BRADEN FELICIANO NEISSERIA 6 [facility] INC INC GONORRHOE AE AMPLIFIED PROBE TQ URNLS DIP 01516 BRADEN FELICIANO 6 [facility] STICK/TAB INC INC LET REAGENT AUTO MICROSCOP Y IADNA 68863 [facility], NELY HUMAN 6 [facility] RAFI PAPILLOMA VIRUS HIGH-RISK TYPES CYTP 60171 [facility] LABSNELY CERVICAL/ 6 [facility] RAFI VAGINAL REQ INTERP PHYSICIAN CYTP C/V 19418 [facility] AUTO THIN 6 [facility] RAFI [place] S[place] [address] BRADEN FELICIANO TRANSVAGI 6 [facility] [place] [place] [address] BRADEN FELICIANO THYROXINE 6 [facility] [place] [address] BRADEN FELICIANO THYROID 6 [facility] STIMULATI INC INC NG HORMONE TSH COLLECTIO 92841 BRADEN FELICIANO N VENOUS 6 [facility] BLOOD INC INC VENIPUNCT URE THERAPEUT 57110 BRADEN FELICIANO IC 6 [facility] INJECTION INC INC IV PUSH EACH NEW DRUG THER 40526 BRADEN FELICIANO PROPH/DX 6 [facility] NJX IV INC INC PUSH SINGLE/1S T SBST/DRUG ECG 55459 BRADEN FELICIANO ROUTINE 6 [facility] ECG INC INC W/LEAST 12 LDS TRCG ONLY W/O I&R BLOOD 21517 BRADEN FELICIANO COUNT 6 [facility] COMPLETE INC INC AUTO&AUTO DIFRNTL WBC ECG 23711 BRADEN DE LA CRUZ JR ROUTINE [address] [facility] W/LEAST P 12 LDS I&[place] [address] BRADEN FELICIANO TROPONIN 6 [facility] QUANTITAT INC INC AMARA HEMOGLOBI 12597 BRADEN FELICIANO N 6 [facility] GLYCOSYLA INC INC DAV A1C RADIOLOGI 69042 BRADEN FELICIANO C 6 [facility] EXAMINATI INC INC ON CHEST SINGLE VIEW FRONTAL COMPREHEN 07516 BRADEN FELICIANO SIVE 6 [facility] METABOLIC INC INC PANEL CREATINE 44762 BRADEN FELICIANO KINASE MB 6 [facility] FRACTION INC INC ONLY CREATINE 52090 BRADEN FELICIANO KINASE 6 [facility] TOTAL INC INC COMPREHEN 66371 BRADEN FELICIANO SIVE 6 [facility] METABOLIC INC INC PANEL COLLECTIO 20144 [facility] STONE MARY N VENOUS 6 PHYSICIAN BLOOD S GROUP VENIPUNCT URE BLOOD 62044 BRADEN FELICIANO COUNT 6 [facility] COMPLETE INC INC AUTO&AUTO DIFRNTL WBC NEUROPLAS 09736 [facility] ANDRES TY 6 &/TRANSPO ORTHOPAED S MEDIAN ICS PSC NRV CARPAL TUNNE INJECTION J1100 [facility] 6 N N DEXAMETHO COMMUNTIY COMMUNTIY SONE HOSPITA HOSPITA SODIUM PHOSPHATE 1 MG INJECTION J2001 [facility] 6 N N LIDOCAINE COMMUNTIY COMMUNTIY HCL HOSPITA HOSPITA INTRAVENO US INFUS 10 MG RINGERS J7120 [facility] LACTATE 6 N N INFUSION COMMUNTIY COMMUNTIY UP TO HOSPITA HOSPITA 1000 CC ANES 39173 [facility] NERVE 6 ANESTHESI MUSCLE A GROUP TDN PS FASCIA&BU RSA FOREARM WRIST INJECTION J2250 [facility] 6 N N MIDAZOLAM COMMUNTIY COMMUNTIY HCL PER HOSPITA HOSPITA 1 MG INJECTION J1885 [facility] 6 N N KETOROLAC COMMUNTIY COMMUNTIY HOSPITA HOSPITA TROMETHAM INE PER 15 MG INJECTION J3010 [facility] FENTANYL 6 N N CITRATE COMMUNTIY COMMUNTIY 0.1 MG HOSPITA HOSPITA GONADOTRO 13944 BRADEN FELICIANO PIN 6 [facility] CHORIONIC INC INC QUALITATI VE BLOOD 93478 BRADEN FELICIANO COUNT 6 [facility] COMPLETE INC INC AUTO&AUTO DIFRNTL WBC COLLECTIO 76729 BRADEN FELICIANO N VENOUS 6 [facility] BLOOD INC INC VENIPUNCT URE BASIC 01433 BRADEN FELICIANO METABOLIC 6 [facility] PANEL INC INC CALCIUM TOTAL INJECTION J1040 [facility] RITA 6 PHYSICIAN ANTIONE METHYLPRE S GROUP DNISOLONE ACETATE 80 MG THERAPEUT 57533 [facility] RITA IC 6 PHYSICIAN ANTIONE PROPHYLAC S GROUP TIC/DX INJECTION SUBQ/IM NEEDLE 32254 JEW TIKHTMAN EMG EA 6 HEALTH EXTREMTY MEDICAL W/PARASPI GROUP NL AREA COMPLETE NERVE 81138 JEW TIKHTMAN CONDUCTIO 6 HEALTH N STUDIES MEDICAL 7-8 GROUP STUDIES RADEX 64621 [facility] HAND 6 [place] CORTEZ MINIMUM 3 ORTHOPAED VIEWS ICS PLC COMPREHEN 40738 BRADEN FELICIANO SIVE 5 [facility] METABOLIC INC INC PANEL URNLS DIP 39582 BRADEN FELICIANO 5 [facility] STICK/TAB INC INC LET REAGENT AUTO MICROSCOP Y BLOOD 33666 BRADEN FELICIANO COUNT 5 [facility] COMPLETE INC INC AUTO&AUTO DIFRNTL WBC CULTURE 34680 BRADEN FELICIANO BACTERIAL 5 [facility] INC [place] [address] BRADEN FELICIANO ABDOMEN & 5 [facility] PELVIS INC INC W/O CONTRAST MATERIAL COLSC FLX 21582 [facility] EMILY TOD W/RMVL 5 PHYSICIAN OF TUMOR S [place] [address] [facility], BO SURG 5 [facility] MITCHELL PATHOLOGY GROSS&ANTIONE ROSCOPIC EXAM GONADOTRO 34568 BRADEN FELICIANO PIN 5 [facility] CHORIONIC INC INC QUALITATI VE COLLECTIO 95526 BRADEN FELICIANO N VENOUS 5 [facility] BLOOD INC INC VENIPUNCT URE COMPREHEN 00062 BRADEN FELICIANO SIVE 5 [facility] METABOLIC INC INC PANEL COLLECTIO 57951 BRADEN FELICIANO N VENOUS 5 [facility] BLOOD INC INC VENIPUNCT URE RADEX 91437 BRADEN FELICIANO ABDOMEN 5 [facility] COMPL INC INC W/DCBTS&/ ERC VIEWS BLOOD 44719 BRADEN FELICIANO COUNT 5 [facility] COMPLETE INC INC AUTO&AUTO DIFRNTL WBC ECG 26424 BRADEN BRADEN ROUTINE 5 [facility] ECG INC INC W/LEAST 12 LDS TRCG ONLY W/O I&R ECG 79043 CARDIOVAS LILIA ROUTINE 5 CULAR MAT ECG CONSULTAN W/LEAST TS O 12 LDS I&R ONLY ECG 61637 BRADEN CHENON ROUTINE 5 [facility] ECG INC INC W/LEAST 12 LDS TRCG ONLY W/O I&R ECHO 67602 ARIC MORRISSEY [facility] TTHRC R-T 5 MEDICAL 2D SERV W/WOM-MOD FOUNDATIO E COMPL N SPEC&COLR D ECG 54867 BRADEN CASTREJON ROUTINE [address] [facility] W/LEAST P 12 LDS I&[place] [address] BRADEN BRADEN TROPONIN 5 [facility] HOSP QUANTITAT INC INC AMARA ECG 35726 BRADEN BRADEN ROUTINE 5 [facility] ECG INC INC W/LEAST 12 LDS TRCG ONLY W/O I&R BLOOD 91353 BRADEN FELICIANO COUNT 5 [facility] COMPLETE INC INC AUTO&AUTO DIFRNTL WBC CREATINE 13309 BRADEN FELICIANO KINASE MB 5 [facility] [address] BRADEN FELICIANO FREE 5 [facility] [place] [address] BRADEN FELICIANO THYROID 5 [facility] STIMULATI INC INC NG HORMONE TSH LIPID 88511 BRADEN FELICIANO PANEL 5 [facility] INC INC COMPREHEN 48602 BRADEN FELICIANO SIVE 5 [facility] METABOLIC INC INC PANEL COLLECTIO 17515 BRADEN FELICIANO N VENOUS 5 [facility] BLOOD INC INC VENIPUNCT URE 25 23150 BRADEN [place] HYDROXY 5 [facility] INCLUDES [facility] HE[facility] FRACTIONS DEPT IF PERFORMED CREATINE 51866 BRADEN FELICIANO KINASE 5 [facility] TOTAL INC INC CYANOCOBA 66369 BRADEN FELICIANO JENISE 5 [facility] [place] [address] [place] [address] [place] MOLINA ALL ABDOMEN & 5 MEDICAL PELVIS IMAGING W/O ASS CONTRAST MATERIAL CYTP 42119 [facility], PICKLESIM CERV/VAG 5 LLC ER JR VANDANA AUTO THIN LAYER PREP MNL SCREEN RADIOLOGI 94369 [facility] C EXAM 5 MEDICAL [facility] CHEST 2 IMAGING VIEWS ASS FRONTAL&[place] [address] [facility] 5 PHYSICIAN BOOKER NAL S GROUP COLLECTIO 69486 BRADEN FELICIANO N VENOUS 5 [facility] [place]LO[place] [address] BRADEN BRADEN THYROID 5 [facility] STIMULATI [place] [address] BRADEN FELICIANO FREE 5 [facility] THYROXINE INC INC CALCIUM 00728 BRADEN FELICIANO TOTAL 5 [facility] INC INC URNLS DIP 31250 BRADEN FELICIANO 4 [facility]OS[facility] STICK/TAB INC INC LET REAGENT AUTO MICROSCOP Y URINE 36312 BRADEN FELICIANO 4 [facility] TEST INC [place] [address] BRADEN FELICIANO ABDOMEN & 4 [facility] PELVIS INC INC W/O CONTRAST MATERIAL MANUAL 14105 [facility] PETTEY APPL 4 PHYSICIAN JAM STRESS S GROUP PFRMD PHYS/QHP JOINT FILMS FLUOROSCO 74604 [facility] PY SPX UP 4 PHYSICIAN JAM TO 1 S GROUP HOUR PHYS/[place] [address] UNIVERSIT AGUDELO MOL SURG 4 Y OF PATHOLOGY [facility] GROSS&ANTIONE ROSCOPIC EXAM THYROIDEC 01245 JUDE ROQUE KAYLA 4 NATTY NATTY TOTAL/SUB TOTAL LMTD NECK DISSECT LEVEL V 95249 UNIVERSIT AGUDELO MOL SURG 4 Y OF PATHOLOGY [facility] GROSS&ANTIONE ROSCOPIC EXAM PATH 94202 UNIVERSIT AGUDELO MOL CONSLTJ 4 Y OF SURG 1ST [facility] BLK HOSPI FROZEN SCTJ 1 SPEC ANES 82638 [facility] DAY ESOPH 4 LTH ANT THYRD ANESTHESI LARYNX A PSC TRACH & LYMPH NECK 1YR PARATHYRO 76917 JUDE ROQUE ID 4 NATTY NATTY AUTOTRANS PLANTATIO N ADD-ON BLOOD 47430 BRADEN FELICIANO COUNT 4 [facility]OSP COMPLETE INC INC AUTO&AUTO DIFRNTL WBC ECG 41870 BRADEN FELICIANO ROUTINE 4 [facility] ECG [facility] W/LEAST 12 LDS TRCG ONLY W/O I&R ECG 37850 BRADEN DE LA CRUZ JR ROUTINE 4 [facility] W/LEAST P 12 LDS I&R ONLY CRTCHS E0114 [facility] BREG INC. UNDARM 4 OTH THAN WOOD PAIR PAD TIP&HNDGR IP ANKLE L4350 [facility] BREG INC. CONTROL 4 ORTHOSIS STIRRUP STYL RIGID PREFAB RADEX 35872 [facility] KRISTIE ANKLE 4 MEDICAL TAM COMPLETE IMAGING MINIMUM 3 ASS VIEWS CALCIUM 36736 BRADEN FELICIANO TOTAL 4 [place] [address] BRADEN FELICIANO THYROID 4 [facility] STIMULATI [place] [address] BRADEN FELICIANO FREE 4 [facility] [place]RO[place] V [address] REYES REYES SURG 4 ANA ANA PATHOLOGY GROSS&ANTIONE ROSCOPIC EXAM ANES 92481 [facility] CONTE ESOPH 4 LTH MAR THYRD ANESTHESI LARYNX A PSC TRACH & LYMPH NECK 1YR PATH 18101 REYES REYES CONSLTJ 4 ANA ANA SURG 1ST BLK FROZEN SCTJ 1 SPEC US SOFT 08-08-201 81125 JAVIER KRISTIE TISSUE 4 MEDICAL TAM HEAD & IMAGING [place] [address] BRADEN FELICIANO THYROID 4 [facility] STIMULATI [place] [address] BRADEN FELICIANO FREE 4 [facility] THYROXINE INC INC CALCIUM 19603 BRADEN FELICIANO TOTAL 4 [facility] INC INC URNLS DIP 94018 CHUCK WOODS 4 BOOKER BOOKER STICK/TAB LET RGNT NON-AUTO W/O MICRSCP ENDOMETRI 56064 CHUCK WOODS AL BX 4 BOOKER BOOKER W/WO ENDOCERVI [place] [address] [facility] TRANSVAGI 4 [facility]ER BOOKER NAL IMHISTOCH 80402 AMALIA HOLLAND PAT EM/CYTCHM 4 1ST ANTIBODY STAIN PROCEDURE COLPOSCOP 85945 [facility]UCK WOODS Y CERVIX 4 BOOKER BOOKER BX CERVIX & [place] [address] AMALIA HOLLAND PAT SURG 4 PATHOLOGY GROSS&ANTIONE ROSCOPIC EXAM IADNA 03974 [facility] GONORRHOE [facility] AE AMPLIFIED PROBE TQ AMINES 53281 [facility] VAGINAL [facility] FLUID [facility] QUALITATI [facility] VE PH BODY 79198 [facility] FLUID NOT [facility] ELSEWHERE [facility] SPECIFIED URNLS DIP 55680 [facility] STICK/TAB TH DEPT [facility] DE[facility] LET RGNT [facility] NON-AUTO W/O MICRSCP WET Q0111 [facility] SARBJIT [facility] INCL PREP [facility] VAGINAL [facility] CERV/SKIN SPECIMENS CYTP [address] CERV/VAG 4 AUTO THIN LAYER PREP MNL SCREEN SMR PRIM 09793 [facility] SRC WET [facility] DE[facility] NFCT AGT DANIELLE DANIELLE IADNA 70832 [facility] CHLAMYDIA [facility] DEPT HLTH DEPT TRACHOMAT DANIELLE DANIELLE IS AMPLIFIED PROBE TQ IADNA [address] PAPILLOMA 4 VIRUS HUMAN AMPLIFIED PROBE TQ CYTP [address] CERVICAL/ 4 VAGINAL REQ INTERP PHYSICIAN ECG 77829 JUHI JOSE JUHI JOSE ROUTINE 4 ECG W/LEAST 12 LDS I&R ONLY URINE 91379 [facility] TEST INC INC VISUAL COLOR CMPRSN METHS URNLS DIP 41613 [facility] STICK/TAB INC INC LET REAGENT AUTO MICROSCOP Y IAADI 31706 [facility] FELICIAN[facility] INFLUENZA 4 [facility] B VIRUS INC INC IAADI 49774 [facility] FELIC[facility] INFFLUENZ 4 [facility] A A VIRUS INC INC MICROSOMA 59029 [facility] L 1 [facility] [place] [address] [facility]EL[facility] FREE 1 [facility] [place] [address] [facility] FEL[facility] THYROID 1 [facility] STIMULATI INC INC NG HORMONE TSH US SOFT 18923 [place] KRISTIE TISSUE 1 MEDICAL TAM HEAD & IMAGING NECK REAL ASS TIME IMGE DOCM CULTURE 10803 [facility] BACTERIAL 1 [facility] INC INC QUANTTATI VE COLONY COUNT URINE BLOOD 58983 [facility]ICIAN[facility] COUNT 1 [facility] COMPLETE INC INC AUTO&[place] [address] [place] KRISTIE ABDOMEN & 1 MEDICAL TAM PELVIS IMAGING W/[place] [address] [facility] FELICIANO AMYLASE 1 [facility] INC INC URNLS DIP 68538 [facility]ELICIANO 1 [facility] STICK/TAB INC INC LET REAGENT AUTO MICROSCOP Y LEVEL III 51276 CHIPPS ROVERTO ANTIONE SURG 1 MANJINDER & PATHOLOGY SUREKHAILIMACIEJ GROSS&ANTIONE ROSCOPIC EXAM ANESTHESI 55000 COMMUN[facility] REBOLLAR BREANNA A 1 ANESTH INTRAPERI OF THE TONEAL BLUE LOWER ABD W/LAPS [facility] G0378 BRADEN FELICIANO OBSERVATI 1 [facility] ON INC INC SERVICE PER HOUR LAPAROSCO 75385 C ASAD CHAVES PIC 1 ANDIE GOODWIN APPENDLAZ ELMORE PSC ADAM URINE 35742 [facility]AD[facility] FELICIANO 1 [facility] TEST INC INC VISUAL COLOR CMPRSN METHS COMPREHEN 35141 BRADEN FELICIANO SIVE 1 [facility] METABOLIC INC INC PANEL 3D 43709 RYANY KRISTIE RENDERING 1 MEDICAL TAM IMAGING W/INTERP& [place] [address] BRADEN FELICIANO LIPASE 1 [facility] INC INC LAPAROSCO 4701 BRADEN FELICIANO PIC 1 [facility] APPENDECT INC INC ADAM 3D 59109 [place]RISTIE RENDERING 1 MEDICAL TAM IMAGING W/INTERP& ASS POSTPROC DIFF WORK STATION URINE 93718 BRADEN FELICIANO 1 [facility] TEST INC INC VISUAL COLOR CMPRSN METHS URNLS DIP 42520 BRADEN FELICIANO 1 [facility] STICK/TAB INC [place] [address] JAVIER KRISTIE ABDOMEN & 1 MEDICAL TAM PELVIS IMAGING W/O ASS CONTRAST MATERIAL ECG 08226 BRADEN FELICIANO ROUTINE 1 [facility] ECG INC INC W/LEAST 12 LDS TRCG ONLY W/O I&R ECG 51333 BRADEN KNIGHTMIKarson ROUTINE 1 [facility] W/LEAST P 12 LDS I&R ONLY RADIOLOGI 89711 JAVIER KRISTIE C EXAM 1 MEDICAL TAM CHEST 2 IMAGING VIEWS ASS FRONTAL&[place] [address] BRADEN FELICIANO TROPONIN 1 [facility] QUANTITAT INC INC AMARA CREATINE 90623 BRADEN FELICIANO KINASE MB 1 [facility] FRACTION INC INC ONLY CREATINE 27211 BRADEN FELICIANO KINASE 1 [facility] TOTAL INC INC CV STRS 80096 [facility] FALLUJI TST 1 PHYSICIAN COLT XERS&/OR S GROUP RX CONT ECG W/O I&R CV STRS 81987 BRADEN FELICIANO TST 1 [facility] XERS&/OR INC INC RX CONT ECG TRCG ONLY MYOCARDIA 71594 JAVIER FLOWERS L SPECT 1 MEDICAL TAM MULTIPLE IMAGING STUDIES ASS CV STRS 40878 BRADEN DE LA CRUZ DWI TST 1 [facility] RX CONT P ECG I&R ONLY COMPREHEN 32511 BRAD[facility] SIVE 1 [facility] METABOLIC INC INC PANEL LIPID 67789 BRADEN FELICIANO PANEL 1 [facility] INC INC ECG 57569 BRADEN FELICIANO ROUTINE 1 [facility] ECG INC INC W/LEAST 12 LDS TRCG ONLY W/O I&R US SOFT 78573 NEW HAMPSHIRE KRISTIE TISSUE 1 MEDICAL TAM HEAD & IMAGING [place] [address] BRADEN FELICIANO THYROID 1 [facility] STIMULATI [place] [address] [facility] FELICIANO FREE 1 [facility] THYROXINE INC INC RADIOLOGI 74560 [facility] K[facility]STIE C EXAM 1 MEDICAL TAM CHEST 2 IMAGING VIEWS ASS FRONTAL&L ATERAL RADEX 29079 [facility] KRISTIE WRIST 1 MEDICAL TAM COMPLETE IMAGING MINIMUM 3 [place] [address] BRADEN FELICIANO FREE 1 [facility] [place] [address] BRADEN FELICIANO THYROID 1 [facility] STIMULATI INC INC NG HORMONE TSH MICROSOMA 53269 BRADEN FELICIANO L 1 [facility] ANTIBODIE INC INC S EACH US SOFT 68035 [facility] DAHIANA TISSUE 1 MEDICAL KRISTIE HEAD & IMAGING NECK REAL ASS TIME IMGE DOCM IAADI 99531 BRADEN FELICIANO INFLUENZA 1 [facility] B VIRUS INC INC IAADI 82527 BRADEN FELICIANO INFFLUENZ 1 [facility] A A VIRUS INC INC RADEX 09319 NEW HAMPSHIRE KRISTIE WRIST 0 MEDICAL TAM COMPLETE IMAGING MINIMUM 3 ASS VIEWS RADEX 15970 [facility] FLOWERS HAND 0 MEDICAL TAM MINIMUM [place] [address] BRADEN FELICIANO THYROID 0 [facility] STIMULATI [place] [address] BRADEN FELICIANO FREE 0 [facility] THYROXINE INC INC US SOFT 73476 NEW HAMPSHIRE KRISTIE TISSUE 0 MEDICAL TAM HEAD & IMAGING NECK REAL ASS TIME IMGE DOCM BLOOD 35199 BRADEN FELICIANO COUNT 0 [facility] COMPLETE INC INC AUTO&AUTO DIFRNTL WBC CULTURE 98225 BRADEN FELICIANO BACTERIAL 0 [facility] INC INC QUANTTATI VE COLONY COUNT URINE URNLS DIP 51428 [facility] FELICIANO 0 [facility] STICK/TAB INC INC LET REAGENT AUTO MICROSCOP Y CT PELVIS 38114 NEW HAMPSHIRE KRISTIE W/O 0 MEDICAL TAM CONTRAST IMAGING MATERIAL ASS 3D 86909 BRADEN FELICIANO RENDERING 0 [facility] INC INC W/INTERP& [place] [address] NEW HAMPSHIRE KRISTIE ABDOMEN 0 MEDICAL TAM W/O IMAGING CONTRAST ASS MATERIAL COMPREHEN 62907 BRADEN FELICIANO SIVE 0 [facility] METABOLIC INC INC PANEL URINE 06501 [facility]AD[facility] FELICIANO 0 [facility] TEST INC INC VISUAL COLOR CMPRSN METHS RADEX 76029 NEW HAMPSHIRE DAHIANA SPINE 0 MEDICAL KRISTIE LUMBOSACR IMAGING AL ASS MINIMUM 4 VIEWS RADEX 16751 NEW HAMPSHIRE DAHIANA FOOT 0 MEDICAL KRISTIE COMPLETE IMAGING MINIMUM 3 ASS VIEWS RADIOLOGI 41414 NEW HAMPSHIRE DAHIANA C 0 MEDICAL KRISTIE EXAMINATI IMAGING ON PELVIS ASS 1/2 VIEWS APPLICATI 58043 BRADEN FELICIANO ON 0 [facility] MODALITY INC INC 1/> AREAS HOT/COLD PACKS THERAPEUT 88874 BRADEN FELICIANO IC PX 1/> 0 [facility] AREAS INC INC EACH 15 MIN EXERCISES APPL 93346 BRADEN FELICIANO MODALITY 0 [facility] 1/> AREAS INC INC ELEC STIMJ UNATTENDE D APPL 41271 BRADEN FELICIANO MODALITY 0 [facility] 1/> AREAS INC INC ELEC STIMJ UNATTENDE D THERAPEUT 19327 BRADEN FELICIANO IC PX 1/> 0 [facility] AREAS INC INC EACH 15 MIN EXERCISES PHYSICAL 56676 BRADEN FELICIANO THERAPY 0 [facility] EVALUATIO INC INC N APPLICATI 58685 BRADEN FELICIANO ON 0 [facility] MODALITY INC INC 1/> AREAS HOT/[place] [address] PATHOLOGY PATHOLOGY SURG 0 & & PATHOLOGY CYTOLOGY CYTOLOGY LAB LAB GROSS&ANTIONE ROSCOPIC EXAM CYSTO 09101 COMMONWEA MOSQUERA, W/URETERO 0 LTH ARIS D SCOPY UROLOGY W/RMVL/MA PSC [place] STONES ANES 23361 ANESTHESI WHITE, TRURL 0 A JOHN E FRAGMNTJ ASSOCIATE MANJ&/RMV S, PSC L URETERAL CALCULUS FINE 33474 JUDE ROQUE, NEEDLE 0 CYDNEY G CYDNEY G ASPIRATIO N W/[place] [address] BRADEN FELICIANO THYROID 0 [facility] STIMULATI [place] [address] BRADEN FELICIANO FREE 0 [facility] THYROXINE INC INC CALCIUM 32487 BRADEN FELICIANO TOTAL 0 [facility] INC INC MICROSOMA 43415 BRADEN FELICIANO L 0 [facility] ANTIBODIE INC INC S EACH OBSERVATI 49353 [facility], ON CARE 0 [facility] JAE A DISCHARGE INTERNAL MED MANAGEMEN T BASIC 28252 BRADEN FELICIANO METABOLIC 0 [facility] PANEL INC INC CALCIUM TOTAL BLOOD 87332 BRADEN CHENON COUNT 0 [facility] COMPLETE INC INC AUTO&AUTO DIFRNTL WBC TOBACCO 92763 BRADEN FELICIANO USE 0 [facility] CESSATION INC INC INTERMEDI ATE 3-10 MINUTES BLOOD 08844 BRADEN FELICIANO COUNT 0 [facility] COMPLETE INC INC AUTO&AUTO DIFRNTL WBC COMPREHEN 73373 BRADEN FELICIANO SIVE 0 [facility] [place] [address] [facility] TALBOT, ABDOMEN 0 MEDICAL JOSEFINA P W/O IMAGING CONTRAST ASSOCIATE MATERIAL S CT PELVIS 51799 [facility] DAHIANA, W/O 0 MEDICAL JOSEFINA P CONTRAST IMAGING MATERIAL ASSOCIATE S 3D 97445 [facility] TALBOT, RENDERING 0 MEDICAL JOSEFINA P IMAGING W/INTERP& ASSOCIATE [place] [address] BRADEN FELICIANO AMYLASE 0 [facility] INC INC INITIAL 51085 [place] NORMA OBSERVATI 0 [facility], ON INTERNAL RORY CARE/DAY MED 30 MINUTES URNLS DIP 26212 [facility] FELICIANO 0 [facility] STICK/TAB INC INC [place] [address] BRADEN FELICIANO LIPASE 0 [facility] INC INC IADNA 44676 PATHOLOGY PATHOLOGY PAPILLOMA 0 & & VIRUS CYTOLOGY CYTOLOGY HUMAN LAB LAB AMPLIFIED PROBE TQ CYTP 82121 PATHOLOGY PATHOLOGY CERVICAL/ 0 & & VAGINAL CYTOLOGY CYTOLOGY REQ LAB LAB INTERP PHYSICIAN URNLS DIP 03580 [facility]ELICIANO 0 [facility] STICK/TAB CENTER CENTER LET RGNT NON-AUTO W/O MICRSCP CYTP 88830 PATHOLOGY PATHOLOGY CERV/VAG 0 & & AUTO THIN CYTOLOGY CYTOLOGY LAYER LAB LAB PREP MNL SCREEN US SOFT 59663 [facility] KRISTIE, TISSUE 0 MEDICAL KUSH HEAD & IMAGING NECK REAL ASSOCIATE TIME S IMGE DOCM MRI 82770 KUSH C KRISTIE, SPINAL 0 KRISTIE KUSH CANAL LUMBAR W/O CONTRAST MATERIAL 3D 16240 KUSH C KRISTIE, RENDERING 0 KRISTIE KUSH W/INTERP & [place] 25347 KUSH C KRISTIE, SPINAL 0 KRISTIE KUSH CANAL CERVICAL W/O CONTRAST MATRL CULTURE 99546 BRADEN CHENON BACTERIAL 9 [facility] INC INC QUANTTATI VE COLONY COUNT URINE BLOOD 06554 BRADEN FELICIANO COUNT 9 [facility] COMPLETE INC INC AUTO&AUTO DIFRNTL WBC CT PELVIS 47231 BRADEN FELICIANO W/O 9 [facility] CONTRAST INC INC MATERIAL 3D 88705 BRADEN FELICIANO RENDERING 9 [facility] INC INC W/INTERP& [place] [address] BRADEN FELICIANO ABDOMEN 9 [facility] W/O INC INC CONTRAST MATERIAL URINE 62010 BRAD[facility] FELICIANO 9 [facility] TEST INC INC VISUAL COLOR CMPRSN METHS COMPREHEN 33911 BRADEN FELICIANO SIVE 9 [facility] METABOLIC INC INC PANEL URNLS DIP 50892 [facility] FELICIANO 9 [facility] STICK/TAB INC INC [place] [address] BRADEN FELICIANO AMYLASE 9 [place] [address] BRADEN FELICIANO LIPASE 9 [facility] INC INC GLUC BLD 27140 DHS/CO BRADEN GLUC MNTR 9 [facility] CLEARED BANK ACCT FDA SPEC HOME USE COMPLEX 76331 MAZIN HOLLAND JR, UROFLOMET 9 LTH RORY [place] UROLOGY R PSC CYSTO 36592 COMMONWEA SHANIAA CALIBRATI 9 LTH LTH ON DILAT UROLOGY UROLOGY URTL ASC ASC STRIX/JOSE NOSIS BLADDER 30299 MAZIN HOLLAND JR, PRESSURE 9 LTH RORY MEASUREME UROLOGY R NT DURING PSC FILLING EMG STDS 15256 MAZIN HOLLAND JR, ANAL/URTL 9 LTH RORY SPHNCTR UROLOGY R OTH/THN PSC NDL VOIDING 84386 MAZIN HOLLAND JR, PRESS 9 LTH RORY STDS BLDR UROLOGY R VOIDING PSC PRESS ANY TQ VOID 30869 MAZIN HOLLAND JR, PRESSURE 9 LTH RORY IBANEZ UROLOGY R INTRAABDO PSC BALJIT CULTURE 25909 BRADEN FELICIANO BACTERIAL 9 [facility] INC INC [place] [address] BRADEN FELICIANO STREPTOCO 9 [facility] CCUS INC INC GROUP A IAADI 53713 BRADEN FELICIANO INFFLUENZ 9 [facility] A A VIRUS INC INC IAADI 78005 BRADEN BRADEN INFLUENZA 9 [facility] B VIRUS INC INC OPHTH 13787 LIGIA OLSEN, [facility] 8 VISION NAMRATA M XM&EVAL COMPRHNSV ESTAB PT 1/> COMPREHEN 43320 BRADEN BRADEN SIVE 8 [facility] METABOLIC INC INC PANEL URNLS DIP 22666 BRAD[facility] FELICIANO 8 [facility] STICK/TAB INC INC [place] [address] BRADEN FELICIANO AMYLASE 8 [facility] INC INC ECG 05422 BRADEN FELICIANO ROUTINE 8 [facility] ECG INC INC W/LEAST 12 LDS TRCG ONLY W/O I&R ECG 64463 BRADEN KNIGHTMIKarson ROUTINE 8 [facility] W/LEAST PROF SERV 12 LDS I&R ONLY BLOOD 07520 BRADEN FELICIANO COUNT 8 [facility] COMPLETE INC INC AUTO&[place] [address] BRADEN FELICIANO LIPASE 8 [facility] INC INC BLOOD 43098 BRADEN FELICIANO COUNT 8 [facility] COMPLETE INC INC AUTO&AUTO DIFRNTL WBC LIPID 20407 BRADEN FELICIANO PANEL 8 [place] [address] BRADEN FELICIANO THYROID 8 [facility] STIMULATI INC INC NG HORMONE TSH COMPREHEN 28290 BRADEN FELICIANO SIVE 8 [facility] METABOLIC INC INC PANEL Encounters Encounter Start End Date Code Location Performer Type Date HOSPITAL [facility] - 7 7 [facility] INC [facility] - 7 7 [facility] OUTPATIEN INC T OFFICE 40438 [facility] OUTPATI[facility] 7 7 [facility] T VISIT 5 INC MINUTES [facility]OSPITAL [facility]EN - 7 7 [facility] OUTPATIEN INC T OFFICE 40629 [facility] HARPEL OUTPATIEN 7 7 PHYSICIAN T VISIT S GROUP 15 MINUTES HOSPITAL BRADEN - 7 7 [facility] OUTPATIEN INC T EMERGENCY 01613 [facility]ADEN 7 7 [facility] DEPARTMEN INC T VISIT HIGH/URGE NT SEVERITY HOSPITAL BRADEN - 7 7 [facility] OUTPATIEN INC T EMERGENCY 52544 SUKHDEV COLLINS DEPT 7 7 PHYSICIAN VISIT S, PLLC HIGH SEVERITY& THREAT FUNCJ OFFICE 64493 [facility] FRYMAN OUTPATIEN 7 7 PHYSICIAN T VISIT S GROUP 25 MINUTES OFFICE 51455 [facility] OUTPATIEN 7 7 PHYSICIAN T VISIT S GROUP 25 MINUTES HOSPITAL BRADEN - 7 7 [facility] OUTPATIEN INC T OFFICE 45431 BRADEN MOSQUERA OUTPATIEN [address] [facility] 10 P MINUTES OFFICE 67365 [facility] EMILY OUTPATIEN 7 7 PHYSICIAN T VISIT S GROUP 10 MINUTES HOSPITAL BRADEN - 6 6 [facility] OUTPATIEN INC T OFFICE 27022 [facility] EMILY OUTPATIEN 6 6 PHYSICIAN T VISIT S GROUP 10 MINUTES HOSPITAL BRADEN - 6 6 [facility] OUTPATIEN INC T OFFICE 62197 BRADEN MOSQUERA OUTPATIEN 6 6 [facility] 10 P MINUTES OFFICE 58797 BRADEN MOSQUERA OUTPATIEN 6 6 [facility] 20 HOSPITAL MINUTES P OFFICE 56993 [facility] FRY[facility] OUTPATIEN 6 6 PHYSICIAN EUG T VISIT S GROUP 15 MINUTES EMERGENCY 07930 SUKHDEV COLLINS 6 6 PHYSICIAN ANTIONE DEPARTMEN S, [facility] T VISIT MODERATE SEVERITY OFFICE 12958 [facility] FRYMAN OUTPATIEN 6 6 PHYSICIAN EUG T VISIT S GROUP 15 MINUTES EMERGENCY 20959 SUKHDEV RENUSCH 6 6 PHYSICIAN HONG [facility] S, [facility] T VISIT HIGH/URGE NT SEVERITY EMERGENCY 23568 [facility]ADEN 6 6 [facility] T VISIT LOW/MODER SEVERITY EMERGENCY 83754 SUKHDEV RENUSCH 6 6 PHYSICIAN HONG [facility] S, [facility] T VISIT HIGH/URGE NT SEVERITY HOSPITAL BRADEN - 6 6 [facility] OUTPATIEN [facility] T PERIODIC 54500 [facility] PREVENTIV 6 6 PHYSICIAN E MED EST S GROUP PATIENT 40-64YRS [facility]OSPITAL [facility] - 6 6 [facility]EN [facility] OFFICE 04996 [facility] EMILY TOD OUTPATIEN 6 6 PHYSICIAN T VISIT S GROUP 10 MINUTES OFFICE 15450 [facility] WOODS OUTPATIEN 6 6 PHYSICIAN BOOKER T VISIT S GROUP 25 MINUTES HOSPITAL BRADEN - 6 6 [facility] OUT[facility]IEN [facility] T EMERGENCY 60528 [facility] 6 6 [facility] T VISIT HIGH/URGE NT SEVERITY HOSPITAL BRADEN - 6 6 [facility]EN [facility] T OFFICE 47854 [facility] EMILY TOD CONSULTAT 6 6 PHYSICIAN ION S GROUP NEW/ESTAB PATIENT 30 MIN OFFICE 41502 [facility] STONE MARY OUTPATIEN 6 6 PHYSICIAN T VISIT S GROUP 15 MINUTES HOSPITAL BRADEN - 6 6 [facility]EN [facility] - 6 6 N [facility] - 6 6 [facility] OUTPATIEN INC T OFFICE 47018 [facility] RITA OUTPATIEN 6 6 PHYSICIAN ANTIONE T VISIT S GROUP 15 MINUTES OFFICE 30811 [facility] MEGHNA ALVA OUTPATIEN 6 6 PHYSICIAN T VISIT S GROUP 10 MINUTES OFFICE 10003 AMARI ANDRES OUTPATIEN 6 6 T VISIT ORTHOPAED 15 ICS PSC MINUTES OFFICE 25608 [facility] KARINA OUTPATIEN 6 6 PHYSICIAN ANTIONE T VISIT S GROUP 15 MINUTES OFFICE 53038 [facility] MCKEN[facility] TRA OUTPATIEN 6 6 [place] T NEW 30 ORTHOPAED MINUTES ICS PLC OFFICE 14662 [facility] KARINA OUTPATIEN 6 6 PHYSICIAN ANTIONE T VISIT S GROUP 15 MINUTES OFFICE 96671 [facility] EMILY TOGarcia OUTPATIEN 5 5 PHYSICIAN T VISIT S GROUP 10 MINUTES EMERGENCY 90419 BRADEN 5 5 [facility] DEPARTMEN [facility] T VISIT MODERATE SEVERITY EMERGENCY 59216 SUKHDEV COLLINS DEPT 5 5 PHYSICIAN ANTIONE VISIT S, [facility] HIGH SEVERITY& THREAT [facility] BRADEN - 5 5 [facility] OUTPATIEN [facility] BRADEN - 5 5 [facility] BRADEN - 5 5 [facility]EN [facility] T OFFICE 38138 [facility] EMILY MARTIN CONSULTAT 5 5 PHYSICIAN ION S GROUP NEW/ESTAB PATIENT 40 MIN HOSPITAL BRADEN - 5 5 [facility] OUTPATIEN INC T OFFICE 29478 BRADEN PLATT OUTPATIEN [address] [facility] VISIT HOSPITAL 15 MINUTES EMERGENCY 87534 BRADEN 5 5 [facility] DEPARTMEN INC T VISIT LOW/MODER SEVERITY HOSPITAL BRADEN - 5 5 [facility] OUTPATIEN [facility] EMERGENCY 62466 SUKHDEV PARKER 5 5 PHYSICIAN [facility] S, [facility] T VISIT MODERATE SEVERITY OFFICE 98086 CARDIOVAS LILIA OUTPATIEN 5 5 CULAR MAT T VISIT CONSULTAN 25 TS O MINUTES HOSPITAL BRADEN - 5 5 [facility] OUTPATIEN INC [facility]PITAL BRADEN - 5 5 [facility] OUTPATIEN INC T OFFICE 90293 BRADEN PLATT OUTPATIEN [address] BRADEN - 5 5 [facility] OUTPATIEN [facility] EMERGENCY 67896 SUKHDVE FRANKLIN 5 5 PHYSICIAN RAEGAN [facility], [facility] T VISIT HIGH/URGE NT SEVERITY EMERGENCY 63923 SUKHDEV STARK 5 5 PHYSICIAN Kortney ROSA [facility] S, [facility] T VISIT HIGH/URGE NT SEVERITY OFFICE 87695 [facility] PHYSICIAN NATTY T VISIT S GROUP 15 MINUTES PERIODIC 47730 [facility] DEPT TH DEPT PATIENT DANEILLE DANIELLE 18-39 YRS HOSPITAL BRADEN - 5 5 [facility] OUTPATIEN [facility] EMERGENCY 23267 BRADEN MATHEWS 5 5 [facility] T VISIT P MODERATE SEVERITY EMERGENCY 17743 [facility]ADEN 5 5 [facility] T VISIT LOW/MODER SEVERITY OFFICE 76321 [facility] OUTPATIEN 5 5 PHYSICIAN T VISIT S GROUP 25 MINUTES OFFICE 58711 JUDE ROQUE OUTPATIEN 5 5 NATTY NATTY T VISIT 10 MINUTES HOSPITAL BRADEN - 5 5 [facility] OUTPATIEN INC [facility]PITAL BRADEN - 5 5 [facility] OUTPATIEN INC T EMERGENCY 36616 [facility]EN 5 5 [facility] DEPARTMEN INC T VISIT LOW/MODER SEVERITY HOSPITAL BRADEN - 4 4 [facility] OUT[facility] INC T EMERGENCY 15507 BRADEN 4 4 [facility] DEPARTMEN INC T VISIT MODERATE SEVERITY HOSPITAL BRADEN - 4 4 [facility]EN [facility] T OFFICE 79188 [facility] PETTEY OUTPATIEN 4 4 PHYSICIAN JAM T VISIT S GROUP 15 MINUTES HOSPITAL BRADEN - 4 4 [facility]EN [facility] OFFICE 09584 [facility] PETTEY OUTPATIEN 4 4 PHYSICIAN JAM T NEW 30 S GROUP MINUTES EMERGENCY 42302 HILDA SAHU 4 4 SB [facility] EMERGENCY T VISIT PHYS MODERATE SEVERITY HOSPITAL BRADEN - 4 4 [facility] HOSPITAL BRADEN - 4 4 [facility] T OFFICE 98568 JUDE GLYNNON OUTPATIEN 4 4 NATTY NATTY T VISIT 25 MINUTES EMERGENCY 63583 ALFARIS ALFARIS 4 4 [facility] HIGH/URGE NT SEVERITY OFFICE 56299 [facility] DEPT TH DEPT 10 DANIELLE DANIELLE MINUTES PERIODIC 99716 [facility] TH DEPT HLTH DEPT PATIENT DANIELLE DANIELLE 18-39 YRS EMERGENCY 12653 JUHI JOSE JUHI JOSE DEPT 4 4 VISIT HIGH SEVERITY& THREAT FUNCJ EMERGENCY 82028 BRADEN 4 4 [facility] DEPARTMEN INC T VISIT LOW/MODER SEVERITY HOSPITAL BRADEN - 4 4 [facility] OUTPATIEN INC T EMERGENCY 99818 JOLYNN GATES 4 4 DEPARTMEN T VISIT MODERATE SEVERITY EMERGENCY 52960 BANNER 4 4 [facility] DEPARTMEN T VISIT HIGH/URGE NT SEVERITY OFFICE 02175 JUDE GLYNNON OUTPATIEN 1 1 NATTY NATTY T VISIT 10 MINUTES HOSPITAL BRADEN - 1 1 [facility] OUTPATIEN INC T OFFICE 57681 JUDE GLYNNON OUTPATIEN 1 1 NATTY NATTY T VISIT 10 MINUTES HOSPITAL BRADEN - 1 1 [facility] OUTPATIEN INC T EMERGENCY 81086 [facility] DEPT 1 1 [facility] VISIT INC HIGH SEVERITY& THREAT FUNCJ OFFICE 80246 AKUA FATIMA OUTLARRYEN 1 1 [facility] T VISIT 15 MINUTES HOSPITAL BRADEN - 1 1 [facility] OUTPATIEN INC T EMERGENCY 86633 NELY COLLINS DEPT 1 1 EMERGENCY ANTIONE VISIT SERVICES HIGH SEVERITY& THREAT FUNCJ EMERGENCY 89327 [facility]EN 1 1 [facility] DEPARTMEN INC T VISIT LOW/MODER SEVERITY OFFICE 32994 AKUA FATIMA OUTLARRYEN 1 1 [facility] T VISIT 15 MINUTES OFFICE 59342 ADYREGINO AKUA OUTPATIEN 1 1 [facility] T VISIT 15 MINUTES EMERGENCY 56416 NELY COLLINS DEPT 1 1 EMERGENCY ANTIONE VISIT SERVICES HIGH SEVERITY& THREAT FUNCJ EMERGENCY 22258 [facility] 1 1 [facility] DEPARTMEN INC T VISIT HIGH/URGE NT SEVERITY HOSPITAL BRADEN - 1 1 [facility] OUTPATIEN INC T HOSPITAL BRADEN - 1 1 [facility] OUTPATIEN INC T OFFICE 89930 JUDE ROQUE OUTPATIEN 1 1 NATTY NATTY T VISIT 15 MINUTES HOSPITAL BRADEN - 1 1 [facility] OUTPATIEN INC T OFFICE 88567 JOHNINGTON CRAGER CONSULTAT 1 1 JAM ION CARDIOLOG NEW/ESTAB Y CONSULT PATIENT 40 MIN HOSPITAL BRADEN - 1 1 [facility] OUTPATIEN INC T OFFICE 19687 AKUA MURRAY 1 1 [facility] T VISIT 15 MINUTES HOSPITAL BRADEN - 1 1 [facility] OUTPATIEN INC T EMERGENCY 84106 [facility] 1 1 [facility] DEPARTMEN INC T VISIT LOW/MODER SEVERITY EMERGENCY 01844 NELY PINTO 1 1 EMERGENCY DEPARTMEN SERVICES T VISIT HIGH/URGE NT SEVERITY HOSPITAL BRADEN - 1 1 [facility]EN [facility] HOSPITAL BRADNE - 1 1 [facility] OUTPATIEN INC T EMERGENCY 76815 BRADEN 1 1 [facility] DEPARTMEN INC T VISIT LOW/MODER SEVERITY EMERGENCY 18741 NELY COLLINS 1 1 EMERGENCY ANTIONE DEPARTMEN SERVICES T VISIT HIGH/URGE NT SEVERITY OFFICE 08705 PIETRO CALL CONSULTAT 1 1 NEUROLOGY [facility] ION CENTER NEW/ESTAB JOHN PATIENT 80 MIN OFFICE 41901 ROQUE JUDE MURRAY 1 1 NATTY NATTY T VISIT 10 MINUTES EMERGENCY 54946 NELY CAMPOS 1 1 EMERGENCY III BREANNA DEPARTMEN SERVICES T VISIT MODERATE SEVERITY EMERGENCY 06220 [facility] 1 1 [facility] DEPARTMEN [facility] T VISIT LOW/MODER SEVERITY [facility] - [facility] 1 [facility] OUTPATI[facility] INC T OFFICE 81507 AKUA MURRAY 1 1 MITCHELL MITCHELL T VISIT 15 MINUTES OFFICE 40127 ROQUE JUDE MURRAY 1 1 NATTY NATTY T VISIT 10 MINUTES [facility] - [facility] 1 [facility] T [facility] - 1 1 [facility] T OFFICE 30994 JUDE ROQUE OUTPATIEN 1 1 NATTY NATTY T VISIT 15 MINUTES HOSPITAL [facility] - 1 1 [facility] INC T EMERGENCY 82251 BRADEN 1 1 [facility] DEPARTMEN INC T VISIT LOW/MODER SEVERITY EMERGENCY 01025 NELY COLLINS 1 1 EMERGENCY [facility] DEPARTMEN SERVICES T VISIT HIGH/URGE NT SEVERITY OFFICE 46512 JUDE ROQUE OUTPATIEN 1 1 NATTY NATTY T VISIT 10 MINUTES HOSPITAL BRADEN - 0 0 [facility] OUTPATIEN INC T EMERGENCY 35691 [facility] L[facility]/MODER SEVERITY PERIODIC 05804 BRADEN FELICIANO PREVENTIV 0 0 [facility] CENTER PATIENT 18-39 YRS HOSPITAL [facility] - 0 0 [facility] T EMERGENCY 19238 NELY SEVILLA DEPT 0 0 EMERGENCY GRE VISIT SERVICES HIGH SEVERITY& THREAT FUNJ EMERGENCY 74128 BRADEN 0 0 [facility] DEPARTMEN INC T VISIT HIGH/URGE NT SEVERITY [facility] - 0 0 [facility] T EMERGENCY 47589 BRADEN 0 0 [facility] DEPARTMEN INC T VISIT LOW/MODER SEVERITY EMERGENCY 77840 NELY COLLINS 0 0 EMERGENCY [facility] DEPARTMEN SERVICES T VISIT HIGH/URGE NT SEVERITY [facility]OSP[facility] - 0 0 [facility] INC T OFFICE 03511 JUDE ROQUE, OUTPATIEN 0 0 CYDNEY LAMAS G T VISIT 15 MINUTES [facility] - 0 0 [facility] T OFFICE 88206 [facility] OUTPATIEN 0 0 [place] T VISIT ORTHOPAED 15 [facility] MINUTES OFFICE 22009 [facility] OUT[facility] 0 0 [facility] Muniz T NEW 30 CLINIC OF MINUTES [facility] OFFICE 60494 RENARD ROQUEBRENTON OUTPATIEN 0 0 CYDNEY Bose T VISIT 10 MINUTES OFFICE 47948 JUDE ROQUE OUTPATIEN 0 0 CYDNEY G CYDNEY G T NEW 45 MINUTES HOSPITAL [facility] - 0 0 [facility] T OFFICE 45909 AKUA FATIMA OUTPATIEN 0 0 JAMES Bui T VISIT 15 MINUTES OFFICE 66400 MAZIN MOSQUERA OUTLEO 0 0 [facility] ARIS Zelaya T VISIT UROLOGY 25 PSC MINUTES EMERGENCY 92496 NELY COLLINS, DEPT 0 0 EMERGENCY [facility] VISIT SERVICES HIGH SEVERITY& ASSOCIATE THREAT S [facility] BRADEN - 0 0 [facility] OUTPATIEN INC T EMERGENCY 01194 [facility] 0 0 [facility] DEPARTMEN INC T VISIT HIGH/URGE NT SEVERITY OFFICE 76780 BRADEN FELICIANO OUTPATIEN 0 0 [facility] T VISIT CENTER CENTER 15 MINUTES OFFICE 08957 [facility] ANDRES, CONSULTAT 0 0 [place] TRUDY A ION ORTHOPAED NEW/ESTAB [facility] PATIENT 60 MIN [facility] - 0 0 [facility] OUTPATIEN INC T OFFICE 07859 AKUA FATIMA OUTPATIEN 0 0 JAMES Bui T VISIT 15 MINUTES OFFICE 15900 AKUA FATIMA OUTPATIEN 9 9 JAMES Bui T NEW 30 MINUTES HOSPITAL [facility]ADEN - 9 9 [facility] OUTPATI[facility] INC T EMERGENCY 36284 NELY CAMPOS 9 9 EMERGENCY III, [facility] RORY Oliva VISIT HIGH/URGE ASSOCIATE NT S SEVERITY OFFICE 55127 BEULAH RIOJAS OUTPATIEN 9 9 DON R DON R T VISIT 15 MINUTES OFFICE 75558 [facility] OUTPATIEN 9 9 [facility] T VISIT [facility]TRAL [facility]ENTER 10 BANK ACCT MINUTES OFFICE 26662 MAZIN HOLLAND JR OUTPATIEN 9 9 [facility] RORY T VISIT UROLOGY R 10 PSC MINUTES OFFICE 76067 MAZIN HOLLAND JR, CONSULTAT 9 9 [facility] RORY ION UROLOGY R NEW/ESTAB PSC PATIENT 30 MIN OFFICE 41241 BEULAH RIOJAS OUTPATIEN 9 9 DON R DON R T VISIT 15 MINUTES OFFICE 21147 BEULAH RIOJAS OUTPATIEN 9 9 DON R DON R T VISIT 15 MINUTES OFFICE 08057 BEULAH RIOJAS OUTPATIEN 9 9 DON R DON R T VISIT 15 MINUTES [facility]OSPITAL [facility] - 9 9 [facility] INC T OFFICE 48147 BEULAH RIOJAS OUTPATIEN 9 9 DON R DON R T VISIT 15 MINUTES [facility] - 9 9 [facility] [facility] EMERGENCY [id number] [facility] 9 9 [facility] T VISIT HIGH/URGE NT SEVERITY EMERGENCY [id number] NELY COLLINS, 9 9 EMERGENCY [facility] T VISIT MODERATE ASSOCIATE SEVERITY S OFFICE [id number] BEULAH RIOJAS OUTPATIEN 9 9 DON R DON R T VISIT 15 MINUTES EMERGENCY [id number] NELY COLLINS, 9 9 EMERGENCY [facility] T VISIT MODERATE ASSOCIATE SEVERITY [facility] - 9 9 [facility] T EMERGENCY [id number] BRADEN 9 9 [facility] INC T VISIT LOW/MODER SEVERITY OFFICE 48001 BEULAH RIOJAS OUTPATIEN 9 9 DON R DON R T VISIT 15 MINUTES OFFICE 11088 BEULAH RIOJAS OUTPATIEN 9 9 DON R DON R T VISIT 15 MINUTES OFFICE 37551 BEULAH RIOJAS OUTPATIEN 8 8 DON R DON R T VISIT 15 MINUTES OFFICE 70139 BEULAH RIOJAS OUTPATIEN 8 8 DON R DON R T VISIT 15 MINUTES EMERGENCY [id number] [facility] DEPT 8 8 [facility] INC HIGH SEVERITY& THREAT [facility] - 8 8 [facility] T [facility] - 8 8 [facility] T OFFICE [id number] BEULAH RIOJAS OUTPATIEN 8 8 DON R DON R T VISIT 15 MINUTES HOSPITAL [facility] - 8 8 [facility] T EMERGENCY [id number] [facility]ADEN 8 8 [facility] T VISIT MODERATE SEVERITY
--- OUTSIDE RECORDS SUMMARY | 2017-08-01 23:10 | External Medical Summary Rpt | CCD ---
Author Author , CARIN DEL ROSARIO Address Unknown Phone [email or web address] Care Team Providers Care Pulp House Supervisor Name Role Phone MOSQUERA, MOSQUERA Unavailable Unavailable MOSQUERA CORTEZ, MOSQUERA Unavailable Unavailable CORTEZ MOSQUERA, ARIS D, Unavailable Unavailable MOSQUERA, ARIS D ALFARIS MOH, ALFARIS Unavailable Unavailable MOH ARNOLD MITCHELL, ARNOLD Unavailable Unavailable MITCHELL ARNOLD MITCHELL, ARNOLD Unavailable Unavailable MITCHELL JAMES FATIMA W, Unavailable Unavailable ARNREGINO, JAMES W SAAB KEITH, SAAB KEITH Unavailable Unavailable BAKRISS BAKRISS Unavailable Unavailable [facility] Unavailable Unavailable [facility], [facility] Unavailable Unavailable [facility], [facility] FUENTES BRO, FUENTES Unavailable Unavailable BRO FUENTES BRO, FUENTES Unavailable Unavailable BRO BEINEKE SHELLEY, BEINEKE Unavailable Unavailable SHELLEY COFFMAN TER, COFFMAN TER Unavailable Unavailable BESSON, BESSON Unavailable Unavailable BESSON JOSE, BESSON Unavailable Unavailable JOSE BESSON, JAE A, Unavailable Unavailable BESSON, JAE A [facility] Unavailable [facility]available [facility], [facility] MOLINA, MOLINA Unavailable Unavailable MOLINA ALL, MOLINA ALL Unavailable Unavailable [facility] Unavailable Unavailable [facility] Unavailable [facility]available [facility], [facility] VANITA TER, VANITA TER Unavailable Unavailable VANITA TER, VANITA TER Unavailable Unavailable WOODS BOOKER, WOODS Unavailable Unavailable BOOKER CHUCK BOOKER, WOODS Unavailable Unavailable BOOKER FELIX WOODS, Unavailable Unavailable FELIX WOODS [facility] Unavailable Unavailable [facility], [facility] Unavailable Unavailable ASC, [facility] ANESTH OF [...] NEMO S, Unavailable Unavailable KARINA, NEMO S [facility] Unavailable Unavailable HOSPITA, [facility] DAY ANT, DAY Unavailable Unavailable ANT YECENIA, RONDAL E, Unavailable Unavailable YECENIA, RONDAL E ROVERTO ANTIONE, ROVERTO ANTIONE Unavailable Unavailable SALAZAR MILLIE, SALAZAR MILLIE Unavailable Unavailable HARPEL, HARPEL Unavailable Unavailable [facility] Unavailable Unavailable CENTER, [facility] Unavailable [facility]available CENTER, [facility] Unavailable Unavailable INC, [facility] Unavailable Unavailable HOSPITAL, [facility] Unavailable Unavailable HOSPITAL P, [facility], Unavailable Unavailable [facility] ANDRES, ANDRES Unavailable Unavailable ANDRES TRA, ANDRES TRA Unavailable Unavailable ANDRES, TRUDY A, ANDRES, Unavailable Unavailable TRUDY A [facility] Unavailable Unavailable GROUP PS, [facility] Unavailable [facility], [facility] Unavailable Unavailable [facility], [facility] ROQUE NATTY, ROQUE Unavailable Unavailable NATTY ROQUE NATTY, ROQUE Unavailable Unavailable NATTY CYDNEY ROQUE, Unavailable Unavailable CYDNEY ROQUE DWI, DOROTHY DWI Unavailable Unavailable DOROTHY JR DWI, DOROTHY Unavailable Unavailable JR DWI DOROTHY JR DWI, DOROTHY Unavailable Unavailable JR DWI BO MITCHELL, BO Unavailable Unavailable MITCHELL NOEMI RAEGAN, NOEMI Unavailable Unavailable RAEGAN NELY RAFI, Unavailable Unavailable [facility] Unavailable Unavailable SERVICES, [facility] CONTE MAR, CONTE Unavailable Unavailable [...] DAVIS VANDANA, Unavailable Unavailable RYAN LEDESMA VANDANA [facility] Unavailable Unavailable DEPT, [facility] EMILY, EMILY Unavailable Unavailable EMILY [...] Unavailable SOTINGEANU SHELLEY, Unavailable Unavailable SOTINGEANU SHELLEY [facility] Unavailable Unavailable EMERGENCY PHYS, [facility] REYES ANA, REYES Unavailable Unavailable ANA RIOJAS, DON R, Unavailable Unavailable RIOJAS, DON R STONE MARY, STONE MARY Unavailable Unavailable SEVILLA GRE, SEVILLA Unavailable Unavailable GRE SHERIN, SHERIN Unavailable Unavailable TIKHTMAN, TIKHTMAN Unavailable Unavailable AGUDELO MOL, AGUDELO MOL Unavailable Unavailable [facility] Unavailable Unavailable [place] [facility] Unavailable Unavailable #591, [id number] # Unavailable Unavailable [id number], [facility] # [id number] [facility] Unavailable Unavailable DEPT [facility], [facility] DEPT [facility] Unavailable Unavailable DEPT [facility], [facility] DEPT [facility] WEHRMAN III BREANNA, Unavailable Unavailable WEHRMAN III [...] LLC UNSPECIFIED N815 VAGINAL 03-06-2017 [facility]OCELE [facility] N8189 OTHER 03-06-2017 [facility] FEMALE PHYSICIANS GENITAL GROUP PROLAPSE N938 OTHER SPEC 03-06-2017 [facility] ABNORMAL PHYSICIANS UTERINE & GROUP VAGINAL BLEEDING R102 PELVIC AND 03-06-2017 [facility] PERINEAL [facility] PAIN INC B349 VIRAL 02-28-2017 [facility] INFECTION [facility] UNSPECIFIED INC N819 FEMALE 02-23-2017 [facility] GENITAL [facility] PROLAPSE INC UNSPECIFIED N852 HYPERTROPHY 02-23-2017 [facility] OF UTERUS [facility] INC N920 EXCESS & 02-23-2017 [facility] FREQUENT [facility] MENSTRUATIO INC N W/REGULAR CYCLE [id number] ENCOUNTER 02-23-2017 [facility] FOR OTHER [facility] PREPROCEDUR INC AL EXAMINATION R938 ABNORMAL 01-18-2017 [place] FIND ON DX MEDICAL IMAGING OT IMAGING ASS SPEC BODY STRCT L76649 ENCOUNTER 01-12-2017 [facility] REPORTER EXAM PHYSICIANS GENERAL RTN GROUP W/ABNORMAL FIND Z1212 ENCOUNTER 01-12-2017 [facility] SCREENING PHYSICIANS MALIGNANT GROUP NEOPLASM RECTUM R072 PRECORDIAL 12-30-2016 [facility] PAIN PHYSICIANS, PLLC R079 CHEST PAIN 12-30-2016 [place] UNSPECIFIED MEDICAL IMAGING ASS J0100 ACUTE 12-11-2016 [facility] MAXILLARY PHYSICIANS SINUSITIS GROUP UNSPECIFIED J208 ACUTE 11-27-2016 [facility] BRONCHITIS PHYSICIANS DUE TO GROUP OTHER SPEC ORGANISMS N3020 OTHER 11-14-2016 [facility] CHRONIC [facility] WITHOUT HEMATURIA N8110 CYSTOCELE 11-14-2016 [facility] P R80905 PERSONAL 11-01-2016 [facility] HISTORY OF PHYSICIANS COLONIC GROUP POLYPS K635 POLYP OF 10-19-2016 [facility] Z09 ENC F/U 10-19-2016 [facility] EXAM AFTR PHYSICIANS CMPL [place] OTH GROUP THAN MALIG NEOPLSM K5909 OTHER 10-04-2016 [facility] CONSTIPATIO PHYSICIANS N GROUP R197 DIARRHEA 10-04-2016 [facility] UNSPECIFIED PHYSICIANS GROUP N359 URETHRAL 09-12-2016 [facility] P N390 URINARY 09-12-2016 [facility] TRACT ANESTH OF INFECTION THE BLUE SITE NOT SPECIFIED R319 HEMATURIA 08-07-2016 [facility] UNSPECIFIED PHYSICIANS GROUP [id number] ALLERGY 08-04-2016 [facility] UNSPECIFIED PHYSICIANS, INITIAL PLLC ENCOUNTER N210 CALCULUS IN 07-07-2016 [facility] BLADDER PHYSICIANS GROUP N3090 CYSTITIS 07-07-2016 [facility] UNSPECIFIED PHYSICIANS, WITHOUT PLLC HEMATURIA Z1231 ENCOUNTER 07-04-2016 [place] SCREENING MEDICAL MAMMO MALIG IMAGING ASS NEOPLASM BREAST I10 ESSENTIAL 07-02-2016 [facility] HYPERTENSIO INC N R1030 LOWER 07-02-2016 [facility] ABDOMINAL PHYSICIANS, PAIN PLLC UNSPECIFIED Z720 TOBACCO USE 07-02-2016 [facility] INC E13019 ATYP SQ 06-23-2016 [facility] CELLS UNDET LLC SIGNIFICANC E CYTOL SMER CERV U94120 ENCOUNTER 06-23-2016 [facility] REPORTER EXAM PHYSICIANS GENERAL RTN GROUP W/O ABNORMAL FIND N949 UNS COND 06-09-2016 [facility] ASSOC W/FE [facility] GENIT ORGN INC & MENSTRUAL CYCL E039 HYPOTHYROID 06-05-2016 [facility] ISM [facility] UNSPECIFIED INC K5900 CONSTIPATIO 05-01-2016 [facility] N PHYSICIANS UNSPECIFIED GROUP R109 UNSPECIFIED 05-01-2016 [facility] ABDOMINAL PHYSICIANS PAIN GROUP G5601 CARPAL 02-16-2016 [place] TUNNEL ANESTHESIA SYNDROME GROUP PS RIGHT UPPER LIMB W61273 ENCOUNTER 02-08-2016 [facility] FOR [facility] PREPROCEDUR INC AL LABORATORY EXAM L240 IRRITANT 02-06-2016 [facility] CONTACT PHYSICIANS DERMATITIS GROUP DUE TO DETERGENTS Q67909 ACUTE & 01-28-2016 [facility] SUBACUTE PHYSICIANS ALLERGIC GROUP OTITS MEDIA BILATERAL G5602 CARPAL 01-27-2016 [facility] T[facility]NEL [facility] SYNDROME S PSC LEFT UPPER LIMB J40 BRONCHITIS 12-29-2015 [facility] NOT PHYSICIANS SPECIFIED GROUP ACUTE OR CHRONIC R200 ANESTHESIA 11-02-2015 [facility] OF SKIN PHYSICIANS GROUP D126 BENIGN 10-11-2015 [facility] NEOPLASM OF PHYSICIANS COLON GROUP UNSPECIFIED K625 HEMORRHAGE 10-11-2015 [facility] OF ANUS AND PHYSICIANS RECTUM GROUP K9189 OTH 10-07-2015 [facility] POSTPROC PHYSICIANS, COMP & PLLC DISORDERS DIGESTIVE SYSTEM R1032 LEFT LOWER 10-07-2015 [place] QUADRANT MEDICAL PAIN IMAGING ASS M549 DORSALGIA 09-10-2015 [facility] UNSPECIFIED [facility] INC K828 OTHER 09-08-2015 [facility] SPECIFIED [facility] DISEASES OF INC GALLBLADDER L64834E STRAIN 09-08-2015 [facility] MUSCLE PHYSICIANS, FASCIA & PLLC TENDON LOW BACK INITIAL 2468 OTHER 07-20-2015 [facility] SPECIFIED LAR DISORDERS CONSULTANTS OF THYROID O 8524 OTHER AND 07-20-2015 [facility] UNSPECIFIED [facility] INC HYPERLIPIDE KAITLYN 93107 UNSPEC HTN 07-20-2015 [facility] HEART LAR DISEASE CONSULTANTS WITHOUT O HEART FAIL 19682 COR 07-20-2015 [facility] ATHEROSLERO [facility] UNSPEC INC TYPE VESSEL CHIGNIK LAGOON/APURVA T 4019 UNSPECIFIED 07-13-2015 [facility] ESSENTIAL [facility] HYPERTENSIO INC N 4139 OTHER AND 07-13-2015 [facility] UNSPECIFIED [facility] ANGINA INC PECTORIS 17656 NONSPECIFIC 07-08-2015 [place] [facility]NORMAL SERV Tendr [facility] IOGRAM 193 MALIGNANT 07-01-2015 [facility] NEOPLASM [facility] THYROID [facility] P GLAND 2449 UNSPECIFIED 07-01-2015 [facility] HYPOTHYROID [facility] P ISM 3540 CARPAL 07-01-2015 [facility] TUNNEL [facility] SYNDROME [facility] 19252 CHEST PAIN 07-01-2015 [facility] 5990 URINARY 06-21-2015 [facility] TRACT PHYSICIANS, INFECTION PLLC SITE NOT SPECIFIED 46544 ABDOMINAL 06-21-2015 [place] PAIN OTHER MEDICAL SPECIFIED IMAGING ASS SITE 70934 MIGRAINE 06-12-2015 [facility] UNSP W/O PHYSICIANS, INTRACT W/O PLLC STATUS MIGRAINOSUS 10832 VISUAL 06-12-2015 [facility] DISCOMFORT PHYSICIANS, PLLC 2397 NEOPLSM UNS 04-05-2015 [facility] NATR PHYSICIANS ENDOCRN GROUP GLND&OTH PART NERV SYS V2540 UNSPECIFIED 02-09-2015 [facility] DEPT VE DANIELLE SURVEILLANC E V2689 OTHER 02-09-2015 [facility] SPECIFIED [facility] PROCREATIVE [facility] DEPT MANAGEMENT DANIELLE V7231 ROUTINE 02-09-2015 [facility] AL EXAMINATION 4659 ACUTE URIS 01-26-2015 [facility] UNSPECIFIED HOSPITAL P SITE 77098 FEVER 01-26-2015 [facility] IM[facility] ASS 7862 COUGH 01-26-2015 [facility] 7962 ELEVATED BP 01-26-2015 [facility] WITHOUT DX HOSPITAL P HYPERTENSIO N 6259 UNSPEC 01-14-2015 [facility] SYMPTOM PHYSICIANS ASSOC GROUP W/FEMALE GENITAL ORGANS 10553 ABDOMINAL 01-14-2015 [facility] PAIN, LEFT PHYSICIANS LOWER GROUP QUADRANT 07436 UNSPECIFIED 01-06-2015 [facility] PHYSICIANS CONSTIPATIO GROUP N 20892 THYROTOX 11-26-2014 [facility] W/O [facility] GOITER/OTH INC CAUSE W/O CRISIS 98392 GENERALIZED 10-23-2014 [facility] PAIN [facility] INC 7840 HEADACHE 10-23-2014 [facility] INC V0179 CONTACT OR 10-23-2014 [facility] EXPOSURE TO [facility] OTHER INC VIRAL DISEASES V642 SURG/OTH 10-23-2014 [facility] PROC NOT [facility] CARRIED OUT INC BECAUSE PTS DECN 29142 HEMATURIA 10-04-2014 [place] UNSPECIFIED MEDICAL IMAGING ASS 7880 RENAL COLIC 10-04-2014 [facility] P 39615 UNSPECIFIED 09-25-2014 [facility] SITE OF MEM HOS[facility] ANKLE INC SPRAIN AND STRAIN 32698 OTHER ANKLE 09-25-2014 [facility] SPRAIN AND PHYSICIANS STRAIN GROUP 04247 OTHER JOINT 08-28-2014 [facility] PHYSICIANS DERANGEMENT GROUP NEC ANKLE AND FOOT 226 BENIGN 08-11-2014 [facility] NEOPLASM OF THYROID GLANDS 2419 UNSPECIFIED 08-11-2014 [facility] GO[facility] V5869 LONG-TERM 08-05-2014 [facility] (CURRENT) [facility] USE OF HOSPITAL P OTHER MEDICATIONS V7263 PRE-PROCEDU 08-05-2014 [facility] P EXAMINATION 77611 PAIN IN 07-15-2014 [place] JOINT, MEDICAL ANKLE AND IMAGING ASS FOOT 7295 PAIN IN 07-15-2014 [facility] SOFT N EMERGENCY TISSUES OF PHYS LIMB 2411 NONTOXIC 06-10-2014 [facility] MULTINODULA H R GOITER ANESTHESIA PSC 42515 DYSPHAGIA 06-10-2014 [facility] UNSPECIFIED H ANESTHESIA PSC 2410 NONTOXIC 05-29-2014 [facility] UNINODULAR [facility] GOITER INC 6262 EXCESSIVE 04-14-2014 [facility] BOOKER OR FREQUENT MENSTRUATIO N 6264 IRREGULAR 04-14-2014 [facility] B[facility]ER MENSTRUAL CYCLE 6253 DYSMENORRHE 03-19-2014 [facility] BOOKER A 6227 MUCOUS 03-18-2014 AMALIA CHINO POLYP OF CERVIX 47374 PAP SMER 02-17-2014 VANITA ALVA CERV W/ATYPICAL SQUAMOUS CELLS UNDET V252 STERILIZATI 02-17-2014 [facility] DEPT DANIELLE 48671 MORBID 12-03-2013 DOROTHY LEDESMA OBESITY DWI 57024 OTHER CHEST 12-03-2013 JU[facility] JOSE PAIN V140 PERSONAL 12-03-2013 DOROTHY LEDESMA HISTORY OF DWI ALLERGY TO PENICILLIN V148 PERSONAL 12-03-2013 DOROTHY LEDESMA HISTORY DWI ALLERGY OTH SPEC MEDICINAL AGTS 4619 ACUTE 11-16-2013 [facility] SINUSITIS, UNSPECIFIED 7242 LUMBAGO 11-01-[address] GOITER, 07-10-2011 [facility] UNSPECIFIED 2459 UNSPECIFIED 07-03-2011 [facility] THYROIDITIS 5409 ACUTE 06-27-2011 [facility] APPENDICITI EMERGENCY S WITHOUT SERVICES MENTION PERITONITIS 541 APPENDICITI 06-27-2011 COMMUNITY S, ANESTH OF UNQUALIFIED THE BLUE 59853 ABDOMINAL 06-27-2011 [place] PAIN, MEDICAL UNSPECIFIED IMAGING ASS SITE 6869 UNSPEC 06-21-2011 [facility] LOCAL INFECTION SKIN&SUBCUT ANEOUS TISSUE 7881 DYSURIA 05-21-2011 [facility] 27050 ABDOMINAL 05-21-2011 [facility] PAIN RIGHT [facility] LOWER INC QUADRANT 5641 IRRITABLE 05-04-2011 [facility] BOWEL SYNDROME 6929 CONTACT 05-04-2011 [facility] DERMATITIS& OTHER ECZEMA DUE UNSPEC CAUSE 4871 INFLUENZA 04-17-2011 [facility] WITH OTHER RESPIRATORY MANIFESTATI ONS 65200 PAINFUL 04-07-2011 [place] RESPIRATION MEDICAL IMAGING ASS 2722 MIXED 03-21-2011 [facility] HYPERLIPIDE [facility] INC 5110 PLEURISY 03-07-2011 [facility] WITHOUT EMERGENCY MENTION SERVICES EFFUS/CURRE NT TB 4660 ACUTE 01-24-2011 [facility] BRONCHITIS EMERGENCY SERVICES 25268 MIGRAINE 12-28-2010 [facility] W/O AURA NEUROLOGY INTRACT W/O CENTER JOHN STATUS MIGRAINOSUS 83470 PAIN IN 12-14-2010 [facility] JOINT, EMERGENCY FOREARM SERVICES 68425 VARIANTS 12-07-2010 [facility] MIGRAINE NEC INTRACT MIGRAINE W/O SM 463 ACUTE 11-28-2010 [facility] TONSILLITIS 68517 ASTHMA, 11-18-2010 [facility] UNSPECIFIED EMERGENCY , SERVICES UNSPECIFIED STATUS 462 ACUTE 10-31-2010 [facility] NAT[facility] PHARYNGITIS 4760 CHRONIC 10-31-2010 [facility] NAT[facility] LARYNGITIS 31370 CHRONIC 10-03-2010 [facility] NATTY TONSILLITIS 26071 SPRAIN AND 09-18-2010 [facility] STRAIN OF EMERGENCY UNSPECIFIED SERVICES SITE OF WRIST 84563 SPRAIN AND 09-18-2010 [facility] STRAIN OF EMERGENCY UNSPECIFIED SERVICES SITE OF HAND 9593 INJURY 09-18-2010 [place] OTHER&UNSPE MEDICAL CIFIED IMAGING ASS ELBOW FOREARM&WRI ST 9594 INJURY 09-18-2010 [place] OTHER AND MEDICAL UNSPECIFIED IMAGING ASS HAND EXCEPT FINGER E8859 FALL FROM 09-18-2010 [facility] OTHER EMERGENCY SLIPPING SERVICES TRIPPING OR STUMBLING 2662 OTHER 09-06-2010 [facility] S V700 ROUTINE 09-06-2010 [facility] EXAM@HEALTH CARE FACL V7643 SCREENING 09-06-2010 [facility] MALIG[facility]NT CENTER NEOPLASM OF THE SKIN 6202 OTHER AND 07-11-2010 [facility] UNSPECIFIED EMERGENCY OVARIAN SERVICES CYST 66919 SPRAIN AND 06-20-2010 [facility] STRAIN OF EMERGENCY UNSPECIFIED SERVICES SITE OF FOOT 8472 LUMBAR 06-20-2010 [facility] SPRAIN AND EMERGENCY STRAIN SERVICES 81835 OTHER 06-20-2010 [place] INJURY OF MEDICAL OTHER SITES IMAGING ASS OF TRUNK 9596 INJURY 06-20-2010 [place] OTHER AND MEDICAL UNSPECIFIED IMAGING ASS HIP AND THIGH 9597 INJURY 06-20-2010 [place] OTHER&UNSPE MEDICAL CIFIED KNEE IMAGING ASS LEG [...] PATHOLOGY & AND CYTOLOGY ENDOCERVICI LAB TIS 84075 MILD 03-10-2010 PATHOLOGY & DYSPLASIA CYTOLOGY OF CERVIX LAB 53695 CERV HIGH 03-10-2010 [facility] DNA CY[place] TEST POS PLLC 5921 CALCULUS OF 01-13-2010 [facility] URETER H UROLOGY PSC 7231 CERVICALGIA 12-02-2009 [facility] FERRERCHER 7919 OTHER 09-25-2009 [facility] NONSPECIFIC [facility] FINDING INC EXAMINATION OF URINE 5509 OTH&UNSPEC 09-01-2009 RIOJAS, NONINFECTIO DON R US GASTROENTER ITIS&COLITI S V771 SCREENING 08-30-2009 [facility] FOR [facility] DIABETES [facility] ACCT V7791 SCREENING 08-30-2009 [facility] FOR LIPOID HEALTH DISORDERS [facility] ACCT 83812 MIXED 08-26-2009 [facility] INCONTINENC H UROLOGY E URGE AND PSC STRESS 6256 FEMALE 08-16-2009 [facility] STRESS H [place]OLOGY [place]ENC [place] E [address] POLYURIA 07-29-2009 [facility] H UROLOGY PSC 02232 URGENCY OF 07-29-2009 [facility] URINATION H UROLOGY PSC 84022 OTHER 07-14-2009 [facility], SPECIFIED DON R DISORDERS OF URINARY TRACT 7224 DEGENERATIO 06-23-2009 [facility] N OF DON R CERVICAL INTERVERTEB RAL DISC 7245 UNSPECIFIED 06-23-2009 [facility] BACKACHE DON R 3829 UNSPECIFIED 03-08-2009 [facility] OTITIS [facility] MEDIA INC 07431 OSTEOARTHRO 12-02-2008 Charanjit RIOJAS INVLV MX DON R SITES BUT NOT SPEC GEN 3671 MYOPIA 10-02-2008 [facility] VISION 27590 OTHER 08-03-2008 [facility] SPECIFIED DON R TYPES OF CYSTITIS 5368 DYSPEPSIA&O 07-23-2008 [facility] THER SPEC Vilynx FUNCTION STOMACH V180 FAMILY 07-01-2008 [facility] HISTORY OF [facility] DIABETES INC MELLITUS 7804 DIZZINESS 06-30-2008 [facility] AND DON R GIDDINESS 97880 OTHER 06-08-2008 [facility] TENOSYNOVIT [facility] IS [...] MG CY TA #5 BL 91 ET LA 00 05 06 60 6 00 WA [...] CE 68 02 03 20 10 00 [place] Ac PH 18 -2 -2 .0 00 L- ti AL 00 0- 4- 00 07 MA ve EX 12 20 20 47 RT IN 20 17 17 17 2 97 PH 50 AR 0 MA MG CY CA #5 PS 91 UL E FL 60 02 03 16 30 00 IL Ac UT 50 -2 -2 .0 00 L- ti IC 50 0- 4- 00 07 MA ve 82 20 20 47 RT ON 90 17 17 17 E 1 98 PH LA AR OP MA CY 50 #5 MC 91 G SP RA Y LE 00 02 03 30 30 00 [place] Ac VO 78 -2 -2 .0 00 L- ti TH 15 2- 4- 00 07 MA ve YR 18 20 20 47 RT OX 89 17 17 25 IN 2 04 PH E AR 17 MA 5 CY MC G #5 TA 91 BL ET AZ 59 02 03 6. 5 00 [place] Ac IT 76 -0 -1 00 00 L- ti HR 23 6- 0- 0 07 MA ve OM 06 20 20 46 RT YC 00 17 17 91 IN 1 35 PH AR 25 MA 0 CY MG #5 TA 91 BL ET DO 23 02 03 60 30 00 [place] Ac XY 15 -0 -1 .0 00 L- ti CY 50 2- 0- 00 07 MA ve CL 13 20 20 46 RT IN 52 17 17 84 E 5 58 PH MO AR NO MA CY 10 0 #5 MG 91 TA BL ET LE 00 01 02 30 30 00 [place] Ac VO 78 -1 -1 .0 00 L- ti TH 15 1- 0- 00 07 MA ve YR 18 20 20 46 RT OX 89 17 17 40 IN 2 97 PH E AR 17 MA 5 CY MC G #5 TA 91 BL ET NA 65 01 02 14 7 00 WA Ac LA 16 -1 -1 .0 00 L- ti [...] 11 11 RI TA 1 PH CH WA AR AR N- MA D CA CY [...] DI 00 10 10 1 60 20 IL 71 AR Ac CL 78 -1 -1 [...] 91 00 10 10 0 15 5 [place] 71 SO Ac 37 -0 -0 .0 L- 37 KA ti 80 5- 5- 00 MA 81 N ve 75 20 20 RT 0 BA 19 11 11 BA 3 PH TU AR ND MA E CY O # 10 05 91 IB 68 10 10 0 15 5 [place] 71 SO Ac UP 64 -0 -0 [...] MU 45 08 09 1 22 10 [place] 71 AR Ac PI 80 -3 -0 .0 L- 33 NO ti RO 20 1- 2- 00 MA 16 LD ve CI 11 20 20 RT 4 N 22 11 11 RI 2% 2 PH CH AR AR OI MA D NT CY W ME # NT 10 05 91 DO 53 08 08 1 20 10 [place] 71 AR Ac XY 48 -3 -3 .0 L- 33 NO ti CY 90 1- 1- 00 MA 16 LD ve CL 11 20 20 RT 5 IN 90 11 11 RI E 2 PH CH HY AR AR CL MA D AT CY W E # 10 0 10 MG 05 91 CA P DI 00 07 07 2 12 30 [place] 71 AR Ac CY 52 -1 -1 0. L- 27 NO ti CL 70 4- 5- 00 MA 11 LD ve OM 58 20 20 0 RT 4 IN 60 11 11 RI E 1 PH CH 10 AR AR MA D MG CY W # CA PS 10 UL 05 E 91 ME 00 07 07 1 21 6 [place] 71 AR Ac TH 60 -1 -1 .0 L- 27 NO ti YL 34 4- 4- 00 MA 11 LD ve LA 59 20 20 RT 2 ED 31 11 11 RI NI 5 PH CH SO AR AR LO MA D NE CY W 4 # MG 10 05 DO 91 SE PK TR 00 07 07 1 80 20 [place] 71 AR Ac IA 16 -1 -1 .0 L- 27 NO ti MC 80 4- 4- 00 MA 11 LD ve IN 00 20 20 RT 3 OL 48 11 11 RI ON 0 PH CH E AR AR 0. MA D 1% CY W # CR EA 10 M 05 91 DO 53 06 06 1 20 10 [place] 71 AR Ac XY 48 -2 -2 .0 L- 24 NO ti CY 90 7- 7- 00 MA 83 LD ve CL 11 20 20 RT 1 IN 90 11 11 RI E 2 PH CH HY AR AR CL MA D AT CY W E # 10 0 10 MG 05 91 CA P AN 43 06 06 1 15 7 [place] 71 AR Ac TI 19 -2 -2 .0 L- 24 NO ti PY 90 7- 7- 00 MA 83 LD ve RI 01 20 20 RT 2 NE 61 11 11 RI -B 5 PH CH EN AR AR ZO MA D CA CY W IN # E EA [address] 91 OP LA 68 06 06 1 30 7 WA [...] 7- 7- 00 MA 83 LD ve WA 10 20 20 RT 4 DE 00 [...] # TA 10 BL 05 ET 91 LA 00 05 05 0 5. 5 WA [...] 11 11 RI TA 1 PH CH WA AR AR N- MA D CA CY [...] 0- 5- 00 MA 63 ON ve LA 59 20 20 RT 3 ED 31 [...] TA # BL ET 10 05 91 LA 68 03 03 0 12 3 70 [...] OF 83 9- 0- 00 MA 91 WA ve UR 42 20 20 RT 7 [...] 0- 7- 00 MA 51 LD ve LA 59 20 20 RT 3 ED 31 [...] MG 65 09 09 01 [address] Ac 16 -0 -2 .0 L- 35 EP ti 20 4- 4- 00 MA 50 HE ve 52 20 20 RT 5 NS 01 09 09 0 PH DO AR N MA R CY #5 91 NI 00 09 09 00 [address] Ac TR 37 -0 -1 .0 L- 35 EP ti OF 83 4- 0- 00 MA 50 HE ve UR 42 20 20 RT 4 NS AN 20 09 09 TO 1 PH DO IN AR N MA R MO CY NO -M #5 CR 91 10 0 MG 65 09 09 00 [address] Ac 16 -0 -1 .0 L- 35 EP ti 20 4- 0- 00 MA 50 HE ve 52 20 20 RT 5 NS 01 09 09 0 PH DO AR N MA R CY #5 91 00 08 08 00 14 7 [place] 70 GA Ac 37 -0 -2 .0 L- 31 IN ti 80 8- 7- 00 MA 55 EY ve 75 20 20 RT 7 19 09 09 WA 3 PH CH AR AE MA L CY S #5 91 DI 00 08 08 00 14 7 [place] 70 GA Ac CL 78 -0 -2 .0 L- 31 IN ti OF 11 8- 7- 00 MA 55 EY ve EN 78 20 20 RT 8 AC 90 09 09 WA 1 PH CH SO AR AE D MA L EC CY S 75 #5 91 MG TA B 00 08 08 00 12 3 [place] 44 GA Ac 40 -0 -2 .0 L- 78 IN ti 60 8- 7- 00 MA 76 EY ve 35 20 20 RT 5 70 09 09 WA 5 PH CH AR AE MA L [...] 00 [address] Ac LA 11 -0 -1 .0 L- 30 EP [...] 20 RT 4 YC 66 09 09 WA IN 8 PH CH AR AE 25 MA L 0 CY S MG #5 TA 91 BL ET ME 00 03 03 00 21 6 WA 70 GA Ac TH 60 -1 -2 .0 L- 12 IN ti YL 34 7- 6- 00 MA 99 EY ve LA 59 20 20 RT 5 ED 31 09 09 WA NI 5 PH CH SO AR AE LO MA L NE CY S 4 #5 MG 91 DO SE PK TA 00 03 03 00 [address] Ac WA 00 -0 -1 .0 L- 10 EP [...] MA CY CR EA #5 M 91 LA 37 10 10 00 30 30 WA [...] 91 Procedures Procedure DOS Code Location Performer [facility] G0378 BRADEN FELICIANO OBSERVATI 7 [facility] ON [facility] INC SERVICE PER HOUR BLOOD [id number] BRADEN FELICIANO COUNT 7 [facility] [id number] BRADEN FELICIANO OBSERVATI 7 [facility] ON INC INC SERVICE PER HOUR URNLS DIP 57465 BRADEN FELICIANO 7 [facility] STICK/TAB INC INC LET REAGENT AUTO MICROSCOP Y URINE [id number] BRADEN FELICIANO 7 [facility] TEST INC INC VISUAL COLOR CMPRSN METHS NONINVASI [id number] BRADEN FELICIANO VE 7 [facility] EAR/PULSE INC INC OXIMETRY MULTIPLE DETER COLLECTIO [id number] BRADEN FELICIANO N VENOUS 7 [facility] BLOOD INC INC VENIPUNCT URE COMBINED [id number] [facility] ANTEROPOS 7 PHYSICIAN PHYSICIAN TERIOR S GROUP [place] [address] P&[facility] LABS, BAEWER SURG 7 [facility] PATHOLOGY GROSS&ANTIONE ROSCOPIC EXAM BLOOD 54686 BRADEN FELICIANO COUNT 7 [facility] HEMOGLOBI INC INC N VAGINAL 49452 [facility] HYSTERECT 7 PHYSICIAN ADAM 250 S GROUP GM/< W/RPR ENTEROCEL E CULTURE 98731 BRADEN FELICIANO BACTERIAL 7 [facility] INC INC QUANTTATI VE COLONY COUNT URINE ANESTHESI 59900 [facility]ITY SHERIN A VAGINAL 7 ANESTH OF THE HYSTERECT BLUE ADAM INCL BIOPSY CMBND 33308 BRADEN FELICIANO ANTEROPOS 7 [facility] T INC INC COLPORRHA PHY W/ENTEROC PELON RPR VAGINAL 03816 BRADEN FELICIANO HYSTERECT 7 [facility] ADAM INC INC UTERUS 250 GM/< CULTURE 98886 BRADEN FELICIANO BACTERIAL 7 [facility] INC INC QUANTTATI VE COLONY COUNT URINE BLOOD 75972 BRADEN FELICIANO COUNT 7 [facility] COMPLETE INC INC AUTO&AUTO DIFRNTL WBC GONADOTRO 99512 BRADEN FELICIANO PIN 7 [facility] CHORIONIC INC INC QUALITATI VE BASIC 38759 BRADEN FELICIANO METABOLIC 7 [facility] PANEL INC INC CALCIUM TOTAL URNLS DIP 43030 BRADEN FELICIANO 7 [facility] STICK/TAB INC INC LET REAGENT AUTO MICROSCOP Y COLLECTIO 28486 BRADEN FELICIANO N VENOUS 7 [facility] BLOOD INC INC VENIPUNCT URE ENDOMETRI 15519 [facility] AL BX 7 PHYSICIAN W/WO S GROUP ENDOCERV[place] [address] [place] TRANSVAGI 7 MEDICAL NAL IMAGING ASS BLOOD 95194 [facility] MORRISSEY OCCULT 7 PHYSICIAN PEROXIDAS S GROUP E ACTV QUAL FECES 1-3 SPEC IADNA 03248 [facility] NEISSERIA 7 PHYSICIAN PHYSICIAN S GROUP S GROUP GONORRHOE AE DIRECT PROBE TQ URINLS 31772 [facility] DIP 7 PHYSICIAN STICK/TAB S GROUP LET REAGNT NON-AUTO MICRSCPY CULTURE 98407 [facility] CHLAMYDIA 7 PHYSICIAN ANY S GROUP SOURCE THER 77709 BRADEN FELICIANO PROPH/DX 7 [facility] NJX IV INC INC PUSH SINGLE/1S T SBST/DRUG ECG 97590 BRADEN FELICIANO ROUTINE 7 [facility] ECG INC INC W/LEAST 12 LDS TRCG ONLY W/O I&R BLOOD 50170 BRADEN FELICIANO COUNT 7 [facility] COMPLETE INC INC AUTO&[place] [address] BRADEN FELICIANO TROPONIN 7 [facility] QUANTITAT INC INC AMARA ECG 63747 BRADEN CASTREJON ROUTINE 7 [place] W/LEAST P 12 LDS I&R ONLY RADIOLOGI 69770 BRADEN FELICIANO C EXAM 7 [facility] CHEST 2 INC INC VIEWS FRONTAL&L ATERAL COMPREHEN 17939 BRADEN FELICIANO SIVE 7 [facility] METABOLIC INC INC PANEL CREATINE 73645 BRADEN FELICIANO KINASE MB 7 [facility] FRACTION INC INC ONLY CREATINE 53649 BRADEN FELICIANO KINASE 7 [facility] TOTAL INC INC INJECTION J0696 [facility] 7 PHYSICIAN CEFTRIAXO S GROUP NE SODIUM PER [address] [facility] IC 7 PHYSICIAN PROPHYLAC S GROUP TIC/DX INJECTION SUBQ/IM CULTURE 58741 BRADEN FELICIANO BACTERIAL 7 [facility] INC INC QUANTTATI VE COLONY COUNT URINE COLONOSCO 63296 [facility] EM[facility] PY 6 PHYSICIAN W/BIOPSY S GROUP SINGLE/[place] [address] [facility], BAEWER SURG 6 [facility] PATHOLOGY GROSS&ANTIONE ROSCOPIC EXAM BASIC 85131 BRADEN FELICIANO METABOLIC 6 [facility] PANEL INC INC CALCIUM TOTAL COLLECTIO 21465 BRADEN FELICIANO N VENOUS 6 [facility] BLOOD INC INC VENIPUNCT URE BLOOD 54119 BRADEN FELICIANO COUNT 6 [facility] COMPLETE INC INC AUTO&AUTO DIFRNTL WBC ANES 04677 COMMUNITY FEEBACK TRANSURET 6 ANESTH HRAL OF THE W/URETHRO BLUE CYSTOSCOP Y NOS CYSTO 77448 BRADEN MOSQUERA CALIBRATI 6 [facility] URTL P STRIX/JOSE NOSIS SCREENING G0202 [place] KRISTIE 6 MEDICAL TAM MAMMOGRAP IMAGING HY MICHELLE ASS INCL CAD WHEN PERFORMD COMPUTER- 27048 [facility] FLOWERS AIDED 6 MEDICAL TAM DETECTION IMAGING ASS SCREENING MAMMOGRAP HY IADNA 14619 BRADEN FELICIANO CHLAMYDIA 6 [facility] INC [place] [address] BRADEN FELICIANO ABDOMEN & 6 [facility] PELVIS INC INC W/O CONTRAST MATERIAL URINE 81097 BRADEN FELICIANO 6 [facility] TEST INC INC VISUAL COLOR CMPRSN METHS IADNA 99967 BRADEN FELICIANO NEISSERIA 6 [facility] INC INC GONORRHOE AE AMPLIFIED PROBE TQ URNLS DIP 51869 BRADEN FELICIANO 6 [facility] STICK/TAB INC INC LET REAGENT AUTO MICROSCOP Y IADNA 09952 [facility], NELY HUMAN 6 [facility] RAFI [place]APILLOMA VIRUS HIGH-RISK TYPES CYTP 81294 [facility] LABSNELY CERVICAL/ 6 [facility] RAFI VAGINAL REQ INTERP PHYSICIAN CYTP C/V 38097 [facility] LABSN[facility] AUTO THIN 6 [facility] RAFI [place] [address] BRADEN FELICIANO TRANSVAGI 6 [facility] [place] [address] BRADEN FELICIANO THYROXINE 6 [facility] [place] [address] BRADEN FELICIANO THYROID 6 [facility] STIMULATI INC INC NG HORMONE TSH COLLECTIO 89227 BRADEN FELICIANO N VENOUS 6 [facility] BLOOD INC INC VENIPUNCT URE THERAPEUT 22542 BRADEN FELICIANO IC 6 [facility] INJECTION INC INC IV PUSH EACH NEW DRUG THER 79730 BRADEN FELICIANO PROPH/DX 6 [facility] NJX IV INC INC PUSH SINGLE/1S T SBST/DRUG ECG 24638 BRADEN FELICIANO ROUTINE 6 [facility] ECG INC INC W/LEAST 12 LDS TRCG ONLY W/O I&R BLOOD 56259 BRADEN FELICIANO COUNT 6 [facility] COMPLETE INC INC AUTO&AUTO DIFRNTL WBC ECG 41270 BRADEN DE LA CRUZ JR ROUTINE 6 [facility] W/LEAST P 12 LDS I&[place] [address] BRADEN FELICIANO TROPONIN 6 [facility] QUANTITAT INC INC AMARA HEMOGLOBI 31505 BRADEN FELICIANO N 6 [facility] GLYCOSYLA INC INC DAV A1C RADIOLOGI 63178 BRADEN FELICIANO C 6 [facility] EXAMINATI INC INC ON CHEST SINGLE VIEW FRONTAL COMPREHEN 80185 BRADEN FELICIANO SIVE 6 [facility] METABOLIC INC INC PANEL CREATINE 21572 BRADEN FELICIANO KINASE MB 6 [facility] FRACTION INC INC ONLY CREATINE 89004 BRADEN FELICIANO KINASE 6 [facility] TOTAL INC INC COMPREHEN 26841 BRADEN FELICIANO SIVE 6 [facility] METABOLIC INC INC PANEL COLLECTIO 64385 [facility] STONE MARY N VENOUS 6 PHYSICIAN BLOOD S GROUP VENIPUNCT URE BLOOD 05273 BRADEN FELICIANO COUNT 6 [facility] COMPLETE INC INC AUTO&AUTO DIFRNTL WBC NEUROPLAS 31268 [facility] ANDRES TY 6 &/TRANSPO ORTHOPAED S MEDIAN ICS PSC NRV CARPAL TUNNE INJECTION J1100 [facility] 6 N N DEXAMETHO COMMUNTIY COMMUNTIY SONE HOSPITA HOSPITA SODIUM PHOSPHATE 1 MG INJECTION J2001 [facility] 6 N N LIDOCAINE COMMUNTIY COMMUNTIY HCL HOSPITA HOSPITA INTRAVENO US INFUS 10 MG RINGERS J7120 [facility] LACTATE 6 N N INFUSION COMMUNTIY COMMUNTIY UP TO HOSPITA HOSPITA 1000 CC ANES 00012 [facility] N[facility]E 6 ANESTHESI MUSCLE A GROUP TDN PS FASCIA&BU RSA FOREARM WRIST INJECTION J2250 [facility] 6 N N MIDAZOLAM COMMUNTIY COMMUNTIY HCL PER HOSPITA HOSPITA 1 MG INJECTION J1885 [facility] 6 N N KETOROLAC COMMUNTIY COMMUNTIY HOSPITA HOSPITA TROMETHAM INE PER 15 MG INJECTION J3010 [facility] FENTANYL 6 N N CITRATE COMMUNTIY COMMUNTIY 0.1 MG HOSPITA HOSPITA GONADOTRO 52575 BRADEN FELICIANO PIN 6 [facility] CHORIONIC INC INC QUALITATI VE BLOOD 74299 BRADEN FELICIANO COUNT 6 [facility] COMPLETE INC INC AUTO&AUTO DIFRNTL WBC COLLECTIO 01143 BRADEN FELICIANO N VENOUS 6 [facility] BLOOD INC INC VENIPUNCT URE BASIC 24407 BRADEN FELICIANO METABOLIC 6 [facility] PANEL INC INC CALCIUM TOTAL INJECTION J1040 [facility] RITA 6 PHYSICIAN ANTIONE METHYLPRE S GROUP DNISOLONE ACETATE [address] [facility] RITA IC 6 PHYSICIAN ANTIONE PROPHYLAC S GROUP TIC/DX INJECTION SUBQ/IM NEEDLE 17889 [facility] EMG EA 6 HEALTH EXTREMTY MEDICAL W/PARASPI GROUP NL AREA COMPLETE NERVE 22539 [facility] CONDUCTIO 6 HEALTH N STUDIES MEDICAL 7-8 GROUP STUDIES RADEX 47238 [facility] HAND 6 [place] CORTEZ MINIMUM 3 ORTHOPAED VIEWS ICS PLC COMPREHEN 09123 BRADEN FELICIANO SIVE 5 [facility] METABOLIC INC INC PANEL URNLS DIP 00002 BRAD[facility] FELICIANO 5 [facility] STICK/TAB INC INC LET REAGENT AUTO MICROSCOP Y BLOOD 11827 BRADEN FELICIANO COUNT 5 [facility] COMPLETE INC INC AUTO&AUTO DIFRNTL WBC CULTURE 20507 BRADEN FELICIANO BACTERIAL 5 [facility] INC [place] [address] BRADEN FELICIANO ABDOMEN & 5 [facility] PELVIS INC INC W/O CONTRAST MATERIAL COLSC FLX 74473 [facility] EMILY TOD W/RMVL 5 PHYSICIAN OF TUMOR S [place] [address] [facility], BO SURG 5 [facility] PATHOLOGY GROSS&ANTIONE ROSCOPIC EXAM GONADOTRO 46285 BRADEN FELICIANO PIN 5 [facility] CHORIONIC INC INC QUALITATI VE COLLECTIO 21661 BRADEN FELICIANO N VENOUS 5 [facility] BLOOD INC INC VENIPUNCT URE COMPREHEN 37922 BRADEN FELICIANO SIVE 5 [facility] METABOLIC INC INC PANEL COLLECTIO 33022 BRADEN FELICIANO N VENOUS 5 [facility] BLOOD INC INC VENIPUNCT URE RADEX 20262 BRADEN FELICIANO ABDOMEN 5 [facility] COMPL INC INC W/DCBTS&/ ERC VIEWS BLOOD 98778 BRADEN FELICIANO COUNT 5 [facility] COMPLETE INC INC AUTO&AUTO DIFRNTL WBC ECG 42565 BRADEN BRADEN ROUTINE 5 [facility] ECG INC INC W/LEAST 12 LDS TRCG ONLY W/O I&R ECG 25568 CARDIOVAS LILIA ROUTINE 5 CULAR MAT ECG CONSULTAN W/LEAST TS O 12 LDS I&R ONLY ECG 37145 BRADEN CHENON ROUTINE 5 [facility] ECG INC INC W/LEAST 12 LDS TRCG ONLY W/O I&R ECHO 30317 [facility] TTHRC R-T 5 MEDICAL 2D SERV W/WOM-MOD FOUNDATIO E COMPL N SPEC&COLR D ECG 71505 BRADEN CASTREJON ROUTINE 5 [facility] W/LEAST P 12 LDS I&[place] [address] BRADEN BRADEN TROPONIN 5 [facility] QUANTITAT INC INC AMARA ECG 06962 BRADEN BRADEN ROUTINE 5 [facility] ECG INC INC W/LEAST 12 LDS TRCG ONLY W/O I&R BLOOD 91214 BRADEN FELICIANO COUNT 5 [facility] COMPLETE INC INC AUTO&AUTO DIFRNTL WBC CREATINE 51380 BRADEN FELICIANO KINASE MB 5 [facility] [address] BRADEN FELICIANO FREE 5 [facility] [address] BRADEN FELICIANO THYROID 5 [facility] STIMULATI INC INC NG HORMONE TSH LIPID 66161 BRADEN FELICIANO PANEL 5 [facility] INC INC COMPREHEN 19654 BRADEN FELICIANO SIVE 5 [facility] METABOLIC INC INC PANEL COLLECTIO 37554 BRADEN FELICIANO N VENOUS 5 [facility] BLOOD INC INC VENIPUNCT URE 25 73589 BRADEN [place] HYDROXY 5 [facility] INCLUDES [facility] HEALTH FRACTIONS DEPT IF PERFORMED CREATINE 74159 BRADEN FELICIANO KINASE 5 [facility] TOTAL INC INC CYANOCOBA 57800 BRADEN FELICIANO JENISE 5 [facility] VITAMIN [place] B-[address] [place] [address] [place] ALL ABDOMEN & 5 MEDICAL PELVIS IMAGING W/O ASS CONTRAST MATERIAL CYTP 97507 [facility], PICKLESIM CERV/VAG 5 [facility] ER JR VANDANA AUTO THIN LAYER PREP MNL SCREEN RADIOLOGI 18154 [facility] C EXAM 5 MEDICAL [place] CHEST 2 IMAGING V[place]WS [place] FRONTAL&[place] [address] [facility] PHYSICIAN BOOKER NAL S GROUP COLLECTIO 85225 BRADEN FELICIANO N VENOUS 5 [facility] [place] [address] BRADEN BRADEN THYROID 5 [facility] STIMULATI [place] [address] BRADEN FELICIANO FREE 5 [facility] THYROXINE INC INC CALCIUM 91993 BRADEN FELICIANO TOTAL 5 [facility] INC INC URNLS DIP 49966 BRADEN FELICIANO 4 [facility] STICK/TAB INC INC LET REAGENT AUTO MICROSCOP Y URINE 85326 BRADEN FELICIANO 4 [facility] TEST INC [place] [address] BRADEN FELICIANO ABDOMEN & 4 [facility] PELVIS INC INC W/O CONTRAST MATERIAL MANUAL 12065 [facility] APPL 4 PHYSICIAN JAM STRESS S GROUP PFRMD PHYS/QHP JOINT FILMS FLUOROSCO 80138 [facility] PY SPX UP 4 PHYSICIAN JAM TO 1 S GROUP HOUR PHYS/[place] [address] [facility] MOL SURG 4 Y OF PATHOLOGY [place] [facility] GROSS&ANTIONE ROSCOPIC EXAM THYROIDEC 28592 JUDE ROQUE KAYLA 4 NATTY NATTY TOTAL/SUB TOTAL LMTD NECK DISSECT LEVEL V 51348 [facility] MOL SURG 4 [facility] PATHOLOGY [place] [facility] GROSS&ANTIONE ROSCOPIC EXAM PATH 77389 [facility] MOL CONSLTJ 4 Y OF SURG 1ST [place] [facility] FROZEN SCTJ 1 SPEC ANES 62210 [facility] ESOPH 4 LTH ANT THYRD ANESTHESI LARYNX A PSC TRACH & LYMPH NECK 1YR PARATHYRO 73573 JUDE ROQUE ID 4 NATTY NATTY AUTOTRANS PLANTATIO N ADD-ON BLOOD 70702 BRADEN FELICIANO COUNT 4 [facility] COMPLETE INC INC AUTO&AUTO DIFRNTL WBC ECG 52559 BRADEN FELICIANO ROUTINE 4 [facility] ECG [facility] W/LEAST 12 LDS TRCG ONLY W/O I&R ECG 95376 BRADEN DE LA CRUZ JR ROUTINE 4 [facility] W/LEAST P 12 LDS I&R ONLY CRTCHS E0114 [facility] INC. UNDARM 4 OTH THAN WOOD PAIR PAD TIP&HNDGR IP ANKLE L4350 [facility]. CONTROL 4 ORTHOSIS STIRRUP STYL RIGID PREFAB RADEX 35397 [place] ANKLE 4 MEDICAL TAM COMPLETE IMAGING MINIMUM 3 ASS VIEWS CALCIUM 74322 BRADEN FELICIANO TOTAL 4 [place] [address] BRADEN FELICIANO THYROID 4 [facility] STIMULATI [place] [address] BRADEN FELICIANO FREE 4 [facility] THYROXINE INC [place] V [address] REYES REYES SURG 4 ANA ANA PATHOLOGY GROSS&ANTIONE ROSCOPIC EXAM ANES 68625 [facility] CONTE ESOPH 4 LTH MAR THYRD ANESTHESI LARYNX A PSC TRACH & LYMPH NECK 1YR PATH 89486 REYES REYES CONSLTJ 4 ANA ANA SURG 1ST BLK FROZEN SCTJ 1 SPEC US SOFT 08-08-201 55208 JAVIER KRISTIE TISSUE 4 MEDICAL TAM HEAD & IMAGING N[place] [address] BRADEN FELICIANO THYROID 4 [facility] STIMULATI [place] [address] BRADEN FELICIANO FREE 4 [facility] THYROXINE INC INC CALCIUM 26300 BRADEN FELICIANO TOTAL 4 [facility] INC INC URNLS DIP 39838 [facility] 4 BOOKER BOOKER STICK/TAB LET RGNT NON-AUTO W/O MICRSCP ENDOMETRI 12922 [facility] AL BX 4 BOOKER BOOKER W/WO ENDOCERVI [place] [address] [facility] TRANSVAGI 4 [facility] BOOKER NAL IMHISTOCH 27777 AMALIA HOLLAND PAT EM/CYTCHM 4 1ST ANTIBODY STAIN PROCEDURE COLPOSCOP 15845 [facility] Y CERVIX 4 BOOKER BOOKER BX CERVIX & [place] [address] AMALIA HOLLAND PAT SURG 4 PATHOLOGY GROSS&ANTIONE ROSCOPIC EXAM IADNA 68061 [facility] NEISSERIA 4 [facility] DEPT [facility] DEPT GONORRHOE [facility] AE AMPLIFIED PROBE TQ AMINES 76529 [facility] VAGINAL 4 [facility] DISTRICT FLUID [facility] DEPT [facility] DEPT QUALITATI [facility] VE PH BODY 30250 [facility] FLUID NOT 4 DISTRICT DISTRICT [facility] DEPT [facility] DEPT ELSEWHERE [facility] SPECIFIED URNLS DIP 72011 [facility] 4 DISTRICT DISTRICT STICK/TAB TH DEPT [facility] DEPT LET RGNT [facility] NON-AUTO W/O MICRSCP WET Q0111 [facility] SARBJIT 4 DISTRICT DISTRICT INCL PREP [facility] DEPT [facility] DEPT VAGINAL [facility] CERV/SKIN SPECIMENS CYTP [address] CERV/VAG 4 AUTO THIN LAYER PREP MNL SCREEN SMR PRIM 42450 [facility] SRC WET 4 DISTRICT DISTRICT [facility] DEPT [facility] DEPT NFCT AGT DANIELLE DANIELLE IADNA 03307 [facility] CHLAMYDIA 4 [facility] DISTRICT HLTH DEPT HLTH DEPT TRACHOMAT DANIELLE DANIELLE IS AMPLIFIED PROBE TQ IADNA [address] PAPILLOMA 4 VIRUS HUMAN AMPLIFIED PROBE TQ CYTP [address] CERVICAL/ 4 VAGINAL REQ INTERP PHYSICIAN ECG 84701 JUHI JSOE JUHI JOSE ROUTINE 4 ECG W/LEAST 12 LDS I&R ONLY URINE 76262 BRADEN FELICIANO 4 [facility] TEST INC INC VISUAL COLOR CMPRSN METHS URNLS DIP 83685 BRADEN FELICIANO 4 [facility] STICK/TAB INC INC LET REAGENT AUTO MICROSCOP Y IAADI 03327 BRADEN FELICIANO INFLUENZA 4 [facility] B VIRUS INC INC IAADI 74699 BRADEN FELICIANO INFFLUENZ 4 [facility] A A VIRUS INC INC MICROSOMA 30551 BRADEN FELICIANO L 1 [facility] [place] [address] BRADEN FELICIANO FREE 1 [facility] [place] [address] BRADEN FELICIANO THYROID 1 [facility] STIMULATI INC INC NG HORMONE TSH US SOFT 94542 [place] TISSUE 1 MEDICAL TAM HEAD & IMAGING NECK REAL ASS TIME IMGE DOCM CULTURE 46192 BRADEN FELICIANO BACTERIAL 1 [facility] INC INC QUANTTATI VE COLONY COUNT URINE BLOOD 91221 BRADEN FELICIANO COUNT 1 [facility] COMPLETE INC INC AUTO&[place] [address] [place] ABDOMEN & 1 MEDICAL TAM PELVIS IMAGING W/[place] [address] BRADEN FELICIANO AMYLASE 1 [facility] INC INC URNLS DIP 21149 BRADEN FELICIANO 1 [facility] STICK/TAB INC INC LET REAGENT AUTO MICROSCOP Y LEVEL III 20042 [facility]IPPS ROVERT[facility] ANTIONE SURG 1 MANJINDER & PATHOLOGY SUREKHAILIMACIEJ GROSS&ANTIONE ROSCOPIC EXAM ANESTHESI 26950 COMMUNITY REBOLLAR BREANNA A 1 ANESTH INTRAPERI OF THE TONEAL BLUE LOWER ABD W/LAPS [facility] G0378 BRADEN FELICIANO OBSERVATI 1 [facility] ON INC INC SERVICE PER HOUR LAPAROSCO 71575 C ASAD CHAVES PIC 1 ANDIE GOODWIN APPENDLAZ ELMORE PSC ADAM URINE 57957 BRADEN FELICIANO 1 [facility] TEST INC INC VISUAL COLOR CMPRSN METHS COMPREHEN 66687 BRADEN FELICIANO SIVE 1 [facility] METABOLIC INC INC PANEL 3D 90783 RYANY KRISTIE RENDERING 1 MEDICAL TAM IMAGING W/INTERP& [place] [address] BRADEN FELICIANO LIPASE 1 [facility] INC INC LAPAROSCO 4701 BRADEN FELICIANO PIC 1 [facility] APPENDECT INC INC ADAM 3D 51459 [place]URIY KRISTIE RENDERING 1 MEDICAL TAM IMAGING W/INTERP& ASS POSTPROC DIFF WORK STATION URINE 59265 BRADEN FELICIANO 1 [facility] TEST INC INC VISUAL COLOR CMPRSN METHS URNLS DIP 63231 BRADEN FELICIANO 1 [facility] STICK/TAB INC [place] [address] JAVIER KRISTIE ABDOMEN & 1 MEDICAL TAM PELVIS IMAGING W/O ASS CONTRAST MATERIAL ECG 48275 BRADEN FELICIANO ROUTINE 1 [facility] ECG INC INC W/LEAST 12 LDS TRCG ONLY W/O I&R ECG 55458 BRADEN KNIGHTMIKarson ROUTINE [address] [facility] W/LEAST P 12 LDS I&R ONLY RADIOLOGI 20516 JAVIER KRISTIE C EXAM 1 MEDICAL TAM CHEST 2 IMAGING VIEWS ASS FRONTAL&[place] [address] BRADEN FELICIANO TROPONIN 1 [facility] QUANTITAT INC INC AMARA CREATINE 69357 BRADEN FELICIANO KINASE MB 1 [facility] FRACTION INC INC ONLY CREATINE 85347 BRADEN FELICIANO KINASE 1 [facility] TOTAL INC INC CV STRS 55631 [facility] FALL[facility] TST 1 PHYSICIAN COLT XERS&/OR S GROUP RX CONT ECG W/O I&R CV STRS 15514 BRADEN FELICIANO TST 1 [facility] XERS&/OR INC INC RX CONT ECG TRCG ONLY MYOCARDIA 97456 JAVIER FLOWERS L SPECT 1 [facility] MULTIPLE IMAGING STUDIES ASS CV STRS 17293 BRADEN DE LA CRUZ DWI TST 1 [facility] RX CONT P ECG I&R ONLY COMPREHEN 68275 BRADEN BRADEN SIVE 1 [facility] METABOLIC INC INC PANEL LIPID 10203 BRADEN FELICIANO PANEL 1 [facility] INC INC ECG 32669 BRADEN FELICIANO ROUTINE 1 [facility] ECG INC INC W/LEAST 12 LDS TRCG ONLY W/O I&R US SOFT 64257 [place]RISTIE TISSUE 1 [facility] HEAD & IMAGING [place] [address] BRADEN FELICIANO THYROID 1 [facility] STIMULATI [place] [address] BRADEN FELICIANO FREE 1 [facility] THYROXINE INC INC RADIOLOGI 48384 [facility] CHEST 2 IMAGING VIEWS ASS FRONTAL&L ATERAL RADEX 33542 [facility] WRIST 1 [facility] COMPLETE IMAGING MINIMUM 3 [place] [address] BRADEN FELICIANO FREE 1 [facility] [place] [address] BRADEN FELICIANO THYROID 1 [facility] STIMULATI INC INC NG HORMONE TSH MICROSOMA 29564 BRADEN FELICIANO L 1 [facility] ANTIBODIE INC INC S EACH US SOFT 75822 [facility] DA[place] TISSUE 1 MEDICAL KRISTIE HEAD & IMAGING NECK REAL ASS TIME IMGE DOCM IAADI 70211 BRADEN FELICIANO INFLUENZA 1 [facility] B VIRUS INC INC IAADI 19728 BRADEN FELICIANO INFFLUENZ 1 [facility] A A VIRUS INC INC RADEX 01740 [place] WRIST 0 [facility] COMPLETE IMAGING MINIMUM 3 ASS VIEWS RADEX 09093 [facility] FLOWERS HAND 0 [facility] MINIMUM 3 [place] [address] BRADEN FELICIANO THYROID 0 [facility] STIMULATI [place] [address] BRADEN FELICIANO FREE 0 [facility] THYROXINE INC INC US SOFT 20019 [place]ST[place] TISSUE 0 [facility] HEAD & IMAGING NECK REAL ASS TIME IMGE DOCM BLOOD 76934 BRADEN FELICIANO COUNT 0 [facility] COMPLETE INC INC AUTO&AUTO DIFRNTL WBC CULTURE 82560 BRADEN FELICIANO BACTERIAL 0 [facility] INC INC QUANTTATI VE COLONY COUNT URINE URNLS DIP 82464 BRADEN FELICIANO 0 [facility] STICK/TAB INC INC LET REAGENT AUTO MICROSCOP Y CT PELVIS 79162 [place] W/O 0 [facility] CONTRAST IMAGING MATERIAL ASS 3D 98653 BRADEN FELICIANO RENDERING 0 [facility] INC INC W/INTERP& [place] [address] [place] ABDOMEN 0 MEDICAL TAM W/O IMAGING CONTRAST ASS MATERIAL COMPREHEN 55013 BRADEN FELICIANO SIVE 0 [facility] METABOLIC INC INC PANEL URINE 70740 BRADEN FELICIANO 0 [facility] TEST INC INC VISUAL COLOR CMPRSN METHS RADEX 71829 [place] SPINE 0 MEDICAL KRISTIE LUMBOSACR IMAGING AL ASS MINIMUM 4 VIEWS RADEX 59703 [place] FOOT 0 MEDICAL KRISTIE COMPLETE IMAGING MINIMUM 3 ASS VIEWS RADIOLOGI 60538 [place] C 0 MEDICAL KRISTIE EXAMINATI IMAGING ON PELVIS ASS 1/2 VIEWS APPLICATI 20189 BRADEN FELICIANO ON 0 [facility] MODALITY INC INC 1/> AREAS HOT/COLD PACKS THERAPEUT 17904 BRADEN FELICIANO IC PX 1/> 0 [facility] AREAS INC INC EACH 15 MIN EXERCISES APPL 67792 BRADEN FELICIANO MODALITY 0 [facility] 1/> AREAS INC INC ELEC STIMJ UNATTENDE D APPL 28648 BRADEN FELICIANO MODALITY 0 [facility] 1/> AREAS INC INC ELEC STIMJ UNATTENDE D THERAPEUT 37323 BRADEN FELICIANO IC PX 1/> 0 [facility] AREAS INC INC EACH 15 MIN EXERCISES PHYSICAL 84835 [facility]ERAPY 0 [facility] EVALUATIO INC INC N APPLICATI 82866 [facility] FELICIANO ON 0 [facility] MODALITY INC INC 1/> AREAS [place] [address] PATHOLOGY PATHOLOGY SURG 0 & & PATHOLOGY CYTOLOGY CYTOLOGY LAB LAB GROSS&ANTIONE ROSCOPIC EXAM CYSTO 83416 COMMONWEA MOSQUERA, W/URETERO 0 LTH ARIS D SCOPY UROLOGY W/RMVL/MA PSC [place] STONES ANES 14676 ANESTHESI WHITE, TRURL 0 A JOHN E FRAGMNTJ ASSOCIATE MANJ&/RMV S, PSC L URETERAL CALCULUS FINE 79516 JUDE ROQUE, NEEDLE 0 CYDNEY G CYDNEY G ASPIRATIO N W/[place] [address] [facility] FEL[facility] THYROID 0 [facility] STIMULATI [place] [address] [facility] FELICIANO FREE 0 [facility] THYROXINE INC INC CALCIUM 53863 [facility] FELICIANO TOTAL 0 [facility] INC INC MICROSOMA 49407 [facility] FELICIANO L 0 [facility] ANTIBODIE INC INC S EACH OBSERVATI 87822 [place] BESSON, ON CARE 0 VAL[facility] JAE A DISCHARGE INTERNAL MED MANAGEMEN T BASIC 57307 [facility] FELICIANO METABOLIC 0 [facility] PANEL INC INC CALCIUM TOTAL BLOOD 59712 [facility] CHENON COUNT 0 [facility] COMPLETE INC INC AUTO&AUTO DIFRNTL WBC TOBACCO 52108 BRDAEN FELICIANO USE 0 [facility] CESSATION INC INC INTERMEDI ATE 3-10 MINUTES BLOOD 74865 [facility] FELICIANO COUNT 0 [facility] COMPLETE INC INC AUTO&AUTO DIFRNTL WBC COMPREHEN 96821 [facility] FELICIANO SIVE 0 [facility] [place] [address] [facility] TALBOT, ABDOMEN 0 MEDICAL JOSEFINA P W/O IMAGING CONTRAST ASSOCIATE MATERIAL S CT PELVIS 68180 [facility] DAHIANA, W/O 0 MEDICAL JOSEFINA P CONTRAST IMAGING MATERIAL ASSOCIATE S 3D 28402 [facility] TALBOT, RENDERING 0 MEDICAL JOSEFINA P IMAGING W/INTERP& ASSOCIATE [place] [address] [facility] FELICIANO AMYLASE 0 [facility] INC INC INITIAL 19871 [place] NORMA OBSERVATI 0 [facility], ON INTERNAL RORY CARE/DAY MED 30 MINUTES URNLS DIP 53983 [facility] FELICIANO 0 [facility] STICK/TAB INC INC [place] [address] [facility] FELICIANO LIPASE 0 [facility] INC INC IADNA 24633 PATHOLOGY PATHOLOGY PAPILLOMA 0 & & VIRUS CYTOLOGY CYTOLOGY HUMAN LAB LAB AMPLIFIED PROBE TQ CYTP 14215 PATHOLOGY PATHOLOGY CERVICAL/ 0 & & VAGINAL CYTOLOGY CYTOLOGY REQ LAB LAB INTERP PHYSICIAN URNLS DIP 82615 [facility]ELICIANO [facility] STICK/TAB CENTER CENTER LET RGNT NON-AUTO W/O MICRSCP CYTP 92211 PATHOLOGY PATHOLOGY CERV/VAG 0 & & AUTO THIN CYTOLOGY CYTOLOGY LAYER LAB LAB PREP MNL SCREEN US SOFT 98670 [facility] KRISTIE, TISSUE 0 MEDICAL KUSH HEAD & IMAGING NECK REAL ASSOCIATE TIME S IMGE DOCM MRI 03550 KUSH C KRISTIE, SPINAL 0 KRISTIE KUSH CANAL LUMBAR W/O CONTRAST MATERIAL 3D 52231 KUSH C KRSITIE, RENDERING 0 KRISTIE KUSH W/INTERP & POSTPROCE SS SUPERVISI [place] MRI 70735 KUSH C KRISTIE, SPINAL 0 KRISTIE KUSH CANAL CERVICAL W/O CONTRAST MATRL CULTURE 96381 [facility] CHENON BACTERIAL 9 [facility] INC INC QUANTTATI VE COLONY COUNT URINE BLOOD 97289 [facility] FELICIANO COUNT 9 [facility] COMPLETE INC INC AUTO&AUTO DIFRNTL WBC CT PELVIS 98154 [facility] FELICIANO W/O 9 [facility] CONTRAST INC INC MATERIAL 3D 40098 [facility] FELICIANO RENDERING 9 [facility] INC INC W/INTERP& [place] [address] BR[facility] FELICIANO ABDOMEN 9 [facility] W/O INC INC CONTRAST MATERIAL URINE 53190 [facility] FELICIANO 9 [facility] TEST INC INC VISUAL COLOR CMPRSN METHS COMPREHEN 85692 BRADEN FELICIANO SIVE 9 [facility] METABOLIC INC INC PANEL URNLS DIP 71627 [facility] FELICIANO 9 [facility] STICK/TAB INC INC [place] [address] BRADEN FELICIANO AMYLASE 9 [place] [address] [facility] FELICIANO LIPASE 9 [facility] INC INC GLUC BLD 16138 [facility]/CO BR[facility]EN GLUC MNTR 9 HEALTH CO [facility] CLEARED BANK ACCT FDA SPEC HOME USE COMPLEX 32105 MAZIN HOLLAND JR, UROFLOMET 9 LTH RORY [place] UROLOGY R PSC CYSTO 37127 COMMONWEA SHANIAA CALIBRATI 9 LTH LTH ON DILAT UROLOGY UROLOGY URTL ASC ASC STRIX/JOSE NOSIS BLADDER 19881 MAZIN HOLLAND JR, PRESSURE 9 LTH RORY MEASUREME UROLOGY R NT DURING PSC FILLING EMG STDS 25839 MAZIN HOLLAND JR, ANAL/URTL 9 LTH RORY SPHNCTR UROLOGY R OTH/THN PSC NDL VOIDING 72330 MAZIN HOLLAND JR, PRESS 9 LTH ORRY STDS BLDR UROLOGY R VOIDING PSC PRESS ANY TQ VOID 12659 MAZIN HOLLAND JR, PRESSURE 9 LTH RORY IBANEZ UROLOGY R INTRAABDO PSC BALJIT CULTURE 85278 [facility] FELICIANO BACTERIAL 9 [facility] INC INC [place]TT[place] [address] BR[facility] FELICIANO STREPTOCO 9 [facility] CCUS INC INC GROUP A IAADI 30984 [facility] FELICIANO INFFLUENZ 9 [facility] A A VIRUS INC INC IAADI 57327 BRADEN BRADEN INFLUENZA 9 [facility] B VIRUS INC INC OPHTH 73357 LIGIA OLSEN, [facility] 8 VISION NAMRATA M XM&EVAL COMPRHNSV ESTAB PT 1/> COMPREHEN 30799 BRAD[facility] BRADEN SIVE 8 [facility] METABOLIC INC INC PANEL URNLS DIP 46638 [facility] FELICIANO 8 [facility] STICK/TAB INC INC [place] [address] BR[facility] FELICIANO AMYLASE 8 [facility] INC INC ECG 44731 [facility] FELICIANO ROUTINE 8 [facility] ECG INC INC W/LEAST 12 LDS TRCG ONLY W/O I&R ECG 59860 BRADEN KNIGHTMIKarson ROUTINE 8 [facility] W/LEAST PROF SERV 12 LDS I&R ONLY BLOOD 20090 BRADEN FELICIANO COUNT 8 [facility] COMPLETE INC INC AUTO&[place] [address] BRAD[facility] FELICIANO LIPASE 8 [facility] INC INC BLOOD 01729 BRADEN FELICIANO COUNT 8 [facility] COMPLETE INC INC AUTO&AUTO DIFRNTL WBC LIPID 05100 BRADEN FELICIANO PANEL 8 [place] [address] BR[facility] FELICIANO THYROID 8 [facility] STIMULATI INC INC NG HORMONE TSH COMPREHEN 55239 BR[facility] FELICIANO SIVE 8 [facility] METABOLIC INC INC PANEL Encounters Encounter Start End Date Code Location Performer Type Date HOSPITAL [facility] - 7 7 [facility] OUTPATIEN INC [facility] - 7 7 [facility] OUTPATIEN INC T OFFICE 06640 [facility] OUTPATIEN 7 7 [facility] T VISIT 5 INC MINUTES HOSPITAL [facility] - 7 7 [facility] OUTPATIEN INC T OFFICE 72534 [facility] HARPEL OUTPATIEN 7 7 PHYSICIAN T VISIT S GROUP 15 MINUTES HOSPITAL [facility]ADEN - 7 7 [facility] OUTPATIEN INC T EMERGENCY 97209 BRADEN 7 7 [facility] DEPARTMEN INC T VISIT HIGH/URGE NT SEVERITY HOSPITAL BRADEN - 7 7 [facility] OUTPATIEN INC T EMERGENCY 26983 SUKHDEV COLLINS DEPT 7 7 PHYSICIAN VISIT S, PLLC HIGH SEVERITY& THREAT FUNCJ OFFICE 28244 [facility] FRYMAN OUTPATIEN 7 7 PHYSICIAN T VISIT S GROUP [address]ES [address] [facility] OUTPATIEN 7 7 PHYSICIAN T VISIT S GROUP 25 MINUTES HOSPITAL BRADEN - 7 7 [facility] OUTPATIEN INC T OFFICE 65020 BRADEN MOSQUERA OUTPATIEN 7 7 [facility] [address]ES [address] [facility] EMILY OUTPATIEN 7 7 PHYSICIAN T VISIT S GROUP 10 MINUTES HOSPITAL BRADEN - 6 6 [facility] OUTPATIEN INC T OFFICE 46164 [facility] EMILY OUTPATIEN 6 6 PHYSICIAN T VISIT S GROUP 10 MINUTES HOSPITAL BRADEN - 6 6 [facility] OUTPATIEN INC T OFFICE 70129 BRADEN MOSQUERA OUTPATIEN 6 6 [facility] 10 P MINUTES OFFICE 07585 BRADEN MOSQUERA OUTPATIEN 6 6 [facility] 20 HOSPITAL MINUTES P OFFICE 39509 [facility] FRYMAN OUTPATIEN 6 6 PHYSICIAN EUG T VISIT S GROUP 15 MINUTES EMERGENCY 28947 SUKHDEV COLLINS 6 6 PHYSICIAN ANTIONE DEPARTMEN S, [facility] T VISIT MODERATE SEVERITY OFFICE 07518 [facility] FRYMAN OUTPATIEN 6 6 PHYSICIAN EUG T VISIT S GROUP 15 MINUTES EMERGENCY 24593 SUKHDEV RENUSCH 6 6 PHYSICIAN HONG [facility] S, [facility] T VISIT HIGH/URGE NT SEVERITY EMERGENCY 93025 BRADEN 6 6 [facility] T VISIT LOW/MODER SEVERITY EMERGENCY 76062 SUKHDEV RENUSCH 6 6 PHYSICIAN HONG [facility] S, [facility] T VISIT HIGH/URGE NT SEVERITY HOSPITAL BRADEN - 6 6 [facility] OUTPATIEN [facility] T PERIODIC 10842 [facility] PREVENTIV 6 6 PHYSICIAN E MED EST S GROUP PATIENT 40-64YRS HOSPITAL BRADEN - 6 6 [facility] OUTPATIEN [facility] OFFICE 44620 [facility] EMILY TOD OUTPATIEN 6 6 PHYSICIAN T VISIT S GROUP [address]ES [address] [facility] WOODS OUTPATIEN 6 6 PHYSICIAN BOOKER T VISIT S GROUP 25 MINUTES HOSPITAL BRADEN - 6 6 [facility] OUTPATIEN [facility] T EMERGENCY 20156 BRADEN 6 6 [facility] T VISIT HIGH/URGE NT SEVERITY HOSPITAL BRADEN - 6 6 [facility] OUTPATIEN [facility] T OFFICE 33369 [facility] EMILY TOD CONSULTAT 6 6 PHYSICIAN ION S GROUP NEW/ESTAB PATIENT [address] [facility] STONE MARY OUTPATIEN 6 6 PHYSICIAN T VISIT S GROUP 15 MINUTES HOSPITAL BRADEN - 6 6 [facility]PAT[facility]EN [facility] N OUTPATIEN [facility] BR[facility] 6 6 [facility] OUTPATIEN INC T OFFICE 54450 [facility] RITA OUTPATIEN 6 6 PHYSICIAN ANTIONE T VISIT S GROUP [address]ES [address] [facility] MEGHNA ALVA OUTPATIEN 6 6 PHYSICIAN T VISIT S GROUP 10 MINUTES OFFICE 17891 AMARI ANDRES OUTPATIEN 6 6 T VISIT ORTHOPAED 15 ICS PSC MINUTES OFFICE 53642 [facility] KARINA OUTPATIEN 6 6 PHYSICIAN ANTIONE T VISIT S GROUP 15 MINUTES OFFICE 66934 [facility] MCKENNA TRA OUTPATIEN 6 6 [place] T NEW 30 ORTHOPAED MINUTES ICS PLC OFFICE 98551 [facility] KARINA OUTPATIEN 6 6 PHYSICIAN ANTIONE T VISIT S GROUP [address]ES [address] [facility] EMILY TOGarcia OUTPATIEN 5 5 PHYSICIAN T VISIT S GROUP 10 MINUTES EMERGENCY 07836 BRADEN 5 5 [facility] DEPARTMEN [facility] T VISIT MODERATE SEVERITY EMERGENCY 41335 SUKHDEV CLOLINS DEPT 5 5 PHYSICIAN ANTIONE VISIT S, [facility] HIGH SEVERITY& THREAT [facility] BRADEN - 5 5 [facility] - 5 5 [facility] BRADEN - 5 5 [facility] OUTPATIEN [facility] T OFFICE 87435 [facility] EMILY MARTIN CONSULTAT 5 5 PHYSICIAN ION S GROUP NEW/ESTAB PATIENT 40 MIN HOSPITAL [facility]EN - 5 5 [facility] OUTPATIEN INC T OFFICE 29274 BRADEN PLATT OUTPATIEN 5 5 [facility] VISIT HOSPITAL 15 MINUTES EMERGENCY 29486 BRADEN 5 5 [facility] DEPARTMEN INC T VISIT LOW/MODER SEVERITY HOSPITAL BRADEN - 5 5 [facility]EN [facility] EMERGENCY 00459 SUKHDEV PARKER 5 5 PHYSICIAN [facility] S, [facility] T VISIT MODERATE SEVERITY OFFICE 78108 CARDIOVAS LILIA OUTPATIEN 5 5 CULAR MAT T VISIT CONSULTAN 25 TS O MINUTES HOSPITAL BRADEN - 5 5 [facility] OUTPATIEN INC [facility]PITAL BRADEN - 5 5 [facility] OUTPATIEN INC T OFFICE 08728 BRADEN PLATT OUTPATIEN [address] BRADEN - 5 5 [facility]PATIEN [facility] EMERGENCY 57647 SUKHDEV FRANKLIN 5 5 PHYSICIAN RAEGAN [facility], [facility] T VISIT HIGH/URGE NT SEVERITY EMERGENCY 96497 SUKHDEV STARK 5 5 PHYSICIAN Kortney ROSA [facility] S, [facility] T VISIT HIGH/URGE NT SEVERITY [facility]ICE 84090 [facility] 5 5 PHYSICIAN NATTY T VISIT S GROUP 15 MINUTES PERIODIC 93529 [facility] DEPT TH DEPT PATIENT DANIELLE DANIELLE 18-39 YRS HOSPITAL [facility] - 5 5 [facility]PATIEN [facility] EMERGENCY 23353 BR[facility] MATHEWS 5 5 [facility] T VISIT P MODERATE SEVERITY EMERGENCY 95003 BRADEN 5 5 [facility] T VISIT LOW/MODER SEVERITY OFFICE 69134 [facility] OUTPATIEN 5 5 PHYSICIAN T VISIT S GROUP 25 MINUTES OFFICE 34163 JUDE ROQUE OUTPATIEN 5 5 NATTY NATTY T VISIT 10 MINUTES HOSPITAL [facility]EN - 5 5 [facility] OUTPATIEN INC [facility] - 5 5 [facility] OUTPATIEN INC T EMERGENCY 41214 BRADEN 5 5 [facility] DEPARTMEN INC T VISIT LOW/MODER SEVERITY HOSPITAL BRADEN - 4 4 [facility] OUTPATIEN INC T EMERGENCY 67607 BRADEN 4 4 [facility] DEPARTMEN INC T VISIT MODERATE SEVERITY HOSPITAL BRADEN - 4 4 [facility] OUTPATIEN [facility] T OFFICE 26146 [facility] PETTEY OUTPATIEN 4 4 PHYSICIAN JAM T VISIT S GROUP 15 MINUTES HOSPITAL BRADEN - 4 4 [facility]PATIEN [facility] OFFICE 83244 [facility] PETTEY OUTPATIEN 4 4 PHYSICIAN JAM T NEW 30 S GROUP MINUTES EMERGENCY 78944 HILDA SAHU 4 4 SB [facility] EMERGENCY T VISIT PHYS MODERATE SEVERITY HOSPITAL BRADEN - 4 4 [facility] OUTPATIEN [facility] HOSPITAL BRADEN - 4 4 [facility]PATI[facility] T OFFICE 30264 JUDE GLYNNON OUTPATIEN 4 4 NATTY NATTY T VISIT 25 MINUTES EMERGENCY 42682 ALFARIS ALFARIS 4 4 [facility]IS[facility] HIGH/URGE NT SEVERITY OFFICE 02800 [facility] T VISIT [facility] DEPT TH DEPT 10 DANIELLE DANIELLE MINUTES PERIODIC 36086 [facility] TH DEPT HLTH DEPT PATIENT DANIELLE DANIELLE 18-39 YRS EMERGENCY 01543 JUHI JOSE JUHI JOSE DEPT 4 4 VISIT HIGH SEVERITY& THREAT FUNCJ EMERGENCY 20350 BRADEN 4 4 [facility] DEPARTMEN INC T VISIT LOW/MODER SEVERITY HOSPITAL BRADEN - 4 4 [facility] OUTPATIEN INC T EMERGENCY 98345 JOLYNN GATES 4 4 DEPARTMEN T VISIT MODERATE SEVERITY EMERGENCY 74474 [facility] 4 4 [facility] DEPARTMEN T VISIT HIGH/URGE NT SEVERITY OFFICE 76775 JUDE GLYNNON OUTPATIEN 1 1 NATTY NATTY T VISIT 10 MINUTES HOSPITAL [facility]ADEN - 1 1 [facility] OUTPATIEN INC T OFFICE 92229 JUDE GLYNNON OUTPATIEN 1 1 NATTY NATTY T VISIT 10 MINUTES HOSPITAL [facility]ADEN - 1 1 [facility] OUTPATIEN INC T EMERGENCY 11049 [facility] DEPT 1 1 [facility] VISIT INC HIGH SEVERITY& THREAT FUNCJ OFFICE 84569 AKUA FATIMA OUTLARRYEN 1 1 [facility] MITCHELL T VISIT 15 MINUTES HOSPITAL BRADEN - 1 1 [facility] OUTPATIEN INC T EMERGENCY 06891 NELY COLLINS DEPT 1 1 EMERGENCY ANTIONE VISIT SERVICES HIGH SEVERITY& THREAT FUNCJ EMERGENCY 58715 [facility]ADEN 1 1 [facility] DEPARTMEN INC T VISIT LOW/MODER SEVERITY OFFICE 74334 AKUA FATIMA OUTLARRYEN 1 1 [facility] T VISIT 15 MINUTES OFFICE 71553 ADYREGINO AKUA OUTPATIEN 1 1 [facility] MITCHELL T VISIT 15 MINUTES EMERGENCY 13961 NELY COLLINS DEPT 1 1 EMERGENCY ANTIONE VISIT SERVICES HIGH SEVERITY& THREAT FUNCJ EMERGENCY 15886 [facility]EN 1 1 [facility] DEPARTMEN INC T VISIT HIGH/URGE NT SEVERITY HOSPITAL [facility] - 1 1 [facility] OUTPATIEN INC T [facility] - 1 1 [facility] OUTPATIEN INC T OFFICE 26416 JUDE ROQUE OUTPATIEN 1 1 NATTY NATTY T VISIT 15 MINUTES HOSPITAL BRADEN - 1 1 [facility] OUTPATIEN INC T OFFICE 32375 JOHNINGTON CRAGER CONSULTAT 1 1 JAM ION CARDIOLOG NEW/ESTAB Y CONSULT PATIENT 40 MIN HOSPITAL [facility]EN - 1 1 [facility] OUTPATIEN INC T OFFICE 40606 AKUA MURRAY 1 1 MITCHE[facility] MITCHELL T VISIT 15 MINUTES HOSPITAL BRADEN - 1 1 [facility] OUTPATIEN INC T EMERGENCY 15927 [facility]ADEN 1 1 [facility] DEPARTMEN INC T VISIT LOW/MODER SEVERITY EMERGENCY 04434 NELY PINTO 1 1 EMERGENCY DEPARTMEN SERVICES T VISIT HIGH/URGE NT SEVERITY HOSPITAL BRADEN - 1 1 [facility]PATIEN [facility] HOSPITAL BRADEN - 1 1 [facility] OUTPATIEN INC T EMERGENCY 02490 BRADEN 1 1 [facility] DEPARTMEN INC T VISIT LOW/MODER SEVERITY EMERGENCY 01184 NELY COLLINS 1 1 EMERGENCY ANTIONE DEPARTMEN SERVICES T VISIT HIGH/URGE NT SEVERITY OFFICE 47251 PIETRO CALL CONSULTAT 1 1 NEUROLOGY [facility] ION CENTER NEW/ESTAB JOHN PATIENT 80 MIN OFFICE 52731 ROQUE JUDE MURRAY 1 1 NATTY NATTY T VISIT 10 MINUTES EMERGENCY 22671 NELY CAMPOS 1 1 EMERGENCY III BREANNA DEPARTMEN SERVICES T VISIT MODERATE SEVERITY EMERGENCY 23645 [facility]EN 1 1 [facility] DEPARTMEN INC T VISIT LOW/MODER SEVERITY HOSPITAL [facility]EN - 1 1 [facility] OUTPATIEN INC T OFFICE 40600 AKUA MURRAY 1 1 [facility]CHE[facility] MITCHELL T VISIT 15 MINUTES OFFICE 14792 ROQUE JUDE MURRAY 1 1 NATTY NATTY T VISIT 10 MINUTES HOSPITAL [facility]EN - 1 1 [facility] OUTPATIEN INC T HOSPITAL BRADEN - 1 1 [facility] OUTPATIEN INC T OFFICE 49324 JUDE ROQUE OUTPATIEN 1 1 NATTY NATTY T VISIT 15 MINUTES HOSPITAL BRADEN - 1 1 [facility] OUTPATIEN INC T EMERGENCY 78914 BRADEN 1 1 [facility] DEPARTMEN INC T VISIT LOW/MODER SEVERITY EMERGENCY 29836 NELY COLLINS 1 1 EMERGENCY [facility] DEPARTMEN SERVICES T VISIT HIGH/URGE NT SEVERITY OFFICE 12088 JUDE ROQUE OUTPATIEN 1 1 NATTY NATTY T VISIT 10 MINUTES HOSPITAL [facility] - 0 0 [facility] OUT[facility] INC T EMERGENCY 07977 [facility] VISIT LOW/MODER SEVERITY PERIODIC 33706 BRADEN FELICIANO PREVENTIV 0 0 [facility] CENTER PATIENT 18-39 YRS HOSPITAL BRADEN - 0 0 [facility] OUTPATIEN INC T EMERGENCY 55936 NELY SEVILLA DEPT 0 0 EMERGENCY GRE VISIT SERVICES HIGH SEVERITY& THREAT FUNJ EMERGENCY 48704 [facility]NE 0 0 [facility] DEPARTMEN INC T VISIT HIGH/URGE NT SEVERITY HOSPITAL BRADEN - 0 0 [facility] OUTPATIEN INC T EMERGENCY 22617 [facility] 0 0 [facility] DEPARTMEN INC T VISIT LOW/MODER SEVERITY EMERGENCY 12228 NELY COLLINS 0 0 EMERGENCY [facility] DEPARTMEN SERVICES T VISIT HIGH/URGE NT SEVERITY HOSPITAL BRADEN - 0 0 [facility] OUTPATIEN INC T OFFICE 55889 JUDE ROQUE, OUTPATIEN 0 0 CYDNEY LAMAS G T VISIT 15 MINUTES HOSPITAL [facility]EN - 0 0 [facility] OUTPATIEN INC T OFFICE 22720 [facility] TRA OUTPATIEN 0 0 [place] T VISIT ORTHOPAED 15 [facility] MINUTES OFFICE 17986 [facility] 0 0 [facility]ALTH FELIX Muniz T NEW 30 CLINIC OF MINUTES YVETTETHIMAGNUS [facility] OFFICE 44774 RENARD ROQUEBRENTON OUTPATIEN 0 0 CYDNEY Bose T VISIT 10 MINUTES OFFICE 97993 JUDE ROQUE OUTPATIEN 0 0 CYDNEY G CYDNEY G T NEW 45 MINUTES HOSPITAL [facility]ADEN - 0 0 [facility] OUTPATIEN INC T OFFICE 75120 AKUA FATIMA OUTPATIEN 0 0 JAMES Bui T VISIT 15 MINUTES OFFICE 79511 MAZIN MOSQUERA OUTLEO 0 0 [facility] ARIS Zelaya T VISIT UROLOGY 25 PSC MINUTES EMERGENCY 30911 NELY COLLINS, DEPT 0 0 EMERGENCY [facility] VISIT SERVICES HIGH SEVERITY& ASSOCIATE THREAT S [facility] BRADEN - 0 0 [facility] OUTPATIEN INC T EMERGENCY 96147 [facility]AD[facility] 0 0 [facility] DEPARTMEN INC T VISIT HIGH/URGE NT SEVERITY OFFICE 14875 BRADEN FELICIANO OUTPATIEN 0 0 [facility] T VISIT CENTER CENTER 15 MINUTES OFFICE 83152 [facility] ANDRES, CONSULTAT 0 0 [place] TRUDY A ION ORTHOPAED NEW/ESTAB [facility] PATIENT 60 MIN [facility]OSP[facility] - 0 0 [facility] OUTPATIEN INC T OFFICE 51685 AKUA FATIMA OUTPATIEN 0 0 JAMES Bui T VISIT 15 MINUTES OFFICE 34130 AKUA FATIMA OUTPATIEN 9 9 JAMES Bui T NEW 30 MINUTES HOSPITAL BRADEN - 9 9 [facility] OUTPATIEN INC T EMERGENCY 83774 NELY CAMPOS 9 9 [facility] R[facility] Oliva VISIT HIGH/URGE ASSOCIATE NT S SEVERITY OFFICE 48327 BEULAH RIOJAS OUTPATIEN 9 9 DON R DON R T VISIT 15 MINUTES OFFICE 55068 [facility] OUTPATIEN 9 9 HEALTH [facility] T VISIT [facility]AL [facility]ENTER 10 BANK ACCT MINUTES OFFICE 17695 MAZIN HOLLAND JR OUTPATIEN 9 9 [facility] RORY T VISIT UROLOGY R 10 PSC MINUTES OFFICE 93107 MAZIN HOLLAND JR, CONSULTAT 9 9 [facility] RORY ION UROLOGY R NEW/ESTAB PSC PATIENT 30 MIN OFFICE 52862 BEULAH RIOJAS OUTPATIEN 9 9 DON R DON R T VISIT 15 MINUTES OFFICE 25725 BEULAH RIOJAS OUTPATIEN 9 9 DON R DON R T VISIT 15 MINUTES OFFICE 32784 BEULAH RIOJAS OUTPATIEN 9 9 DON R DON R T VISIT 15 MINUTES [facility] - 9 9 [facility] INC T OFFICE 14793 BEULAH RIOJAS OUTPATIEN 9 9 DON R DON R T VISIT 15 MINUTES HOSP[facility] - 9 9 [facility] OUTPATIEN INC T EMERGENCY 88267 [facility] 9 9 [facility] DEPARTMEN INC T VISIT HIGH/URGE NT SEVERITY EMERGENCY 25440 NELY COLLINS, 9 9 EMERGENCY [facility] T VISIT MODERATE ASSOCIATE SEVERITY S OFFICE 36884 BEULAH RIOJAS OUTPATIEN 9 9 DON R DON R T VISIT 15 MINUTES EMERGENCY 90419 NELY COLLINS, 9 9 EMERGENCY [facility] T VISIT MODERATE ASSOCIATE SEVERITY [facility] - 9 9 [facility] T EMERGENCY 30784 [facility] 9 9 [facility] INC T VISIT LOW/MODER SEVERITY OFFICE 12392 BEULAH RIOJAS OUTPATIEN 9 9 DON R DON R T VISIT 15 MINUTES OFFICE 67622 BEULAH RIOJAS OUTPATIEN 9 9 DON R DON R T VISIT 15 MINUTES OFFICE 96010 BEULAH RIOJAS OUTPATIEN 8 8 DON R DON R T VISIT 15 MINUTES OFFICE 17164 BEULAH RIOJAS OUTPATIEN 8 8 DON R DON R T VISIT 15 MINUTES EMERGENCY 18138 [facility] DEPT 8 8 [facility] VISIT INC HIGH SEVERITY& THREAT [facility] - 8 8 [facility] T [facility] - 8 8 [facility] T OFFICE 15013 BEULAH RIOJAS OUTPATIEN 8 8 DON R DON R T VISIT 15 MINUTES [facility] - 8 8 [facility] T EMERGENCY 32800 [facility] 8 8 [facility] DEPARTMEN INC T VISIT MODERATE SEVERITY
--- OUTSIDE RECORDS SUMMARY | 2017-08-01 23:12 | External Medical Summary Rpt | CCD ---
Author Author , CARIN DEL ROSARIO Address Unknown Phone [email or web address] Immunization Name Date Rout CVX Reac Dose Comm Prov Is Faci e tion ent ider Refu lity Give sed n Td 03-0 9 999 Hist H149 No H149 (mauro 9-20 oric lt), 04 al Info adso rmat rbed ion - Sour ce Unsp ecif ied
--- OUTSIDE RECORDS SUMMARY | 2017-08-01 23:12 | External Medical Summary Rpt ---
Author Author CARIN Yahir, [employer] Organization [employer] Address Unknown Phone Unavailable Results Hemoglobin & Hematocrit panel in Blood Observa Value Referen Units Interpr Notes Date tion ce etation Range Hematocri 37.0 - % Low No March 06 t [Volume 47.0 informati 2016 on in 10:20 AM Fraction] source of Blood data Hemoglobi 12.2 - g/dL Low No March 06 n 16.2 informati 2016 [Mass/vol on in 10:20 AM ume] in source Blood data Urinalysis dipstick W Reflex Microscopic panel in Urine Observa Value Referen Units Interpr Notes Date tion ce etation Range Collected by nurse? Y Hold specimen in OE? N Appeara CLEAR CLEAR No No No March 06 nce of informa informa informa 2016 Urine tion in tion in tion in 7:25 AM source source source data data data Bacteri 3+ O No No No March 06 a informa informa informa 2016 [Presen tion in tion in tion in 7:25 AM ce] in source source source Urine data data data sedimen t by Light microsc opy Bilirub NEGATIV NEG No No No March 06 in E informa informa informa 2016 [Presen tion in tion in tion in 7:25 AM ce] in source source source Urine data data data by Test strip Erythro 2+ NEG No Abnorma No March 06 cytes informa l informa 2016 [Presen tion in tion in 7:25 AM ce] in source source Urine data data Color YELLOW YELLOW No No No March 06 of informa informa informa 2016 Urine tion in tion in tion in 7:25 AM source source source data data data Glucose NEG No No No March 06 [Mass/vol informati informati informati 2016 7:25 ume] in on in on in on in AM Urine by source source source Test data data data strip Ketones NEGATIV NEG mg/dL No No March 06 E informa informa 2016 [Presen tion in tion in 7:25 AM ce] in source source Urine data data by Automat ed test strip Mucus NEGATIV NEG No No No March 06 [Presen E informa informa informa 2016 ce] in tion in tion in tion in 7:25 AM Urine source source source sedimen data data data t by Light microsc opy Mucus 4+ OCC No No No March 06 [Presen informa informa informa 2016 ce] in tion in tion in tion in 7:25 AM Urine source source source sedimen data data data t by Light microsc opy Nitrite NEGATIV NEG No No No March 06 E informa informa informa 2016 [Presen tion in tion in tion in 7:25 AM ce] in source source source Urine data data data by Test strip pH of 5.0 - 8.5 No Normal No March 06 Urine informati informati 2016 7:25 on in on in AM source source data data Protein NEG mg/dL No No March 06 [Mass/vol informati informati 2016 7:25 ume] in on in on in AM Urine by source source Automated data data test strip Specific 1.005 - No Normal No March 06 gravity 1.030 informati informati 2016 7:25 of Urine on in on in AM source source data data Epithel 10-20 0 - 5 #/hpf No No March 06 ial informa informa 2016 cells.s tion in tion in 7:25 AM quamous source source data data [Presen ce] in Urine sedimen t by Microsc opy high power field Urobili 1.0 NEG E.U./dL No No March 06 nogen informa informa 2016 [Presen tion in tion in 7:25 AM ce] in source source Urine data data by Test strip Leukocy [5 O wbc/hpf No No March 06 kay wbc/hpf informa informa 2016 [#/volu ; 10 tion in tion in 7:25 AM me] in wbc/hpf source source Urine ] data data Urinalysis dipstick W Reflex Microscopic panel in Urine Observa Value Referen Units Interpr Notes Date tion ce etation Range Collected by nurse? Y Hold specimen in OE? N Appeara CLEAR CLEAR No No No March 06 nce of informa informa informa 2016 Urine tion in tion in tion in 7:25 AM source source source data data data Bilirub NEGATIV NEG No No No March 06 in E informa informa informa 2016 [Presen tion in tion in tion in 7:25 AM ce] in source source source Urine data data data by Test strip Erythro 2+ NEG No Abnorma No March 06 cytes informa l informa 2016 [Presen tion in tion in 7:25 AM ce] in source source Urine data data Color YELLOW YELLOW No No No March 06 of informa informa informa 2016 Urine tion in tion in tion in 7:25 AM source source source data data data Glucose NEG No No No March 06 [Mass/vol informati informati informati 2016 7:25 ume] in on in on in on in AM Urine by source source source Test data data data strip Ketones NEGATIV NEG mg/dL No No March 06 E informa informa 2016 [Presen tion in tion in 7:25 AM ce] in source source Urine data data by Automat ed test strip Mucus NEGATIV NEG No No No March 06 [Pres E informa informa informa 2016 ce] in tion in tion in tion in 7:25 AM Urine source source source sedimen data data data t by Light microsc opy Nitrite NEGATIV NEG No No No March 06 E informa informa informa 2016 [Presen tion in tion in tion in 7:25 AM ce] in source source source Urine data data data by Test strip pH of 5.0 - 8.5 No Normal No March 06 Urine informati informati 2016 7:25 on in on in AM source source data data Protein NEG mg/dL No No February 16 [Mass/vol informati informati 2016 7:25 ume] in on in on in AM Urine by source source Automated data data test strip Specific 1.005 - No Normal No March 06 gravity 1.030 informati informati 2016 7:25 of Urine on in on in AM source source data data Urobili 1.0 NEG E.U./dL No No March 06 nogen informa informa 2016 [Presen tion in tion in 7:25 AM ce] in source source Urine data data by Test strip Choriogonadotropin.beta subunit [Units] in 24 hour Urine Observa Value Referen Units Interpr Notes Date tion ce etation Range COMMENTS TO RADIATION THERAPY TECHNOLOGIST: PREOP ORDER Choriogon NEG No No Kane March 06 adotropin informati informati Keiry suarez 2016 6:30 .beta on in on in ne AM subunit source source [Units] data data in 24 hour Urine
--- OUTSIDE RECORDS SUMMARY | 2017-08-01 23:12 | External Medical Summary Rpt ---
[...] Date tion ce etation Range COMMENTS TO SPACE ENGINEER: PREOP ORDER Choriogon NEG No No Kane March 06 adotropin informati informati Keiry suarez 2016 6:30 .beta on in on in ne AM subunit source source [Units] data data in 24 hour Urine
--- OUTSIDE RECORDS SUMMARY | 2017-08-01 23:12 | External Medical Summary Rpt | CCD ---
Author Author , CARIN DEL ROSARIO Address Unknown Phone [email or web address] Immunization Name Date Rout CVX Reac Dose Comm Prov Is Faci e tion ent ider Refu lity Give sed n Td 03-0 9 999 Hist H149 No H149 (mauro 9-20 oric lt), 04 al Info adso rmat rbed ion - Sour ce Unsp ecif ied
== END 2017-07-22 17:21 | disposition home or self-care (01) ==
LOC: UTC 16:37
DX: J20.9 Acute bronchitis, unspecified (principal); H65.01 Acute serous otitis media, right ear; I10 Essential (primary) hypertension; E78.5 Hyperlipidemia, unspecified; E03.9 Hypothyroidism, unspecified; F17.210 Nicotine dependence, cigarettes, uncomplicated; Z88.6 Allergy status to analgesic agent; Z88.0 Allergy status to penicillin; Z88.2 Allergy status to sulfonamides

== ENCOUNTER → 2017-09-06 | Outpatient (CLI) | payer MEDICAID ==
[~2017-09-06] MED LIST changes: +DILAUDID4 MG PO; +MEDROL DOSEPAK4 MG PO
== END ==
LOC: LAB 17:00
DX: R10.32 Left lower quadrant pain (principal); O92.6 Galactorrhea

== ENCOUNTER → 2017-09-21 | Outpatient (CLI) | payer MEDICAID | LOC: LAB 13:26 | DX: N39.0 Urinary tract infection, site not specified (principal) ==

== ENCOUNTER → 2017-10-04 | Outpatient (CLI) | payer MEDICAID ==
--- NOTE | 2017-10-12 14:05 | RADIOLOGY REPORT PS360 ---
DIG MAMM-SCREEN MICHELLE W/CAD CAD Screening COMPARISON: Digital mammograms 07/04/2016 INDICATION: There is a history of breast cancer patient's maternal great aunt. TECHNIQUE: Standard CC and MLO images were obtained. R2 CAD reviewed. FINDINGS: Moderate scattered fiber glandular densities are seen in both breasts again most prominent in the upper outer quadrants. There is no suspicious lesion and no suspicious microcalcifications. A couple small nodes in each axilla. There are benign-appearing aspirations in each breast. IMPRESSION: Fibrofatty parenchyma with no suspicious lesion seen recommend yearly follow-up BI-RADS CATEGORY: 2_Benign RECOMMENDED FOLLOWUP: 12M 12 MONTH FOLLOW-UP (A letter has been sent to the patient regarding results of the study.)
== END ==
LOC: RAD 09-28 09:30
DX: O92.6 Galactorrhea (principal)
CPT/HCPCS: G0202